=== PATIENT | female | born 1960 | race Caucasian/White ===

== ENCOUNTER 2023-11-02 10:50 | Outpatient (AMB) | payer OTHER, SELFPAY ==
--- NOTE | 2023-11-02 10:55 | A.OFFPC_ITS ---
Vital Signs 11/02/23 11:06 Height 5 ft 1.02 in Weight 242 lb 4 oz BMI 45.7 BP 146/88 H Blood Pressure Location Lt brachial Position Sitting Respiration 16 Pulse 96 Pulse Source Pulse Oximeter Temp 98.2 F Temp Source Oral Pulse Oximetry (%) 95 Oxygen Delivery Method Room Air Intake Visit Reasons: Establish Care Intake Note: New patient visit Allergies No Known Allergies Allergy (Verified 11/02/23 11:00) Medication List - Last Reconciled 11/02/23 by Bety Bettencourt PA-C albuterol sulfate 90 mcg/actuation (Ventolin HFA) 2 puffs inhalation Q4-6H PRN amlodipine 5 mg PO DAILY baclofen 10 mg PO TID bupropion HCl SR 100 mg PO QAM cyanocobalamin (vitamin B-12) 1,000 mcg PO DAILY diclofenac sodium 75 mg PO BID PRN fluoxetine mg PO fluticasone furoate-vilanterol 100-25 mcg/dose (Breo Ellipta) 1 ea inhalation DA PINKY hydrochlorothiazide 50 mg PO DAILY metformin ER 500 mg PO DAILY metoprolol succinate ER 50 mg PO DAILY omeprazole 20 mg PO DAILY oxcarbazepine mg PO simvastatin 10 mg PO BEDTIME HPI Establish Care HPI Details Pt is a 62 y/o female who presents today to establish [facility]. She has a significant past medical history of hypertension, hyperlipidemia, well- controlled type 2 diabetes with microalbuminuria, fatty liver, osteoarthritis of the bilateral knees, hips, and left shoulder, CASSIUS, fatty liver, COPD, continuous cannabis use, nicotine use, B12 and vitamin-D deficiency, anxiety, depression. No records at the time of today's visit. CV: She is seeing cardiology 01/09/24 and her echo is booked for 12/28/23. Her bp today is 146/88. She is on metoprolol 50 mg, hctz 50 mg, and amlodipine 2.5 mg. She states that over the last few weeks she has been getting a little chest pain. She states it comes and goes and seems to be triggered by anxiety. No recent stress tests in the last 10 years per pt ([facility] [place] notes requested). Currently, asymptomatic. She would not be able to walk on a treadmill given her arthritic pains. She does have baseline shortness a breath in it is unchanged but she states that she can feel herself becoming more and more deconditioned and short of breath with less. Her last labs at [facility] did show an elevated BNP of 517. Her labs also showed an elevated LDL of 167 and she was started on simvastatin. She has not yet rechecked her labs. Pulm: She is still on Breo and albuterol prn. Compliant with CPAP. She follows with Dr. Boudreaux and has annual low dose chest cts. Continues to smoke and would like to cut back but is not ready to cut back. Endo: she has diabetes/prediabetes since being on metformin. Tolerates this well. Does not check blood sugars. Psych: She is on fluoxetine, oxcarbazepine, wellbutrin. She follows with a psychiatrist. No SI/HI. Ortho: She went to ortho and states that they won't consider surgery until she quits smoking cigarettes, smoking marijuana, her copd and weight. We tried tramadol for pain but did not tolerate this. She is on diclofenac. She is tearful today because of the pain. She does use baclofen two to 3 times a day as needed but also tries not to take this regularly because it makes her feel too drowsy. [facility] Medical History (Updated 11/02/23 @ 14:16 by Bety Bettencourt PA-C) Smoker Chronic pain of both knees Dyslipidemia HTN (hypertension) Controlled type 2 diabetes mellitus Vitamin A deficiency Vitamin B12 deficiency Urge incontinence of urine Steatosis Severe obesity Prediabetes Palpitations Osteoarthritis of knee Obstructive sleep apnea syndrome Obesity Numbness Microalbuminuria Lumbar pain with radiation down both legs Internal hemorrhoids Hip pain GERD (gastroesophageal reflux disease) Depressive disorder affecting childbirth Chronic obstructive lung disease Cannabis misuse Bilateral cataracts Asthma Arthritis Allergic rhinitis Surgical History (Updated 11/02/23 @ 11:15 by Juana Navarro CMA) History of total hip replacement Questionnaire PHQ-9 Over the last 2 weeks, how often have you been bothered by any of the following problems? 1. Little interest or pleasure in doing things: several days 2. Feeling down, depressed, or hopeless: not at all 3. Trouble falling or staying asleep, or sleeping too much: not at all 4. Feeling tired or having little energy: not at all 5. Poor appetite or overeating: not at all 6. Feeling bad about yourself - or that you are a failure or have let yourself or your family down: several days 7. Trouble concentrating on things, such as reading the newspaper or watching television: not at all 8. Moving or speaking so slowly that other people could have noticed. Or the opposite - being so fidgety or restless that you have been moving around a lot more than usual: not at all [id number] - PHQ-9 Billing: Yes Source: Developed by Drs. Jesus Zurita, Aida Grossman, Carlyle Mendoza and colleagues, with an educational alban from [employer]. STEVENSON-7 AMB Questionnaire STEVENSON-7 Date STEVENSON - 7 assessed: 11/02/23 Feeling nervous, anxious, or on edge: 1 = Several days Not being able to stop or control worryin = Several days Worrying too much about different things: 1 = Several days Trouble relaxin = Several days Being so restless that it is hard to sit still: 1 = Several days Becoming easily annoyed or irritable: 0 = Not at all Feeling afraid as if something awful might happen: 0 = Not at all Total STEVENSON-7 score (0-4 normal; 5-9 mild; 10-14 moderate; 15-21 severe): 5 Source: Developed by Drs. Jesus Zurita, Aida Grossman, Carlyle Mendoza and colleagues, with an educational alban from [employer]. STEVENSON-7 Assessment Billing STEVENSON-7 Assessment Tool: STEVENSON-7 Assessment [id number] Physical exam (Primary Care) Vital Signs: Last Vital Signs Temp 98.2 F 11/02/23 11:06 Pulse 96 11/02/23 11:06 Resp 16 11/02/23 11:06 BP 146/88 H 11/02/23 11:06 Pulse Ox 95 11/02/23 11:06 Oxygen Delivery Method Room Air 11/02/23 11:06 BMI result Body Mass Index 45.7 Office Procedures EKG [id number], Complete Assessment and Plan Assessment & Plan (1) HTN (hypertension): Code(s): I10 - Essential (primary) hypertension Qualifiers: Hypertension type: primary hypertension Qualified Code(s): I10 - Essential (primary) hypertension Plan: We will increase the metoprolol today to 100 mg. Continue amlodipine 5 mg, 10 mg caused swelling, hydrochlorothiazide 50 mg. We will wait for records to make a determination about an DARNELL inhibitor. She does not know why she has not on 1 but also states she thinks she was on it in the past and then taken off. (2) Dyslipidemia: Code(s): E78.5 - Hyperlipidemia, unspecified Plan: Refilled simvastatin today. We will follow up pending test results. Lipids and LFTs ordered. (3) Chest pain: Code(s): R07.9 - Chest pain, unspecified Qualifiers: Chest pain type: unspecified Qualified Code(s): R07.9 - Chest pain, unspecified Plan: EKG today in the office is normal sinus rhythm. No prior study to compare. Again, requested records. Stress test ordered. Warning signs of chest pain that would require emergent medical treatment were discussed. (4) Chronic obstructive lung disease: Code(s): J44.9 - Chronic obstructive pulmonary disease, unspecified Qualifiers: COPD type: unspecified COPD Qualified Code(s): J44.9 - Chronic obstructive pulmonary disease, unspecified Plan: Stable. No current or recent exacerbation (5) Obstructive sleep apnea syndrome: Code(s): G47.33 - Obstructive sleep apnea (adult) (pediatric) Plan: Compliant with CPAP. (6) Severe obesity: Code(s): E66.01 - Morbid (severe) obesity due to excess calories Plan: We will try Mounjaro. Discussed risks and benefits and adverse effects of this medication including nausea, vomiting, pancreatitis, increased risk of thyroid malignancies. (7) Controlled type 2 diabetes mellitus: Code(s): E11.9 - Type 2 diabetes mellitus without complications Qualifiers: Diabetes mellitus intermediate card tender insulin use: without intermediate card tender use Diabetes mellitus complication status: with kidney complications Diabetes mellitus complication detail: with diabetic microalbuminuria Qualified Code(s): E11.29 - Type 2 diabetes mellitus with other diabetic kidney complication; R80.9 - Proteinuria, unspecified Plan: As above. Diabetic labs ordered. We will follow up pending test results. (8) Chronic pain of both knees: Code(s): M25.561 - Pain in right knee; M25.562 - Pain in left knee; G89.29 - Other chronic pain Plan: We will try gabapentin. Discussed risks and benefits and adverse effects of this medication. She will follow up in 1 month to be reassessed. Sooner if ne eded. Patient understands and agrees with this plan. Plan Patient has many social barriers. She did meet today with our nurse to help with transportation. More than 1 hour was spent today in [id number] time with this patient. Orders: Orders TSH reflex Free T4 Today E11.9 - Type 2 diabetes mellitus without complications, E66.01 - Morbid (severe) obesity due to excess calories, E78.5 - Hyperlipidemia, unspecified, F17.200 - Nicotine dependence, unspecified, uncomplicated, G47.33 - Obstructive sleep apnea (adult) (pediatric), G89.29 - Other chronic pain, I10 - Essential (primary) hypertension, J44.9 - Chronic obstructive pulmonary disease, unspecified, M25.561 - Pain in right knee, M25.562 - Pain in left knee, R80.9 - Proteinuria, unspecified Complete Blood Count Auto Diff Today E11.9 - Type 2 diabetes mellitus without complications, E66.01 - Morbid (severe) obesity due to excess calories, E78.5 - Hyperlipidemia, unspecified, F17.200 - Nicotine dependence, unspecified, uncomplicated, G47.33 - Obstructive sleep apnea (adult) (pediatric), G89.29 - Other chronic pain, I10 - Essential (primary) hypertension, J44.9 - Chronic obstructive pulmonary disease, unspecified, M25.561 - Pain in right knee, M25.562 - Pain in left knee, R80.9 - Proteinuria, unspecified Comprehensive Met. Panel Today E11.9 - Type 2 diabetes mellitus without complications, E66.01 - Morbid (severe) obesity due to excess calories, E78.5 - Hyperlipidemia, unspecified, F17.200 - Nicotine dependence, unspecified, uncomplicated, G47.33 - Obstructive sleep apnea (adult) (pediatric), G89.29 - Other chronic pain, I10 - Essential (primary) hypertension, J44.9 - Chronic obstructive pulmonary disease, unspecified, M25.561 - Pain in right knee, M25.562 - Pain in left knee, R80.9 - Proteinuria, unspecified Microalbumin, Random (w Creat) Today E11.9 - Type 2 diabetes mellitus without complications, E66.01 - Morbid (severe) obesity due to excess calories, R80.9 - Proteinuria, unspecified AMB EKG-In Office Today R07.9 - Chest pain, unspecified Hemoglobin A1c Today E11.9 - Type 2 diabetes mellitus without complications, E66.01 - Morbid (severe) obesity due to excess calories, E78.5 - Hyperlipidemia, unspecified, F17.200 - Nicotine dependence, unspecified, uncomplicated, G47.33 - Obstructive sleep apnea (adult) (pediatric), G89.29 - Other chronic pain, I10 - Essential (primary) hypertension, J44.9 - Chronic obstructive pulmonary disease, unspecified, M25.561 - Pain in right knee, M25.562 - Pain in left knee, R80.9 - Proteinuria, unspecified NM cardiolite stress test Today E11.29 - Type 2 diabetes mellitus with other diabetic kidney complication, F17.200 - Nicotine dependence, unspecified, uncomplicated, I10 - Essential (primary) hypertension, R07.9 - Chest pain, unspecified, R80.9 - Proteinuria, unspecified Medications: New baclofen 10 mg PO TID 30 days 90 tabs 6RF diclofenac sodium 75 mg PO BID 30 days PRN 60 tabs 1RF arthritis metformin ER 500 mg PO DAILY 90 tabs 3RF simvastatin 10 mg PO BEDTIME 90 tabs 3RF metoprolol succinate ER 100 mg PO DAILY 90 days 90 ea 3RF amlodipine 5 mg PO DAILY 90 tabs 3RF hydrochlorothiazide 50 mg PO DAILY 90 tabs 3RF omeprazole 20 mg PO DAILY 90 caps 3RF gabapentin 300 mg PO BID 60 caps 1RF tirzepatide (Mounjaro) 2.5 mg (0.5 mL) subcut QWEEK 4 weeks 2 mL 0RF Coding Level of Care Code Est Pt Level 5 (24132) Complex EM visit Add On G2211 Diagnoses Primary hypertension I10 Hypertension type: primary hypertension Dyslipidemia E78.5 Chest pain, unspecified type R07.9 Chest pain type: unspecified Chronic obstructive pulmonary disease, unspecified COPD type J44.9 COPD type: unspecified COPD Obstructive sleep apnea syndrome G47.33 Severe obesity E66.01 Controlled type 2 diabetes mellitus with microalbuminuria, without long-term current use of insulin E11.29; R80.9 Diabetes mellitus intermediate card tender insulin use: without intermediate card tender use Diabetes mellitus complication status: with kidney complications Diabetes mellitus complication detail: with diabetic microalbuminuria Chronic pain of both knees M25.561; M25.562; G89.29 CPT Codes EKG - CPT: [id number]-[id number], Complete ([id number]) Additional Codes STEVENSON-7 Assessment Billing - STEVENSON-7 Assessment Tool: STEVENSON-7 Assessment [id number] ([id number])
[2023-11-02 11:06] VITALS: BP 146/88; PULSE 96; RESP 16; TEMP 36.8; O2SAT 95; BMI 45.7
== END 2023-11-02 12:31 | disposition home or self-care (01) ==
PROVIDERS: PCP Physician Assistant; Visit Provider Physician Assistant
DX: J44.9 Chronic obstructive pulmonary disease, unspecified (principal); E66.01 Morbid (severe) obesity due to excess calories; E11.29 Type 2 diabetes mellitus with other diabetic kidney complication; Z68.42 Body mass index [BMI] 45.0-49.9, adult; R07.9 Chest pain, unspecified; I10 Essential (primary) hypertension; E78.5 Hyperlipidemia, unspecified; R80.9 Proteinuria, unspecified; G47.33 Obstructive sleep apnea (adult) (pediatric); M25.561 Pain in right knee; M25.562 Pain in left knee; G89.29 Other chronic pain
CPT/HCPCS: 93000; 99215; G2211

== ENCOUNTER 2023-11-29 09:21 | Outpatient (AMB) | payer OTHER, SELFPAY ==
--- NOTE | 2023-11-29 09:26 | MHC.PC.OV ---
Vital Signs 11/29/23 09:32 Height 5 ft 1.02 in Weight 253 lb 8 oz BMI 47.9 BP 132/64 Blood Pressure Location Lt brachial Position Sitting Respiration 20 Pulse 59 Pulse Source Pulse Oximeter Temp 98.2 F Temp Source Oral Pulse Oximetry (%) 92 Oxygen Delivery Method Room Air Intake Visit Reasons: follow up issue with legs swollen Intake Note: Follow up, swelling of legs. Small Products I Assembler Required: No Allergies No Known Allergies Allergy (Verified 11/29/23 09:27) Medication List - Last Reconciled 11/29/23 by Bety Bettencourt PA-C albuterol sulfate 90 mcg/actuation (Ventolin HFA) 2 puffs inhalation Q4-6H PRN amlodipine 5 mg PO DAILY baclofen 10 mg PO TID 30 days bupropion HCl SR 100 mg PO QAM commode (bedside commode) As directed cyanocobalamin (vitamin B-12) 1,000 mcg PO DAILY [diabetic shoes Use diabetic shoes daily as directed.] diclofenac sodium 75 mg PO BID PRN fluoxetine mg PO fluticasone furoate-vilanterol 100-25 mcg/dose (Breo Ellipta) 1 ea inhalation DAILY furosemide 20 mg PO DAILY gabapentin 300 mg PO BID hydrochlorothiazide 50 mg PO DAILY metformin ER 500 mg PO DAILY metoprolol succinate ER 100 mg PO DAILY 90 days omeprazole 20 mg PO DAILY oxcarbazepine mg PO simvastatin 10 mg PO BEDTIME tirzepatide (Mounjaro) 2.5 mg (0.5 mL) subcut QWEEK 4 weeks walker 1 ea as directed daily; Tobacco use date assessed: 11/29/23 Dental Screening Dental Screen Date: 11/29/23 Did you have a dental visit in the last 12 months?: No Did you have a dental problem in the last 6 months where you did not have access to dental care?: No Was dental information given to patient?: Patient has dentist HPI follow up issue with legs swollen HPI Details Pt is a 62 y/o female who presents today to follow up. -She was supposed to be seen after her labs but she says that she forgot to get this done. She called last week because her legs were swelling again by the end of the day and I started her on Lasix. She states that did help a bit but the swelling is still present. She states that her right foot is red. She states that her feet are ?bad ?and she usually refuses to have them looked at because she likes to treat them herself but her right foot is a bit uncomfortable. She does get leg pain with walking the also wonders if it is related to her knee arthritis. She states her calves do get sore with this. It gets better with rest. Her right foot has been persistently painful recently. She does not know when it started to get red but she thinks a few days ago. No fevers or chills. No trauma. No open sores but states that she knows her feet are dry and cracked. CV: She is seeing cardiology 01/09/24 and her echo is booked for 12/28/23. Her nuclear stress test is booked for 12/25. Her bp today is 132/64. She is on metoprolol 50 mg, lasix 20 mg, and amlodipine 5 mg. She does have baseline shortness a breath in it is unchanged but she states that she can feel herself becoming more and more deconditioned and short of breath with less. Her last labs at [facility] did show an elevated BNP of 517. Her labs also showed an elevated LDL of 167 and she was started on simvastatin. She has not yet rechecked her labs. She does report that Pulm: She is still on Breo and albuterol prn. Compliant with CPAP. She follows with Dr. Boudreaux and has annual low dose chest cts. Continues to smoke and would like to cut back but is not ready to cut back. Endo: she has diabetes/prediabetes since being on metformin. Tolerates this well. Does not check blood sugars. She never picked up the Mounjaro. Psych: She is on fluoxetine, oxcarbazepine, wellbutrin. She follows with a psychiatrist. No SI/HI. Ortho: She went to ortho and states that they won't consider surgery until she quits smoking cigarettes, smoking marijuana, her copd and weight. We tried tramadol for pain but did not tolerate this. She is on diclofenac. She is tearful today because of the pain. She does use baclofen two to 3 times a day as needed but also tries not to take this regularly because it makes her feel too drowsy. I started her on gabapentin at the last visit and she finds this helpful. [facility] Medical History (Updated 11/29/23 @ 13:32 by Bety Bettencourt PA-C) Increased urinary frequency Gait instability Smoker Chronic pain of both knees Dyslipidemia HTN (hypertension) Controlled type 2 diabetes mellitus Vitamin A deficiency Vitamin B12 deficiency Urge incontinence of urine Steatosis Severe obesity Prediabetes Palpitations Osteoarthritis of knee Obstructive sleep apnea syndrome Obesity Numbness Microalbuminuria Lumbar pain with radiation down both legs Internal hemorrhoids Hip pain GERD (gastroesophageal reflux disease) Depressive disorder affecting childbirth Chronic obstructive lung disease Cannabis misuse Bilateral cataracts Asthma Arthritis Allergic rhinitis Surgical History (Updated 11/02/23 @ 11:15 by Juana Navarro CMA) History of total hip replacement Social History (Updated 11/29/23 @ 09:31 by Juana Navarro CMA) Housing: Apartment Patient Tobacco Use Status: Former Tobacco user Cigarette Packs Per Day: 6 Years Smoked: 46 e-Cigarette/Vaping Use: Never Used Second Hand Smoke Exposure: No Substance Use Type: Marijuana service: No Current occupational status: disabled Cognitive needs: No Hearing needs: No Vision needs: No Questionnaire PHQ-9 Over the last 2 weeks, how often have you been bothered by any of the following problems? 1. Little interest or pleasure in doing things: several days 2. Feeling down, depressed, or hopeless: several days 3. Trouble falling or staying asleep, or sleeping too much: not at all 4. Feeling tired or having little energy: several days 5. Poor appetite or overeating: several days 6. Feeling bad about yourself - or that you are a failure or have let yourself or your family down: not at all 7. Trouble concentrating on things, such as reading the newspaper or watching television: not at all 8. Moving or speaking so slowly that other people could have noticed. Or the opposite - being so fidgety or restless that you have been moving around a lot more than usual: not at all 9. Thoughts that you would be better off or of hurting yourself in some way: not at all Total score: 4 Depression Screening Interpretation: Positive Depression Screening Done: Yes 39527 - PHQ-9 Billing: Yes Source: Developed by Drs. Jesus Zurita, Aida Grossman, Carlyle Mendoza and colleagues, with an educational alban from [employer]. Thrive Questionnaire Date Thrive assessed: 11/29/23 I am a: Patient What is your living situation today?: I have a steady place to live Within the past 12 months, did the food you bought not last and you didn't have the money to get more?: Sometimes True Within the past 12 months, did you worry whether your food would run out before you got money to buy more?: Sometimes True Do you have trouble paying for medicines?: No Do you have trouble getting transportation to medical appointments?: No Do you have trouble paying your heating and electricity bill?: No Do you have trouble taking care of your child, family member or friend?: No Do you have trouble with day-to-day activities such as bathing, preparing meals, shopping, managing finances, etc.?: Yes Are you currently unemployed and looking for a job?: No Are you interested in more education?: No Please select the resources that you would like help with: Daily support Currently or been in a relationship where the following occur: No concerns reported THRIVE Score: 2 AUDIT C Alcohol Use Questionnaire (AUDIT-C) 1. How often do you have a drink containing alcohol?: Never 3. How often do you have six or more drinks on one occasion?: Never Total Score: 0 STEVENSON-7 AMB Questionnaire STEVENSON-7 Date STEVENSON - 7 assessed: 11/02/23 Feeling nervous, anxious, or on edge: 1 = Several days Not being able to stop or control worryin = Not at all Worrying too much about different things: 1 = Several days Trouble relaxin = Not at all Being so restless that it is hard to sit still: 0 = Not at all Becoming easily annoyed or irritable: 0 = Not at all Feeling afraid as if something awful might happen: 0 = Not at all Total STEVENSON-7 score (0-4 normal; 5-9 mild; 10-14 moderate; 15-21 severe): 2 Source: Developed by Drs. Jesus Zurita, Aida Grossman, Carlyle Mendoza and colleagues, with an educational alban from [employer]. STEVENSON-7 Assessment Billing STEVENSON-7 Assessment Tool: STEVENSON-7 Assessment 34402 ACT Questionnaire In the past 4 weeks, how much of the time did your asthma keep you from getting as much done at work, school or at home?: None of the time During the past 4 weeks, how often did your asthma symptoms wake you up at night or earlier than usual in the morning?: Not at all During the past 4 weeks, how often have you had to use your rescue inhaler or nebulizer medication?: Not at all How would you rate your asthma control during the past 4 weeks?: Well controlled ACT Interpretation: Negative Score: 19 Physical exam (Primary Care) Vital Signs: Last Vital Signs Temp 98.2 F 11/29/23 09:32 Pulse 59 11/29/23 09:32 Resp 20 11/29/23 09:32 BP 132/64 11/29/23 09:32 Pulse Ox 92 11/29/23 09:32 Oxygen Delivery Method Room Air 11/29/23 09:32 BMI result Body Mass Index 47.9 Tobacco/Smoking Status: Tobacco use Status Tobacco use date assessed 11/29/23 11/29/23 09:28 Patient Tobacco Use Status Former Tobacco user 11/29/23 09:38 e-Cigarette/Vaping Use Never Used 11/29/23 09:38 PHQ-9: PHQ-9 Score PHQ-9: Total score 4 11/29/23 09:56 Depression Screening Interpretation: Positive Thrive Assessment: Date of Thrive Assessment Date Thrive assessed 11/29/23 11/29/23 09:56 Currently or been in a relationship where the following occur: No concerns reported Const Orientation/consciousness: patient oriented x3 HENMT Ears: hearing grossly normal bilaterally Neck Thyroid: Thyroid normal Lymphatic: no lymphadenopathy noted Resp Auscultation: clear to auscultation bilaterally Cardio Rate: regular rate Rhythm: regular rhythm Heart sounds: S1 normal heart sound present and S2 normal heart sound present Skin General skin exam: no rashes or lesions noted Neuro General: patient oriented x3, gait normal and no focal motor deficits Extrem Other: 2+ pitting edema noted of the bilateral lower legs. DP pulses 1+ bilaterally. The right foot is erythematous and slightly tender to palpation. It does not extend past the ankle. The skin between the toenails is cracked, white and flaky. There is flaky skin noted throughout the bottom of both feet. Thickened, yellowish toenails noted. Monofilament sensation intact. Calf nontender bilaterally. Assessment and Plan Assessment & Plan (1) Lower leg edema: Code(s): R60.0 - Localized edema Plan: I will increase the Lasix. Follow up in 1 week. (2) Chronic obstructive lung disease: Code(s): J44.9 - Chronic obstructive pulmonary disease, unspecified Qualifiers: COPD type: unspecified COPD Qualified Code(s): J44.9 - Chronic obstructive pulmonary disease, unspecified Plan: Stable. (3) Controlled type 2 diabetes mellitus: Code(s): E11.9 - Type 2 diabetes mellitus without complications Qualifiers: Diabetes mellitus skilled nursing insulin use: without intermediate card tender use Diabetes mellitus complication status: with kidney complications Diabetes mellitus complication detail: with diabetic microalbuminuria Qualified Code(s): E11.29 - Type 2 diabetes mellitus with other diabetic kidney complication; R80.9 - Proteinuria, unspecified Plan: Labs have been ordered. We will follow up pending test results. (4) HTN (hypertension): Code(s): I10 - Essential (primary) hypertension Qualifiers: Hypertension type: primary hypertension Qualified Code(s): I10 - Essential (primary) hypertension Plan: Continue current regimen. (5) Smoker: Code(s): F17.200 - Nicotine dependence, unspecified, uncomplicated Plan: Encouraged smoking cessation. (6) Claudication: Code(s): I73.9 - Peripheral vascular disease, unspecified Plan: ? Claudication. Referral to vascular (7) Cellulitis of right foot: Code(s): L03.115 - Cellulitis of right lower limb Plan: I will start her on Keflex. Advised to elevate the foot. Warning signs of an infection that would require emergent medical treatment were discussed. I discussed imaging with the patient but she refuses due to difficulty with transportation. (8) Tinea pedis of both feet: Code(s): B35.3 - Tinea pedis Plan: I offered referral to Podiatry as well for her feet and she declines. We will treat with lotrim cream. Orders: Referrals Vascular Surgery Referral E11.29 - Type 2 diabetes mellitus with other diabetic kidney complication, F17.200 - Nicotine dependence, unspecified, uncomplicated, I10 - Essential (primary) hypertension, I73.9 - Peripheral vascular disease, unspecified, J44.9 - Chronic obstructive pulmonary disease, unspecified, R60.0 - Localized edema, R80.9 - Proteinuria, unspecified Medications: New cephalexin 500 mg PO QID 40 caps 0RF clotrimazole 1% (Lotrimin AF (clotrimazole)) 1 appl topical BID 4 weeks 45 grams 3RF furosemide 20 mg PO BID 60 tabs 3RF Discontinued furosemide Discontinued Reason: Duplicate 20 mg PO DAILY 30 tabs 0RF hydrochlorothiazide Discontinued Reason: Duplicate 50 mg PO DAILY 90 tabs 3RF Coding Level of Care Code Est Pt Level 4 (48457) Complex EM visit Add On G2211 Diagnoses Lower leg edema R60.0 Chronic obstructive pulmonary disease, unspecified COPD type J44.9 COPD type: unspecified COPD Controlled type 2 diabetes mellitus with microalbuminuria, without long-term current use of insulin E11.29; R80.9 Diabetes mellitus skilled nursing insulin use: without skilled nursing use Diabetes mellitus complication status: with kidney complications Diabetes mellitus complication detail: with diabetic microalbuminuria Primary hypertension I10 Hypertension type: primary hypertension Smoker F17.200 Claudication I73.9 Cellulitis of right foot L03.115 Tinea pedis of both feet B35.3 Additional Codes STEVNESON-7 Assessment Billing - STEVENSON-7 Assessment Tool: STEVENSON-7 Assessment [id number] ([id number])
[2023-11-29 09:32] VITALS: BP 132/64; PULSE 59; RESP 20; TEMP 36.8; O2SAT 92; BMI 47.9
== END 2023-11-29 10:25 | disposition home or self-care (01) ==
PROVIDERS: PCP Physician Assistant; Visit Provider Physician Assistant
DX: J44.9 Chronic obstructive pulmonary disease, unspecified (principal); E11.29 Type 2 diabetes mellitus with other diabetic kidney complication; I73.9 Peripheral vascular disease, unspecified; R60.0 Localized edema; R80.9 Proteinuria, unspecified; I10 Essential (primary) hypertension; F17.200 Nicotine dependence, unspecified, uncomplicated; L03.115 Cellulitis of right lower limb; B35.3 Tinea pedis
CPT/HCPCS: 99214; G2211

== ENCOUNTER 2023-11-29 10:35 | Outpatient (REF) | payer OTHER, SELFPAY ==
[2023-11-29 14:13] LABS: MANUAL DIFF FLAG NO
[2023-11-29 14:17] LABS: Basophils Percent Auto 0.4 % (0-2); Eosinophils Absolute Auto 0.2 X10*3/uL (0.0-0.4); Eosinophils Percent Auto 1.6 % (0-4); Hematocrit 37.8 % (37.0-47.0); Hemoglobin 11.8 g/dl (12.0-16.0); Imm Gran Abs Auto 0.04 X10*3/uL (0.00-0.03); Imm Gran Pct Auto 0.4 % (0.0-0.4); Lymphocytes Absolute Auto 2.3 X10*3/uL (1.2-4.9); Lymphocytes Percent Auto 22.2 % (20-40); Mean Corpuscular HGB Conc 31.2 g/dl (31.0-35.0); Mean Corpuscular Hemoglobin 27.5 pg (27.0-33.0); Mean Corpuscular Volume 88.1 fL (80.0-98.0); Mean Platelet Volume 10.3 fL (9.4-12.3); Monocytes Absolute Auto 0.6 X10*3/uL (0.1-1.2); Monocytes Percent Auto 5.5 % (2-11); Neutrophils Absolute Auto 7.1 x10*3/uL (2.0-8.3); Neutrophils Percent Auto 69.9 % (45-73); Platelet Count 342 X10*3/uL (160-400); Red Blood Count 4.29 X10*6/uL (4.20-5.50); Red Cell Distribution Width 14.8 % (11.0-16.0); White Blood Count 10.1 X10*3/uL (4.8-10.8)
[2023-11-29 14:24] LABS: Estimated Average Glucose 111 mg/dL; Hemoglobin A1c % 5.5 % (<6.0)
[2023-11-29 14:35] LABS: Alanine Aminotransferase 10 U/L (0-31); Albumin Level 3.9 g/dL (3.5-5.0); Alkaline Phosphatase 116 U/L (39-117); Anion Gap 13 (12-20); Aspartate Amino Transferase 12 U/L (5-31); Bilirubin Total 0.3 mg/dL (0.0-1.0); Blood Urea Nitrogen 29 mg/dL (9-16); Calcium 9.5 mg/dL (8.4-10.2); Carbon Dioxide 27 mmol/L (22-29); Chloride 107 mmol/L (96-108); Estimated Glomerular Filt Rate 48; Glucose Random 94 mg/dL (60-115); Potassium 5.1 mmol/L (3.3-5.1); Sodium 142 mmol/L (135-145); Total Protein 7.3 g/dL (6.5-8.0)
[2023-11-29 14:51] LABS: Creatinine Urine 194.32 mg/dL
[2023-11-29 15:02] LABS: Microalbum/Creatinine Ratio Ur 345.8 ug/mg cr (<30)
== END 2023-11-29 10:36 | disposition home or self-care (01) ==
LOC: HO.WFDLDS 10:35
PROVIDERS: Visit Provider Physician Assistant
DX: E11.9 Type 2 diabetes mellitus without complications (principal); I10 Essential (primary) hypertension; E78.5 Hyperlipidemia, unspecified; M25.561 Pain in right knee; M25.562 Pain in left knee; G89.29 Other chronic pain; F17.200 Nicotine dependence, unspecified, uncomplicated; J44.9 Chronic obstructive pulmonary disease, unspecified; R80.9 Proteinuria, unspecified; G47.33 Obstructive sleep apnea (adult) (pediatric); E66.01 Morbid (severe) obesity due to excess calories
CPT/HCPCS: 36415; 80053; 82043; 82570; 83036; 84443; 85025

== ENCOUNTER 2023-12-13 11:33 | Outpatient (AMB) | payer OTHER, SELFPAY ==
--- NOTE | 2023-12-13 11:28 | MHC.PC.OV ---
Vital Signs 12/13/23 11:38 Height 5 ft 1 in Weight 252 lb 4 oz BMI 47.7 BP 132/68 Blood Pressure Location Rt brachial Position Sitting Respiration 16 Pulse 62 Pulse Source Pulse Oximeter Pulse Oximetry (%) 94 Oxygen Delivery Method Room Air Intake Visit Reasons: bp Allergies No Known Allergies Allergy (Verified 11/29/23 09:27) Medication List - Last Reconciled 12/13/23 by Bety Bettencourt PA-C albuterol sulfate 90 mcg/actuation (Ventolin HFA) 2 puffs inhalation Q4-6H PRN amlodipine 5 mg PO DAILY baclofen 10 mg PO TID 30 days bupropion HCl SR 100 mg PO QAM clotrimazole 1% (Lotrimin AF (clotrimazole)) 1 appl topical BID 4 weeks commode (bedside commode) As directed cyanocobalamin (vitamin B-12) 1,000 mcg PO DAILY [diabetic shoes Use diabetic shoes daily as directed.] fluoxetine mg PO fluticasone furoate-vilanterol 100-25 mcg/dose (Breo Ellipta) 1 ea inhalation DAILY furosemide 20 mg PO BID furosemide 20 mg PO BID gabapentin 300 mg PO BID 90 days metformin ER 500 mg PO DAILY metoprolol succinate ER 100 mg PO DAILY 90 days omeprazole 20 mg PO DAILY oxcarbazepine mg PO simvastatin 10 mg PO BEDTIME tirzepatide (Mounjaro) 2.5 mg (0.5 mL) subcut QWEEK 4 weeks walker 1 ea as directed daily; Tobacco use date assessed: 11/29/23 Dental Screening Dental Screen Date: 11/29/23 HPI bp HPI Details Pt is a 62 y/o female who presents today to follow up. -her cellulitis has resolved. She completed the antibiotics as you states her foot is no longer red, hot or painful. We did increase her dosage of the Lasix at the last visits she states that the 40 mg has been helpful. Her legs are much less swollen by the end of the day. CV: She is seeing cardiology 01/09/24 and her echo is booked for 12/28/23. Her nuclear stress test is booked for 12/25. Her bp today is 132/64. She is on metoprolol 50 mg, lasix 40 mg, and amlodipine 5 mg. She does have baseline shortness a breath in it is unchanged but she states that she can feel herself becoming more and more deconditioned and short of breath with less. Her last labs at [facility] did show an elevated BNP of 517. Her labs also showed an elevated LDL of 167 and she was started on simvastatin. She has not yet rechecked her labs. Pulm: She is still on Breo and albuterol prn. She has been using albuterol a few times a day with the increased humidity and heat recently. She is able to speak in full sentences today but the wheezing is audible from across the room. Compliant with CPAP. She follows with Dr. Boudreaux and has annual low dose chest cts. Continues to smoke and would like to cut back but is not ready to cut back. Endo: she a history of type 2 diabetes well-controlled with microalbuminuria. She is currently on metformin. Last A1c was 5.5. She has been very inactive due to her arthritis in her knees, chronic pain and COPD and has continued to gain weight. She states that she never was told that the Mounjaro was ready to be picked up. Does not check her blood sugars. Psych: She is on fluoxetine, oxcarbazepine, wellbutrin. She follows with a psychiatrist. No SI/HI. Ortho: She went to ortho and states that they won't consider surgery until she quits smoking cigarettes, smoking marijuana, her copd and weight. We tried tramadol for pain but did not tolerate this. She is on diclofenac however, recent labs showed decreased kidney function.. She is tearful today because of the pain. She does use baclofen two to 3 times a day as needed but also tries not to take this regularly because it makes her feel too drowsy. I started her on gabapentin at the last visit and she finds this helpful but only minimally. Vascular: She does have an upcoming appointment with vascular surgery regarding possible claudication. She can only walk a short distance prior to her legs being painful. She did have ultrasound to rule out DVTs. [facility] Medical History (Updated 12/13/23 @ 11:52 by Bety Bettencourt PA-C) CKD (chronic kidney disease) stage 3, GFR 30-59 ml/min Increased urinary frequency Gait instability Smoker Chronic pain of both knees Dyslipidemia HTN (hypertension) Controlled type 2 diabetes mellitus Vitamin A deficiency Vitamin B12 deficiency Urge incontinence of urine Steatosis Severe obesity Prediabetes Palpitations Osteoarthritis of knee Obstructive sleep apnea syndrome Obesity Numbness Microalbuminuria Lumbar pain with radiation down both legs Internal hemorrhoids Hip pain GERD (gastroesophageal reflux disease) Depressive disorder affecting childbirth Chronic obstructive lung disease Cannabis misuse Bilateral cataracts Asthma Arthritis Allergic rhinitis Surgical History (Updated 11/02/23 @ 11:15 by Juana Navarro CMA) History of total hip replacement Social History (Updated 11/29/23 @ 09:31 by Juana Navarro CMA) Housing: Apartment Patient Tobacco Use Status: Former Tobacco user Cigarette Packs Per Day: 6 Years Smoked: 46 e-Cigarette/Vaping Use: Never Used Second Hand Smoke Exposure: No Substance Use Type: Marijuana service: No Current occupational status: disabled Cognitive needs: No Hearing needs: No Vision needs: No Questionnaire Thrive Questionnaire Date Thrive assessed: 11/29/23 STEVENSON-7 AMB Questionnaire STEVENSON-7 Date STEVENSON - 7 assessed: 11/02/23 Source: Developed by Drs. Jesus Zurita, Aida Grossman, Carlyle Mendoza and colleagues, with an educational alban from [employer]. Physical exam (Primary Care) BMI Assessment/Plan discussion: High (Mounjaro) BMI High, discussed plan: lifestyle, weight reduction and dietary Tobacco/Smoking Status: Tobacco use Status Tobacco use date assessed 11/29/23 12/13/23 11:29 Patient Tobacco Use Status Former Tobacco user 12/13/23 11:29 e-Cigarette/Vaping Use Never Used 12/13/23 11:29 Tobacco cessation counseling provided: Yes Items discussed: Other (Offered medication but declines) Relapse Prevention: discussed the importance of a supportive environment, discussed negative mood or depression after quitting and discussed dietary, exercise and/or lifestyle changes CPT code: 82525 - 4-10 Minutes Thrive Assessment: Date of Thrive Assessment Date Thrive assessed 11/29/23 12/13/23 11:29 Const Orientation/consciousness: patient oriented x3 HENMT Ears: hearing grossly normal bilaterally Neck Thyroid: Thyroid normal Lymphatic: no lymphadenopathy noted Resp Other: Inspiratory and expiratory wheezing noted throughout. Cardio Rate: regular rate Rhythm: regular rhythm Heart sounds: S1 normal heart sound present and S2 normal heart sound present GI Inspection: Yes normal to inspection Palpation (GI): Soft to palpation and Other GI palpation findings present (nontender, no cva tenderness) Auscultation: normoactive bowel sounds Rectal Exam - Female: deferred Skin General skin exam: no rashes or lesions noted Neuro General: patient oriented x3, gait normal and no focal motor deficits Assessment and Plan Assessment & Plan (1) Chronic obstructive lung disease: Code(s): J44.9 - Chronic obstructive pulmonary disease, unspecified Qualifiers: COPD type: COPD with acute exacerbation Qualified Code(s): J44.1 - Chronic obstructive pulmonary disease with (acute) exacerbation Plan: Currently exacerbated. We will start on a prednisone taper. Has an appointment with pulmonology next week. She will follow up sooner if anything worsens or changes. Warning signs of a COPD exacerbation that would require emergent medical treatment were discussed. Strongly encouraged smoking cessation. We spent extensive time discussing the need for her to do this. (2) Chronic pain of both knees: Code(s): M25.561 - Pain in right knee; M25.562 - Pain in left knee; G89.29 - Other chronic pain Plan: Advised to discontinue the diclofenac due to the decreased kidney function. We will start her on OxyContin 10 mg b.i.d.. She has currently not a candidate for surgery. We did discuss the risks and adverse effects associated with pain medication. We discussed that this is addictive and can be sedating. Advised to avoid drinking and/or driving while taking this medication. She does not drive. She does walk with assistive devices. (3) HTN (hypertension): Code(s): I10 - Essential (primary) hypertension Qualifiers: Hypertension type: primary hypertension Qualified Code(s): I10 - Essential (primary) hypertension Plan: Continue current regimen (4) Controlled type 2 diabetes mellitus: Code(s): E11.9 - Type 2 diabetes mellitus without complications Qualifiers: Diabetes mellitus terminologist insulin use: without terminologist use Diabetes mellitus complication status: with kidney complications Diabetes mellitus complication detail: with diabetic microalbuminuria Qualified Code(s): E11.29 - Type 2 diabetes mellitus with other diabetic kidney complication; R80.9 - Proteinuria, unspecified Plan: Would like her to start a GLP 1 given the kidney function and discuss the benefits for weight loss. We discussed risks and benefits and adverse effects of this medication. She will let me know if there is any issues picking this up. (5) Dyslipidemia: Code(s): E78.5 - Hyperlipidemia, unspecified Plan: Continue simvastatin. Check lipids. (6) CKD (chronic kidney disease) stage 3, GFR 30-59 ml/min: Code(s): N18.30 - Chronic kidney disease, stage 3 unspecified Plan: We will recheck in 1 month. Avoid NSAIDs. (7) Microalbuminuria: Code(s): R80.9 - Proteinuria, unspecified Plan: Discussed starting an DARNELL inhibitor or an Arb at the next visit. Orders: Orders Basic Metabolic Panel Today N18.30 - Chronic kidney disease, stage 3 unspecified Lipid Panel Today E78.5 - Hyperlipidemia, unspecified Medications: New prednisone take 3 tab po x 3 days, take 2 tab po x 3 days, take 1 tab po x 3 days; 18 tabs 0RF oxycodone ER (OxyContin) Partial Fill upon patient request. 10 mg PO Q12H 28 days 56 tabs 0RF Refilled furosemide 20 mg PO BID 60 tabs 3RF tirzepatide (Mounjaro) 2.5 mg (0.5 mL) subcut QWEEK 4 weeks 2 mL 0RF Coding Level of Care Code Est Pt Level 4 (89081) Complex EM visit Add On G2211 Diagnoses Chronic obstructive pulmonary disease with acute exacerbation J44.1 COPD type: COPD with acute exacerbation Chronic pain of both knees M25.561; M25.562; G89.29 Primary hypertension I10 Hypertension type: primary hypertension Controlled type 2 diabetes mellitus with microalbuminuria, without long-term current use of insulin E11.29; R80.9 Diabetes mellitus fci insulin use: without terminologist use Diabetes mellitus complication status: with kidney complications Diabetes mellitus complication detail: with diabetic microalbuminuria Dyslipidemia E78.5 CKD (chronic kidney disease) stage 3, GFR 30-59 ml/min N18.30 Microalbuminuria R80.9 Additional Codes Vital Signs *Quality* - CPT code: 58400 - 4-10 Minutes ([id number])
[2023-12-13 11:38] VITALS: BP 132/68; PULSE 62; RESP 16; O2SAT 94; BMI 47.7
== END 2023-12-13 11:57 | disposition home or self-care (01) ==
PROVIDERS: PCP Physician Assistant; Visit Provider Physician Assistant
DX: J44.1 Chronic obstructive pulmonary disease with (acute) exacerbation (principal); M25.561 Pain in right knee; M25.562 Pain in left knee; G89.29 Other chronic pain; I10 Essential (primary) hypertension; E11.29 Type 2 diabetes mellitus with other diabetic kidney complication; R80.9 Proteinuria, unspecified; E78.5 Hyperlipidemia, unspecified; N18.30 Chronic kidney disease, stage 3 unspecified
CPT/HCPCS: 99214; 99406; G2211

== ENCOUNTER 2024-01-17 10:46 | Outpatient (AMB) | payer OTHER, SELFPAY ==
--- NOTE | 2024-01-17 10:48 | MHC.PC.OV ---
Vital Signs 01/17/24 10:56 Height 5 ft 1 in Weight 253 lb 8 oz BMI 47.9 BP 138/72 Blood Pressure Location Lt brachial Position Sitting Respiration 20 Pulse 59 Pulse Source Pulse Oximeter Pulse Oximetry (%) 94 Oxygen Delivery Method Room Air Intake Visit Reasons: med f/u Intake Note: Medication follow up Allergies No Known Allergies Allergy (Verified 01/17/24 10:52) Medication List - Last Reconciled 01/17/24 by Bety Bettencourt PA-C albuterol sulfate 90 mcg/actuation (Ventolin HFA) 2 puffs inhalation Q4-6H PRN amlodipine 5 mg PO DAILY baclofen 10 mg PO TID 30 days bupropion HCl SR 100 mg PO QAM clotrimazole 1% (Lotrimin AF (clotrimazole)) 1 appl topical BID 4 weeks commode (bedside commode) As directed cyanocobalamin (vitamin B-12) 1,000 mcg PO DAILY [diabetic shoes Use diabetic shoes daily as directed.] dulaglutide (Trulicity) 0.75 mg (0.5 mL) subcut QWEEK fluoxetine mg PO fluticasone furoate-vilanterol 100-25 mcg/dose (Breo Ellipta) 1 ea inhalation DAILY furosemide 20 mg PO BID gabapentin 300 mg PO BID 90 days metformin ER 500 mg PO DAILY metoprolol succinate ER 100 mg PO DAILY 90 days miscellaneous medical supply Use daily As directed (walker with wheels and seat) miscellaneous medical supply One shoe horn to use daily As directed miscellaneous medical supply as directed; 1 gripper, use daily as needed to crab picker objects morphine ER 10 mg PO Q12H 28 days omeprazole 20 mg PO DAILY oxcarbazepine mg PO prednisone take 1 tab po x 3 days (as per end of taper) simvastatin 10 mg PO BEDTIME walker 1 ea as directed daily; Tobacco use date assessed: 11/29/23 Dental Screening Dental Screen Date: 11/29/23 HPI med f/u HPI Details Pt is a 62 y/o female who presents today to follow up. CV: She saw cardiology 01/09/24 and states that no medication changes were made 8 but told that she needed to have her stress test. She had her stress test booked for 12/25 but canceled it and states that she still needs to reschedule it. She does not remember why she was unable to make that day. She did have her echo which was overall WNL and unchanged from last year. Her bp today is 138/72. She is on metoprolol 50 mg, lasix 40 mg, and amlodipine 5 mg. She does have baseline shortness a breath in it is unchanged but she states that she can feel herself becoming more and more deconditioned and short of breath with less. Pulm: She is still on Breo and albuterol prn. Compliant with CPAP. She follows with Dr. Boudreaux and has annual low dose chest cts. Continues to smoke and would like to cut back but is not ready to cut back. Endo: she a history of type 2 diabetes well-controlled with microalbuminuria. She is currently on metformin. Last A1c was 5.5. She has been very inactive due to her arthritis in her knees, chronic pain and COPD and has continued to gain weight. She states that her insurance never covered the GLP ones. Does not check her blood sugars. She does have renal complications and still continues to use NSAIDs despite our last conversation. Nephro: Has never seen a risk and insurance manager in her kidney function has decreased. She tells me that despite our last conversations about her kidney function and how she should not be using NSAIDs she would still take this because of her joint pains. Ortho: She went [facility] and states that they won't consider surgery until she quits smoking cigarettes, smoking marijuana, her copd and weight. She states that she is going to go out by [place] to see if they will do this surgery even if she is high risk. I did ask her if she understands the definition of high-risk and how this means that there is a great risk to her not making out of surgery or with some significant complications. She tells me that she is miserable with her hip and knee pain. I did order morphine at our last visit but she never picked this up. She states that they told her it needed a prior Auth but then she never checked in on it. She has intermittently been using diclofenac and knows that she should not be doing this. We tried tramadol for pain but did not tolerate this. She is on diclofenac however, recent labs showed decreased kidney function.. She is tearful today because of the pain. She does use baclofen two to 3 times a day as needed but also tries not to take this regularly because it makes her feel too drowsy. I started her on gabapentin at the last visit and she finds this helpful but only minimally. Vascular: She does have an upcoming appointment with vascular surgery 02/05 regarding possible claudication. She can only walk a short distance prior to her legs being painful. She did have ultrasound to rule out DVTs. Psych: She is on fluoxetine, oxcarbazepine, wellbutrin. She follows with a psychiatrist. No SI/HI. -she does request a referral to audiology today as she has had some decreased hearing. States that sometimes it feels muffled. COUNT INCLUDES THE [facility] Medical History (Updated 01/17/24 @ 12:17 by Bety Bettencourt PA-C) CKD (chronic kidney disease) stage 3, GFR 30-59 ml/min Increased urinary frequency Gait instability Smoker Chronic pain of both knees Dyslipidemia HTN (hypertension) Controlled type 2 diabetes mellitus Vitamin A deficiency Vitamin B12 deficiency Urge incontinence of urine Steatosis Severe obesity Prediabetes Palpitations Osteoarthritis of knee Obstructive sleep apnea syndrome Obesity Numbness Microalbuminuria Lumbar pain with radiation down both legs Internal hemorrhoids Hip pain GERD (gastroesophageal reflux disease) Depressive disorder affecting childbirth Chronic obstructive lung disease Cannabis misuse Bilateral cataracts Asthma Arthritis Allergic rhinitis Surgical History (Updated 11/02/23 @ 11:15 by Juana Navarro CMA) History of total hip replacement Social History (Updated 11/29/23 @ 09:31 by Juana Navarro CMA) Housing: Apartment Patient Tobacco Use Status: Former Tobacco user Cigarette Packs Per Day: 6 Years Smoked: 46 e-Cigarette/Vaping Use: Never Used Second Hand Smoke Exposure: No Substance Use Type: Marijuana service: No Current occupational status: disabled Cognitive needs: No Hearing needs: No Vision needs: No Questionnaire Thrive Questionnaire Date Thrive assessed: 11/29/23 STEVENSON-7 AMB Questionnaire STEVENSON-7 Date STEVENSON - 7 assessed: 11/02/23 Source: Developed by Drs. Jesus Zurita, Aida Grossman, Carlyle Mendoza and colleagues, with an educational alban from [employer]. Physical exam (Primary Care) Vital Signs: Last Vital Signs Pulse 59 01/17/24 10:56 Resp 20 01/17/24 10:56 BP 138/72 01/17/24 10:56 Pulse Ox 94 01/17/24 10:56 Oxygen Delivery Method Room Air 01/17/24 10:56 BMI result Body Mass Index 47.9 Tobacco/Smoking Status: Tobacco use Status Tobacco use date assessed 11/29/23 01/17/24 10:50 Patient Tobacco Use Status Former Tobacco user 01/17/24 10:50 e-Cigarette/Vaping Use Never Used 01/17/24 10:50 Thrive Assessment: Date of Thrive Assessment Date Thrive assessed 11/29/23 01/17/24 10:50 Const Orientation/consciousness: patient oriented x3 HENMT Ears: hearing grossly normal bilaterally and TM's normal bilaterally Neck Thyroid: Thyroid normal Lymphatic: no lymphadenopathy noted Resp Auscultation: clear to auscultation bilaterally Cardio Rate: regular rate Rhythm: regular rhythm Heart sounds: S1 normal heart sound present and S2 normal heart sound present Skin General skin exam: no rashes or lesions noted Neuro General: patient oriented x3 Assessment and Plan Assessment & Plan (1) Controlled type 2 diabetes mellitus: Code(s): E11.9 - Type 2 diabetes mellitus without complications Qualifiers: Diabetes mellitus truck terminal manager insulin use: without senior care use Diabetes mellitus complication status: with kidney complications Diabetes mellitus complication detail: with diabetic microalbuminuria Qualified Code(s): E11.29 - Type 2 diabetes mellitus with other diabetic kidney complication; R80.9 - Proteinuria, unspecified Plan: stop metformin. will start jardiance. (2) CKD (chronic kidney disease) stage 3, GFR 30-59 ml/min: Code(s): N18.30 - Chronic kidney disease, stage 3 unspecified Plan: referral to nephro, discussed need for avoidance of all NSAIDs again. She has continued to take diclofenac despite our last conversation. (3) Microalbuminuria due to type 2 diabetes mellitus: Code(s): E11.29 - Type 2 diabetes mellitus with other diabetic kidney complication; R80.9 - Proteinuria, unspecified (4) Chronic pain of both knees: Code(s): M25.561 - Pain in right knee; M25.562 - Pain in left knee; G89.29 - Other chronic pain Plan: Will start morphine. Called pharmacy to make sure no issues with the 15 mg er tab. Discussed risks, benefits and adverse effects including risk of addiction, dependence, drowsiness. (5) Decreased hearing: Code(s): H91.90 - Unspecified hearing loss, unspecified ear Qualifiers: Laterality: bilateral Qualified Code(s): H91.93 - Unspecified hearing loss, bilateral Plan: referral to audiology. Orders: Referrals Audiology Referral H91.90 - Unspecified hearing loss, unspecified ear Nephrology Referral E11.29 - Type 2 diabetes mellitus with other diabetic kidney complication, N18.30 - Chronic kidney disease, stage 3 unspecified, R80.9 - Proteinuria, unspecified Medications: New empagliflozin (Jardiance) 10 mg PO DAILY 90 tabs 1RF morphine ER Partial Fill upon patient request. 15 mg PO Q12H 28 days 56 tabs 0RF G62.9 - Polyneuropathy, unspecified, G89.29 - Other chronic pain, M25.561 - Pain in right knee, M25.562 - Pain in left knee, N18.30 - Chronic kidney disease, stage 3 unspecified Discontinued metformin ER Discontinued Reason: Doctor's Order 500 mg PO DAILY 90 tabs 3RF morphine ER Partial Fill upon patient request. Discontinued Reason: Doctor's Order 10 mg PO Q12H 28 days 56 caps 0RF dulaglutide (Trulicity) Discontinued Reason: Doctor's Order 0.75 mg (0.5 mL) subcut QWEEK 2 mL 3RF Coding Level of Care Code Est Pt Level 4 (64048) Complex EM visit Add On G2211 Diagnoses Controlled type 2 diabetes mellitus with microalbuminuria, without long-term current use of insulin E11.29; R80.9 Diabetes mellitus truck terminal manager insulin use: without truck terminal manager use Diabetes mellitus complication status: with kidney complications Diabetes mellitus complication detail: with diabetic microalbuminuria CKD (chronic kidney disease) stage 3, GFR 30-59 ml/min N18.30 Microalbuminuria due to type 2 diabetes mellitus E11.29; R80.9 Chronic pain of both knees M25.561; M25.562; G89.29 Decreased hearing of both ears H91.93 Laterality: bilateral
[2024-01-17 10:56] VITALS: BP 138/72; PULSE 59; RESP 20; O2SAT 94; BMI 47.9
== END 2024-01-17 11:37 | disposition home or self-care (01) ==
PROVIDERS: PCP Physician Assistant; Visit Provider Physician Assistant
DX: E11.29 Type 2 diabetes mellitus with other diabetic kidney complication (principal); R80.9 Proteinuria, unspecified; N18.30 Chronic kidney disease, stage 3 unspecified; M25.561 Pain in right knee; M25.562 Pain in left knee; G89.29 Other chronic pain; H91.93 Unspecified hearing loss, bilateral
CPT/HCPCS: 99214; G2211

== ENCOUNTER 2024-02-08 12:32 | Outpatient (AMB) | payer OTHER, SELFPAY ==
--- NOTE | 2024-02-08 12:20 | MHC.PC.OV ---
Intake Visit Reasons: Oxygen Discussion Intake Note: Discuss oxygen Allergies No Known Allergies Allergy (Verified 02/08/24 12:21) Tobacco use date assessed: 11/29/23 Dental Screening Dental Screen Date: 11/29/23 HPI Oxygen Discussion HPI Details Pt is a 63 y/o female who presents today for a follow up. She went to the [facility] ER by EMS on 01/28/24 and then admitted through 01/31/24. She called EMS because she was having worsening chronic sob and lower leg swelling. She was discharged on o2. Unfortunately, we have requested a notes 3 times from [facility] and still do not have the records of the hospitalization. She was dx with COPD, acute pulmonary edema, acute respiratory failure, [place], HTN and IFG. She states she is on o2. And feeling a lot better. She is seeing Dr. Boudreaux next week on 02/13. She is currently on O2. She is seeing nephrology 02/11. Her supervisory aide is Dr. Zamudio. She last saw him on 01/08. She reports having an echo and stress tests which were normal. Notes were requested from Dr. Zamudio. [facility] Medical History (Updated 02/08/24 @ 13:35 by Bety Bettencourt PA-C) CKD (chronic kidney disease) stage 3, GFR 30-59 ml/min Increased urinary frequency Gait instability Smoker Chronic pain of both knees Dyslipidemia HTN (hypertension) Controlled type 2 diabetes mellitus Vitamin A deficiency Vitamin B12 deficiency Urge incontinence of urine Steatosis Severe obesity Prediabetes Palpitations Osteoarthritis of knee Obstructive sleep apnea syndrome Obesity Numbness Microalbuminuria Lumbar pain with radiation down both legs Internal hemorrhoids Hip pain GERD (gastroesophageal reflux disease) Depressive disorder affecting childbirth Chronic obstructive lung disease Cannabis misuse Bilateral cataracts Asthma Arthritis Allergic rhinitis Surgical History (Updated 11/02/23 @ 11:15 by Juana Navarro CMA) History of total hip replacement Social History (Updated 11/29/23 @ 09:31 by Juana Navarro CMA) Housing: Apartment Patient Tobacco Use Status: Former Tobacco user Cigarette Packs Per Day: 6 Years Smoked: 46 e-Cigarette/Vaping Use: Never Used Second Hand Smoke Exposure: No Substance Use Type: Marijuana service: No Current occupational status: disabled Cognitive needs: No Hearing needs: No Vision needs: No Questionnaire Thrive Questionnaire Date Thrive assessed: 11/29/23 STEVENSON-7 AMB Questionnaire STEVENSON-7 Date STEVENSON - 7 assessed: 11/02/23 Source: Developed by Drs. Jesus Zurita, Aida Grossman, Carlyle Mendoza and colleagues, with an educational alban from [employer]. Physical exam (Primary Care) Tobacco/Smoking Status: Tobacco use Status Tobacco use date assessed 11/29/23 02/08/24 12:20 Patient Tobacco Use Status Former Tobacco user 02/08/24 12:20 e-Cigarette/Vaping Use Never Used 02/08/24 12:20 Thrive Assessment: Date of Thrive Assessment Date Thrive assessed 11/29/23 02/08/24 12:20 Telehealth Telehealth Telehealth Platform: Telephone Location of provider rendering services: practice address Location of patient: address on file Patient Identification confirmed using: Name, : Yes Telehealth method: voice only Patient verbally consented to treatment: Yes Patient verbally consented to billing insurance company: Yes Patient informed of any privacy concerns related to visit: Yes Minutes spent on Phone/Video with Pt.: 18 Assessment and Plan Assessment & Plan (1) Pulmonary edema: Code(s): J81.1 - Chronic pulmonary edema Plan: Reports improvement. We will see her in person. Requested hospitalization records. (2) O2 dependent: Code(s): Z99.81 - Dependence on supplemental oxygen Plan: Continue on O2 (3) Hospital discharge follow-up: Code(s): Z09 - Encounter for follow-up examination after completed treatment for conditions other than malignant neoplasm (4) GEORG[place] (acute kidney injury): Code(s): N17.9 - Acute kidney failure, unspecified Plan: labs ordered. has nephrology appointment Monday. Orders: Orders Comprehensive Met. Panel Today E11.29 - Type 2 diabetes mellitus with other diabetic kidney complication, J44.1 - Chronic obstructive pulmonary disease with (acute) exacerbation, J81.1 - Chronic pulmonary edema, R80.9 - Proteinuria, unspecified, Z09 - Encounter for follow-up examination after completed treatment for conditions other than malignant neoplasm, Z99.81 - Dependence on supplemental oxygen Complete Blood Count Auto Diff Today E11.29 - Type 2 diabetes mellitus with other diabetic kidney complication, J44.1 - Chronic obstructive pulmonary disease with (acute) exacerbation, J81.1 - Chronic pulmonary edema, R80.9 - Proteinuria, unspecified, Z09 - Encounter for follow-up examination after completed treatment for conditions other than malignant neoplasm, Z99.81 - Dependence on supplemental oxygen TSH reflex Free T4 Today E11.29 - Type 2 diabetes mellitus with other diabetic kidney complication, J44.1 - Chronic obstructive pulmonary disease with (acute) exacerbation, J81.1 - Chronic pulmonary edema, R80.9 - Proteinuria, unspecified, Z09 - Encounter for follow-up examination after completed treatment for conditions other than malignant neoplasm, Z99.81 - Dependence on supplemental oxygen Hemoglobin A1c Today E11.29 - Type 2 diabetes mellitus with other diabetic kidney complication, J44.1 - Chronic obstructive pulmonary disease with (acute) exacerbation, J81.1 - Chronic pulmonary edema, R80.9 - Proteinuria, unspecified, Z09 - Encounter for follow-up examination after completed treatment for conditions other than malignant neoplasm, Z99.81 - Dependence on supplemental oxygen B Type Natriuretic Peptide Today E11.29 - Type 2 diabetes mellitus with other diabetic kidney complication, J44.1 - Chronic obstructive pulmonary disease with (acute) exacerbation, J81.1 - Chronic pulmonary edema, R80.9 - Proteinuria, unspecified, Z09 - Encounter for follow-up examination after completed treatment for conditions other than malignant neoplasm, Z99.81 - Dependence on supplemental oxygen Coding Level of Care Code Tele Est Pt Level 3 (86325) Diagnoses Pulmonary edema J81.1 O2 dependent Z99.81 Hospital discharge follow-up Z09 GEORGIA (acute kidney injury) N17.9
== END 2024-02-08 14:15 | disposition home or self-care (01) ==
LOC: HO.HMGFM 12:32
PROVIDERS: PCP Physician Assistant; Visit Provider Physician Assistant
DX: J81.1 Chronic pulmonary edema (principal); Z99.81 Dependence on supplemental oxygen; Z09 Encounter for follow-up examination after completed treatment for conditions other than malignant neoplasm; N17.9 Acute kidney failure, unspecified
CPT/HCPCS: 99213

== ENCOUNTER 2024-02-15 12:23 | Outpatient (AMB) | payer OTHER, SELFPAY ==
--- NOTE | 2024-02-15 13:31 | A.OFFPC_ITS ---
Vital Signs 02/15/24 13:33 02/15/24 13:45 Height 5 ft 1 in Weight 231 lb 6 oz BMI 43.7 BP 116/64 Blood Pressure Location Lt brachial Respiration 20 Pulse 61 Pulse Source Pulse Oximeter Pulse Oximetry (%) 92 96 Oxygen Delivery Method Room Air Simple Mask Oxygen Flow Rate 2 Intake Visit Reasons: TCM Intake Note: Hosptial follow up Healthcare Economics Manager Required: No Allergies No Known Allergies Allergy (Verified 02/15/24 13:32) Tobacco use date assessed: 11/29/23 Dental Screening Dental Screen Date: 11/29/23 HPI TCM HPI Details Pt is a 63 y/o female who presents today for a follow up. She states since her hospitalization she has had to reschedule her cardiology and vascular surgeon appointments. She rescheduled to March. She went to the [facility] ER by EMS on 01/28/24 and then admitted through 01/31/24. She called EMS because she was having worsening chronic sob and lower leg swelling. She was discharged on o2. She was dx with COPD, acute pulmonary edema, acute respiratory failure, [place], HTN and IFG. -they thought she possibly had flash pul monary edema due to mixing up her antihypertensives at home. She apparently stopped her metoprolol and was on HCTZ with the Lasix and amlodipine. -while in the hospital she did have imag ing and she had an abnormal chest CT which showed a number of abnormalities including 1. emphysema changes 2. Secretions in right main bronchus and bronchial wall thickening adjusting bronchitis or aspiration 3. Patchy bilateral lower lobe opacities most likely atelectasis 4. Right upper lobe ground-glass nodule ( will need follow up chest CT in 3-6 months) -she also had a solid appearing exophyti c mass arising from the left kidney measuring 1.5 cm differential considerations are hemorrhagic cyst or renal neoplasm. Nonemergent renal mass protocol MRI with and without IV contrast is recommended PULM: She states she is on o2 and states it helps the sob. She did see Dr. Boudreaux two days ago and they are going to do repeat breathing studies. She is not sure if he was aware of the abnormal chest CT and ordered 1. Nephro: Repeated labs today. Unfortunately was unable to keep her appointment with Nephrology this week and had to reschedule it. States that it is not yet booked but she needs to call them. CV: Her maintenance fitter is Dr. Zamudio. She last saw him on 01/08. She reports having an echo and stress tests which were normal. BP today in office is 116/64. She is on metoprolol 100 mg, amlodipine 5 mg, lasix 40 mg. [facility] she states she messed up her bp meds and took hctz and stopped metoprolol. there was a question of flash pulmonary edema. in the hospital they told her to d/c the hctz and continue to hold metoprolol and start lisinopril. she did not start lisinopril.. Musculoskeletal: upset about her knees not getting replaced. She is getting injections q 4 months but she states she needs the injections q 3 months. She does have improvement with morphine. -she is frustrated with her current life style and states that she knows she needs to live the 1st floor. She states that she needs handicap housing because she can not get around. She is completely dependent on her walker. [facility] Medical History (Updated 02/15/24 @ 14:19 by Bety Bettencourt PA-C) CKD (chronic kidney disease) stage 3, GFR 30-59 ml/min Increased urinary frequency Gait instability Smoker Chronic pain of both knees Dyslipidemia HTN (hypertension) Controlled type 2 diabetes mellitus Vitamin A deficiency Vitamin B12 deficiency Urge incontinence of urine Steatosis Severe obesity Prediabetes Palpitations Osteoarthritis of knee Obstructive sleep apnea syndrome Obesity Numbness Microalbuminuria Lumbar pain with radiation down both legs Internal hemorrhoids Hip pain GERD (gastroesophageal reflux disease) Depressive disorder affecting childbirth Chronic obstructive lung disease Cannabis misuse Bilateral cataracts Asthma Arthritis Allergic rhinitis Surgical History (Updated 11/02/23 @ 11:15 by Juana Navarro CMA) History of total hip replacement Social History (Updated 11/29/23 @ 09:31 by Juana Navarro CMA) Housing: Apartment Patient Tobacco Use Status: Former Tobacco user Cigarette Packs Per Day: 6 Years Smoked: 46 e-Cigarette/Vaping Use: Never Used Second Hand Smoke Exposure: No Substance Use Type: Marijuana service: No Current occupational status: disabled Cognitive needs: No Hearing needs: No Vision needs: No Questionnaire Thrive Questionnaire Date Thrive assessed: 02/15/24 I am a: Patient What is your living situation today?: I have a steady place to live Within the past 12 months, did the food you bought not last and you didn't have the money to get more?: I choose not to answer this question THRIVE Score: 0 STEVENSON-7 AMB Questionnaire STEVENSON-7 Date STEVENSON - 7 assessed: 11/02/23 Source: Developed by Drs. Jesus Zurita, Aida Grossman, Carlyle Mendoza and colleagues, with an educational alban from [employer]. Physical exam (Primary Care) Vital Signs: Last Vital Signs Pulse 61 02/15/24 13:33 Resp 20 02/15/24 13:33 BP 116/64 02/15/24 13:33 Pulse Ox 96 02/15/24 13:45 Oxygen Delivery Method Simple Mask 02/15/24 13:45 Oxygen Flow Rate 2 02/15/24 13:45 BMI result Body Mass Index 43.7 Tobacco/Smoking Status: Tobacco use Status Tobacco use date assessed 11/29/23 02/15/24 13:38 Patient Tobacco Use Status Former Tobacco user 02/15/24 13:38 e-Cigarette/Vaping Use Never Used 02/15/24 13:38 Thrive Assessment: Date of Thrive Assessment Date Thrive assessed 02/15/24 02/15/24 13:38 Const Orientation/consciousness: patient oriented x3 HENMT Ears: hearing grossly normal bilaterally Neck Thyroid: Thyroid normal Lymphatic: no lymphadenopathy noted Resp Auscultation: clear to auscultation bilaterally Cardio Rate: regular rate Rhythm: regular rhythm Heart sounds: S1 normal heart sound present and S2 normal heart sound present GI Inspection: Yes normal to inspection Palpation (GI): Soft to palpation and Other GI palpation findings present (nontender, no cva tenderness) Auscultation: normoactive bowel sounds Rectal Exam - Female: deferred Skin General skin exam: no rashes or lesions noted Nails: not yellow or thickened Neuro General: patient oriented x3, gait normal and no focal motor deficits Extrem Other: 3+ pitting edema noted of the bilateral lower ankles and feet. Assessment and Plan Assessment & Plan (1) Chronic obstructive lung disease: Code(s): J44.9 - Chronic obstructive pulmonary disease, unspecified Qualifiers: COPD type: COPD with acute exacerbation Qualified Code(s): J44.1 - Chronic obstructive pulmonary disease with (acute) exacerbation Plan: Currently O2 dependent and stable. (2) O2 dependent: Code(s): Z99.81 - Dependence on supplemental oxygen Plan: As above. Following pulmonology (3) Abnormal chest CT: Code(s): R93.89 - Abnormal findings on diagnostic imaging of other specified body structures Plan: Repeat chest CT ordered (4) CKD (chronic kidney disease) stage 3, GFR 30-59 ml/min: Code(s): N18.30 - Chronic kidney disease, stage 3 unspecified Plan: She did labs 1 hour prior to today's appointment. We will follow up pending test results. Discussed the importance of seeing Nephrology (5) Left renal mass: Code(s): N28.89 - Other specified disorders of kidney and ureter Plan: MRI are ordered. Referral to Urology. Plan Followed with nurse navigator today. We will work on housing situation. Orders: Orders CT chest wo IV con 3 Months J44.1 - Chronic obstructive pulmonary disease with (acute) exacerbation, J81.1 - Chronic pulmonary edema, R93.89 - Abnormal findings on diagnostic imaging of other specified body structures, Z99.81 - Dependence on supplemental oxygen MR abdomen wo/w con Today N18.30 - Chronic kidney disease, stage 3 unspecified, N28.89 - Other specified disorders of kidney and ureter Referrals Urology Referral N28.89 - Other specified disorders of kidney and ureter Medications: Refilled morphine ER Partial Fill upon patient request. 15 mg PO Q12H 28 days 56 tabs 0RF G62.9 - Polyneuropathy, unspecified, G89.29 - Other chronic pain, M25.561 - Pain in right knee, M25.562 - Pain in left knee, N18.30 - Chronic kidney disease, stage 3 unspecified Patient Instructions: Currently you should be taking lasix 20 mg twice a day, metoprolol 100 mg, and amlodipine 5 mg. please confirm your meds at home. call me if you are taking the lisinopril 5 mg from hospital. mri was ordered today of abdomen for left kidney mass ct of chest was reordered for 3 months from now to make sure the lungs look the same/better. Coding Level of Care Code Est Pt Level 4 (53424) Complex EM visit Add On G2211 Diagnoses Chronic obstructive pulmonary disease with acute exacerbation J44.1 COPD type: COPD with acute exacerbation O2 dependent Z99.[address] R93.89 CKD (chronic kidney disease) stage 3, GFR 30-59 ml/min N18.30 Left renal mass N28.89
[2024-02-15 13:33] VITALS: BP 116/64; PULSE 61; RESP 20; O2SAT 92; BMI 43.7
[2024-02-15 13:45] VITALS: O2SAT 96
== END 2024-02-15 14:45 | disposition home or self-care (01) ==
PROVIDERS: PCP Physician Assistant; Visit Provider Physician Assistant
DX: J44.1 Chronic obstructive pulmonary disease with (acute) exacerbation (principal); Z99.81 Dependence on supplemental oxygen; R93.89 Abnormal findings on diagnostic imaging of other specified body structures; N18.30 Chronic kidney disease, stage 3 unspecified; N28.89 Other specified disorders of kidney and ureter

== ENCOUNTER 2024-02-15 12:23 | Outpatient (REF) | payer OTHER, SELFPAY ==
[2024-02-15 15:02] LABS: MANUAL DIFF FLAG NO
[2024-02-15 15:09] LABS: Basophils Percent Auto 0.3 % (0-2); Eosinophils Absolute Auto 0.1 X10*3/uL (0.0-0.4); Eosinophils Percent Auto 0.7 % (0-4); Hematocrit 36.7 % (37.0-47.0); Hemoglobin 11.4 g/dl (12.0-16.0); Imm Gran Abs Auto 0.04 X10*3/uL (0.00-0.03); Imm Gran Pct Auto 0.4 % (0.0-0.4); Lymphocytes Absolute Auto 1.5 X10*3/uL (1.2-4.9); Lymphocytes Percent Auto 14.7 % (20-40); Mean Corpuscular HGB Conc 31.1 g/dl (31.0-35.0); Mean Corpuscular Volume 83.6 fL (80.0-98.0); Mean Platelet Volume 10.4 fL (9.4-12.3); Monocytes Absolute Auto 0.6 X10*3/uL (0.1-1.2); Monocytes Percent Auto 5.8 % (2-11); Neutrophils Percent Auto 78.1 % (45-73); Platelet Count 372 X10*3/uL (160-400); Red Blood Count 4.39 X10*6/uL (4.20-5.50); Red Cell Distribution Width 15.1 % (11.0-16.0); White Blood Count 10.3 X10*3/uL (4.8-10.8)
[2024-02-15 15:40] LABS: B Type Natriuretic Peptide 104 pg/mL (<100)
[2024-02-15 15:56] LABS: Alanine Aminotransferase 8 U/L (0-31); Albumin Level 3.5 g/dL (3.5-5.0); Alkaline Phosphatase 87 U/L (39-117); Anion Gap 13 (12-20); Aspartate Amino Transferase 11 U/L (5-31); Bilirubin Total 0.3 mg/dL (0.0-1.0); Blood Urea Nitrogen 17 mg/dL (9-16); Calcium 9.5 mg/dL (8.4-10.2); Carbon Dioxide 32 mmol/L (22-29); Chloride 100 mmol/L (96-108); Estimated Glomerular Filt Rate > 60; Glucose Random 96 mg/dL (60-115); Potassium 4.3 mmol/L (3.3-5.1); Sodium 141 mmol/L (135-145); Total Protein 6.9 g/dL (6.5-8.0)
[2024-02-15 16:00] LABS: Estimated Average Glucose 108 mg/dL; Hemoglobin A1c % 5.4 % (<6.0)
== END 2024-02-15 12:24 | disposition home or self-care (01) ==
LOC: HO.WFDLDS 12:23
PROVIDERS: PCP Physician Assistant; Visit Provider Physician Assistant
DX: J44.1 Chronic obstructive pulmonary disease with (acute) exacerbation (principal); J81.1 Chronic pulmonary edema; Z09 Encounter for follow-up examination after completed treatment for conditions other than malignant neoplasm; E11.29 Type 2 diabetes mellitus with other diabetic kidney complication; R80.9 Proteinuria, unspecified; Z99.81 Dependence on supplemental oxygen
CPT/HCPCS: 36415; 80053; 83036; 83880; 84443; 85025; 99212

== ENCOUNTER → 2024-03-07 11:01 | Outpatient (BNVA) | payer OTHER, SELFPAY | PROVIDERS: PCP Physician Assistant ==

== ENCOUNTER 2024-04-11 10:55 | Outpatient (AMB) | payer OTHER, SELFPAY ==
--- NOTE | 2024-04-11 11:13 | A.OFFVIS_ITS ---
Intake Visit Reasons: left kidney mass Intake Note: New Patient presents for initial visit for left kidney mass Urology Medications: none Blood Thinner: none Wig Dresser Required: No Accompanied by: Self / Same As Patient Allergies No Known Allergies Allergy (Verified 04/11/24 22:55) Medication List - Last Reconciled 04/11/24 by OLI Finch albuterol sulfate 90 mcg/actuation (Ventolin HFA) 2 puffs inhalation Q4-6H PRN amlodipine 5 mg PO DAILY baclofen 10 mg PO TID 30 days bupropion HCl SR 100 mg PO QAM clotrimazole 1% (Lotrimin AF (clotrimazole)) 1 appl topical BID 4 weeks commode (bedside commode) As directed cyanocobalamin (vitamin B-12) 1,000 mcg PO DAILY [diabetic shoes Use diabetic shoes daily as directed.] empagliflozin (Jardiance) 10 mg PO DAILY fluoxetine mg PO fluticasone furoate-vilanterol 100-25 mcg/dose (Breo Ellipta) 1 ea inhalation DAILY furosemide 20 mg PO BID gabapentin 300 mg PO BID 90 days metoprolol succinate ER 100 mg PO DAILY 90 days miscellaneous medical supply Use daily As directed (walker with wheels and seat) miscellaneous medical supply One shoe horn to use daily As directed miscellaneous medical supply as directed; 1 gripper, use daily as needed to moss picker objects morphine ER 15 mg PO Q12H 28 days omeprazole 20 mg PO DAILY oxcarbazepine mg PO polyethylene glycol 3350 (Miralax) 17 grams PO DAILY PRN walker 1 ea as directed daily; HPI Comments Details: Tawny is a pleasant 63-year-old female patient of Dr. Bettencourt. She has a past medical history of chronic kidney disease stage 3, smoker, dyslipidemia, hypertension, type 2 diabetes, vitamin B12 deficiency, urge incontinence, obesity, GERD, prediabetes, obstructive sleep apnea, cannabis misuse, asthma, arthritis, and allergic rhinitis. She presents to the office today as a new patient for left renal mass. In discussion with the patient today she reports having followed up with her PCP status post hospitalization at which time urology referral was made for further assessment evaluation. She reports being hospitalized at [facility] for ongoing shortness of breath she had been experiencing at which time imaging noted solid-appearing exophytic mass arising from the left kidney measuring 1.5 cm recommendations for MRI renal mass protocol was recommended. She reports having appointment next week for MRI as PCP ordered imaging. We discussed obtaining imaging for further assessment evaluation. When asked she does report a longstanding history of stress incontinence and feels at times it worsens given her decreased in mobility. In office urinalysis results reviewed with the patient today. When asked she denies hematuria, dysuria, foul smelling urine, changes to urinary stream, flank pain, fever, and or chills. She is happy with her current voiding parameters. [facility] Medical History CKD (chronic kidney disease) stage 3, GFR 30-59 ml/min Increased urinary frequency Gait instability Smoker Chronic pain of both knees Dyslipidemia HTN (hypertension) Controlled type 2 diabetes mellitus Vitamin A deficiency Vitamin B12 deficiency Urge incontinence of urine Steatosis Severe obesity Prediabetes Palpitations Osteoarthritis of knee Obstructive sleep apnea syndrome Obesity Numbness Microalbuminuria Lumbar pain with radiation down both legs Internal hemorrhoids Hip pain GERD (gastroesophageal reflux disease) Depressive disorder affecting childbirth Chronic obstructive lung disease Cannabis misuse Bilateral cataracts Asthma Arthritis Allergic rhinitis Surgical History History of total hip replacement Social History Housing: Apartment Patient Tobacco Use Status: Former Tobacco user Cigarette Packs Per Day: 6 Years Smoked: 46 e-Cigarette/Vaping Use: Never Used Second Hand Smoke Exposure: No Substance Use Type: Marijuana service: No Current occupational status: disabled Cognitive needs: No Hearing needs: No Vision needs: No Review of Systems Const Reports as per HPI Eyes Reports no additional complaints ENT Reports as per HPI Card Reports as per HPI Resp Reports as per HPI GI Reports as per HPI Reports as per HPI Musc Reports as per HPI Neuro Reports as per HPI Psych Reports as per HPI Endo Reports as per HPI Physical Exam Const General: cooperative, comfortable, no acute distress, well developed, alert and awake Nutritional Appearance: overweight Orientation/consciousness: patient oriented x3 Limitations: ambulation with walker HEENT Head: Yes normal to inspection, Yes normocephalic and Yes atraumatic Ears: hearing grossly normal bilaterally Eyes General: appearance normal, both eyes and all related structures Neck Neck: Yes normal visual inspection and Yes trachea midline Chest Chest palpation & inspection: normal inspection of the chest Resp Effort & Inspection: normal respiratory effort and able to speak in complete sentences Cardio Rate: regular rate GI Inspection: Yes normal to inspection General: Yes no CVA tenderness Back/Spine/Pelvis Back: no CVA tenderness Skin General skin exam: no rashes or lesions noted Neuro General: patient oriented x3 Extrem General: Yes normal to inspection Psych Appearance: grossly normal and well kempt Mental Status: mental status grossly normal Speech and movement: Normal speech and movement present and Clear speech present Affect: normal affect Attitude: cooperative Thought process: Normal thought process present Thought content: Normal thought content present Insight: Fair insight present (Psych) Judgement: Fair judgement present (Psych) Results AMB Urinalysis, Automated UA Leukoctes 70 Philip/uL Last Edit by [employer] on 04/11/24 11:29 UA Nitrite Last Edit by [employer] on 04/11/24 11:29 UA Urobilinogen 0.2 mg/dL Last Edit by [employer] on 04/11/24 11:29 UA Protein 30 mg/dL Last Edit by [employer] on 04/11/24 11:29 UA pH 5.5 Last Edit by [employer] on 04/11/24 11:29 UA Blood 0 Per/uL Last Edit by [employer] on 04/11/24 11:29 UA Specific [place] 1.020 Last Edit by [employer] on 04/11/24 11:29 UA Ketone Last Edit by [employer] on 04/11/24 11:29 UA Bilirubin 1 mg/dL Last Edit by [employer] on 04/11/24 11:29 UA Glucose 1 mg/dL Last Edit by [employer] on 04/11/24 11:29 Results Reviewed Results Reviewed: Laboratory Last Values Urine pH (Auto) 5.5 04/11/24 11:27 Specific [place] (Auto) 1.020 04/11/24 11:27 Urine Protein (Auto) 30 mg/dL 04/11/24 11:27 Glucose (UA)(Auto) 1 mg/dL 04/11/24 11:27 Urine Blood (Auto) 0 Per/uL 04/11/24 11:27 Urine Bilirubin (Auto) 1 mg/dL 04/11/24 11:27 Urine Urobilinogen (Auto) 0.2 mg/dL 04/11/24 11:27 Leukocyte Esterase (Auto) 70 Philip/uL 04/11/24 11:27 Assessment & Plan Assessment & Plan (1) Left renal mass: Code(s): N28.89 - Other specified disorders of kidney and ureter Category: Medical (2) Stress incontinence: Code(s): N39.3 - Stress incontinence (female) (male) Category: Medical Plan In office urinalysis results reviewed with the patient today; as noted above. Will await results of MRI renal mass protocol for further assessment evaluation. Patient does report longstanding history of stress incontinence however does not find this bothersome. She currently denies any bothersome urinary issues or concerns. She reports be happy with current voiding parameters. Follow-up in 4-6 weeks; or sooner with any issues, concerns, and or questions. Orders: Orders AMB Urinalysis Automated Today Z13.9 - Encounter for screening, unspecified Patient Instructions: The patient had an opportunity to ask questions regarding the treatment plan. All questions were answered. Physical exam, labs, and imaging were discussed and reviewed in detail. As well as risks, benefits, and discussion of treatment choices. No major barriers to understanding were identified. The patient expressed understanding and agreement with the above treatment plan. The patient was made aware they should contact our office by phone for worsening of their current condition, the appearance of new symptoms, or with any questions or concerns. Compliance is encouraged with any medications and follow up testing that is ordered. It is a privilege to be allowed the opportunity to participate in? your urological care.? Again, if you have any questions or concerns If you have any questions or concerns please do not hesitate to contact me. The office is [phone]. This note is constructed using voice recognition software. While every effort has been made to ensure accuracy technical maintenance specialist errors may have been included. Yours sincerely, Peace [address], [employer] STITCHER-BC Coding Level of Care Code New Pt Level 3 (12722) Diagnoses Left renal mass N28.89 Stress incontinence N39.3
== END 2024-04-11 12:01 | disposition home or self-care (01) ==
PROVIDERS: PCP Physician Assistant; Visit Provider Nurse Practitioner Family
DX: N28.89 Other specified disorders of kidney and ureter (principal); N39.3 Stress incontinence (female) (male)
CPT/HCPCS: 99203

== ENCOUNTER → 2024-04-11 10:55 | Outpatient (BNVA) | payer OTHER, SELFPAY | PROVIDERS: PCP Physician Assistant; Visit Provider Nurse Practitioner Family | DX: N39.3 Stress incontinence (female) (male) (principal); N28.89 Other specified disorders of kidney and ureter; N18.30 Chronic kidney disease, stage 3 unspecified; Z79.84 Long term (current) use of oral hypoglycemic drugs | CPT/HCPCS: 81003; 99202 ==

== ENCOUNTER → 2024-04-17 10:53 | Outpatient (BNV) | payer OTHER, SELFPAY | PROVIDERS: PCP Physician Assistant; Visit Provider Radiology Diagnostic Radiology | DX: N28.89 Other specified disorders of kidney and ureter (principal) | CPT/HCPCS: 74183 ==

== ENCOUNTER 2024-04-17 11:11 | Outpatient (REF) | payer OTHER, SELFPAY ==
[2024-04-17] MEDS: gadobutroL 10 ML VIAL IVPUSH (12:11)
== END 2024-04-17 11:12 | disposition home or self-care (01) ==
LOC: HO.MRI 11:11
PROVIDERS: PCP Physician Assistant; Visit Provider Physician Assistant
DX: N28.89 Other specified disorders of kidney and ureter (principal); N18.30 Chronic kidney disease, stage 3 unspecified
CPT/HCPCS: 74183; A9585

== ENCOUNTER 2024-05-09 13:31 | Outpatient (AMB) | payer OTHER, SELFPAY ==
--- NOTE | 2024-05-09 13:37 | A.OFFPC_ITS ---
Vital Signs 05/09/24 13:41 Height 5 ft 1 in Weight 204 lb 8 oz BMI 38.6 BP 102/76 Blood Pressure Location Lt brachial Pulse 52 Pulse Source Pulse Oximeter Pulse Oximetry (%) 92 Oxygen Delivery Method Room Air Intake Visit Reasons: 3 mth f/u Intake Note: Three month follow up. Network Control Operator Required: No Allergies No Known Allergies Allergy (Verified 05/09/24 13:39) Medication List - Last Reconciled 05/09/24 by Bety Bettencourt PA-C albuterol sulfate 90 mcg/actuation (Ventolin HFA) 2 puffs inhalation Q4-6H PRN amlodipine 5 mg PO DAILY baclofen 10 mg PO Q12H bupropion HCl SR 100 mg PO QAM clotrimazole 1% (Lotrimin AF (clotrimazole)) 1 appl topical BID 4 weeks commode (bedside commode) As directed cyanocobalamin (vitamin B-12) 1,000 mcg PO DAILY [diabetic shoes Use diabetic shoes daily as directed.] empagliflozin (Jardiance) 10 mg PO DAILY fluoxetine mg PO fluticasone furoate-vilanterol 100-25 mcg/dose (Breo Ellipta) 1 ea inhalation DAILY furosemide 20 mg PO BID gabapentin 300 mg PO DAILY metoprolol succinate ER 100 mg PO DAILY 90 days miscellaneous medical supply Use daily As directed (walker with wheels and seat) miscellaneous medical supply One shoe horn to use daily As directed miscellaneous medical supply as directed; 1 gripper, use daily as needed to picker objects morphine ER 15 mg PO Q12H 28 days omeprazole 20 mg PO DAILY oxcarbazepine mg PO polyethylene glycol 3350 (Miralax) 17 grams PO DAILY PRN walker 1 ea as directed daily; Tobacco use date assessed: 11/29/23 Dental Screening Dental Screen Date: 11/29/23 HPI 3 mth f/u HPI Details Pt is a 63 y/o female who presents today for a follow up. Follows closely with a psychiatrist and is stable with her Wellbutrin 100 mg, fluoxetine 40 mg in oxcarbazepine daily. PULM: She states she is on o2 and states it helps the sob. She did see Dr. Boudreaux recently and had repeat PFTs. She is not sure what results are.. She states that he is aware of her abnormal chest CT and she has an appointment next week to get it rechecked. Nephro: Repeated labs were improved kidney function. Unfortunately was unable to keep her appointment with Nephrology this week and had to reschedule it. States that it is not yet booked but she needs to call them. States that she is too overwhelmed to do this as she has an appointment soon with vascular surgery and prefers to see them for her lower leg intermittent swelling and pain with walking. Endo: dm well controlled with jardiance 10 mg. last a1c was 5.9. Lost testing supplies. Denies any symptoms of hypoglycemia. CV: Her security door installer is Dr. Zamudio. She last saw him on 01/08. She reports having an echo and stress tests which were normal. BP today in office is 102/76. She is on metoprolol 100 mg, amlodipine 5 mg, lasix 40 mg. Musculoskeletal: upset about her knees not getting replaced. She is still smoking. She is getting injections q 4 months but she states she needs the injections q 3 months. She does have slight improvement with morphine. She is upset that she can not take NSAIDs anymore. Baclofen twice a day is helpful. She is only taking the gabapentin once a day. She has an appointment with her orthopedic surgeon on 05/20 as she also has bilateral shoulder pain, left worse than the right. States that they told her she probably needs joint replacements for this as well. -she is frustrated with her current life style and states that she knows she needs to live the 1st floor. She states that she needs handicap housing because she can not get around. She is completely dependent on her walker. [facility] Medical History CKD (chronic kidney disease) stage 3, GFR 30-59 ml/min Increased urinary frequency Gait instability Smoker Chronic pain of both knees Dyslipidemia HTN (hypertension) Controlled type 2 diabetes mellitus Vitamin A deficiency Vitamin B12 deficiency Urge incontinence of urine Steatosis Severe obesity Prediabetes Palpitations Osteoarthritis of knee Obstructive sleep apnea syndrome Obesity Numbness Microalbuminuria Lumbar pain with radiation down both legs Internal hemorrhoids Hip pain GERD (gastroesophageal reflux disease) Depressive disorder affecting childbirth Chronic obstructive lung disease Cannabis misuse Bilateral cataracts Asthma Arthritis Allergic rhinitis Surgical History History of total hip replacement Social History Housing: Apartment Patient Tobacco Use Status: Former Tobacco user Cigarette Packs Per Day: 6 Years Smoked: 46 e-Cigarette/Vaping Use: Never Used Second Hand Smoke Exposure: No Substance Use Type: Marijuana service: No Current occupational status: disabled Cognitive needs: No Hearing needs: No Vision needs: No Questionnaire Thrive Questionnaire Date Thrive assessed: 02/15/24 I am a: Patient What is your living situation today?: I have a steady place to live Within the past 12 months, did the food you bought not last and you didn't have the money to get more?: I choose not to answer this question Do you have trouble getting transportation to medical appointments?: I choose not to answer this question Do you have trouble paying your heating and electricity bill?: I choose not to answer this question Do you have trouble taking care of your child, family member or friend?: I choose not to answer this question Do you have trouble with day-to-day activities such as bathing, preparing meals, shopping, managing finances, etc.?: I choose not to answer this question Are you currently unemployed and looking for a job?: I choose not to answer this question Are you interested in more education?: No Please select the resources that you would like help with: None Currently or been in a relationship where the following occur: No concerns reported THRIVE Score: 0 AUDIT C Alcohol Use Questionnaire (AUDIT-C) 1. How often do you have a drink containing alcohol?: Never Total Score: 0 STEVENSON-7 AMB Questionnaire STEVENSON-7 Date STEVENSON - 7 assessed: 11/02/23 Source: Developed by Drs. Jesus Zurita, Aida Grossman, Carlyle Mendoza and colleagues, with an educational alban from [employer]. Physical exam (Primary Care) Vital Signs: Last Vital Signs Pulse 52 05/09/24 13:41 BP 102/76 05/09/24 13:41 Pulse Ox 92 05/09/24 13:41 Oxygen Delivery Method Room Air 05/09/24 13:41 BMI result Body Mass Index 38.6 Tobacco/Smoking Status: Tobacco use Status Tobacco use date assessed 11/29/23 05/09/24 13:40 Patient Tobacco Use Status Former Tobacco user 05/09/24 13:40 e-Cigarette/Vaping Use Never Used 05/09/24 13:40 Thrive Assessment: Date of Thrive Assessment Date Thrive assessed 02/15/24 05/09/24 13:40 Currently or been in a relationship where the following occur: No concerns reported Const Orientation/consciousness: patient oriented x3 HENMT Ears: hearing grossly normal bilaterally Neck Thyroid: Thyroid normal Lymphatic: no lymphadenopathy noted Resp Auscultation: clear to auscultation bilaterally Cardio Rate: regular rate Rhythm: regular rhythm Heart sounds: S1 normal heart sound present and S2 normal heart sound present GI Inspection: Yes normal to inspection Palpation (GI): Soft to palpation and Other GI palpation findings present (nontender, no cva tenderness) Auscultation: normoactive bowel sounds Rectal Exam - Female: deferred Skin General skin exam: no rashes or lesions noted Neuro General: patient oriented x3 Results Reviewed Results Reviewed: Laboratory Tests 11/29/23 11/29/23 02/15/24 10:37 10:45 Unknown WBC 10.1 10.3 RBC 4.29 4.39 Hgb 11.8 L 11.4 L Hct 37.8 36.7 L Plt Count 342 372 Sodium 142 141 Potassium 5.1 4.3 Chloride 107 100 Carbon Dioxide 27 32 H Anion Gap 13 13 BUN 29 H 17 H Creatinine 1.14 0.90 Estimated GFR 48 > 60 Random Glucose 94 96 Estimat Average Glucose 111 Hemoglobin A1c % 5.5 5.4 Calcium 9.5 9.5 Total Bilirubin 0.3 0.3 AST 12 11 ALT 10 8 Alkaline Phosphatase 116 87 Total Protein 7.3 6.9 Albumin 3.9 3.5 TSH 1.60 2.30 Urine Creatinine 194.32 Urine Microalbumin 672.0 Microalb/Creat Ratio 345.8 H Coding Level of Care Code Est Pt Level 4 (22065) Complex EM visit Add On G2211 Diagnoses Chronic pain of both knees M25.561; M25.562; G89.29 Primary hypertension I10 Hypertension type: primary hypertension Controlled type 2 diabetes mellitus with microalbuminuria, without long-term current use of insulin E11.29; R80.9 Diabetes mellitus usp insulin use: without usp use Diabetes mellitus complication status: with kidney complications Diabetes mellitus complication detail: with diabetic microalbuminuria Chronic obstructive pulmonary disease with acute exacerbation J44.1 COPD type: COPD with acute exacerbation Assessment & Plan Assessment & Plan (1) Chronic pain of both knees: Code(s): M25.561 - Pain in right knee; M25.562 - Pain in left knee; G89.29 - Other chronic pain Category: Medical Plan: will increase morphine. discussed risks associated with it including reduced respiratory drive. we also reviewed the risks of addiction, dependence. I did discuss the case at length with Dr. Ariza as well who states it is okay to increase the morphine. A prescription for Narcan was also provided. decrease baclofen decrease gabapentin wants to trial at home PT (2) HTN (hypertension): Code(s): I10 - Essential (primary) hypertension Category: Medical Qualifiers: Hypertension type: primary hypertension Qualified Code(s): I10 - Essential (primary) hypertension Plan: wnl continue current plan (3) Controlled type 2 diabetes mellitus: Code(s): E11.9 - Type 2 diabetes mellitus without complications Category: Medical Qualifiers: Diabetes mellitus usp insulin use: without predatory animal exterminator use Diabetes mellitus complication status: with kidney complications Diabetes mellitus complication detail: with diabetic microalbuminuria Qualified Code(s): E11.29 - Type 2 diabetes mellitus with other diabetic kidney complication; R80.9 - Proteinuria, unspecified Plan: very well controlled needs testing supplies (4) Chronic obstructive lung disease: Code(s): J44.9 - Chronic obstructive pulmonary disease, unspecified Category: Medical Qualifiers: COPD type: COPD with acute exacerbation Qualified Code(s): J44.1 - Chronic obstructive pulmonary disease with (acute) exacerbation Plan: repeat chest ct is booked this week has follow up with pulm has portable o2 and uses it continually. Orders: Orders PT Evaluation and Treatment Today G89.29 - Other chronic pain, M25.561 - Pain in right knee, M25.562 - Pain in left knee Medications: New blood sugar diagnostic (FreeStyle Lite Strips) Use daily As directed to check blood glucose 100 ea 3RF E11.9 - Type 2 diabetes mellitus without complications lancets (FreeStyle Lancets) use daily as directed to check blood glucose 100 ea 3RF naloxone 4 mg/actuation (Narcan) spray 1 dose into ONE nostril; alternate nostrils w each dose until help arrives 4 mg intranasal Q2M PRN 2 ea 1RF opioid overdose blood-glucose meter (FreeStyle Lite Meter kit) Use daily As directed to check blood sugars 1 ea 0RF E11.22 - Type 2 diabetes mellitus with diabetic chronic kidney disease, E11.9 - Type 2 diabetes mellitus without complications, Z79.4 - prison (current) use of insulin morphine ER Partial Fill upon patient request. 30 mg PO Q12H 28 days 56 tabs 0RF G89.29 - Other chronic pain, G89.4 - Chronic pain syndrome, M25.561 - Pain in right k nee, M25.562 - Pain in left knee Changed From baclofen 10 mg PO TID 30 days 90 tabs 6RF To baclofen 10 mg PO Q12H From gabapentin 300 mg PO BID 90 days 180 caps 1RF To gabapentin 300 mg PO DAILY Discontinued morphine ER Partial Fill upon patient request. Discontinued Reason: Doctor's Order 15 mg PO Q12H 28 days 56 tabs 0RF G62.9 - Polyneuropathy, unspecified, G89.29 - Other chronic pain, M25.561 - Pain in right knee, M25.562 - Pain in left knee, N18.30 - Chronic kidney disease, stage 3 unspecified
[2024-05-09 13:41] VITALS: BP 102/76; PULSE 52; O2SAT 92; BMI 38.6
== END 2024-05-09 14:19 | disposition home or self-care (01) ==
PROVIDERS: PCP Physician Assistant; Visit Provider Physician Assistant
DX: M25.561 Pain in right knee (principal); M25.562 Pain in left knee; G89.29 Other chronic pain; I10 Essential (primary) hypertension; E11.29 Type 2 diabetes mellitus with other diabetic kidney complication; R80.9 Proteinuria, unspecified; J44.1 Chronic obstructive pulmonary disease with (acute) exacerbation

== ENCOUNTER → 2024-05-09 13:31 | Outpatient (BNVA) | payer OTHER, SELFPAY | PROVIDERS: PCP Physician Assistant; Visit Provider Physician Assistant | DX: M25.561 Pain in right knee (principal); M25.562 Pain in left knee; G89.29 Other chronic pain; I10 Essential (primary) hypertension; E11.29 Type 2 diabetes mellitus with other diabetic kidney complication; R80.9 Proteinuria, unspecified; J44.1 Chronic obstructive pulmonary disease with (acute) exacerbation | CPT/HCPCS: 99212 ==

== ENCOUNTER 2024-05-28 13:55 | Outpatient (AMB) | payer OTHER, SELFPAY ==
--- NOTE | 2024-05-28 13:55 | A.OFFVIS_ITS ---
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 Required: No Accompanied by: Self / Same As Patient Allergies No Known Allergies Allergy (Verified 05/28/24 14:09) Medication List - Last Reconciled 05/28/24 by OLI Finch albuterol sulfate 90 mcg/actuation (Ventolin HFA) 2 puffs inhalation Q4-6H PRN amlodipine 5 mg PO DAILY baclofen 10 mg PO Q12H blood sugar diagnostic (FreeStyle Lite Strips) Use daily As directed to check blood glucose blood-glucose meter (FreeStyle Lite Meter kit) Use daily As directed to check blood sugars bupropion HCl SR 100 mg PO QAM clotrimazole 1% (Lotrimin AF (clotrimazole)) 1 appl topical BID 4 weeks commode (bedside commode) As directed cyanocobalamin (vitamin B-12) 1,000 mcg PO DAILY [diabetic shoes Use diabetic shoes daily as directed.] empagliflozin (Jardiance) 10 mg PO DAILY fluoxetine mg PO fluticasone furoate-vilanterol 100-25 mcg/dose (Breo Ellipta) 1 ea inhalation DAILY furosemide 20 mg PO BID lancets (FreeStyle Lancets) use daily as directed to check blood glucose metoprolol succinate ER 100 mg PO DAILY 90 days miscellaneous medical supply Use daily As directed (walker with wheels and seat) miscellaneous medical supply One shoe horn to use daily As directed miscellaneous medical supply as directed; 1 gripper, use daily as needed to slat pickler objects morphine ER 30 mg PO Q12H 28 days naloxone 4 mg/actuation (Narcan) 4 mg intranasal Q2M PRN omeprazole 20 mg PO DAILY oxcarbazepine mg PO polyethylene glycol 3350 (Miralax) 17 grams PO DAILY PRN walker 1 ea as directed daily; HPI Comments Details: Tawny is a pleasant 63-year-old female patient of Dr. Bettencourt. She has a past medical history of chronic kidney disease stage 3, smoker, dyslipidemia, hypertension, type 2 diabetes, vitamin B12 deficiency, urge incontinence, obesity, GERD, prediabetes, obstructive sleep apnea, cannabis misuse, asthma, arthritis, and allergic rhinitis. She is being followed up on today via telehealth. Of note, patient was seen approximately 6 weeks ago as a new patient for left renal mass at which time a MRI was ordered for further assessment and evaluation. These results were reviewed with the patient today. MRI 04/21 noting bilateral Bosniak 2 cysts per radiology report recommending fo llow-up. Right kidney cysts measuring 1.2 cm and left kidney with 1.4 cm cyst. When asked she does report a longstanding history of stress incontinence and feels at times it worsens given her decreased in mobility however feels she is managing this well independently. When asked she denies hematuria, dysuria, foul smelling urine, changes to urinary stream, flank pain, fever, and or chills. She is happy with her current voiding parameters. We discussed importance of surveillance monitoring of renal cysts. All questions were answered. She otherwise offers no other issues or concerns at this time. [facility] Medical History CKD (chronic kidney disease) stage 3, GFR 30-59 ml/min Increased urinary frequency Gait instability Smoker Chronic pain of both knees Dyslipidemia HTN (hypertension) Controlled type 2 diabetes mellitus Vitamin A deficiency Vitamin B12 deficiency Urge incontinence of urine Steatosis Severe obesity Prediabetes Palpitations Osteoarthritis of knee Obstructive sleep apnea syndrome Obesity Numbness Microalbuminuria Lumbar pain with radiation down both legs Internal hemorrhoids Hip pain GERD (gastroesophageal reflux disease) Depressive disorder affecting childbirth Chronic obstructive lung disease Cannabis misuse Bilateral cataracts Asthma Arthritis Allergic rhinitis Surgical History History of total hip replacement Social History Housing: Apartment Patient Tobacco Use Status: Former Tobacco user Cigarette Packs Per Day: 6 Years Smoked: 46 e-Cigarette/Vaping Use: Never Used Second Hand Smoke Exposure: No Substance Use Type: Marijuana service: No Current occupational status: disabled Cognitive needs: No Hearing needs: No Vision needs: No Review of Systems Const Reports as per [facility] Eyes Reports no additional complaints ENT Reports as per HPI Card Reports as per HPI Resp Reports as per HPI GI Reports as per HPI Reports as per HPI Musc Reports as per HPI Neuro Reports as per HPI Psych Reports as per HPI Endo Reports as per HPI Physical Exam Const General: cooperative Orientation/consciousness: patient oriented x3 Resp Effort & Inspection: able to speak in complete sentences Neuro General: patient oriented x3 Psych Affect: normal affect Attitude: cooperative Thought content: Normal thought content present Insight: Fair insight present (Psych) Judgement: Fair judgement present (Psych) Telehealth Telehealth Telehealth Platform: [employer] Software Location of provider rendering services: practice address Location of patient: address on file Patient Identification confirmed using: Name, : Yes Telehealth method: voice only Patient verbally consented to treatment: Yes Patient verbally consented to billing insurance company: Yes Patient informed of any privacy concerns related to visit: Yes Minutes spent on Phone/Video with Pt.: 15 Results Reviewed Results Reviewed: Date of Service: 04/17/24 EXAMINATION: MR ABDOMEN WITHOUT AND WITH CONTRAST FINDINGS: Submitted for interpretation on May 17, 2024. LIVER, GALLBLADDER, AND BILIARY TREE: Liver measures 19 cm. No focal mass. Portal veins and hepatic veins are patent. Intrahepatic portion of the IVC is patent. No pericholecystic fluid collection or gallbladder wall thickening. No intrahepatic or extrahepatic biliary ductal dilatation. PANCREAS: No focal mass. No peripancreatic fluid collection. No main pancreatic ductal dilatation. SPLEEN: 12 cm. No focal mass. ADRENAL GLANDS: No nodular lesions. KIDNEYS AND URETERS: Right kidney: There is a 1.2 cm exophytic hypointense T1 and hyperintense T2 with a layering likely intrinsic hyperintense T1 nonenhancing lesion in the lateral lower pole. No hydronephrosis. No enhancing renal mass. Normal enhancement throughout the parenchyma. Normal enhancement of the main renal vessels. Left kidney: There is a 1.4 cm exophytic nonenhancing fluid signal characteristic lesion with a layering hyperintense T2 signal in the posterior midportion/upper pole junction. No enhancing mass. Normal enhancement pattern throughout the parenchyma. No hydronephrosis. Normal enhancement of the main renal vessels. GASTROINTESTINAL TRACT: Abundant stool. No intestinal obstruction pattern. No ascites. ABDOMINAL WALL: Fat-containing supraumbilical hernia. LYMPH NODES: Prominent, nonspecific lymph nodes in the retroperitoneum. VASCULAR: No aneurysm or dissection, abdominal aorta. OSSEOUS STRUCTURES: Multilevel thoracolumbar spondylosis resulting in grade 1 anterolisthesis L4-5. IMPRESSION: Bosniak type II/hemorrhagic cysts, both kidneys. Recommend follow-up. Hepatosplenomegaly. A lymphoproliferative disorder cannot be excluded. Assessment & Plan Assessment & Plan (1) Renal cyst: Code(s): N28.1 - Cyst of kidney, acquired Category: Medical (2) Stress incontinence: Code(s): N39.3 - Stress incontinence (female) (male) Category: Medical (3) Left renal mass: Code(s): N28.89 - Other specified disorders of kidney and ureter Category: Medical Plan Recent MRI results reviewed with the patient today; as noted above. Patient does report longstanding history of stress incontinence however does not find this bothersome. She currently denies any bothersome urinary issues or concerns. She reports be happy with current voiding parameters. Discussed importance of surveillance monitoring. Will obtain renal ultrasound in 6 months. Follow-up in 6 months with imaging to be completed prior; or sooner with any issues, concerns, and or questions. Orders: Orders US renal BI 6 Months N28.1 - Cyst of kidney, acquired Patient Instructions: The patient had an opportunity to ask questions regarding the treatment plan. All questions were answered. Physical exam, labs, and imaging were discussed and reviewed in detail. As well as risks, benefits, and discussion of treatment choices. No major barriers to understanding were identified. The patient expressed understanding and agreement with the above treatment plan. The patient was made aware they should contact our office by phone for worsening of their current condition, the appearance of new symptoms, or with any questions or concerns. Compliance is encouraged with any medications and follow up testing that is ordered. It is a privilege to be allowed the opportunity to participate in? your urological care.? Again, if you have any questions or concerns If you have any questions or concerns please do not hesitate to contact me. The office is [phone]. This note is constructed using voice recognition software. While every effort has been made to ensure accuracy chemistry technologist errors may have been included. Yours sincerely, OLI Finch Coding Level of Care Code Tele Est Pt Level 3 (45549) Diagnoses Renal cyst N28.1 Stress incontinence N39.3 Left renal mass N28.89
== END 2024-05-28 14:47 | disposition home or self-care (01) ==
LOC: HO.HUSH 13:55
PROVIDERS: PCP Physician Assistant; Visit Provider Nurse Practitioner Family
DX: N28.1 Cyst of kidney, acquired (principal); N39.3 Stress incontinence (female) (male); N28.89 Other specified disorders of kidney and ureter
CPT/HCPCS: 99213

== ENCOUNTER 2024-06-05 12:45 | Outpatient (AMB) | payer OTHER, SELFPAY ==
--- NOTE | 2024-06-05 12:41 | MHC.PC.OV ---
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 Required: No Is last menstrual period known: No Post menopausal: No Patient : No Allergies No Known Allergies Allergy (Verified 06/05/24 12:42) Medication List - Last Reconciled 06/05/24 by Bety Bettencourt PA-C albuterol sulfate 90 mcg/actuation (Ventolin HFA) 2 puffs inhalation Q4-6H PRN amlodipine 5 mg PO DAILY baclofen 10 mg PO Q12H blood sugar diagnostic (FreeStyle Lite Strips) Use daily As directed to check blood glucose blood-glucose meter (FreeStyle Lite Meter kit) Use daily As directed to check blood sugars bupropion HCl SR 100 mg PO QAM clotrimazole 1% (Lotrimin AF (clotrimazole)) 1 appl topical BID 4 weeks commode (bedside commode) As directed cyanocobalamin (vitamin B-12) 1,000 mcg PO DAILY [diabetic shoes Use diabetic shoes daily as directed.] fluoxetine mg PO fluticasone furoate-vilanterol 100-25 mcg/dose (Breo Ellipta) 1 ea inhalation DAILY furosemide 20 mg PO BID lancets (FreeStyle Lancets) use daily as directed to check blood glucose metoprolol succinate ER 100 mg PO DAILY 90 days miscellaneous medical supply Use daily As directed (walker with wheels and seat) miscellaneous medical supply One shoe horn to use daily As directed miscellaneous medical supply as directed; 1 gripper, use daily as needed to pickle processor objects naloxone 4 mg/actuation (Narcan) 4 mg intranasal Q2M PRN omeprazole 20 mg PO DAILY oxcarbazepine mg PO polyethylene glycol 3350 (Miralax) 17 grams PO DAILY PRN walker 1 ea as directed daily; Tobacco use date assessed: 06/05/24 Dental Screening Dental Screen Date: 06/05/24 Did you have a dental visit in the last 12 months?: No Did you have a dental problem in the last 6 months where you did not have access to dental care?: No Was dental information given to patient?: No HPI issue with medication/possible almost overdose HPI Details Pt is a 63 y/o female who presents today for a follow up. Follows closely with a psychiatrist and is stable with her Wellbutrin 100 mg, fluoxetine 40 mg in oxcarbazepine daily. PULM: She states she is on o2 and states it helps the sob. She did see Dr. Boudreaux recently and had repeat PFTs. She states that he is aware of her abnormal chest CT and she has an appointment next week to get it rechecked. Nephro: Repeated labs were improved kidney function. Unfortunately was unable to keep her appointment with Nephrology. States that it is not yet booked but she needs to call them. States that she is too overwhelmed to do this as she has an appointment soon with vascular surgery and prefers to see them for her lower leg intermittent swelling and pain with walking. Endo: dm well controlled with jardiance 10 mg. She recently has lost weight with the Jardiance and the morphine she believes. She is down about 20 lb. last a1c was 5.4. Has testing supplies at home but does not check. CV: Her converting operator is Dr. Zamudio. She last saw him on 01/08. She reports having an echo and stress tests which were normal.he is on metoprolol 100 mg, amlodipine 5 mg, lasix 40 mg. Musculoskeletal: upset about her knees not getting replaced. She is still smoking. She is getting injections q 4 months but she states she needs the injections q 3 months. At our last visit we did increase the dose of the morphine but did discuss the risks associated with respiratory suppression and she tells me today that she did develop what she believes was almost an overdose. She felt very sedated with the drug. She states that she felt very tired, weak and out of it. She did not require Narcan. She states that her daughter was very worried and that she did call the police department and they were there with her. She states that they did encourage her to follow up to make sure that we were aware. She states that since she has had the cortisone injection she does not actually need the narcotic. She tells me that this was a big reality check and that she actually does not need as much pain control as she initially thought. She tells me that this pain is currently tolerable and she feels better without the medication. Baclofen twice a day is helpful. -at times since stopping the morphine completely of couple days ago she has felt a little shaky and sweaty. She is not sure if it is related to the medication. She has not checked her blood sugars either. No syncope. No chest pain or shortness on breath. -she is frustrated with her current lifestyle and states that she knows she needs to live the 1st floor. She states that she needs handicap housing because she can not get around. She is completely dependent on her walker. [facility] Medical History CKD (chronic kidney disease) stage 3, GFR 30-59 ml/min Increased urinary frequency Gait instability Smoker Chronic pain of both knees Dyslipidemia HTN (hypertension) Controlled type 2 diabetes mellitus Vitamin A deficiency Vitamin B12 deficiency Urge incontinence of urine Steatosis Severe obesity Prediabetes Palpitations Osteoarthritis of knee Obstructive sleep apnea syndrome Obesity Numbness Microalbuminuria Lumbar pain with radiation down both legs Internal hemorrhoids Hip pain GERD (gastroesophageal reflux disease) Depressive disorder affecting childbirth Chronic obstructive lung disease Cannabis misuse Bilateral cataracts Asthma Arthritis Allergic rhinitis Surgical History History of total hip replacement Social History Housing: Apartment Patient Tobacco Use Status: Former Tobacco user Cigarette Packs Per Day: 6 Years Smoked: 46 e-Cigarette/Vaping Use: Never Used Second Hand Smoke Exposure: No Substance Use Type: Marijuana service: No Current occupational status: disabled Cognitive needs: No Hearing needs: No Vision needs: No Questionnaire Thrive Questionnaire Date Thrive assessed: 02/15/24 STEVENSON-7 AMB Questionnaire STEVENSON-7 Date STEVENSON - 7 assessed: 11/02/23 Source: Developed by Drs. Jesus Zurita, Aida Grossman, Carlyle Mendoza and colleagues, with an educational alban from [employer]. Physical exam (Primary Care) Tobacco/Smoking Status: Tobacco use Status Tobacco use date assessed 06/05/24 06/05/24 12:44 Patient Tobacco Use Status Former Tobacco user 06/05/24 12:44 e-Cigarette/Vaping Use Never Used 06/05/24 12:44 Thrive Assessment: Date of Thrive Assessment Date Thrive assessed 02/15/24 06/05/24 12:44 Telehealth Telehealth Telehealth Platform: Telephone Location of provider rendering services: practice address Location of patient: address on file Patient Identification confirmed using: Name, : Yes Telehealth method: voice only Patient verbally consented to treatment: Yes Patient verbally consented to billing insurance company: Yes Patient informed of any privacy concerns related to visit: Yes Minutes spent on Phone/Video with Pt.: 21 Results Reviewed Results Reviewed: Laboratory Tests 02/15/24 Unknown Sodium 141 Potassium 4.3 Chloride 100 Carbon Dioxide 32 H Anion Gap 13 Creatinine 0.90 Estimated GFR > 60 Hemoglobin A1c % 5.4 AST 11 ALT 8 TSH 2.30 Coding Level of Care Code Tele Est Pt Level 3 (37333) Diagnoses Controlled type 2 diabetes mellitus with microalbuminuria, without long-term current use of insulin E11.29; R80.9 Diabetes mellitus complication detail: with diabetic microalbuminuria Diabetes mellitus complication status: with kidney complications Diabetes mellitus half-way insulin use: without half-way use Microalbuminuria due to type 2 diabetes mellitus E11.29; R80.9 CKD (chronic kidney disease) stage 3, GFR 30-59 ml/min N18.30 Gait instability R26.81 Chronic obstructive pulmonary disease with acute exacerbation J44.1 COPD type: COPD with acute exacerbation Weight loss R63.4 Assessment & Plan Assessment & Plan (1) Controlled type 2 diabetes mellitus: Code(s): E11.9 - Type 2 diabetes mellitus without complications Category: Medical Qualifiers: Diabetes mellitus complication detail: with diabetic microalbuminuria Diabetes mellitus complication status: with kidney complications Diabetes mellitus half-way insulin use: without local intermodal truck 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 We did discuss with the weight loss and lower A1c that it could be affecting her blood pressure along with her blood sugar and if she is at times feeling weak and shaky I do worry that this could also be related to her blood sugar. Advised that she needs to check her glucose with her glucometer. Tells me that she has this at home and we will check it. I have also encouraged her to check her blood pressure. I would like to see her in the office. We did discuss that the diaphoresis is likely related to the abrupt stopping of the morphine. (2) Microalbuminuria due to type 2 diabetes mellitus: Code(s): E11.29 - Type 2 diabetes mellitus with other diabetic kidney complication; R80.9 - Proteinuria, unspecified Category: Medical Plan: As above. (3) CKD (chronic kidney disease) stage 3, GFR 30-59 ml/min: Code(s): N18.30 - Chronic kidney disease, stage 3 unspecified Category: Medical Plan: We will monitor (4) Gait instability: Code(s): R26.81 - Unsteadiness on feet Category: Medical Plan: Lives with daughter. Uses walking devices. Currently feels safe. (5) Chronic obstructive lung disease: Code(s): J44.9 - Chronic obstructive pulmonary disease, unspecified Category: Medical Qualifiers: COPD type: COPD with acute exacerbation Qualified Code(s): J44.1 - Chronic obstructive pulmonary disease with (acute) exacerbation Plan: Stable (6) Weight loss: Code(s): R63.4 - Abnormal weight loss Category: Medical Plan: Labs ordered. Advised to return to the office for recheck. Orders: Orders Hemoglobin A1c Today E11.29 - Type 2 diabetes mellitus with other diabetic kidney complication, N18.30 - Chronic kidney disease, stage 3 unspecified, R63.4 - Abnormal weight loss, R73.01 - Impaired fasting glucose, R80.9 - Proteinuria, unspecified TSH reflex Free T4 Today E11.29 - Type 2 diabetes mellitus with other diabetic kidney complication, N18.30 - Chronic kidney disease, stage 3 unspecified, R63.4 - Abnormal weight loss, R80.9 - Proteinuria, unspecified UA CC w/rflx Micro + Cult Today E11.29 - Type 2 diabetes mellitus with other diabetic kidney complication, N18.30 - Chronic kidney disease, stage 3 unspecified, R63.4 - Abnormal weight loss, R80.9 - Proteinuria, unspecified, Z13.220 - Encounter for screening for lipoid disorders Complete Blood Count Auto Diff Today E11.29 - Type 2 diabetes mellitus with other diabetic kidney complication, N18.30 - Chronic kidney disease, stage 3 unspecified, R63.4 - Abnormal weight loss, R80.9 - Proteinuria, unspecified Comprehensive Stevenson. Panel Fast Today E11.29 - Type 2 diabetes mellitus with other diabetic kidney complication, N18.30 - Chronic kidney disease, stage 3 unspecified, R63.4 - Abnormal weight loss, R80.9 - Proteinuria, unspecified Medications: Discontinued empagliflozin (Jardiance) Discontinued Reason: Doctor's Order 10 mg PO DAILY 90 tabs 1RF morphine ER Partial Fill upon patient request. Discontinued Reason: Doctor's Order 30 mg PO Q12H 28 days 56 tabs 0RF G89.29 - Other chronic pain, G89.4 - Chronic pain syndrome, M25.561 - Pain in right knee, M25.562 - Pain in left knee
== END 2024-06-05 17:05 | disposition home or self-care (01) ==
LOC: HO.HMCFM 12:45
PROVIDERS: PCP Physician Assistant; Visit Provider Physician Assistant
DX: E11.29 Type 2 diabetes mellitus with other diabetic kidney complication (principal); N18.30 Chronic kidney disease, stage 3 unspecified; J44.1 Chronic obstructive pulmonary disease with (acute) exacerbation; R26.81 Unsteadiness on feet; R80.9 Proteinuria, unspecified; R63.4 Abnormal weight loss

== ENCOUNTER → 2024-06-05 12:45 | Outpatient (BNVA) | payer OTHER, SELFPAY | PROVIDERS: PCP Physician Assistant; Visit Provider Physician Assistant ==

== ENCOUNTER 2024-06-27 13:55 | Outpatient (AMB) | payer OTHER, SELFPAY ==
--- NOTE | 2024-06-27 14:01 | MHC.PC.OV ---
Vital Signs 06/27/24 14:07 Height 5 ft 1 in Weight 192 lb 8 oz BMI 36.4 BP 112/58 L Blood Pressure Location Lt brachial Position Sitting Pulse 64 Pulse Source Pulse Oximeter Pulse Oximetry (%) 97 Oxygen Delivery Method Room Air Intake Visit Reasons: concerns on some pain Intake Note: One month follow up. Had trouble sleeping for two weeks after stopping Morphine. Medication provider gave her Trazadone and it is helping. Found a lump on chest the size of an egg. Red spot on left lower side, requesting medication for it. Requesting shower chair to Irene. refill on furosemide. Director Client Required: No Allergies No Known Allergies Allergy (Verified 06/05/24 12:42) Medication List - Last Reconciled 06/27/24 by Bety Bettencourt PA-C albuterol sulfate 90 mcg/actuation (Ventolin HFA) 2 puffs inhalation Q4-6H PRN amlodipine 5 mg PO DAILY blood sugar diagnostic (FreeStyle Lite Strips) Use daily As directed to check blood glucose blood-glucose meter (FreeStyle Lite Meter kit) Use daily As directed to check blood sugars bupropion HCl SR 150 mg PO QAM clotrimazole 1% (Lotrimin AF (clotrimazole)) 1 appl topical BID 4 weeks commode (bedside commode) As directed cyanocobalamin (vitamin B-12) 1,000 mcg PO DAILY [diabetic shoes Use diabetic shoes daily as directed.] fluoxetine mg PO fluticasone furoate-vilanterol 100-25 mcg/dose (Breo Ellipta) 1 ea inhalation DAILY furosemide 20 mg PO BID lancets (FreeStyle Lancets) use daily as directed to check blood glucose metoprolol succinate ER 100 mg PO DAILY 90 days miscellaneous medical supply Use daily As directed (walker with wheels and seat) miscellaneous medical supply One shoe horn to use daily As directed miscellaneous medical supply as directed; 1 gripper, use daily as needed to pickling grader objects naloxone 4 mg/actuation (Narcan) 4 mg intranasal Q2M PRN omeprazole 20 mg PO DAILY oxcarbazepine mg PO polyethylene glycol 3350 (Miralax) 17 grams PO DAILY PRN trazodone 50 mg PO BEDTIME PRN walker 1 ea as directed daily; Tobacco use date assessed: 06/05/24 Dental Screening Dental Screen Date: 06/05/24 HPI concerns on some pain HPI Details Pt is a 63 y/o female who presents today for a follow up. General: Noted a chest wall lump about a week ago. This is over the sternum . She states that she was coughing a week ago and she coughed really hard and then had this small lump. It was not painful. No overlying skin changes. States that she would not of normally noticed it. -of note she has lost about 50 lb this year. Some of this is attributed to diet as she has wanted to lose weight to help with her knee pain and the different narcotics that we trialed suppressed her appetite. She does believe that she is losing weight a bit faster than expected. She states since being off of the narcotics she has much more of an appetite but does not notice increase weight in the last few weeks. No n/v/d. No blood in stool. Pysch: Follows closely with a psychiatrist at [facility] and is stable with her Wellbutrin 150 mg, fluoxetine 40 mg, oxcarbazepine and trazodone daily. The trazodone was recently and helpful. PULM: She states she is on o2 and states it helps the sob. She did see Dr. Boudreaux recently and had repeat PFTs. She states that he is aware of her abnormal chest CT and the need to have this repeated.. She she follows closely with pulmonology and states that she is due to go back for a walking test.. Nephro: Repeated labs were improved kidney function. Unfortunately was unable to keep her appointment with Nephrology. States that it is not yet booked but she needs to call them. Endo: Diabetes has recently been diet controlled, due for a1c recheck. At our last visit she was off of Jardiance. last a1c was 5.4. Has testing supplies at home but does not check. CV: Her barrel tester is Dr. Zamudio. She last saw him on 01/08. She reports having an echo and stress tests which were normal.he is on metoprolol 100 mg, amlodipine 5 mg, lasix 40 mg. Musculoskeletal: upset about her knees not getting replaced. She is still smoking. She is getting injections q 4 months but she states she needs the injections q 3 months. She is nervous about narcotics due to previous experiences. She is frustrated because she can not take NSAIDs due to her kidney function. She is not a surgical candidate for joint replacements right now. She would like a consult with pain management. GI: States that she thinks her colonoscopy was around the age of 51. She states it was normal just showed internal hemorrhoids. [facility] Medical History CKD (chronic kidney disease) stage 3, GFR 30-59 ml/min Increased urinary frequency Gait instability Smoker Chronic pain of both knees Dyslipidemia HTN (hypertension) Controlled type 2 diabetes mellitus Vitamin A deficiency Vitamin B12 deficiency Urge incontinence of urine Steatosis Severe obesity Prediabetes Palpitations Osteoarthritis of knee Obstructive sleep apnea syndrome Obesity Numbness Microalbuminuria Lumbar pain with radiation down both legs Internal hemorrhoids Hip pain GERD (gastroesophageal reflux disease) Depressive disorder affecting childbirth Chronic obstructive lung disease Cannabis misuse Bilateral cataracts Asthma Arthritis Allergic rhinitis Surgical History History of total hip replacement Social History (Updated 06/27/24 @ 14:11 by Juana Navarro CMA) Housing: Apartment Alcohol intake: former Patient Tobacco Use Status: Former Tobacco user Cigarette Packs Per Day: 6 Years Smoked: 46 e-Cigarette/Vaping Use: Never Used Second Hand Smoke Exposure: No Substance Use Type: Marijuana service: No Current occupational status: disabled Cognitive needs: No Hearing needs: No Vision needs: No Questionnaire PHQ-9 Over the last 2 weeks, how often have you been bothered by any of the following problems? 1. Little interest or pleasure in doing things: more than half the days 2. Feeling down, depressed, or hopeless: more than half the days 3. Trouble falling or staying asleep, or sleeping too much: several days 4. Feeling tired or having little energy: more than half the days 5. Poor appetite or overeating: several days 6. Feeling bad about yourself - or that you are a failure or have let yourself or your family down: several days 7. Trouble concentrating on things, such as reading the newspaper or watching television: several days 8. Moving or speaking so slowly that other people could have noticed. Or the opposite - being so fidgety or restless that you have been moving around a lot more than usual: more than half the days 9. Thoughts that you would be better off or of hurting yourself in some way: not at all Total score: 12 Depression Screening Interpretation: Positive Depression Screening Done: Yes 59589 - PHQ-9 Billing: Yes Source: Developed by Drs. Jesus Zurita, Aida Grossman, Carlyle Mendoza and colleagues, with an educational alban from [employer]. Thrive Questionnaire Date Thrive assessed: 06/20/24 I am a: Patient What is your living situation today?: I have a steady place to live Within the past 12 months, did the food you bought not last and you didn't have the money to get more?: I choose not to answer this question Within the past 12 months, did you worry whether your food would run out before you got money to buy more?: I choose not to answer this question Do you have trouble paying for medicines?: I choose not to answer this question Do you have trouble getting transportation to medical appointments?: I choose not to answer this question Do you have trouble paying your heating and electricity bill?: No Do you have trouble taking care of your child, family member or friend?: I choose not to answer this question Do you have trouble with day-to-day activities such as bathing, preparing meals, shopping, managing finances, etc.?: I choose not to answer this question Are you currently unemployed and looking for a job?: No Are you interested in more education?: No Please select the resources that you would like help with: None Currently or been in a relationship where the following occur: No concerns reported THRIVE Score: 0 AUDIT C Alcohol Use Questionnaire (AUDIT-C) 1. How often do you have a drink containing alcohol?: Never 3. How often do you have six or more drinks on one occasion?: Never Total Score: 0 STEVENSON-7 AMB Questionnaire STEVENSON-7 Date STEVENSON - 7 assessed: 06/27/24 Feeling nervous, anxious, or on edge: 2 = More than half the days Not being able to stop or control worryin = Not at all Worrying too much about different things: 1 = Several days Trouble relaxin = Several days Being so restless that it is hard to sit still: 2 = More than half the days Becoming easily annoyed or irritable: 0 = Not at all Feeling afraid as if something awful might happen: 0 = Not at all Total STEVENSON-7 score (0-4 normal; 5-9 mild; 10-14 moderate; 15-21 severe): 6 Source: Developed by Drs. Jesus Zurita, Aida Grossman, Carlyle Mendoza and colleagues, with an educational alban from [employer]. STEVENSON-7 Assessment Billing STEVENSON-7 Assessment Tool: STEVENSON-7 Assessment 73952 Physical exam (Primary Care) Vital Signs: Last Vital Signs Pulse 64 06/27/24 14:07 BP 112/58 L 06/27/24 14:07 Pulse Ox 97 06/27/24 14:07 Oxygen Delivery Method Room Air 06/27/24 14:07 BMI result Body Mass Index 36.4 Tobacco/Smoking Status: Tobacco use Status Tobacco use date assessed 06/05/24 06/27/24 14:01 Patient Tobacco Use Status Former Tobacco user 06/27/24 14:11 e-Cigarette/Vaping Use Never Used 06/27/24 14:11 PHQ-9: PHQ-9 Score PHQ-9: Total score 12 06/28/24 09:14 Depression Screening Interpretation: Positive Thrive Assessment: Date of Thrive Assessment Date Thrive assessed 06/20/24 06/27/24 14:01 Currently or been in a relationship where the following occur: No concerns reported Const Orientation/consciousness: patient oriented x3 HENMT Ears: hearing grossly normal bilaterally Neck Thyroid: Thyroid normal Lymphatic: no lymphadenopathy noted Resp Auscultation: clear to auscultation bilaterally Cardio Rate: regular rate Rhythm: regular rhythm Heart sounds: S1 normal heart sound present and S2 normal heart sound present GI Inspection: Yes normal to inspection Palpation (GI): Soft to palpation and Other GI palpation findings present (nontender, no cva tenderness) Auscultation: normoactive bowel sounds Rectal Exam - Female: deferred Skin General skin exam: no rashes or lesions noted Neuro General: patient oriented x3, gait normal and no focal motor deficits Results Reviewed Results Reviewed: FINDINGS: Submitted for interpretation on May 17, 2024. LIVER, GALLBLADDER, AND BILIARY TREE: Liver measures 19 cm. No focal mass. Portal veins and hepatic veins are patent. Intrahepatic portion of the IVC is patent. No pericholecystic fluid collection or gallbladder wall thickening. No intrahepatic or extrahepatic biliary ductal dilatation. PANCREAS: No focal mass. No peripancreatic fluid collection. No main pancreatic ductal dilatation. SPLEEN: 12 cm. No focal mass. ADRENAL GLANDS: No nodular lesions. KIDNEYS AND URETERS: Right kidney: There is a 1.2 cm exophytic hypointense T1 and hyperintense T2 with a layering likely intrinsic hyperintense T1 nonenhancing lesion in the lateral lower pole. No hydronephrosis. No enhancing renal mass. Normal enhancement throughout the parenchyma. Normal enhancement of the main renal vessels. Left kidney: There is a 1.4 cm exophytic nonenhancing fluid signal characteristic lesion with a layering hyperintense T2 signal in the posterior midportion/upper pole junction. No enhancing mass. Normal enhancement pattern throughout the parenchyma. No hydronephrosis. Normal enhancement of the main renal vessels. GASTROINTESTINAL TRACT: Abundant stool. No intestinal obstruction pattern. No ascites. ABDOMINAL WALL: Fat-containing supraumbilical hernia. LYMPH NODES: Prominent, nonspecific lymph nodes in the retroperitoneum. VASCULAR: No aneurysm or dissection, abdominal aorta. OSSEOUS STRUCTURES: Multilevel thoracolumbar spondylosis resulting in grade 1 anterolisthesis L4-5. MR/MR abdomen wo/w con IMPRESSION: Bosniak type II/hemorrhagic cysts, both kidneys. Recommend follow-up. Hepatosplenomegaly. A lymphoproliferative disorder cannot be excluded. Electronically signed by: Tashi Chambers MD 05/17/2024 10:01 AM [facility] Coding Level of Care Code Est Pt Level 4 (90584) Complex EM visit Add On G2211 Diagnoses CKD (chronic kidney disease) stage 3, GFR 30-59 ml/min N18.30 Controlled type 2 diabetes mellitus with microalbuminuria, without long-term current use of insulin E11.29; R80.9 Diabetes mellitus complication detail: with diabetic microalbuminuria Diabetes mellitus complication status: with kidney complications Diabetes mellitus intermediate card tender insulin use: without intermediate card tender use Severe obesity E66.01 Primary hypertension I10 Hypertension type: primary hypertension Dyslipidemia E78.5 Chronic pain of both knees M25.561; M25.562; G89.29 Chest wall mass R22.2 Weight loss R63.4 Additional Codes STEVENSON-7 Assessment Billing - STEVENSON-7 Assessment Tool: STEVENSON-7 Assessment [id number] ([id number]) PHQ-9 - 87533 - PHQ-9 Billing: Yes ([id number]) Assessment & Plan Assessment & Plan (1) CKD (chronic kidney disease) stage 3, GFR 30-59 ml/min: Code(s): N18.30 - Chronic kidney disease, stage 3 unspecified Category: Medical Plan: stable . Reminded her to complete labs (2) Controlled type 2 diabetes mellitus: Code(s): E11.9 - Type 2 diabetes mellitus without complications Category: Medical Qualifiers: Diabetes mellitus complication detail: with diabetic microalbuminuria Diabetes mellitus complication status: with kidney complications Diabetes mellitus intermediate card tender insulin use: without intermediate card tender use Qualified Code(s): E11.29 - Type 2 diabetes mellitus with other diabetic kidney complication; R80.9 - Proteinuria, unspecified Plan: d/c jardiance labs ordered and she says that she will do them today (3) Severe obesity: Code(s): E66.01 - Morbid (severe) obesity due to excess calories Category: Medical Plan: weight loss noted. advised to get labs. she has changed her diet (4) HTN (hypertension): Code(s): I10 - Essential (primary) hypertension Category: Medical Qualifiers: Hypertension type: primary hypertension Qualified Code(s): I10 - Essential (primary) hypertension Plan: continue current plan short term follow up advised (5) Dyslipidemia: Code(s): E78.5 - Hyperlipidemia, unspecified Category: Medical Plan: lipids ordered (6) Chronic pain of both knees: Code(s): M25.561 - Pain in right knee; M25.562 - Pain in left knee; G89.29 - Other chronic pain Category: Medical Plan: will try diclofenac gel referral to pain management (7) Chest wall mass: Code(s): R22.2 - Localized swelling, mass and lump, trunk Category: Medical Plan: cxr and u/s ordered follow up if anything worsens or changes (8) Weight loss: Code(s): R63.4 - Abnormal weight loss Category: Medical Plan: lost about 50 lbs in the last 6 months. referral to GI. Has upcoming appointment hematology. labs ordered Reports having recent chest CT with Dr. Boudreaux. Reviewed abdominal MRI. reports improvement of appetite. will monitor weight at home and short term follow up. Orders: Orders US chest 06/27/24 R22.2 - Localized swelling, mass and lump, trunk XR chest 2V 06/27/24 R22.2 - Localized swelling, mass and lump, trunk Referrals Pain Management Referral G89.29 - Other chronic pain, M25.561 - Pain in right knee, M25.562 - Pain in left knee Gastroenterology Referral R63.4 - Abnormal weight loss Medications: New baclofen 10 mg PO TID 90 tabs 0RF diclofenac sodium 1% (Voltaren Arthritis Pain) apply to single knee, ankle, foot; for foot includes sole/toes/top of foot 4 grams topical QID 100 grams 4RF Shower Chair Use daily As directed 1 ea 0RF G89.29 - Other chronic pain, M25.561 - Pain in right knee, M25.562 - Pain in left knee, R26.81 - Unsteadiness on feet nystatin 1 appl topical TID 30 grams 3RF Refilled furosemide 20 mg PO BID 60 tabs 3RF
[2024-06-27 14:07] VITALS: BP 112/58; PULSE 64; O2SAT 97; BMI 36.4
--- OUTSIDE RECORDS SUMMARY | 2024-06-27 17:50 | XMS_ITS | Clinical Summary ---
Author Organization [facility] Address [address] [place] [address] Phone Care Team Providers Care Potato Chip Fryer Name Role Phone Bety Bettencourt Primary Care Provider Allergies No known active allergies Medications Medication Sig Dispensed Refills Start Date End Date Status fluticasone furoate-vilanteroL (BREO ELLIPTA) 100-25 mcg/dose inhaler INHALE 1 PUFF BY INHALATION ROUTE EVERY DAY AT THE SAME TIME EACH DAY 01/09/2024 Active amLODIPine (NORVASC) 2.5 mg tablet Take 1 tablet (2.5 mg total) by mouth 1 (one) time each day. Active baclofen (LIORESAL) 10 mg tablet Take 1 tablet (10 mg total) by mouth. Active buPROPion SR (WELLBUTRIN SR) 100 mg 12 hr tablet Take 1 tablet (100 mg total) by mouth daily. 01/02/2019 Active cyanocobalamin (VITAMIN B-12) 1,000 mcg tablet Take 1 tablet (1,000 mcg total) by mouth 1 (one) time each day. Active FLUoxetine (PROzac) 40 mg capsule TAKE 2 CAPSULES BY MOUTH EVERY DAY FOR A TOTAL OF 80 MG DAILY Active metoprolol succinate (TOPROL-XL) 50 mg 24 hr tablet Take 1 tablet (50 mg total) by mouth. 07/11/2023 Active morphine (MS CONTIN) 15 mg 12 hr tablet TAKE 1 TABLET ORALLY EVERY 12 HOURS FOR 28 DAYS PARTIAL FILL UPON PATIENT REQUEST. Active omeprazole (PriLOSEC) [address] capsule Take 1 capsule (20 mg total) by mouth 1 (one) time each day. Active OXcarbazepine (TRILEPTAL) 150 mg tablet TAKE 2 TABLETS BY MOUTH AT BEDTIME AND ONE TABLET IN THE MORNING Active Ventolin HFA 90 mcg/actuation inhaler TAKE 2 PUFFS BY MOUTH EVERY 4 TO 6 HOURS NEEDED Active blood sugar diagnostic (FreeStyle Lite Strips) test strip USE DAILY DIRECTED TO CHECK BLOOD GLUCOSE 05/09/2024 Active cephalexin (KEFLEX) 500 mg capsule Take 1 capsule (500 mg total) by mouth. 11/29/2023 Active clotrimazole (LOTRIMIN) 1 % cream APPLY TO AFFECTED AREA TWICE A DAY FOR 2 WEEKS 05/15/2024 Active diclofenac (VOLTAREN) 75 mg EC tablet TAKE 1 TABLET BY MOUTH TWICE A DAY NEEDED FOR ARTHRITIS FOR 30 DAYS Active Jardiance 10 mg tablet Take 1 tablet (10 mg total) by mouth 1 (one) time each day. Active furosemide (LASIX) 20 mg tablet Take 1 tablet (20 mg total) by mouth 1 (one) time each day. 01/09/2024 Active gabapentin (NEURONTIN) 300 mg capsule Take 1 capsule (300 mg total) by mouth 2 (two) times a day. Active hydroCHLOROthiazide (HYDRODIURIL) 25 mg tablet Take 1 tablet (25 mg total) by mouth 1 (one) time each day. Active Active Problems Problem Noted Date Diagnosed Date Allergic rhinitis 05/20/2024 Arthritis 05/20/2024 Bilateral cataracts 05/20/2024 Cannabis misuse 05/20/2024 Hip pain 05/20/2024 Internal hemorrhoids 05/20/2024 Lumbar pain with radiation down both legs 2023 Microalbuminuria 05/20/2024 Numbness 05/20/2024 Obstructive sleep apnea syndrome 05/20/2024 Prediabetes 05/20/2024 Osteoarthritis of knees, bilateral 05/20/2024 Vitamin B12 deficiency 05/20/2024 Vitamin D deficiency 05/20/2024 Renal mass 01/30/2024 Acute kidney injury 01/29/2024 Acute pulmonary edema 01/29/2024 Acute respiratory failure with hypoxia Hyperlipidemia 01/29/2024 Impaired glucose tolerance 01/29/2024 Chronic back pain 01/29/2024 Lower extremity edema 01/29/2024 Overview (05/20/2024): LVEF 65% with no diastolic dysfunction on TTE 12/2023 Marijuana abuse 01/29/2024 Primary osteoarthritis of left knee 12/19/2022 Primary osteoarthritis of right knee 12/19/2022 Status post total replacement of right hip 12/19 Ascending aorta dilatation 12/15/2022 Asthma 12/15/2022 Chronic obstructive pulmonary disease 12/15/2022 Depression 12/15/2022 Dyslipidemia 12/15/2022 GERD with esophagitis 12/15/2022 HTN (hypertension) 12/15/2022 Impaired fasting glucose 12/15/2022 Low back pain 12/15/2022 CASSIUS on CPAP 12/15/2022 Palpitations 12/15/2022 Severe obesity 12/15/2022 Steatosis of liver 12/15/2022 Tobacco dependence 12/15/2022 Urge incontinence of urine 12/15/2022 Encounters Date Type Department Care Team Description 05/20/2024 11:30 AM EST Office Visit Orthopedic Surgery - [place] [address] [facility] [address] [place] [phone] Jaquelin Valderrama PA Arthritis of knee (Primary Dx) 04/23/2024 10:40 AM EST - 04/23/2024 11:59 PM EST Hospital Encounter [facility] Pulmonary [address] [place] [phone] Chronic obstructive pulmonary disease, unspecified (CMS/HCC); Hypoxemia Discharge Disposition: Home or Self Care from Last 3 Months Immunizations Name Administration Dates Next Due Influenza Quadravalent, leonid mbinant, 0.5ml, preservative free (Flublok) 18yo and older 03/19/2020 Influenza trivalent, with pr eservative (Fluzone; Afluria) 6mo and older 05/31/2022 Pneumococcal polysaccharide 23 valent (Pneumovax 23) 2yo and older 02/24/2010 Tdap Tetanus diptheria acell ular pertussis (Boostrix; Adacel) 7yo and older 03/25/2020 Surgical History Surgery Date Site/Laterality Comments OTHER SURGICAL HISTORY Right PROCEDURE: MS ARTHRP ACETBLR/PROX FEM PROSTC AGRFT/ALGRFT; COMMENT: x 2 Medical History Medical History Date Comments Anxiety disorder DX:Anxiety diso rder Depression DX:Depression COPD (chronic obstructive pu lmonary disease) ([facility]/HCC) DX:COPD (chronic obstructive pulmonary disease) ([facility]) High blood pressure DX:High bloo d pressure Osteoarthritis DX:Osteoarthriti s Social History Tobacco Use Types Packs/Day Years Used Date Smoking Tobacco: Every Day Smokeless Tobacco: Never Alcohol Use Standard Drinks/Week Comments Never 0 (1 standard drink = 0.6 oz pur e alcohol) Sex and Gender Information Value Date Recorded Sex Assigned at Not on file Gender Identity Not on file Sexual Orientation Not on file Job Start Date Occupation Industry Not on file Not on file Not on file Obstetrics History Last Filed Vital Signs Vital Sign Reading Time Taken Comments Blood Pressure - - Pulse - - Temperature - - Respiratory Rate - - Oxygen Saturation - - Inhaled Oxygen Concentration - - Weight 93 kg (205 lb) 05/20/2024 11:35 AM EST Height 158.8 cm (5' 2.5 ) 01/13/2023 11:16 AM ED T Body Mass Index 36.9 01/13/2023 11:16 AM EDT Plan of Treatment Upcoming Encounters Date Type Department Care Team (Late st Contact Info) Description 08/19/2024 11:30 AM EDT Office Visit Orthopedic Surgery - [place] [address] [facility] [address] [place] [address] Jaquelin Valderrama PA [address] [facility] [address] [place] [phone] Health Maintenance Due Date Last Done Comments Breast Cancer Screening 1961 Hepatitis A Vaccines (1 of 2 - Risk 2-dose series) 1980 Cervical Cancer Screening: P ap Smear 1982 Pneumococcal Vaccine: Pediatrics (0 to 5 Years) and At-Risk Patients (6 to 64 Years) (2 of 2 - PCV) 02/24/2011 02/24/2010 Zoster Vaccines (1 of 2) 11/20/2011 RSV Immunization Patients 60 + Years Old (1 - Risk 60-74 years 1-dose series) 2021 Cholesterol Screening (Lipid Panel) 05/01/2022 Colorectal Cancer Screening: Colonoscopy 05/01/2022 Depression Screening 05/01/2022 HIV Screening 05/01/2022 Hepatitis C Screening 05/01/2022 Social Influencers of Health Screening 05/01/2022 Hypertension/CHF/CAD Annual BMP Blood Test 07/12/2023 COVID-19 Vaccine (3 - 2023-2 5 season) 2024 10/22/2020, 09/30/2020 Influenza Vaccine (#1) 2024 3, 03/19/2020 DTaP,Tdap,and Td Vaccines (2 - Td or Tdap) 03/25/2030 03/25/2020 HIB Vaccines Aged Out No longer eligi ble based on patient's age to complete this topic HPV Vaccines Aged Out No longer eligi ble based on patient's age to complete this topic Hepatitis B Vaccines Aged Out No long er eligible based on patient's age to complete this topic IPV Vaccines Aged Out No longer eligi ble based on patient's age to complete this topic MMR Vaccines Aged Out No longer eligi ble based on patient's age to complete this topic Meningococcal ACWY Vaccine Aged Out N o longer eligible based on patient's age to complete this topic RSV Immunization Patients Under 20 months Aged Out No longer eligible b ased on patient's age to complete this topic Varicella Vaccines Aged Out No longer eligible based on patient's age to complete this topic Procedures Procedure Name Priority Date/Time Associated Diagnosis Comments MS ARTHROCENTESIS/ASPIRATI ON/INJECTION MAJOR JOINT/BURSA W/O U/S GUIDANCE Routine 05/20/2024 11:30 AM EST Arthritis of knee HC SPIROMETRY BRONCHODILATION RESPONSIVENESS PRE/POST BRONCHODILATOR ADMINISTRATION Routine 04/23/2024 11:38 AM EST Chronic obstructive pulmonary disease, unspecified (CMS/HCC) Hypoxemia ARTERIAL BLOOD GAS Routine 04/23/2024 10 :49 AM EST from Last 3 Months Results * MS ARTHROCENTESIS/ASPIRATION/INJECTION MAJOR JOINT/BURSA W/O U/S GUIDANCE (05/20/2024 11:30 AM EST) Narrative Jaquelin Valderrama PA - 05/20/2024 11:30 AM EST AYDEE Potter ? 05/20/2024 12:43 PM L Inj/Asp: bilateral knee Indications: pain Details: 22 G needle, medial approach Medications (Right): 3 mL lidocaine 1 %; 40 mg triamcinolone acetonide 40 mg/mL Medications (Left): 3 mL lidocaine 1 %; 40 mg triamcinolone acetonide 40 mg/mL Informed Consent: ??Risk/complications/benefits details: ??Risks of infection, thinning of the skin and temporary skin discoloration discussed. ??Discussed risks of temporary increased pain after injection and swelling and mild redness at injection site for couple days. ??Explained occasionally cortisone injection can cause facial flushing temporarily. ??Benefits pain management. ??For postop injection pain ice, Tylenol and/or NSAIDs if patient can take Jaquelin BAJWA IN CLINIC/BEDSIDE OR DERABLES * Pulmonary function testing: Carbon Monoxide Diffusing Capacity, Nitrogen Wash Out, Spirometry with Bronchodilator, ABG (04/23/2024 11:38 AM EST) Narrative Stacie Wilde MD - 04/26/2024 8:50 PM EST FEV1/FVC 65%. FEV1 1.81 at 89%. FVC 100%. No bronchodilator response. ??TLC 100%. RV 101%. DLCO 61% (adjusted 61%). Mild obstruction. ??No restriction. ??And mild decrease in diffusion. Finding consistent mild obstructive lung disease. Naveed Boudreaux MD PFT ORDERABLES * (ABNORMAL) Arterial blood gas (04/23/2024 10:49 AM EST) pH, Arterial 7.45 7.35 - 7.45 pH 04/23/2024 11:11 AM EST [facility] pCO2, Arterial 48(H) 35 - 45 mmHg 04/23/2024 11:11 AM EST [facility] pO2, Arterial 64(L) 80 - 100 mmHg 04/23/2024 11:11 AM EST [facility] HCO3, Arterial 31.1(H) 22.0 - 26.0 mmol/L 04/23/2024 11:11 AM EST [facility] O2 Sat, Arterial 94.4(L) 95.0 - 98.0 % 04/23/2024 11:11 AM [facility] Base Excess, Arterial 8.1(H) -2.0 - 2.0 mmol/L 04/23/2024 11:11 AM [facility] Tha Test Pass Pass, Unresponsi ve, Line 04/23/2024 11:11 AM [facility] FIO2 28.00 04/23/2024 11:11 AM [facility] Blood Arterial blood specimen / Unknown Arterial Puncture / Unknown 04/23/2024 10:49 AM EST 04/23/2024 11:06 AM EST Naveed Boudreaux MD LAB BLOOD ORDERABLES [facility] [address] [place] [address], from Last 3 Months Care Teams Potato Chip Fryer Relationship Specialty Start Date End Date Bety Bettencourt PA [address] [place] [address] PCP - General Physician Mexican Food Cook 04/22/24
== END 2024-06-27 14:37 | disposition home or self-care (01) ==
PROVIDERS: PCP Physician Assistant; Visit Provider Physician Assistant
DX: I12.9 Hypertensive chronic kidney disease with stage 1 through stage 4 chronic kidney disease, or unspecified chronic kidney disease (principal); N18.30 Chronic kidney disease, stage 3 unspecified; E11.29 Type 2 diabetes mellitus with other diabetic kidney complication; E66.01 Morbid (severe) obesity due to excess calories; Z68.36 Body mass index [BMI] 36.0-36.9, adult; R80.9 Proteinuria, unspecified; E78.5 Hyperlipidemia, unspecified; M25.561 Pain in right knee; M25.562 Pain in left knee; G89.29 Other chronic pain; R22.2 Localized swelling, mass and lump, trunk; R63.4 Abnormal weight loss

== ENCOUNTER → 2024-06-27 13:55 | Outpatient (BNVA) | payer OTHER, SELFPAY | PROVIDERS: PCP Physician Assistant; Visit Provider Physician Assistant | DX: I12.9 Hypertensive chronic kidney disease with stage 1 through stage 4 chronic kidney disease, or unspecified chronic kidney disease (principal); E11.22 Type 2 diabetes mellitus with diabetic chronic kidney disease; N18.30 Chronic kidney disease, stage 3 unspecified; R80.9 Proteinuria, unspecified; E66.01 Morbid (severe) obesity due to excess calories; E78.5 Hyperlipidemia, unspecified; M25.561 Pain in right knee; M25.562 Pain in left knee; G89.29 Other chronic pain; R22.2 Localized swelling, mass and lump, trunk; R63.4 Abnormal weight loss | CPT/HCPCS: 96127; 99212 ==

== ENCOUNTER 2024-06-27 14:44 | Outpatient (REF) | payer OTHER, SELFPAY ==
[2024-06-27 17:38] LABS: MANUAL DIFF FLAG NO
[2024-06-27 17:51] LABS: Appearance Urine Cloudy; Color Urine Yellow; Glucose Urine UA Negative (Negative); Leukocyte Esterase Urine Small (1+) (Negative); Nitrite Urine Negative (Negative); Specific Gravity - Urine >= 1.030 (1.005-1.025); UMIC TRIGGER UACC YES; Urine Blood Negative (Negative); Urine Ketones Negative (Negative); Urine Protein Trace mg/dL (Neg-Trace)
[2024-06-27 17:54] LABS: Basophils Absolute Auto 0.1 X10*3/uL (0.0-0.2); Basophils Percent Auto 0.6 % (0-2); Eosinophils Absolute Auto 0.5 X10*3/uL (0.0-0.4); Eosinophils Percent Auto 4.2 % (0-4); Hematocrit 37.4 % (37.0-47.0); Hemoglobin 12.5 g/dl (12.0-16.0); Imm Gran Abs Auto 0.05 X10*3/uL (0.00-0.03); Imm Gran Pct Auto 0.5 % (0.0-0.4); Lymphocytes Absolute Auto 2.3 X10*3/uL (1.2-4.9); Mean Corpuscular HGB Conc 33.4 g/dl (31.0-35.0); Mean Corpuscular Hemoglobin 27.8 pg (27.0-33.0); Mean Corpuscular Volume 83.3 fL (80.0-98.0); Mean Platelet Volume 9.7 fL (9.4-12.3); Monocytes Absolute Auto 0.6 X10*3/uL (0.1-1.2); Monocytes Percent Auto 5.1 % (2-11); Neutrophils Absolute Auto 7.3 x10*3/uL (2.0-8.3); Neutrophils Percent Auto 68.6 % (45-73); Platelet Count 321 X10*3/uL (160-400); Red Blood Count 4.49 X10*6/uL (4.20-5.50); Red Cell Distribution Width 17.1 % (11.0-16.0); White Blood Count 10.7 X10*3/uL (4.8-10.8)
[2024-06-27 18:11] LABS: Bacteria Urine 4+ (None Seen); Other Crystals Urine Present; RBC Urine 0-2 /HPF (0-2); UACC Culture Trigger YES; WBC Urine 0-5 /HPF (0-5)
--- OUTSIDE RECORDS SUMMARY | 2024-06-27 18:39 | XMS_ITS | Clinical Summary ---
Author Organization [facility] Address [address] [place] [address] Phone Care Team Providers Care Pasting Machine Offbearer Name Role Phone Bety Bettencourt Primary Care Provider [phone] Allergies No known active allergies Medications Medication [...] AM EST Office Visit Orthopedic Surgery - [place] [address] [facility] [address] [address] [place] [phone] Jaquelin Valderrama PA Arthritis of knee (Primary Dx) 04/23/2024 10:40 AM EST - 04/23/2024 11:59 PM EST Hospital Encounter [facility] Pulmonary [address] [place] [phone] Chronic obstructive pulmonary disease, unspecified (CMS/HCC); Hypoxemia [...] Site/Laterality Comments OTHER SURGICAL HISTORY Right PROCEDURE: DC ARTHRP ACETBLR/PROX FEM PROSTC AGRFT/ALGRFT; COMMENT: x 2 Medical History Medical History Date Comments Anxiety disorder DX:Anxiety diso rder Depression DX:Depression COPD (chronic obstructive pu lmonary disease) ([facility]/HCC) DX:COPD (chronic obstructive pulmonary disease) ([facility]) High blood pressure DX:High bloo d pressure [...] AM EDT Office Visit Orthopedic Surgery - [place] [address] [facility] [address] [place] [address] Jaquelin Valderrama PA [address] [facility] [address] [address] [place] [phone] Health Maintenance Due Date Last Done Comments [...] Procedure Name Priority Date/Time Associated Diagnosis Comments DC ARTHROCENTESIS/ASPIRATI ON/INJECTION MAJOR JOINT/BURSA W/O U/S GUIDANCE Routine 05/20/2024 11:30 AM EST Arthritis of knee HC SPIROMETRY BRONCHODILATION RESPONSIVENESS PRE/POST BRONCHODILATOR ADMINISTRATION Routine 04/23/2024 11:38 AM EST Chronic obstructive pulmonary disease, unspecified (CMS/HCC) Hypoxemia ARTERIAL BLOOD GAS Routine 04/23/2024 10 :49 AM EST from Last 3 Months Results * DC ARTHROCENTESIS/ASPIRATION/INJECTION MAJOR JOINT/BURSA W/O U/S GUIDANCE (05/20/2024 [...] - 7.45 pH 04/23/2024 11:11 AM EST [facility] pCO2, Arterial 48(H) 35 - 45 mmHg 04/23/2024 11:11 AM EST [facility] pO2, Arterial 64(L) 80 - 100 mmHg 04/23/2024 11:11 AM EST [facility] HCO3, Arterial 31.1(H) 22.0 - 26.0 mmol/L 04/23/2024 11:11 AM EST [facility] O2 Sat, Arterial 94.4(L) 95.0 - 98.0 % 04/23/2024 11:11 AM [facility] Base Excess, Arterial 8.1(H) -2.0 - 2.0 mmol/L 04/23/2024 11:11 AM [facility] Tha Test Pass Pass, Unresponsi ve, Line 04/23/2024 11:11 AM [facility] FIO2 28.00 04/23/2024 11:11 AM [facility] Blood Arterial blood specimen / Unknown Arterial Puncture / Unknown 04/23/2024 10:49 AM EST 04/23/2024 11:06 AM EST Naveed Boudreaux MD LAB BLOOD ORDERABLES [facility] [address] [place] [address], from Last 3 Months Care Teams Pasting Machine Offbearer Relationship Specialty Start Date End Date Bety Bettencourt PA [address] [place] [address] PCP - General Physician Coater Operator 04/22/24
[2024-06-27 18:55] LABS: Alanine Aminotransferase 8 U/L (0-31); Albumin Level 3.5 g/dL (3.5-5.0); Alkaline Phosphatase 96 U/L (39-117); Anion Gap 12 (12-20); Aspartate Amino Transferase 10 U/L (5-31); Bilirubin Total 0.2 mg/dL (0.0-1.0); Blood Urea Nitrogen 18 mg/dL (9-16); Calcium 9.1 mg/dL (8.4-10.2); Carbon Dioxide 22 mmol/L (22-29); Chloride 108 mmol/L (96-108); Cholesterol 169 mg/dL (<200); Estimated Glomerular Filt Rate > 60; Glucose Fasting 93 mg/dL (60-99); Glucose Random 93 mg/dL (60-115); HDL Cholesterol 43 mg/dL (>40); LDL Cholesterol Calculated 93 mg/dL (<100); Potassium 4.2 mmol/L (3.3-5.1); Sodium 138 mmol/L (135-145); TSH reflex Free T4 1.36 uIU/mL (0.32-4.0); Triglycerides 167 mg/dL (<150)
[2024-06-28 05:19] LABS: Estimated Average Glucose 105 mg/dL; Hemoglobin A1C 111.6724 umol/L; Hemoglobin A1c % 5.3 % (<6.0); Total Hemoglobin (HGBA1C) 3230.4027 umol/L
== END 2024-06-27 14:45 | disposition home or self-care (01) ==
LOC: HO.WFDLDS 14:44
PROVIDERS: Visit Provider Physician Assistant
DX: N18.30 Chronic kidney disease, stage 3 unspecified (principal); R63.4 Abnormal weight loss; E11.29 Type 2 diabetes mellitus with other diabetic kidney complication; R80.9 Proteinuria, unspecified; E78.5 Hyperlipidemia, unspecified
CPT/HCPCS: 36415; 80048; 80053; 80061; 81001; 83036; 84443; 85025; 87086

== ENCOUNTER 2024-07-17 16:23 | Outpatient (AMB) | payer OTHER, SELFPAY ==
--- NOTE | 2024-07-17 15:38 | MHC.OFFVIS ---
Intake Visit Reasons: feet and ankle swollen - Android - [phone] Allergies No Known Allergies Allergy (Verified 06/05/24 12:42) Medication List - Last Reconciled 07/17/24 by Bety Bettencourt PA-C albuterol sulfate 90 mcg/actuation (Ventolin HFA) 2 puffs inhalation Q4-6H PRN amlodipine 5 mg PO DAILY baclofen 10 mg PO TID blood sugar diagnostic (FreeStyle Lite Strips) Use daily As directed to check blood glucose blood-glucose meter (FreeStyle Lite Meter kit) Use daily As directed to check blood sugars bupropion HCl SR 150 mg PO QAM clotrimazole 1% (Lotrimin AF (clotrimazole)) 1 appl topical BID 4 weeks commode (bedside commode) As directed cyanocobalamin (vitamin B-12) 1,000 mcg PO DAILY [diabetic shoes Use diabetic shoes daily as directed.] diclofenac sodium 1% (Voltaren Arthritis Pain) 4 grams topical QID fluoxetine mg PO fluticasone furoate-vilanterol 100-25 mcg/dose (Breo Ellipta) 1 ea inhalation DAILY furosemide 20 mg PO BID lancets (FreeStyle Lancets) use daily as directed to check blood glucose metoprolol succinate ER 100 mg PO DAILY 90 days miscellaneous medical supply Use daily As directed (walker with wheels and seat) miscellaneous medical supply One shoe horn to use daily As directed miscellaneous medical supply as directed; 1 gripper, use daily as needed to supervisor picking crew objects naloxone 4 mg/actuation (Narcan) 4 mg intranasal Q2M PRN nystatin 1 appl topical TID omeprazole 20 mg PO DAILY oxcarbazepine mg PO polyethylene glycol 3350 (Miralax) 17 grams PO DAILY PRN Shower Chair Use daily As directed trazodone 50 mg PO BEDTIME PRN walker 1 ea as directed daily; HPI HPI feet and ankle swollen - Android - [phone]: Details: Pt is a 63 y/o female who presents today for a follow up regarding pain management. -she states her weight is stable. Pysch: Follows closely with a psychiatrist at [facility] and is stable with her Wellbutrin 150 mg, fluoxetine 40 mg, oxcarbazepine and trazodone daily. The trazodone was recently and helpful. PULM: She states she is on o2 and states it helps the sob. She did see Dr. Boudreaux recently and had repeat PFTs. She states that he is aware of her abnormal chest CT and the need to have this repeated.. She she follows closely with pulmonology and states that she is due to go back for a walking test.. Nephro: Repeated labs were improved kidney function. Unfortunately was unable to keep her appointment with Nephrology. States that it is not yet booked but she needs to call them. Endo: Diabetes has recently been diet controlled, due for a1c recheck. At our last visit she was off of Jardiance. last a1c was 5.4. Has testing supplies at home but does not check. CV: Her bench lathe operator is Dr. Zamudio. She last saw him on 01/08. She reports having an echo and stress tests which were normal.he is on metoprolol 100 mg, amlodipine 5 mg, lasix 40 mg. Musculoskeletal: She is frustrated because she can not take NSAIDs due to her kidney function. She is not a surgical candidate for joint replacements right now. She would like a consult with pain management. She went to her appointment with them but missed it and slipped on the curb and hit her head at the hospital last week. She did not lose consciousness. She states a nurse checked her out and encouraged her to go to ED but patient states she did not want to go because she did not have transportation. She states that this is better but she still just struggles with her bilateral knee pain and low back pain. She did not tolerate the morphine. Gabapentin is ineffective and causes her to feel shaky. She can not take NSAIDs. Tylenol does not do a lot to relieve her pain. [facility] Medical History (Updated 07/17/24 @ 15:46 by Bety Bettencourt PA-C) CKD (chronic kidney disease) stage 3, GFR 30-59 ml/min Increased urinary frequency Gait instability Smoker Chronic pain of both knees Dyslipidemia HTN (hypertension) Controlled type 2 diabetes mellitus Vitamin A deficiency Vitamin B12 deficiency Urge incontinence of urine Steatosis Severe obesity Prediabetes Palpitations Osteoarthritis of knee Obstructive sleep apnea syndrome Obesity Numbness Microalbuminuria Lumbar pain with radiation down both legs Internal hemorrhoids Hip pain GERD (gastroesophageal reflux disease) Depressive disorder affecting childbirth Chronic obstructive lung disease Cannabis misuse Bilateral cataracts Asthma Arthritis Allergic rhinitis Surgical History History of total hip replacement Social History (Updated 06/27/24 @ 14:11 by Juana Navarro CMA) Housing: Apartment Alcohol intake: former Patient Tobacco Use Status: Former Tobacco user Cigarette Packs Per Day: 6 Years Smoked: 46 e-Cigarette/Vaping Use: Never Used Second Hand Smoke Exposure: No Substance Use Type: Marijuana service: No Current occupational status: disabled Cognitive needs: No Hearing needs: No Vision needs: No Telehealth Telehealth Telehealth Platform: Telephone Location of provider rendering services: practice address Location of patient: address on file Patient Identification confirmed using: Name, : Yes Telehealth method: voice only Patient verbally consented to treatment: Yes Patient verbally consented to billing insurance company: Yes Patient informed of any privacy concerns related to visit: Yes Minutes spent on Phone/Video with Pt.: 14 Results Reviewed Results Reviewed: Laboratory Tests 02/15/24 06/27/24 Unknown 14:46 Sodium 141 138 Potassium 4.3 4.2 Chloride 100 108 Carbon Dioxide 32 H 22 Anion Gap 13 12 Creatinine 0.90 0.86 Estimated GFR > 60 > 60 Random Glucose 93 Estimat Average Glucose 105 Hemoglobin A1c % 5.4 5.3 Calcium 9.1 Total Bilirubin 0.2 AST 11 10 ALT 8 8 Alkaline Phosphatase 96 Total Protein 7.0 Albumin 3.5 Triglycerides 167 H Cholesterol 169 LDL Cholesterol, Calc 93 HDL Cholesterol 43 TSH 2.30 1.36 Assessment & Plan Assessment & Plan (1) Chronic pain of both knees: Code(s): M25.561 - Pain in right knee; M25.562 - Pain in left knee; G89.29 - Other chronic pain Category: Medical Plan: She has taken oxycodone in the past and states that she has tolerated this. We will trial this and discussed the addictive properties and dependence associated with it. She is aware of the risk of sedation, respiratory suppression. She has Narcan at home. (2) Weight loss: Code(s): R63.4 - Abnormal weight loss Category: Medical Plan: Reports weight as stable. Medications: New oxycodone Partial Fill upon patient request. 5 mg PO Q12H 28 days PRN 56 tabs 0RF pain Coding Level of Care Code Tele Est Pt Level 2 (12091) Diagnoses Chronic pain of both knees M25.561; M25.562; G89.29 Weight loss R63.4
--- OUTSIDE RECORDS SUMMARY | 2024-07-17 16:25 | XMS_ITS | Clinical Summary ---
Author Organization [facility] Address [address] [place] [address] Phone Care Team Providers Care Commercial Center Manager Name Role Phone Bety Bettencourt Primary Care Provider [phone] Allergies No known active allergies Medications fluticasone furoate-vilante roL (BREO ELLIPTA) 100-25 mcg/dose inhaler INHALE 1 PUFF BY INHALATION ROUTE EVERY DAY AT THE SAME TIME EACH DAY 4 Active amLODIPine (NORVASC) 2.5 mg tablet Take 1 tablet (2.5 mg total) by mouth 1 (one) time each day. Active baclofen (LIORESAL) 10 mg tablet Take 1 tablet (10 mg total) by mouth. Active buPROPion SR (WELLBUTRIN SR) 100 mg 12 hr tablet Take 1 tablet (100 mg total) by mouth daily. 9 Active cyanocobalamin (VITAMIN B-12) 1,000 mcg tablet Take 1 tablet (1,000 mcg total) by mouth 1 (one) time each day. Active FLUoxetine (PROzac) 40 mg capsule TAKE 2 CAPSULES BY MOUTH EVERY DAY FOR A TOTAL OF 80 MG DAILY Active metoprolol succinate (TOPROL-XL) 50 mg 24 hr tablet Take 1 tablet (50 mg total) by mouth. 4 Active morphine (MS CONTIN) 15 mg 12 [...] USE DAILY DIRECTED TO CHECK BLOOD GLUCOSE Active cephalexin (KEFLEX) 500 mg capsule Take 1 capsule (500 mg total) by mouth. 4 Active clotrimazole (LOTRIMIN) 1 % cream APPLY TO AFFECTED AREA TWICE A DAY FOR 2 WEEKS Active diclofenac (VOLTAREN) 75 mg EC tablet TAKE 1 TABLET BY MOUTH TWICE A DAY NEEDED FOR ARTHRITIS FOR 30 DAYS Active Jardiance 10 mg tablet Take 1 tablet (10 mg total) by mouth 1 (one) time each day. Active furosemide (LASIX) 20 mg tablet Take 1 tablet (20 mg total) by mouth 1 (one) time each day. Active gabapentin (NEURONTIN) 300 mg capsule Take 1 capsule (300 mg total) by mouth 2 (two) times a day. Active hydroCHLOROthia zide (HYDRODIURIL) 25 mg tablet Take 1 tablet [...] AM EST Office Visit Orthopedic Surgery - [place] [address] [facility] [address] [place] [phone] Jaquelin Valderrama PA Arthritis of knee (Primary Dx) 04/23/2024 10:40 AM EST - 04/23/2024 11:59 PM EST Hospital Encounter [facility] Pulmonary [address] [place] [phone] Chronic obstructive pulmonary disease, unspecified (CMS/HCC); Hypoxemia [...] Site/Laterality Comments OTHER SURGICAL HISTORY Right PROCEDURE: DE ARTHRP ACETBLR/PROX FEM PROSTC AGRFT/ALGRFT; COMMENT: x 2 Medical History Medical History Date Comments Anxiety disorder DX:Anxiety diso rder Depression DX:Depression COPD (chronic obstructive pu lmonary disease) ([facility]) DX:COPD (chronic obstructive pulmonary disease) ([facility]) High blood pressure DX:High bloo d pressure Osteoarthritis DX:Osteoarthriti s Social History Tobacco Use Types Packs/Day Years Used Date Smoking Tobacco: Every Day Smokeless Tobacco: Never Alcohol Use Standard Drinks/Week Comments Never 0 (1 standard drink = 0.6 oz pur e alcohol) Comments Unknown Sex and Gender Information Value Date Recorded Sex Assigned at Not on file Legal Sex Female 4:31 AM EST Gender Identity Not on file Sexual Orientation Not on file Obstetrics History Last Filed [...] AM EDT Office Visit Orthopedic Surgery - [place] [address] [place] [address] Jaquelin Valderrama PA [address] [place] [phone] Health Maintenance Due Date Last Done Comments Breast Cancer Screening 1961 Hepatitis A Vaccines (1 of 2 - Risk 2-dose series) 1980 Cervical Cancer Screening: P ap Smear 1982 Pneumococcal Vaccine: 50+ Years (2 of 2 - PCV) 02/24/2011 02/24/2010 Pneumococcal Vaccine: Pediatrics (0 to 5 Years) [...] patient's age to complete this topic Meningococcal B Vacine Aged Out No lo nger eligible based on patient's age to complete this topic RSV Immunization Patients Under 20 months Aged Out No longer eligible b ased on patient's age to complete this topic Varicella Vaccines Aged Out No longer eligible based on patient's age to complete this topic Procedures Procedure Name Priority Date/Time Associated Diagnosis Comments DE ARTHROCENTESIS/ASPIRATI ON/INJECTION MAJOR JOINT/BURSA W/O U/S GUIDANCE Routine 05/20/2024 11:30 AM EST Arthritis of knee HC SPIROMETRY BRONCHODILATION RESPONSIVENESS PRE/POST BRONCHODILATOR ADMINISTRATION Routine 04/23/2024 11:38 AM EST Chronic obstructive pulmonary disease, unspecified (CMS/HCC) Hypoxemia ARTERIAL BLOOD GAS Routine 04/23/2024 10 :49 AM EST from Last 3 Months Results * DE ARTHROCENTESIS/ASPIRATION/INJECTION MAJOR JOINT/BURSA W/O U/S GUIDANCE (05/20/2024 [...] Tylenol and/or NSAIDs if patient can take us Jaquelin BAJWA IN CLINIC/BEDSIDE ORDERABLES Final Result * Pulmonary function testing: Carbon Monoxide Diffusing Capacity, Nitrogen Wash Out, Spirometry with Bronchodilator, ABG (04/23/2024 11:38 AM EST) Narrative Stacie Wilde MD - 04/26/2024 8:50 PM EST FEV1/FVC 65%. FEV1 1.81 at 89%. FVC 100%. No bronchodilator response. ??TLC 100%. RV 101%. DLCO 61% (adjusted 61%). Mild obstruction. ??No restriction. ??And mild decrease in diffusion. Finding consistent mild obstructive lung disease. us Naveed Boudreaux MD PFT ORDERABLES Final Result * (ABNORMAL) Arterial blood gas (04/23/2024 10:49 AM EST) pH, Arterial 7.45 7.35 - 7.45 pH 04/23/2024 11:11 AM EST [facility] pCO2, Arterial 48(H) 35 - 45 mmHg 04/23/2024 11:11 AM EST [facility] pO2, Arterial 64(L) 80 - 100 mmHg 04/23/2024 11:11 AM [facility] HCO3, Arterial 31.1(H) 22.0 - 26.0 mmol/L 04/23/2024 11:11 AM [facility] O2 Sat, Arterial 94.4(L) 95.0 - 98.0 % 04/23/2024 11:11 AM [facility] Base Excess, Arterial 8.1(H) -2.0 - 2.0 mmol/L 04/23/2024 11:11 AM [facility] Tha Test Pass Pass, Unresponsi ve, Line 04/23/2024 11:11 AM [facility] FIO2 28.00 04/23/2024 11:11 AM [facility] Blood Arterial blood specimen / Unknown Arterial Puncture / Unknown 04/23/2024 10:49 AM EST 04/23/2024 11:06 AM EST us Naveed Boudreaux MD LAB BLOOD ORDERABLES Final R esult [facility] [address] [place] [address], [place] [phone] from Last 3 Months Insurance [employer] Care Teams Commercial Center Manager Relationship Specialty Start Date End Date Bettencourt, Bety, PA [address] [place] [address] PCP - General Physician Index Clerk 04/22/24
== END 2024-07-17 16:28 | disposition home or self-care (01) ==
LOC: HO.HMCFM 16:23
PROVIDERS: PCP Physician Assistant; Visit Provider Physician Assistant
DX: M25.561 Pain in right knee (principal); M25.562 Pain in left knee; G89.29 Other chronic pain; R63.4 Abnormal weight loss

== ENCOUNTER 2024-09-09 14:26 | Outpatient (AMB) | payer OTHER, SELFPAY ==
[2024-09-09 14:30] VITALS: BP 136/64; PULSE 63; RESP 16; O2SAT 92; BMI 37.2
--- NOTE | 2024-09-09 14:30 | A.OFFVIS_ITS ---
Vital Signs 09/09/24 14:30 Height 5 ft 1 in Weight 197 lb BMI 37.2 BP 136/64 Blood Pressure Location Lt brachial Position Sitting Respiration 16 Pulse 63 Pulse Source Pulse Oximeter Pulse Oximetry (%) 92 Oxygen Delivery Method Room Air Intake Visit Reasons: Pain in right/left knee/missed on 07/10 Field Observer Required: No Allergies No Known Allergies Allergy (Verified 09/09/24 14:31) Medication List - Last Reconciled 09/09/24 by Luci Lackey LPN albuterol sulfate 90 mcg/actuation (Ventolin HFA) 2 puffs inhalation Q4-6H PRN amlodipine 5 mg PO DAILY baclofen 10 mg PO TID blood sugar diagnostic (FreeStyle Lite Strips) Use daily As directed to check blood glucose blood-glucose meter (FreeStyle Lite Meter kit) Use daily As directed to check blood sugars bupropion HCl SR 150 mg PO QAM clotrimazole 1% (Lotrimin AF (clotrimazole)) 1 appl topical BID 4 weeks commode (bedside commode) As directed cyanocobalamin (vitamin B-12) 1,000 mcg PO DAILY [diabetic shoes Use diabetic shoes daily as directed.] diclofenac sodium 1% (Voltaren Arthritis Pain) 4 grams topical QID fluoxetine mg PO fluticasone furoate-vilanterol 100-25 mcg/dose (Breo Ellipta) 1 ea inhalation DAILY furosemide 20 mg PO BID lancets (FreeStyle Lancets) use daily as directed to check blood glucose metoprolol succinate ER 100 mg PO DAILY 90 days miscellaneous medical supply Use daily As directed (walker with wheels and seat) miscellaneous medical supply One shoe horn to use daily As directed miscellaneous medical supply as directed; 1 gripper, use daily as needed to chart picker objects naloxone 4 mg/actuation (Narcan) 4 mg intranasal Q2M PRN nystatin 1 appl topical TID omeprazole 20 mg PO DAILY oxcarbazepine mg PO Shower Chair Use daily As directed trazodone 50 mg PO BEDTIME PRN walker 1 ea as directed daily; HPI Comments Details: Tawny is very pleasant 63 years old female who presents in my office with complains on pain in bilateral knees. She reports that she is suffering from this pain for many years. She reports that she was scheduled in the past for orthopedic consult, he was offered total knee replacement however lately she was found to have a cyst in her kidney and some liver abnormalities and her surgery on the knees got postpone. She is looking for some palliative pain management of the pain in the knees. She can not do activities of daily living she is able to take care of herself but she is not able to function normally. She is on permanent disability. Weather changes in movements aggravate her pain. In terms of tissue damage he reports her pain as aching. She had multiple images of her knee in [place] [facility]. She never had physical therapy related to her knees. She had injections into bilateral knees with steroids initially those injections were helping her however lately they became ineffective. Her past medical history significant for hypertension, obstructive sleep apnea, diabetes, asthma shortness of breath. Her past surgical history significant for total hip replacement. Social history she is disabled individual she admits smoking cigarettes about 4 cigarettes a month she is trying to quit she denies drinking alcohol she drinks 1 cup of coffee a day and she admits cannabis. [facility] Medical History (Updated 09/09/24 @ 14:54 by Angel Mesa MD) CKD (chronic kidney disease) stage 3, GFR 30-59 ml/min Increased urinary frequency Gait instability Smoker Chronic pain of both knees Dyslipidemia HTN (hypertension) Controlled type 2 diabetes mellitus Vitamin A deficiency Vitamin B12 deficiency Urge incontinence of urine Steatosis Severe obesity Prediabetes Palpitations Osteoarthritis of knee Obstructive sleep apnea syndrome Obesity Numbness Microalbuminuria Lumbar pain with radiation down both legs Internal hemorrhoids Hip pain GERD (gastroesophageal reflux disease) Depressive disorder affecting childbirth Chronic obstructive lung disease Cannabis misuse Bilateral cataracts Asthma Arthritis Allergic rhinitis Surgical History History of total hip replacement Social History (Updated 06/27/24 @ 14:11 by Juana Navarro CMA) Housing: Apartment Alcohol intake: former Patient Tobacco Use Status: Former Tobacco user Cigarette Packs Per Day: 6 Years Smoked: 46 e-Cigarette/Vaping Use: Never Used Second Hand Smoke Exposure: No Substance Use Type: Marijuana service: No Current occupational status: disabled Cognitive needs: No Hearing needs: No Vision needs: No Review of Systems Const All systems reviewed & are unremarkable except as noted in HPI and below ENT Reports Normal hearing present Neuro Reports Normal hearing present, Denies Abnormal speech present, Denies confusion and Denies Sensory deficit (Neuro) Psych Denies confusion Physical Exam Vital Signs: Last Vital Signs Pulse 63 09/09/24 14:30 Resp 16 09/09/24 14:30 BP 136/64 09/09/24 14:30 Pulse Ox 92 09/09/24 14:30 Oxygen Delivery Method Room Air 09/09/24 14:30 BMI result Body Mass Index 37.2 Const General: no acute distress; No confusion Nutritional Appearance: obese morbidly obese Orientation/consciousness: patient oriented x3 and No confusion Eyes General: appearance normal, both eyes and all related structures Pupils: Equal, round and reactive pupils present EOM: EOMs intact bilaterally Neck Neck: Yes full ROM Chest Chest palpation & inspection: normal inspection of the chest Resp Effort & Inspection: normal respiratory effort, able to speak in complete sentences, normal respiratory pattern, no audible wheezes and no cough Cardio Jugular venous distension: no JVD GI Inspection: Yes normal to inspection Neuro General: patient oriented x3, gait normal and No confusion Cranial nerves: Yes CN's II-XII intact bilaterally, Yes Equal, round and reactive pupils present, Yes Normal hearing present and Yes Ability to bilaterally elevate shoulders present Speech: No Abnormal speech present Gait exam (Neuro): Normal gait present Motor exam (neuro): 5/5 motor strength present throughout Sensory Exam: No Sensory deficit (Neuro) Extrem Other: Limited range of motion on bilateral knees, the deformity of bilateral knees, the crepitus on palpation with motion of bilateral knees. Those evident of the severe osteoarthritis. General: No pedal edema Psych Speech and movement: Normal speech and movement present Affect: normal affect Attitude: cooperative Thought process: Normal thought process present Thought content: Normal thought content present Insight: Good insight present (Psych) Judgement: Good judgement present (Psych) Assessment & Plan Assessment & Plan (1) Bilateral knee pain: Code(s): M25.561 - Pain in right knee; M25.562 - Pain in left knee Category: Medical (2) Osteoarthritis of knees, bilateral: Code(s): M17.0 - Bilateral primary osteoarthritis of knee Category: Medical (3) Morbid obesity: Code(s): E66.01 - Morbid (severe) obesity due to excess calories Category: Medical (4) Chronic pain syndrome: Code(s): G89.4 - Chronic pain syndrome Category: Medical Plan It is very unfortunate but this patient never had physical therapy for the treatment of her knees. I would need to send her for physical therapy to treat her knee pain. I will schedule it in the [facility] physical therapy. I recommended the patient when she will complete 6 sessions of physical therapy and home exercise program to give me a call and schedule an appointment. We will consider diagnostic injections with possibility of treatment of her knee pain with peripheral nerve stimulation versus radiofrequency ablation. Patient expressed understanding she will not be scheduled a new appointment. Orders: Orders PT Evaluation and Treatment Today G89.4 - Chronic pain syndrome, M17.0 - Bilateral primary osteoarthritis of knee, M25.561 - Pain in right knee, M25.562 - Pain in left knee Coding Level of Care Code New Pt Level 3 (83643) Diagnoses Bilateral knee pain M25.561; M25.562 Osteoarthritis of knees, bilateral M17.0 Morbid obesity E66.01 Chronic pain syndrome G89.4
--- OUTSIDE RECORDS SUMMARY | 2024-09-09 16:49 | XMS_ITS | Clinical Summary ---
Author Organization [facility] Address [address] [place] [address] Phone Care Team Providers Care Phone Specialist Name Role Phone Bety Bettencourt Primary Care Provider [phone] Allergies No known active allergies Medications [...] USE DAILY DIRECTED TO CHECK BLOOD GLUCOSE 4 Active cephalexin (KEFLEX) 500 mg capsule Take 1 capsule (500 mg total) by mouth. 4 Active clotrimazole (LOTRIMIN) 1 % cream APPLY TO AFFECTED AREA TWICE A DAY FOR 2 WEEKS 4 Active diclofenac (VOLTAREN) 75 mg EC tablet TAKE 1 TABLET BY MOUTH TWICE A DAY NEEDED FOR ARTHRITIS FOR 30 DAYS Active Jardiance 10 mg tablet Take 1 tablet (10 mg total) by mouth 1 (one) time each day. Active furosemide (LASIX) 20 mg tablet Take 1 tablet (20 mg total) by mouth 1 (one) time each day. 4 Active gabapentin (NEURONTIN) 300 mg capsule Take 1 capsule (300 mg total) by mouth 2 (two) times a day. Active hydroCHLOROthia zide (HYDRODIURIL) 25 mg tablet Take 1 tablet (25 mg total) by mouth 1 (one) time each day. Active Hospital, Clinic, or Other Facility Administered Medication Ordered Dose Route Frequency Start Date End Date Status lidocaine (XYLOCAINE) 1 % injection 3 mLIndications:Arthri tis of knee 3 mL inj Once PRN Procedure 08/19/2024 08/19/2024 Ended lidocaine (XYLOCAINE) 1 % injection 3 mLIndications:Arthri tis of knee 3 mL inj Once PRN Procedure 08/19/2024 08/19/2024 Ended triamcinolone acetonide (KENALOG-40) 40 mg/mL injection 40 mgIndications:Arthri tis of knee 40 mg IAtc Once PRN Procedure 08/19/2024 08/19/2024 Ended triamcinolone acetonide (KENALOG-40) 40 mg/mL injection 40 mgIndications:Arthri tis of knee 40 mg IAtc Once PRN Procedure 08/19/2024 08/19/2024 Ended Active Problems Problem Noted Date Diagnosed Date Allergic rhinitis 05/20/2024 Arthritis 05/20/2024 Bilateral cataracts 05/20/2024 Cannabis misuse 05/20/2024 Hip pain 05/20/2024 Internal hemorrhoids 05/20/2024 Lumbar pain with radiation down both legs 2023 Microalbuminuria 05/20/2024 Numbness 05/20/2024 Obstructive sleep apnea syndrome 05/20/2024 Prediabetes 05/20/2024 Osteoarthritis of knees, bilateral 05/20/2024 Vitamin B12 deficiency 05/20/2024 Vitamin D deficiency 05/20/2024 Renal mass 01/30/2024 Acute kidney injury ([facility]) 01/29/2024 Acute pulmonary edema ([facility] V24, [facility] V28) 01/29/2024 Acute respiratory failure wi th hypoxia ([facility] V24, [facility] V28) 01/29/2024 Hyperlipidemia 01/29/2024 Impaired glucose tolerance 01/29/2024 Chronic back pain 01/29/2024 Lower extremity edema 01/29/2024 Overview (05/20/2024): LVEF 65% with no diastolic dysfunction on TTE 12/2023 Marijuana abuse 01/29/2024 Primary osteoarthritis of left knee 12/19/2022 Primary osteoarthritis of right knee 12/19/2022 Status post total replacement of right hip 12/19 Ascending aorta dilatation ([facility] V24) 023 Asthma 12/15/2022 Chronic obstructive pulmonar y disease ([facility] V24, [facility] V28) 12/15/2022 Depression 12/15/2022 Dyslipidemia 12/15/2022 GERD with esophagitis 12/15/2022 HTN (hypertension) 12/15/2022 Impaired fasting glucose 12/15/2022 Low back pain 12/15/2022 CASSIUS on CPAP 12/15/2022 Palpitations 12/15/2022 Severe obesity ([facility] V24, [facility] V28) 2022 Steatosis of liver 12/15/2022 Tobacco dependence 12/15/2022 Urge incontinence of urine 12/15/2022 Encounters Date Type Department Care Team Description 08/19/2024 11:30 AM EDT Office Visit Orthopedic Surgery - [address] [place] [address] Jaquelin Valderrama PA Arthritis of knee (Primary Dx) from Last 3 Months Immunizations Name Administration [...] Site/Laterality Comments OTHER SURGICAL HISTORY Right PROCEDURE: [place] ARTHRP ACETBLR/PROX FEM PROSTC AGRFT/ALGRFT; COMMENT: x 2 Medical History Medical History Date Comments Anxiety disorder DX:Anxiety diso rder Depression DX:Depression COPD (chronic obstructive pu lmonary disease) ([facility] V24, [facility] V28) DX:COPD (chronic o bstructive pulmonary disease) ([facility]) High blood pressure DX:High bloo d pressure [...] - - Weight 93 kg (205 lb) 08/19/2024 11:27 AM EDT Height 158.8 cm (5' 2.52 ) 08/19/2024 11:27 AM E DT Body Mass Index 36.87 08/19/2024 11:27 AM EDT Plan of Treatment Upcoming Encounters Date Type Department Care Team (Late st Contact Info) Description 12/19/2024 11:30 AM EDT Office Visit Orthopedic Surgery [facility] [address] [facility] [address] [place] [address] Jaquelin Valderrama PA [address] [facility] [address] [place] [address] Health Maintenance Due Date Last Done Comments [...] Vaccines (1 of 2) 11/20/2011 RSV Immunization Adult Patients (1 - Risk 60-74 years 1-dose series) 2021 Cholesterol Screening (Lipid Panel) 05/01/2022 Colorectal Cancer Screening: Colonoscopy 05/01/2022 Depression Screening 05/01/2022 HIV Screening 05/01/2022 Hepatitis C Screening 05/01/2022 Social Influencers of Health Screening 05/01/2022 Hypertension/CHF/CAD Annual BMP Blood Test 07/12/2023 COVID-19 Vaccine (3 - 2023-2 5 season) 2024 10/22/2020, 09/30/2020 Influenza Vaccine (Season Ended) 2025 05/31/2022, 03/19/2020 DTaP,Tdap,and Td Vaccines (2 - Td [...] age to complete this topic Meningococcal B Vaccine Aged Out No l onger eligible based on patient's age to complete this topic RSV Immunization Patients Under 20 months Aged Out No longer eligible b ased on patient's age to complete this topic Varicella Vaccines Aged Out No longer eligible based on patient's age to complete this topic Procedures Procedure Name Priority Date/Time Associated Diagnosis Comments [place] ARTHROCENTESIS/ASPI RATION/INJECTION MAJOR JOINT/BURSA W/O U/S GUIDANCE Routine 08/19/2024 11:30 AM EDT Arthritis of knee from Last 3 Months Results * KS ARTHROCENTESIS/ASPIRATION/INJECTION MAJOR JOINT/BURSA W/O U/S GUIDANCE (08/19/2024 11:30 AM EDT) Narrative Jaquelin Valderrama PA - 08/19/2024 11:30 AM EDT AYDEE Potter ? 08/19/2024 11:55 AM L Inj/Asp: bilateral knee Indications: pain Details: 22 G needle, medial approach Medications (Right): 3 mL lidocaine 1 %; 40 mg triamcinolone acetonide 40 mg/mL Medications (Left): 3 mL lidocaine 1 %; 40 mg triamcinolone acetonide 40 mg/mL Informed Consent: ??Laterality: ??Bilateral ??Relevant images/test results available and reviewed: yes ?Health status cleared: ??Yes ??Procedure/treatment, purpose, treatment alternatives, risks/potential complications and benefits explained: yes ?Risk/complications/benefits details: ??Risks of infection, thinning of the skin and temporary skin discoloration discussed. ??Discussed risks of temporary increased pain after injection and swelling and mild redness at injection site for couple days. ??Explained occasionally cortisone injection can cause facial flushing temporarily. ??Benefits pain management. ??For postop injection pain ice, Tylenol and/or NSAIDs if patient can take ??Patient questions answered: yes ?Patient agrees, verbalizes understanding, and wants to proceed: yes ?Consent given by: ??Patient ??Informed consent discussion completed by Physician/JAMES with patient: ?? Verbal ??Pre-procedure timeout performed: yes ?? us Jaquelin BAJWA IN CLINIC/BEDSIDE ORDERABLES Final Result from Last 3 Months Insurance [facility] [place] [address] Care Teams Phone Specialist Relationship Specialty Start Date End Date Bety Bettencourt PA [address] [place] [address] PCP - General Physician Robotic Weld Technician 04/22/24
== END 2024-09-09 14:47 | disposition home or self-care (01) ==
LOC: HO.PMC 14:26
PROVIDERS: PCP Physician Assistant; Referring Provider Physician Assistant; Visit Provider Anesthesiology
DX: M25.561 Pain in right knee (principal); M25.562 Pain in left knee; M17.0 Bilateral primary osteoarthritis of knee; E66.01 Morbid (severe) obesity due to excess calories
CPT/HCPCS: 99203

== ENCOUNTER → 2024-09-09 14:26 | Outpatient (BNVA) | payer OTHER, SELFPAY | PROVIDERS: PCP Physician Assistant; Referring Provider Physician Assistant; Visit Provider Anesthesiology | DX: M17.0 Bilateral primary osteoarthritis of knee (principal); G89.4 Chronic pain syndrome; E66.01 Morbid (severe) obesity due to excess calories; Z68.37 Body mass index [BMI] 37.0-37.9, adult | CPT/HCPCS: 99202 ==

== ENCOUNTER 2024-09-25 15:30 | Outpatient (AMB) | payer OTHER, SELFPAY ==
--- NOTE | 2024-09-25 15:26 | MHC.PC.OV ---
Intake Visit Reasons: Dm, BP Intake Note: Follow up. 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: No Allergies No Known Allergies Allergy (Verified 09/25/24 15:27) Medication List - Last Reconciled 09/25/24 by Bety Bettencourt PA-C albuterol sulfate 90 mcg/actuation (Ventolin HFA) 2 puffs inhalation Q4-6H PRN amlodipine 5 mg PO DAILY baclofen 10 mg PO TID blood sugar diagnostic (FreeStyle Lite Strips) Use daily As directed to check blood glucose blood-glucose meter (FreeStyle Lite Meter kit) Use daily As directed to check blood sugars bupropion HCl SR 150 mg PO QAM clotrimazole 1% (Lotrimin AF (clotrimazole)) 1 appl topical BID 4 weeks commode (bedside commode) As directed cyanocobalamin (vitamin B-12) 1,000 mcg PO DAILY [diabetic shoes Use diabetic shoes daily as directed.] diclofenac sodium 1% (Voltaren Arthritis Pain) 4 grams topical QID fluoxetine mg PO fluticasone furoate-vilanterol 100-25 mcg/dose (Breo Ellipta) 1 ea inhalation DAILY furosemide 20 mg PO BID lancets (FreeStyle Lancets) use daily as directed to check blood glucose metoprolol succinate ER 100 mg PO DAILY 90 days miscellaneous medical supply Use daily As directed (walker with wheels and seat) miscellaneous medical supply One shoe horn to use daily As directed miscellaneous medical supply as directed; 1 gripper, use daily as needed to picker and packer objects naloxone 4 mg/actuation (Narcan) 4 mg intranasal Q2M PRN nystatin 1 appl topical TID omeprazole 20 mg PO DAILY oxcarbazepine mg PO Shower Chair Use daily As directed trazodone 50 mg PO BEDTIME PRN walker 1 ea as directed daily; Tobacco use date assessed: 09/25/24 Dental Screening Dental Screen Date: 06/05/24 HPI Dm, BP HPI Details Pt is a 63 y/o female who presents today for a follow up regarding pain management. -she states her weight is stable. She is still down about 25 lb. Pysch: Follows closely with a psychiatrist at [facility] and is stable with her Wellbutrin 150 mg, fluoxetine 40 mg, oxcarbazepine and trazodone daily. The trazodone was recently and helpful. PULM: She states she is on o2 and states it helps the sob. She did see Dr. Boudreaux recently and had repeat PFTs. She states that he is aware of her abnormal chest CT and the need to have this repeated.. She she follows closely with pulmonology and states that she is due to go back for a walking test.. She is down to about 4 cigarettes every day or other day. Nephro: Repeated labs were improved kidney function. Unfortunately was unable to keep her appointment with Nephrology. States that it is not yet booked but she needs to call them. Endo: Diabetes has recently been diet controlled, due for a1c recheck. At our last visit she was off of Jardiance. last a1c was 5.4. Has testing supplies at home but does not check. 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 She last saw him this past summer. She reports having an echo and stress tests which were normal.he is on metoprolol 100 mg, amlodipine 5 mg, lasix 40 mg. Musculoskeletal: She is frustrated because she can not take NSAIDs due to her kidney function. She is not a surgical candidate for joint replacements right now. She says that she consulted pain management and they recommended that she trial physical therapy but she does not know how helpful that will be for her knees. She is very frustrated with her pain. She states that they will not do replacements until she stops smoking cigarettes and marijuana but she has a hard time cutting back on the marijuana. The cigarettes she has cut back but has not fully stopped. She did not tolerate the morphine. oxycodone was ineffective Gabapentin is ineffective and causes her to feel shaky. She can not take NSAIDs. Tylenol does not do a lot to relieve her pain. Heme/onc: She never saw hematology. She states that she rescheduled this and then cancelled and never rebooked. She was supposed to see them for the enlarged spleen, abnormal cbc, weight loss. Uro: She complicated renal cyst- imaging booked and follows with urology. [facility] Medical History (Updated 09/09/24 @ 14:54 by Angel Mesa MD) CKD (chronic kidney disease) stage 3, GFR 30-59 ml/min Increased urinary frequency Gait instability Smoker Chronic pain of both knees Dyslipidemia HTN (hypertension) Controlled type 2 diabetes mellitus Vitamin A deficiency Vitamin B12 deficiency Urge incontinence of urine Steatosis Severe obesity Prediabetes Palpitations Osteoarthritis of knee Obstructive sleep apnea syndrome Obesity Numbness Microalbuminuria Lumbar pain with radiation down both legs Internal hemorrhoids Hip pain GERD (gastroesophageal reflux disease) Depressive disorder affecting childbirth Chronic obstructive lung disease Cannabis misuse Bilateral cataracts Asthma Arthritis Allergic rhinitis Surgical History History of total hip replacement Social History (Updated 09/25/24 @ 15:29 by Juana Navarro CMA) Housing: Apartment Alcohol intake: former Patient Tobacco Use Status: Former Tobacco user (Has a cigarette periodly) Cigarette Packs Per Day: 6 Years Smoked: 46 Packs Per Year: 276 e-Cigarette/Vaping Use: Never Used Second Hand Smoke Exposure: No Use of substances other than those prescribed or required for medical reasons: Yes Substance Use Type: Marijuana service: No Current occupational status: disabled Cognitive needs: No Hearing needs: No Vision needs: No Questionnaire Thrive Questionnaire Date Thrive assessed: 06/20/24 AUDIT C Alcohol Use Questionnaire (AUDIT-C) 1. How often do you have a drink containing alcohol?: Never 3. How often do you have six or more drinks on one occasion?: Never Total Score: 0 STEVENSON-7 AMB Questionnaire STEVENSON-7 Date STEVENSON - 7 assessed: 06/27/24 Source: Developed by Drs. Jesus Zurita, Aida Grossman, Carlyle Mendoza and colleagues, with an educational alban from [employer]. Physical exam (Primary Care) Tobacco/Smoking Status: Tobacco use Status Tobacco use date assessed 09/25/24 09/25/24 15:29 Patient Tobacco Use Status Former Tobacco user (Has a 09/25/24 15:29 cigarette periodly) e-Cigarette/Vaping Use Never Used 09/25/24 15:29 Thrive Assessment: Date of Thrive Assessment Date Thrive assessed 06/20/24 09/25/24 15:29 Telehealth Telehealth Telehealth Platform: Telephone Location of provider rendering services: practice address Location of patient: address on file Patient Identification confirmed using: Name, : Yes Telehealth method: voice only Patient verbally consented to treatment: Yes Patient verbally consented to billing insurance company: Yes Patient informed of any privacy concerns related to visit: Yes Minutes spent on Phone/Video with Pt.: 17 Coding Level of Care Code Tele Est Pt Level 3 (64231) Complex EM visit Add On G2211 Diagnoses Osteoarthritis of knees, bilateral M17.0 Chronic pain syndrome G89.4 Smoker F17.200 Anemia D64.9 Hepatosplenomegaly R16.2 Assessment & Plan Assessment & Plan (1) Osteoarthritis of knees, bilateral: Code(s): M17.0 - Bilateral primary osteoarthritis of knee Category: Medical Plan: We will trial Tylenol with codeine. Discussed risks and benefits and adverse effects of this medication. (2) Chronic pain syndrome: Code(s): G89.4 - Chronic pain syndrome Category: Medical Plan: As above. (3) Smoker: Code(s): F17.200 - Nicotine dependence, unspecified, uncomplicated Category: Social Hx Plan: Nicoderm patches ordered (4) Anemia: Code(s): D64.9 - Anemia, unspecified Category: Medical Plan: We will recheck labs. Discussed the importance of follow up. (5) Hepatosplenomegaly: Code(s): R16.2 - Hepatomegaly with splenomegaly, not elsewhere classified Category: Medical Plan: As above Orders: Orders Comprehensive Met. Panel Today E11.29 - Type 2 diabetes mellitus with other diabetic kidney complication, F17.200 - Nicotine dependence, unspecified, uncomplicated, G89.4 - Chronic pain syndrome, M17.0 - Bilateral primary osteoarthritis of knee, R80.9 - Proteinuria, unspecified Complete Blood Count Auto Diff Today E11.29 - Type 2 diabetes mellitus with other diabetic kidney complication, F17.200 - Nicotine dependence, unspecified, uncomplicated, G89.4 - Chronic pain syndrome, M17.0 - Bilateral primary osteoarthritis of knee, R80.9 - Proteinuria, unspecified Ferritin Today E11.29 - Type 2 diabetes mellitus with other diabetic kidney complication, F17.200 - Nicotine dependence, unspecified, uncomplicated, G89.4 - Chronic pain syndrome, M17.0 - Bilateral primary osteoarthritis of knee, R80.9 - Proteinuria, unspecified TSH reflex Free T4 Today E11.29 - Type 2 diabetes mellitus with other diabetic kidney complication, F17.200 - Nicotine dependence, unspecified, uncomplicated, G89.4 - Chronic pain syndrome, M17.0 - Bilateral primary osteoarthritis of knee, R80.9 - Proteinuria, unspecified Microalbumin, Random (w Creat) Today E11.29 - Type 2 diabetes mellitus with other diabetic kidney complication, F17.200 - Nicotine dependence, unspecified, uncomplicated, G89.4 - Chronic pain syndrome, M17.0 - Bilateral primary osteoarthritis of knee, R80.9 - Proteinuria, unspecified Hemoglobin A1c Today E11.29 - Type 2 diabetes mellitus with other diabetic kidney complication, F17.200 - Nicotine dependence, unspecified, uncomplicated, G89.4 - Chronic pain syndrome, M17.0 - Bilateral primary osteoarthritis of knee, R73.01 - Impaired fasting glucose, R80.9 - Proteinuria, unspecified IRON PROFILE Today E11.29 - Type 2 diabetes mellitus with other diabetic kidney complication, F17.200 - Nicotine dependence, unspecified, uncomplicated, G89.4 - Chronic pain syndrome, M17.0 - Bilateral primary osteoarthritis of knee, R80.9 - Proteinuria, unspecified Vitamin B12 and Folate Today E11.29 - Type 2 diabetes mellitus with other diabetic kidney complication, F17.200 - Nicotine dependence, unspecified, uncomplicated, G89.4 - Chronic pain syndrome, M17.0 - Bilateral primary osteoarthritis of knee, R80.9 - Proteinuria, unspecified Medications: New acetaminophen-codeine 300-30 mg 2 tabs PO Q12H 28 days PRN 112 tabs 0RF pain G89.4 - Chronic pain syndrome, M17.0 - Bilateral primary osteoarthritis of knee nicotine (Nicoderm CQ) 1 patch transdermal Q24H 28 ea 2RF
--- OUTSIDE RECORDS SUMMARY | 2024-09-25 16:25 | XMS_ITS | Clinical Summary ---
Author Organization [facility] Address [address] [place] [address] Phone Care Team Providers Care Pre K Lead Teacher Name Role Phone Bety Bettencourt Primary Care Provider [phone] Allergies No known active allergies Medications [...] 05/20/2024 Renal mass 01/30/2024 Acute kidney injury ([facility] V24) 01/29/2024 Acute pulmonary edema ([facility] V24, [facility] V28) 01/29/2024 Acute respiratory failure wi th hypoxia ([facility] V24, [facility] V28) 01/29/2024 Hyperlipidemia 01/29/2024 Impaired glucose tolerance 01/29/2024 Chronic back pain 01/29/2024 Lower extremity edema 01/29/2024 Overview (05/20/2024): LVEF 65% with no diastolic dysfunction on TTE 12/2023 Marijuana abuse 01/29/2024 Primary osteoarthritis of left knee 12/19/2022 Primary osteoarthritis of right knee 12/19/2022 Status post total replacement of right hip 12/19 Ascending aorta dilatation ([facility] V24) 023 Asthma 12/15/2022 Chronic obstructive pulmonar y disease ([facility] V24, [facility] V28) 12/15/2022 Depression 12/15/2022 Dyslipidemia 12/15/2022 GERD with esophagitis 12/15/2022 HTN (hypertension) 12/15/2022 Impaired fasting glucose 12/15/2022 Low back pain 12/15/2022 CASSIUS on CPAP 12/15/2022 Palpitations 12/15/2022 Severe obesity ([facility] V24, [facility] V28) 2022 Steatosis of liver 12/15/2022 Tobacco dependence 12/15/2022 Urge incontinence of urine 12/15/2022 Encounters Date Type Department Care Team Description 08/19/2024 11:30 AM EDT Office Visit Orthopedic Surgery - [address] [place] [address] Jaquelin Valderrama, PA Arthritis of knee (Primary Dx) from [...] Site/Laterality Comments OTHER SURGICAL HISTORY Right PROCEDURE: PA ARTHRP ACETBLR/PROX FEM PROSTC AGRFT/ALGRFT; COMMENT: x 2 Medical History Medical History Date Comments Anxiety disorder DX:Anxiety diso rder Depression DX:Depression COPD (chronic obstructive pu lmonary disease) ([facility] V24, [facility] V28) DX:COPD (chronic o bstructive pulmonary disease) ([facility]) High blood pressure DX:High bloo d pressure [...] AM EDT Office Visit Orthopedic Surgery - [place] [address] [facility] [address] [place] [address] Jaquelin Valderrama PA [address] [facility] [address] [place] [phone] Health Maintenance Due Date Last Done Comments [...] Procedure Name Priority Date/Time Associated Diagnosis Comments PA ARTHROCENTESIS/ASPI RATION/INJECTION MAJOR JOINT/BURSA W/O U/S GUIDANCE Routine 08/19/2024 11:30 AM EDT Arthritis of knee from Last 3 Months Results * PA ARTHROCENTESIS/ASPIRATION/INJECTION MAJOR JOINT/BURSA W/O U/S GUIDANCE (08/19/2024 [...] Final Result from Last 3 Months Insurance [facility] Care Teams Pre K Lead Teacher Relationship Specialty Start Date End Date Bety Bettencourt PA [address] [place] [phone] PCP - General Physician Consulting Intern 04/22/24
== END 2024-09-25 17:05 | disposition home or self-care (01) ==
LOC: HO.HMCFM 15:30
PROVIDERS: PCP Physician Assistant; Visit Provider Physician Assistant
DX: M17.0 Bilateral primary osteoarthritis of knee (principal); G89.4 Chronic pain syndrome; F17.200 Nicotine dependence, unspecified, uncomplicated; D64.9 Anemia, unspecified; R16.2 Hepatomegaly with splenomegaly, not elsewhere classified

== ENCOUNTER → 2024-09-25 15:30 | Outpatient (BNVA) | payer OTHER, SELFPAY | PROVIDERS: PCP Physician Assistant; Visit Provider Physician Assistant | DX: Z13.89 Encounter for screening for other disorder (principal) ==

== ENCOUNTER 2024-10-03 12:35 | Outpatient (REF) | payer OTHER, SELFPAY | END 2024-10-03 12:36 | disposition home or self-care (01) | LOC: HO.SH 12:35 | PROVIDERS: PCP Internal Medicine; Visit Provider Physician Assistant | DX: Z01.118 Encounter for examination of ears and hearing with other abnormal findings (principal); H90.3 Sensorineural hearing loss, bilateral | CPT/HCPCS: 92557; 92567 ==

== ENCOUNTER 2024-10-24 10:51 | Outpatient (AMB) | payer OTHER, SELFPAY ==
--- NOTE | 2024-10-24 11:02 | MHC.PC.OV ---
Vital Signs 10/24/24 11:05 BP 132/60 Blood Pressure Location Lt brachial Position Sitting Respiration 16 Pulse 64 Pulse Source Pulse Oximeter Pulse Oximetry (%) 96 Oxygen Delivery Method Room Air Intake Visit Reasons: labs and meds Intake Note: Follow up Internet Marketing Strategist Required: No Allergies No Known Allergies Allergy (Verified 10/24/24 11:02) Medication List - Last Reconciled 10/24/24 by Bety Bettencourt PA-C acetaminophen-codeine 300-30 mg 2 tabs PO Q12H PRN 28 days albuterol sulfate 90 mcg/actuation (Ventolin HFA) 2 puffs inhalation Q4-6H PRN amlodipine 5 mg PO DAILY baclofen 10 mg PO TID blood sugar diagnostic (FreeStyle Lite Strips) Use daily As directed to check blood glucose blood-glucose meter (FreeStyle Lite Meter kit) Use daily As directed to check blood sugars bupropion HCl SR 150 mg PO QAM clotrimazole 1% (Lotrimin AF (clotrimazole)) 1 appl topical BID 4 weeks commode (bedside commode) As directed cyanocobalamin (vitamin B-12) 1,000 mcg PO DAILY [diabetic shoes Use diabetic shoes daily as directed.] fluoxetine mg PO fluticasone furoate-vilanterol 100-25 mcg/dose (Breo Ellipta) 1 ea inhalation DAILY furosemide 20 mg PO BID lancets (FreeStyle Lancets) use daily as directed to check blood glucose metoprolol succinate ER 100 mg PO DAILY 90 days miscellaneous medical supply Use daily As directed (walker with wheels and seat) miscellaneous medical supply One shoe horn to use daily As directed miscellaneous medical supply as directed; 1 gripper, use daily as needed to excelsior picker objects naloxone 4 mg/actuation (Narcan) 4 mg intranasal Q2M PRN nicotine (Nicoderm CQ) 1 patch transdermal Q24H nystatin 1 appl topical TID omeprazole 20 mg PO DAILY oxcarbazepine mg PO Shower Chair Use daily As directed trazodone 50 mg PO BEDTIME PRN walker 1 ea as directed daily; Tobacco use date assessed: 09/25/24 Dental Screening Dental Screen Date: 06/05/24 HPI labs and meds HPI Details Pt is a 63 y/o female who presents today for a follow up. General: She is still down about 30 lb. She states that it has been like this and she is pretty stable with her weight loss. Pysch: Follows closely with a psychiatrist at [facility] and is stable with her Wellbutrin 150 mg, fluoxetine 40 mg, oxcarbazepine and trazodone daily. PULM: She states she is on o2 and states it helps the sob. She did see Dr. Boudreaux recently and had repeat PFTs. She states that he is aware of her abnormal chest CT and the need to have this repeated. She is down to about 4 cigarettes every day or other day. Nephro: Repeated labs were improved kidney function. Unfortunately was unable to keep her appointment with Nephrology. Endo: Diabetes has a resolved with her weight loss. last a1c was 5.4. Has testing supplies at home but does not check. CV: Her site project manager is Dr. Zamudio. She last saw him this past summer. She reports having an echo and stress tests which were normal. She is on metoprolol 100 mg, amlodipine 5 mg, lasix 40 mg. Musculoskeletal: She is frustrated because she can not take NSAIDs due to her kidney function. She is not a surgical candidate for joint replacements right now. She says that she consulted pain management and they recommended that she trial physical therapy but she does not know how helpful that will be for her knees. She is very frustrated with her pain. She states that they will not do replacements until she stops smoking cigarettes and marijuana but she has a hard time cutting back on the marijuana. The cigarettes she has cut back but has not fully stopped. She did not tolerate the morphine 30 mg - caused her to feel too tired. She did better with the 15 mg but still had some pain but, pain was tolerable. oxycodone was ineffective Gabapentin is ineffective and causes her to feel shaky. She can not take NSAIDs. Tylenol does not do a lot to relieve her pain. tylenol with codeine is causing nausea and lightheaded Heme/onc: She never saw hematology. She states that she rescheduled this and then cancelled and never rebooked. She was supposed to see them for the enlarged spleen, abnormal cbc, weight loss. Uro: She complicated renal cyst- imaging booked and follows with urology. Neuro: Does complain today of some memory changes. She states that she has always had some degree of having a hard time remembering what she walked into room for but recently has noticed that she has a hard time word finding and we will often forget partway through a sentence what she was talking about. Her children have noticed this as well. This has been going on for the last few months. She denies getting lost but does not drive herself. She relies on transportation. She denies leaving the stove on or forgetting to take her medications but states that she has a pillbox and does not live alone. She is worried about dementia. She states that she has a family history of this. Her stress and anxiety currently feels stable. Mammo: due bone density: due lung ca screeen: following with pulm for this Colonoscopy: due- would do cologuard [facility] Medical History (Updated 10/24/24 @ 11:28 by Bety Bettencourt PA-C) CKD (chronic kidney disease) stage 3, GFR 30-59 ml/min Increased urinary frequency Gait instability Smoker Chronic pain of both knees Dyslipidemia HTN (hypertension) Controlled type 2 diabetes mellitus Vitamin A deficiency Vitamin B12 deficiency Urge incontinence of urine Steatosis Severe obesity Prediabetes Palpitations Osteoarthritis of knee Obstructive sleep apnea syndrome Obesity Numbness Microalbuminuria Lumbar pain with radiation down both legs Internal hemorrhoids Hip pain GERD (gastroesophageal reflux disease) Depressive disorder affecting childbirth Chronic obstructive lung disease Cannabis misuse Bilateral cataracts Asthma Arthritis Allergic rhinitis Surgical History History of total hip replacement Social History (Updated 10/24/24 @ 11:29 by Juana Navarro CMA) Housing: Apartment Alcohol intake: former Patient Tobacco Use Status: Former Tobacco user (Has a cigarette periodly) Cigarette Packs Per Day: 6 Years Smoked: 46 e-Cigarette/Vaping Use: Never Used Second Hand Smoke Exposure: No Substance Use Type: Marijuana service: No Current occupational status: disabled Cognitive needs: No Hearing needs: No Vision needs: No Questionnaire Thrive Questionnaire Date Thrive assessed: 06/20/24 I am a: Patient What is your living situation today?: I have a steady place to live Within the past 12 months, did the food you bought not last and you didn't have the money to get more?: I choose not to answer this question Within the past 12 months, did you worry whether your food would run out before you got money to buy more?: I choose not to answer this question Do you have trouble paying for medicines?: I choose not to answer this question Do you have trouble getting transportation to medical appointments?: I choose not to answer this question Do you have trouble paying your heating and electricity bill?: No Do you have trouble taking care of your child, family member or friend?: I choose not to answer this question Do you have trouble with day-to-day activities such as bathing, preparing meals, shopping, managing finances, etc.?: I choose not to answer this question Are you currently unemployed and looking for a job?: No Are you interested in more education?: No Please select the resources that you would like help with: None Currently or been in a relationship where the following occur: No concerns reported THRIVE Score: 0 STEVENSON-7 AMB Questionnaire STEVENSON-7 Date STEVENSON - 7 assessed: 06/27/24 Source: Developed by Drs. Jesus Zurita, Aida Grossman, Carlyle Mendoza and colleagues, with an educational alban from [employer]. Physical exam (Primary Care) Vital Signs: Last Vital Signs Pulse 64 10/24/24 11:05 Resp 16 10/24/24 11:05 BP 132/60 10/24/24 11:05 Pulse Ox 96 10/24/24 11:05 Oxygen Delivery Method Room Air 10/24/24 11:05 Tobacco/Smoking Status: Tobacco use Status Tobacco use date assessed 09/25/24 10/24/24 11:09 Patient Tobacco Use Status Former Tobacco user (Has a 10/24/24 11:29 cigarette periodly) e-Cigarette/Vaping Use Never Used 10/24/24 11:29 Thrive Assessment: Date of Thrive Assessment Date Thrive assessed 06/20/24 10/24/24 11:09 Currently or been in a relationship where the following occur: No concerns reported Const Orientation/consciousness: patient oriented x3 HENMT Ears: hearing grossly normal bilaterally Neck Thyroid: Thyroid normal Lymphatic: no lymphadenopathy noted Resp Auscultation: clear to auscultation bilaterally Cardio Rate: regular rate Rhythm: regular rhythm Heart sounds: S1 normal heart sound present and S2 normal heart sound present GI Inspection: Yes normal to inspection Palpation (GI): Soft to palpation and Other GI palpation findings present (nontender, no cva tenderness) Auscultation: normoactive bowel sounds Rectal Exam - Female: deferred Skin General skin exam: no rashes or lesions noted Neuro General: patient oriented x3, gait normal and no focal motor deficits Results Reviewed Results Reviewed: Ordering Physician: Bety Bettencourt Date of Service: 04/17/24 Procedure(s): MR abdomen wo/w con Accession Number(s): [id number] cc: Bety Bettencourt~ EXAMINATION: MR ABDOMEN WITHOUT AND WITH CONTRAST CLINICAL INFORMATION: Other specified disorders of the kidney and ureter. COMPARISON: None available. TECHNIQUE: MR abdomen was performed without and with use of 10 mL intravenous Gadavist gadolinium contrast. Postcontrast images are performed in multiphase dynamic sequences. Imaging was performed in 3 planes. No reported immediate complications FINDINGS: Submitted for interpretation on May 17, 2024. LIVER, GALLBLADDER, AND BILIARY TREE: Liver measures 19 cm. No focal mass. Portal veins and hepatic veins are patent. Intrahepatic portion of the IVC is patent. No pericholecystic fluid collection or gallbladder wall thickening. No intrahepatic or extrahepatic biliary ductal dilatation. PANCREAS: No focal mass. No peripancreatic fluid collection. No main pancreatic ductal dilatation. SPLEEN: 12 cm. No focal mass. ADRENAL GLANDS: No nodular lesions. KIDNEYS AND URETERS: Right kidney: There is a 1.2 cm exophytic hypointense T1 and hyperintense T2 with a layering likely intrinsic hyperintense T1 nonenhancing lesion in the lateral lower pole. No hydronephrosis. No enhancing renal mass. Normal enhancement throughout the parenchyma. Normal enhancement of the main renal vessels. Left kidney: There is a 1.4 cm exophytic nonenhancing fluid signal characteristic lesion with a layering hyperintense T2 signal in the posterior midportion/upper pole junction. No enhancing mass. Normal enhancement pattern throughout the parenchyma. No hydronephrosis. Normal enhancement of the main renal vessels. GASTROINTESTINAL TRACT: Abundant stool. No intestinal obstruction pattern. No ascites. ABDOMINAL WALL: Fat-containing supraumbilical hernia. LYMPH NODES: Prominent, nonspecific lymph nodes in the retroperitoneum. VASCULAR: No aneurysm or dissection, abdominal aorta. OSSEOUS STRUCTURES: Multilevel thoracolumbar spondylosis resulting in grade 1 anterolisthesis L4-5. MR/MR abdomen wo/w con IMPRESSION: Bosniak type II/hemorrhagic cysts, both kidneys. Recommend follow-up. Hepatosplenomegaly. A lymphoproliferative disorder cannot be excluded. Electronically signed by: Tashi Chambers MD 05/17/2024 10:01 AM EST RP Coding Level of Care Code Est Pt Level 5 (78095) Complex EM visit Add On G2211 Diagnoses Bilateral knee pain M25.561; M25.562 Chronic pain syndrome G89.4 CKD (chronic kidney disease) stage 3, GFR 30-59 ml/min N18.30 Primary hypertension I10 Hypertension type: primary hypertension Dyslipidemia E78.5 Smoker F17.200 O2 dependent Z99.81 Left renal mass N28.89 Hepatosplenomegaly R16.2 Memory changes R41.3 Assessment & Plan Assessment & Plan (1) Bilateral knee pain: Code(s): M25.561 - Pain in right knee; M25.562 - Pain in left knee Category: Medical Plan: following with ortho (2) Chronic pain syndrome: Code(s): G89.4 - Chronic pain syndrome Category: Medical Plan: will switch back to morphine 15 mg bid has narcan at home (3) CKD (chronic kidney disease) stage 3, GFR 30-59 ml/min: Code(s): N18.30 - Chronic kidney disease, stage 3 unspecified Category: Medical Plan: stable will check today (4) HTN (hypertension): Code(s): I10 - Essential (primary) hypertension Category: Medical Qualifiers: Hypertension type: primary hypertension Qualified Code(s): I10 - Essential (primary) hypertension Plan: wnl continue current plan (5) Dyslipidemia: Code(s): E78.5 - Hyperlipidemia, unspecified Category: Medical Plan: has been diet controlled (6) Smoker: Code(s): F17.200 - Nicotine dependence, unspecified, uncomplicated Category: Social Hx Plan: still smoking a couple cigarettes on nicotine patches and this has been effective overall (7) O2 dependent: Code(s): Z99.81 - Dependence on supplemental oxygen Category: Medical Plan: did not bring it with her today but has been using it overall (8) Left renal mass: Code(s): N28.89 - Other specified disorders of kidney and ureter Category: Medical Plan: has u/s booked in october booked with urology in November (9) Hepatosplenomegaly: Code(s): R16.2 - Hepatomegaly with splenomegaly, not elsewhere classified Category: Medical Plan: understands that she needs to follow with heme/onc (10) Memory changes: Code(s): R41.3 - Other amnesia Category: Medical Plan: She does appear grossly neurologically intact. Brain MRI and referral to Neurology Advised to complete labs Plan Bone density, mammogram and Cologuard ordered. 56 minutes spent today in [id number] time discussing her chronic ongoing medical problems, exacerbations of her problems, acute problems and her routine health maintenance. Orders: Orders MR head/brain wo con Today R41.3 - Other amnesia MM screening mammo BI Today Z12.31 - Encounter for screening mammogram for malignant neoplasm of breast XR DEXA axial skeleton Today N95.1 - Menopausal and female climacteric states Referrals Cologuard Test Z12.11 - Encounter for screening for malignant neoplasm of colon Neurology Referral R41.3 - Other amnesia Medications: New cyanocobalamin (vitamin B-12) 1,000 mcg PO DAILY 90 tabs 3RF morphine ER Partial Fill upon patient request. 15 mg PO Q12H 28 days 56 tabs 0RF G89.29 - Other chronic pain, G89.4 - Chronic pain syndrome, M25.561 - Pain in right knee, M25.562 - Pain in left knee Discontinued acetaminophen-codeine 300-30 mg Discontinued Reason: Doctor's Order 2 tabs PO Q12H 28 days PRN 112 tabs 0RF pain G89.4 - Chronic pain syndrome, M17.0 - Bilateral primary osteoarthritis of knee
[2024-10-24 11:05] VITALS: BP 132/60; PULSE 64; RESP 16; O2SAT 96
--- OUTSIDE RECORDS SUMMARY | 2024-10-24 11:20 | XMS_ITS | Clinical Summary ---
Author Organization [facility] Address [address] [place] [address] Phone Care Team Providers Care Poacher Wringer Operator Name Role Phone Bety Bettencourt Primary Care Provider [phone] Allergies No known active allergies Medications [...] 05/20/2024 Renal mass 01/30/2024 Acute kidney injury ([facility] V24) 01/29/2024 Acute pulmonary edema ([facility] V24, [facility] V28) 01/29/2024 Acute respiratory failure wi th hypoxia ([facility] V24, [facility] V28) 01/29/2024 Hyperlipidemia 01/29/2024 Impaired glucose tolerance 01/29/2024 Chronic back pain 01/29/2024 Lower extremity edema 01/29/2024 Overview (05/20/2024): LVEF 65% with no diastolic dysfunction on TTE 12/2023 Marijuana abuse 01/29/2024 Primary osteoarthritis of left knee 12/19/2022 Primary osteoarthritis of right knee 12/19/2022 Status post total replacement of right hip 12/19 Ascending aorta dilatation ([facility] V24) 023 Asthma 12/15/2022 Chronic obstructive pulmonar y disease (CMS/HCC V24, CMS/[facility] V28) 12/15/2022 Depression 12/15/2022 Dyslipidemia 12/15/2022 GERD with esophagitis 12/15/2022 HTN (hypertension) 12/15/2022 Impaired fasting glucose 12/15/2022 Low back pain 12/15/2022 CASSIUS on CPAP 12/15/2022 Palpitations 12/15/2022 Severe obesity (CMS/[facility] V24, [facility] V28) 2022 Steatosis of liver 12/15/2022 Tobacco dependence 12/15/2022 Urge incontinence of urine 12/15/2022 Encounters Date Type Department Care Team Description 08/19/2024 11:30 AM EDT Office Visit Orthopedic Surgery - [address] [place] [address] Jaquelin Valderrama, PA Arthritis of [...] Site/Laterality Comments OTHER SURGICAL HISTORY Right PROCEDURE: IN ARTHRP ACETBLR/PROX FEM PROSTC AGRFT/ALGRFT; COMMENT: x 2 Medical History Medical History Date Comments Anxiety disorder DX:Anxiety diso rder Depression DX:Depression COPD (chronic obstructive pu lmonary disease) ([facility] V24, [facility] V28) DX:COPD (chronic o bstructive pulmonary disease) ([facility]) High blood pressure DX:High bloo [...] Care Team (Late st Contact Info) Description 11/05/2024 10:15 AM EDT Office Visit Pulmonolgy - [place] [address] [facility] [address] [place] [phone] Naveed Boudreaux MD [address] [place] [address] 12/19/2024 11:30 AM EDT Office Visit Orthopedic Surgery - [place] [address] [facility] [address] [place] [phone] Jaquelin Valderrama PA [address] [facility] [address] [place] [phone] Health Maintenance Due Date Last Done Comments [...] Annual BMP Blood Test 07/12/2023 COVID-19 Vaccine ( - 2023-2 5 season) 2024 10/22/2020, 09/30/2020 [...] Procedure Name Priority Date/Time Associated Diagnosis Comments IN ARTHROCENTESIS/ASPI RATION/INJECTION MAJOR JOINT/BURSA W/O U/S GUIDANCE Routine 08/19/2024 11:30 AM EDT Arthritis of knee from Last 3 Months Results * IN ARTHROCENTESIS/ASPIRATION/INJECTION MAJOR JOINT/BURSA W/O U/S GUIDANCE (08/19/2024 [...] ?? Verbal ??Pre-procedure timeout performed: yes ?? Jaquelin BAJWA IN CLINIC/BEDSIDE ORDERABLES Final Result from Last 3 Months Insurance [facility] Care Teams Poacher Wringer Operator Relationship Specialty Start Date End Date Bety Bettencourt PA [address] [place] [address] PCP - General Physician Neonatal Nurse 04/22/24
== END 2024-10-24 11:33 | disposition home or self-care (01) ==
LOC: HO.HMCFM 10:52
PROVIDERS: PCP Internal Medicine; Visit Provider Physician Assistant
DX: I12.9 Hypertensive chronic kidney disease with stage 1 through stage 4 chronic kidney disease, or unspecified chronic kidney disease (principal); N18.30 Chronic kidney disease, stage 3 unspecified; M25.561 Pain in right knee; M25.562 Pain in left knee; G89.4 Chronic pain syndrome; E78.5 Hyperlipidemia, unspecified; F17.200 Nicotine dependence, unspecified, uncomplicated; Z99.81 Dependence on supplemental oxygen; N28.89 Other specified disorders of kidney and ureter; R16.2 Hepatomegaly with splenomegaly, not elsewhere classified; R41.3 Other amnesia

== ENCOUNTER → 2024-10-24 10:51 | Outpatient (BNVA) | payer OTHER, SELFPAY | PROVIDERS: PCP Internal Medicine; Visit Provider Physician Assistant | DX: Z13.89 Encounter for screening for other disorder (principal) | CPT/HCPCS: 99212 ==

== ENCOUNTER 2024-10-24 11:42 | Outpatient (REF) | payer OTHER, SELFPAY ==
[2024-10-24 14:21] LABS: Appearance Urine Clear; Color Urine Yellow; Glucose Urine UA Negative (Negative); Leukocyte Esterase Urine Negative (Negative); Nitrite Urine Negative (Negative); PH 5.5 (5.0-9.0); Urine Blood Negative (Negative); Urine Ketones Negative (Negative); Urine Protein Negative (Neg-Trace)
[2024-10-24 14:21] LABS: MANUAL DIFF FLAG NO
[2024-10-24 14:26] LABS: Basophils Percent Auto 0.4 % (0-2); Eosinophils Absolute Auto 0.5 X10*3/uL (0.0-0.4); Eosinophils Percent Auto 6.3 % (0-4); Hematocrit 38.6 % (37.0-47.0); Hemoglobin 12.6 g/dl (12.0-16.0); Imm Gran Abs Auto 0.02 X10*3/uL (0.00-0.03); Imm Gran Pct Auto 0.3 % (0.0-0.4); Lymphocytes Absolute Auto 1.7 X10*3/uL (1.2-4.9); Lymphocytes Percent Auto 22.1 % (20-40); Mean Corpuscular HGB Conc 32.6 g/dl (31.0-35.0); Mean Corpuscular Volume 88.9 fL (80.0-98.0); Mean Platelet Volume 10.1 fL (9.4-12.3); Monocytes Absolute Auto 0.4 X10*3/uL (0.1-1.2); Monocytes Percent Auto 5.5 % (2-11); Neutrophils Absolute Auto 5.1 x10*3/uL (2.0-8.3); Neutrophils Percent Auto 65.4 % (45-73); Platelet Count 346 X10*3/uL (160-400); Red Blood Count 4.34 X10*6/uL (4.20-5.50); Red Cell Distribution Width 12.6 % (11.0-16.0); White Blood Count 7.8 X10*3/uL (4.8-10.8)
[2024-10-24 14:36] LABS: Estimated Average Glucose 103 mg/dL; Hemoglobin A1c % 5.2 % (<6.0)
[2024-10-24 14:55] LABS: Creatinine Urine 47.33 mg/dL; Microalbum/Creatinine Ratio Ur 44.3 ug/mg cr (<30)
[2024-10-24 14:56] LABS: Alanine Aminotransferase < 6 U/L (0-31); Alkaline Phosphatase 93 U/L (39-117); Anion Gap 14 (12-20); Aspartate Amino Transferase 14 U/L (5-31); Bilirubin Total 0.3 mg/dL (0.0-1.0); Blood Urea Nitrogen 33 mg/dL (9-16); Calcium 9.7 mg/dL (8.4-10.2); Carbon Dioxide 31 mmol/L (22-29); Chloride 100 mmol/L (96-108); Estimated Glomerular Filt Rate 42; Glucose Random 102 mg/dL (60-115); Iron 38 mcg/dL (30-160); Percent Iron Saturation 13 % (15-50); Potassium 4.3 mmol/L (3.3-5.1); Sodium 141 mmol/L (135-145); Total Iron Binding Capacity 290 mcg/dL (228-428); Total Protein 7.5 g/dL (6.5-8.0); Unsaturated Iron Binding 252 ug/dL
[2024-10-24 15:01] LABS: Ferritin 97 ng/mL (10-250); TSH reflex Free T4 1.26 uIU/mL (0.32-4.0)
[2024-10-24 15:12] LABS: Folate 4.5 ng/mL (> or = 4.0); Vitamin B12 1068 pg/mL (200-900)
== END 2024-10-24 11:43 | disposition home or self-care (01) ==
LOC: HO.WFDLDS 11:42
PROVIDERS: Visit Provider Physician Assistant
DX: Z13.220 Encounter for screening for lipoid disorders (principal); R63.4 Abnormal weight loss; E11.29 Type 2 diabetes mellitus with other diabetic kidney complication; R80.9 Proteinuria, unspecified; N18.30 Chronic kidney disease, stage 3 unspecified; G89.4 Chronic pain syndrome; M17.0 Bilateral primary osteoarthritis of knee; F17.200 Nicotine dependence, unspecified, uncomplicated
CPT/HCPCS: 36415; 80053; 81003; 82043; 82570; 82607; 82728; 82746; 83036; 83540; 84443; 85025; 99212

== ENCOUNTER → 2024-11-11 09:46 | Outpatient (BNV) | payer OTHER, SELFPAY | PROVIDERS: PCP Internal Medicine; Visit Provider Radiology Diagnostic Radiology | DX: R90.82 White matter disease, unspecified (principal) | CPT/HCPCS: 70551 ==

== ENCOUNTER 2024-11-11 09:49 | Outpatient (REF) | payer OTHER, SELFPAY ==
--- NOTE | ~2024-11-11 | MR_ITS ---
EXAMINATION: MR BRAIN WITHOUT CONTRAST CLINICAL INFORMATION: 63-year-old female. Other amnesia. Leg weakness, patient fell and hit head, memory issues. COMPARISON: None available. TECHNIQUE: MRI of the brain was obtained using routine sequences without contrast. Examination performed on a 1.5 Kaia Siemens high-field unit. FINDINGS: There is no diffusion restriction. There is no intracranial hemorrhage, acute infarction, mass effect, or edema. Ventricles, sulci, and cisterns are normal in size and configuration for patient age. No abnormal patterns of atrophy. No shift of midline. No abnormal hemosiderin deposition is identified. There are a few scattered punctate and minimally confluent foci of white matter T2 hyperintensity in the periventricular, subcortical, hemispheric deep white matter and central celia. These foci are nonspecific but statistically most likely reflects small vessel ischemic changes. There is an old lacunar type infarct in the left frontal white matter. Midline structures appear normally formed. The pituitary gland appears normal. Posterior fossa structures appear normal. Cerebellar tonsils are appropriately located. Major flow voids are preserved within the skull base. The globes and orbital contents demonstrate no abnormalities. Paranasal sinuses are clear bilaterally. Nasal septum is midline without spur. The mastoids and tympanic cavities are normally aerated. Extracranial soft tissues demonstrate no abnormalities. No suspicious bone marrow changes are evident. There are mild to moderate degenerative changes in both TM joints. Atlantoaxial joint is normal. MR/MR head/brain wo con IMPRESSION: 1. No evidence of intracranial hemorrhage, acute infarction, mass effect, or edema. 2. Mild changes of small vessel ischemia. 3. Punctate old lacunar type infarct left frontal white matter. Electronically signed by: Stewart Rai MD 11/11/2024 11:00 AM EDT
--- OUTSIDE RECORDS SUMMARY | 2024-11-11 10:50 | XMS_ITS | Clinical Summary ---
Author Organization [facility] Address [address] [place] [address] Phone Care Team Providers Care Patient Monitor Name Role Phone Bety Bettencourt Primary Care Provider [phone] Allergies No known active allergies Medications [...] 05/20/2024 Renal mass 01/30/2024 Acute kidney injury ([facility] V24) 01/29/2024 Acute pulmonary edema ([facility] V24, [facility] V28) 01/29/2024 Acute respiratory failure wi th hypoxia ([facility] V24, [facility] V28) 01/29/2024 Hyperlipidemia 01/29/2024 Impaired glucose tolerance 01/29/2024 Chronic back pain 01/29/2024 Lower extremity edema 01/29/2024 Overview (05/20/2024): LVEF 65% with no diastolic dysfunction on TTE 12/2023 Marijuana abuse 01/29/2024 Primary osteoarthritis of left knee 12/19/2022 Primary osteoarthritis of right knee 12/19/2022 Status post total replacement of right hip 12/19 Ascending aorta dilatation ([facility] V24) 023 Asthma 12/15/2022 Chronic obstructive pulmonar y disease (CMS/HCC V24, CMS/[facility] V28) 12/15/2022 Depression 12/15/2022 Dyslipidemia 12/15/2022 GERD with esophagitis 12/15/2022 HTN (hypertension) 12/15/2022 Impaired fasting glucose 12/15/2022 Low back pain 12/15/2022 CASSIUS on CPAP 12/15/2022 Palpitations 12/15/2022 Severe obesity (CMS/[facility] V24, [facility] V28) 2022 Steatosis of liver 12/15/2022 Tobacco dependence 12/15/2022 Urge incontinence of urine 12/15/2022 Encounters Date Type Department Care Team Description 08/19/2024 11:30 AM EDT Office Visit Orthopedic Surgery - [address] [place] [address] Jaquelin Valderrama, PA Arthritis of [...] Site/Laterality Comments OTHER SURGICAL HISTORY Right PROCEDURE: [place] ARTHRP ACETBLR/PROX FEM PROSTC AGRFT/ALGRFT; COMMENT: x 2 Medical History Medical History Date Comments Anxiety disorder DX:Anxiety diso rder Depression DX:Depression COPD (chronic obstructive pu lmonary disease) ([facility] V24, [facility] V28) DX:COPD (chronic o bstructive pulmonary disease) ([facility]) High blood pressure DX:High bloo [...] Care Team (Late st Contact Info) Description 12/23/2024 11:15 AM EDT Office Visit Orthopedic Surgery - [place] [address] [facility] [address] [place] [address] Jaquelin Valderrama PA [address] [facility] [address] [place] [phone] Health Maintenance Due Date Last Done Comments [...] Procedure Name Priority Date/Time Associated Diagnosis Comments [place] ARTHROCENTESIS/ASPI RATION/INJECTION MAJOR JOINT/BURSA W/O U/S GUIDANCE Routine 08/19/2024 11:30 AM EDT Arthritis of knee from Last 3 Months Results * [place] ARTHROCENTESIS/ASPIRATION/INJECTION MAJOR JOINT/BURSA W/O U/S GUIDANCE (08/19/2024 [...] Final Result from Last 3 Months Insurance [facility] [employer] Care Teams Patient Monitor Relationship Specialty Start Date End Date Bety Bettencourt PA [address] [place] [address] PCP - General Physician Shipping Support Clerk 04/22/24
== END 2024-11-11 09:50 | disposition home or self-care (01) ==
LOC: HO.MRI 09:49
PROVIDERS: PCP Internal Medicine; Visit Provider Physician Assistant
DX: R41.3 Other amnesia (principal)
CPT/HCPCS: 70551

== ENCOUNTER 2024-11-14 10:57 | Outpatient (AMB) | payer OTHER, SELFPAY ==
--- NOTE | 2024-11-14 11:00 | A.OFFVIS_ITS ---
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 In both legs and feet. States she was referred in November of 2023 but the swelling went away so she cancelled. Came in today to discuss foot tightness. No pain , swelling or cramping. 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 Complaints include discomfort and slight swelling of lower extremities, cramping, fatigue, and heaviness of the lower extremities. It has been affecting their daily activities including standing, walking, and physical activity. It is noted in both legs. She states that last summer she had significant bilateral lower leg swelling but that has mostly gone away but she started with bilateral foot and calf tightness/discomfort. She is a current smoker, she states she is quitting and is down to 1cig/week. She is not a diabetic. She has upcoming appts with Cardiology due to increased BNP levels. Patient denies any previous venous surgery or injections. Patient denies any history of DVT/ PE. Patient denies any history of phlebitis. Trial of compression includes - elevation with little relief They now present for vascular evaluation regarding their varicose veins. FOR[facility]LY [facility], [facility] Medical History CKD (chronic kidney disease) stage 3, GFR 30-59 ml/min Increased urinary frequency Gait instability Smoker Chronic pain of both knees Dyslipidemia HTN (hypertension) Controlled type 2 diabetes mellitus Vitamin A deficiency Vitamin B12 deficiency Urge incontinence of urine Steatosis Severe obesity Prediabetes Palpitations Osteoarthritis of knee Obstructive sleep apnea syndrome Obesity Numbness Microalbuminuria Lumbar pain with radiation down both legs Internal hemorrhoids Hip pain GERD (gastroesophageal reflux disease) Depressive disorder affecting childbirth Chronic obstructive lung disease Cannabis misuse Bilateral cataracts Asthma Arthritis Allergic rhinitis Surgical History History of total hip replacement Social History Housing: Apartment Alcohol intake: former Patient Tobacco Use Status: Former Tobacco user (Has a cigarette periodly) Cigarette Packs Per Day: 6 Years Smoked: 46 e-Cigarette/Vaping Use: Never Used Second Hand Smoke Exposure: No Substance Use Type: Marijuana service: No Current occupational status: disabled Cognitive needs: No Hearing needs: No Vision needs: No Review of Systems Const Reports as per HPI and Denies weakness ENT Reports Normal hearing present and Denies dizziness Card Reports as per HPI, Denies chest pain, Denies chest pain at rest, Denies chest pain with activity, Denies dyspnea and Denies dyspnea on exertion Resp Reports as per HPI, Denies cough, Denies dyspnea and Denies dyspnea on exertion GI Reports as per HPI, Denies abdominal pain, Denies nausea and Denies vomiting Musc Denies numbness Skin/Breast Reports as per HPI, Denies erythema and Denies wounds Neuro Reports Normal hearing present, Denies dizziness, Denies numbness, Denies Sensory deficit (Neuro) and Denies weakness Psych Reports no additional complaints Endo Reports no additional complaints Physical Exam Const General: healthy appearing and no acute distress Orientation/consciousness: patient oriented x3 HEENT Head: Yes normal to inspection Ears: hearing grossly normal bilaterally Mouth: Normal oral and palatal mucosa present Resp Effort & Inspection: normal respiratory effort and able to speak in complete sentences Auscultation: clear to auscultation bilaterally Cardio Jugular venous distension: no JVD Rate: regular rate Rhythm: regular rhythm Heart sounds: S1 normal heart sound present and S2 normal heart sound present Bruits: no abdominal aortic bruits, no carotid bruits, no femoral bruits and no renal bruits Peripheral pulses: Peripheral pulses 2+ throughout GI Inspection: Yes normal to inspection Palpation (GI): No Abdominal aortic bruit present Skin General skin exam: no rashes or lesions noted Wounds: no wounds Hair: normal Neuro General: patient oriented x3 Cranial nerves: Yes Normal hearing present Cognition (Neuro): normal cognition Gait exam (Neuro): Normal gait present Motor exam (neuro): 5/5 motor strength present throughout Sensory Exam: No Sensory deficit (Neuro) Extrem Other: Bilateral lower extremities: trace peripheral edema noted. Palpable DP pulses. Feet warm to the touch. No discoloration noted. No varicosities or tortuosities noted. CEAP: C - 3 E - primary A - superficial P - reflux General: Yes normal to inspection, Yes full ROM, Yes capillary refill normal and Yes normal gait Assessment & Plan Assessment & Plan (1) Varicose veins of both lower extremities with inflammation: Code(s): I83.11 - Varicose veins of right lower extremity with inflammation; I83.12 - Varicose veins of left lower extremity with inflammation Category: Medical Plan: Tawny is presenting today on a referral from her PCP for concerns of bilateral lower extremity swelling and discomfort. In short, the patient has evidence of venous insufficiency. I have discussed the pathophysiology with the patient. In addition I have provided informational material regarding venous disease to the patient. We have discussed conservative measures including compression, elevation, and exercise. I have taken the liberty of ordering venous insufficiency testing with the patient. They will follow up with me after testing. The patient had an opportunity to ask questions regarding the treatment plan. All questions were answered. Imaging studies, laboratory studies and physical exam results were discussed and reviewed in detail. No major barriers to understanding were identified. The patient expressed understanding and agreement with the above treatment plan. The patient is aware they should contact our office by phone for worsening of the current condition or the appearance of new symptoms. Thank you for allowing me to participate in the vascular care of this patient. If you have any questions or concerns regarding the treatment for the above condition please do not hesitate to contact me. The office telephone contact is [phone]. This note is constructed using voice recognition software. While every effort has been made to ensure accuracy, real time analyst errors may have been included. Thank you for allowing me to participate in the care of your patient. Yours sincerely, AYDEE Curtis Orders: Orders US venous duplex LE BI 1 Week I83.11 - Varicose veins of right lower extremity with inflammation, I83.12 - Varicose veins of left lower extremity with inflammation Coding Level of Care Code New Pt Level 4 (73708) Diagnoses Varicose veins of both lower extremities with inflammation I83.11; I83.12
--- OUTSIDE RECORDS SUMMARY | 2024-11-14 12:33 | XMS_ITS | Clinical Summary ---
Author Organization [facility] Address [address] [place] [address] Phone Care Team Providers Care Front End Ui Developer Name Role Phone Bety Bettencourt Primary Care Provider [phone] Allergies No known active allergies Medications amLODIPine (NORVASC) 2.5 mg tablet Take 1 [...] mouth 2 (two) times a day. Active hydroCHLOROthi azide (HYDRODIURIL) 25 mg tablet Take 1 tablet (25 mg total) by mouth 1 (one) time each day. Active fluticasone furoate-vilant Bryce (BREO ELLIPTA) 100-25 mcg/dose inhaler Inhale 1 puff by mouth 1 (one) time each day. 1 each 2 5 02/11/20 25 Active fluticasone furoate-vilant Bryce (BREO ELLIPTA) 100-25 mcg/dose inhaler INHALE 1 PUFF BY INHALATION ROUTE EVERY DAY AT THE SAME TIME EACH DAY 4 11/12/19 25 Discontinu ed(Reorder ) Active Problems Problem Noted Date Diagnosed Date Allergic rhinitis 05/20/2024 Arthritis 05/20/2024 Bilateral cataracts 05/20/2024 Cannabis misuse 05/20/2024 Hip pain 05/20/2024 Internal hemorrhoids 05/20/2024 Lumbar pain with radiation down both legs 2023 Microalbuminuria 05/20/2024 Numbness 05/20/2024 Obstructive sleep apnea syndrome 05/20/2024 Prediabetes 05/20/2024 Osteoarthritis of knees, bilateral 05/20/2024 Vitamin B12 deficiency 05/20/2024 Vitamin D deficiency 05/20/2024 Renal mass 01/30/2024 Acute kidney injury (CMS/HCC V24) 01/29/2024 Acute pulmonary edema ([facility] V24, [facility] V28) 01/29/2024 Acute respiratory failure wi th hypoxia ([facility] [facility] V24, [facility] V28) 01/29/2024 Hyperlipidemia 01/29/2024 Impaired glucose tolerance 01/29/2024 Chronic back pain 01/29/2024 Lower extremity edema 01/29/2024 Overview (05/20/2024): LVEF 65% with no diastolic dysfunction on TTE 12/2023 Marijuana abuse 01/29/2024 Primary osteoarthritis of left knee 12/19/2022 Primary osteoarthritis of right knee 12/19/2022 Status post total replacement of right hip 12/19 Ascending aorta dilatation ([facility] [place] V24) 023 Asthma 12/15/2022 Chronic obstructive pulmonar y disease ([facility] [place] [facility] V24, [facility] V28) 12/15/2022 Depression 12/15/2022 Dyslipidemia 12/15/2022 GERD with esophagitis 12/15/2022 HTN (hypertension) 12/15/2022 Impaired fasting glucose 12/15/2022 Low back pain 12/15/2022 CASSIUS on CPAP 12/15/2022 Palpitations 12/15/2022 Severe obesity ([facility] V24, [facility] V28) 2022 Steatosis of liver 12/15/2022 Tobacco dependence 12/15/2022 Urge incontinence of urine 12/15/2022 Encounters Date Type Department Care Team Description 08/19/2024 11:30 AM EDT Office Visit Orthopedic Surgery - [address] [place] [address] Jaquelin Valderrama, PA Arthritis of [...] Site/Laterality Comments OTHER SURGICAL HISTORY Right PROCEDURE: HI ARTHRP ACETBLR/PROX FEM PROSTC AGRFT/ALGRFT; COMMENT: x 2 Medical History Medical History Date Comments Anxiety disorder DX:Anxiety diso rder Depression DX:Depression COPD (chronic obstructive pu lmonary disease) ([facility] V24, [facility] V28) DX:COPD (chronic o bstructive pulmonary disease) ([facility]) High blood pressure DX:High bloo [...] AM EDT Office Visit Orthopedic Surgery - [place] [address] [facility] [address] [place] [address] Jaquelin Valderrama PA [address] [facility] [address] [place] [address] 12/24/2024 10:30 AM EDT Office Visit Pulmonolgy - [place] [address] [facility] [address] [place] [id number] Naveed Boudreaux MD 175 [facility] [address] [place] [address] Health Maintenance Due Date Last Done Comments [...] Procedure Name Priority Date/Time Associated Diagnosis Comments HI ARTHROCENTESIS/ASPI RATION/INJECTION MAJOR JOINT/BURSA W/O U/S GUIDANCE Routine 08/19/2024 11:30 AM EDT Arthritis of knee from Last 3 Months Results * HI ARTHROCENTESIS/ASPIRATION/INJECTION MAJOR JOINT/BURSA W/O U/S GUIDANCE (08/19/2024 11:30 AM EDT) Narrative Jaquelin Valderrama PA - 08/19/2024 11:30 AM EDT AYDEE Potter 08/19/2024 11:55 AM L Inj/Asp: bilateral knee Indications: pain Details: 22 G needle, medial approach Medications (Right): 3 mL lidocaine 1 %; 40 mg triamcinolone acetonide 40 mg/mL Medications (Left): 3 mL lidocaine 1 %; 40 mg triamcinolone acetonide 40 mg/mL Informed Consent: Laterality: Bilateral Relevant images/test results available and reviewed: yes Health status cleared: Yes Procedure/treatment, purpose, treatment alternatives, risks/potential complications and benefits explained: yes Risk/complications/benefits details: Risks of infection, thinning of the skin and temporary skin discoloration discussed. Discussed risks of temporary increased pain after injection and swelling and mild redness at injection site for couple days. Explained occasionally cortisone injection can cause facial flushing temporarily. Benefits pain management. For postop injection pain ice, Tylenol and/or NSAIDs if patient can take Patient questions answered: yes Patient agrees, verbalizes understanding, and wants to proceed: yes Consent given by: Patient Informed consent discussion completed by Physician/JAMES with patient: Verbal Pre-procedure timeout performed: yes us Jaquelin BAJWA IN CLINIC/BEDSIDE ORDERABLES Final Result from Last 3 Months Insurance [employer] Care Teams Front End Ui Developer Relationship Specialty Start Date End Date Bety Bettencourt PA [address] [place] [phone] PCP - General Physician Gypsum Calciner 04/22/24
== END 2024-11-14 11:11 | disposition home or self-care (01) ==
LOC: HO.HVS 10:58
PROVIDERS: PCP Physician Assistant; Visit Provider Physician Assistant Surgical
DX: I83.11 Varicose veins of right lower extremity with inflammation (principal); I83.12 Varicose veins of left lower extremity with inflammation
CPT/HCPCS: 99204

== ENCOUNTER → 2024-11-14 10:57 | Outpatient (BNVA) | payer OTHER, SELFPAY | PROVIDERS: PCP Physician Assistant; Visit Provider Physician Assistant Surgical | DX: I83.11 Varicose veins of right lower extremity with inflammation (principal); I83.12 Varicose veins of left lower extremity with inflammation | CPT/HCPCS: 99202 ==

== ENCOUNTER 2024-11-27 10:36 | Outpatient (AMB) | payer OTHER, SELFPAY ==
--- NOTE | 2024-11-27 10:48 | A.OFFPC_ITS ---
Vital Signs 11/27/24 10:54 11/27/24 11:05 Height 5 ft 1 in Weight 187 lb BMI 35.3 BP 154/71 H 150/69 H Blood Pressure Location Lt brachial Lt brachial Position Sitting Sitting Respiration 16 Pulse 75 Pulse Source Pulse Oximeter Temp 97.5 F Temp Source Temporal Artery Scan Pulse Oximetry (%) 96 Oxygen Delivery Method Room Air Intake Visit Reasons: tremors, memory Intake Note: Follow up. Need refill on Atorvastatin 10 mg, has been out for a couple weeks. Boom Crane Operator Required: No Allergies No Known Allergies Allergy (Verified 11/27/24 10:50) Tobacco use date assessed: 11/27/24 Dental Screening Dental Screen Date: 06/05/24 HPI tremors, memory HPI Details Pt is a 64 y/o female who presents today for a follow up. General: She is down about 35 lb. She states that it has been like this and she is pretty stable with her weight loss. Pysch: Follows closely with a psychiatrist at [facility] and is stable with her Wellbutrin 150 mg, fluoxetine 40 mg, oxcarbazepine and trazodone daily. PULM: She states she is on o2 and states it helps the sob. She did see Dr. Boudreaux recently and had repeat PFTs. She states that she did repeat the chest CT she thinks about 6 months ago. She is down to about 4 cigarettes every day or other day. Nephro: Unfortunately was unable to keep her appointment with Nephrology. Endo: Diabetes has a resolved with her weight loss. last a1c was 5.2. Has testing supplies at home but does not check. CV: Her svp of digital is Dr. Zamudio. She reports having an echo and stress tests which were normal. She is on metoprolol 100 mg, amlodipine 5 mg, lasix 40 mg. Musculoskeletal: She is frustrated because she can not take NSAIDs due to her kidney function. She is not a surgical candidate for joint replacements right now. She says that she consulted pain management and they recommended that she trial physical therapy but she does not know how helpful that will be for her knees. She is very frustrated with her pain. She states that they will not do replacements until she stops smoking cigarettes and marijuana but she has a hard time cutting back on the marijuana. The cigarettes she has cut back but has not fully stopped. She did not tolerate the morphine 30 mg - caused her to feel too tired. She did better with the 15 mg but still had some pain but, pain was tolerable. oxycodone was ineffective Gabapentin is ineffective and causes her to feel shaky. She can not take NSAIDs. Tylenol does not do a lot to relieve her pain. tylenol with codeine is causing nausea and lightheaded Heme/onc: She never saw hematology. She states that she rescheduled this and then cancelled and never rebooked. She was supposed to see them for the enlarged spleen, abnormal cbc, weight loss. She does continue to lose weight. She did have an abdominal MRI which did recommend possible consult to Hematology/Oncology. She is aware of this and tells me that she will call them again today. We have talked about this numerous times and I have given her the phone number. She tells me she will call today and let me know if she does not get appointment. She does think that the weight losses secondary to the morphine. Uro: She complicated renal cyst- imaging booked and follows with urology. Neuro: She states she is still having a hard time with memory. Worse on days she takes morphine. We did do an MRI which should chronic changes and old lacu ernesto infarct. She is booked with neurology, Dr. Dick, in January. She states that she has always had some degree of having a hard time remembering what she walked into room for but recently has noticed that she has a hard time word finding and we will often forget partway through a sentence what she was talking about. Her children have noticed this as well. This has been going on for the last 6 months. She denies getting lost but does not drive herself. She relies on transportation. She denies leaving the stove on or forgetting to take her medications but states that she has a pillbox and does not live alone. Her stress and anxiety currently feels stable. Mammo: Scheduled 12/25 bone density: Scheduled 12/25 lung ca screeen: following with pulm for this Colonoscopy: due- would do cologuard but has not completed yet despite having it at home. [facility] Medical History CKD (chronic kidney disease) stage 3, GFR 30-59 ml/min Increased urinary frequency Gait instability Smoker Chronic pain of both knees Dyslipidemia HTN (hypertension) Controlled type 2 diabetes mellitus Vitamin A deficiency Vitamin B12 deficiency Urge incontinence of urine Steatosis Severe obesity Prediabetes Palpitations Osteoarthritis of knee Obstructive sleep apnea syndrome Obesity Numbness Microalbuminuria Lumbar pain with radiation down both legs Internal hemorrhoids Hip pain GERD (gastroesophageal reflux disease) Depressive disorder affecting childbirth Chronic obstructive lung disease Cannabis misuse Bilateral cataracts Asthma Arthritis Allergic rhinitis Surgical History History of total hip replacement Social History (Updated 11/27/24 @ 10:59 by Juana Navarro CMA) Housing: Apartment Alcohol intake: former Patient Tobacco Use Status: Former Tobacco user Cigarette Packs Per Day: 6 Years Smoked: 46 e-Cigarette/Vaping Use: Never Used Second Hand Smoke Exposure: No Substance Use Type: Marijuana service: No Current occupational status: disabled Cognitive needs: No Hearing needs: No Vision needs: No Questionnaire Thrive Questionnaire Date Thrive assessed: 06/20/24 I am a: Patient What is your living situation today?: I have a steady place to live Within the past 12 months, did the food you bought not last and you didn't have the money to get more?: I choose not to answer this question Within the past 12 months, did you worry whether your food would run out before you got money to buy more?: I choose not to answer this question Do you have trouble paying for medicines?: I choose not to answer this question Do you have trouble getting transportation to medical appointments?: I choose not to answer this question Do you have trouble paying your heating and electricity bill?: No Do you have trouble taking care of your child, family member or friend?: I choose not to answer this question Do you have trouble with day-to-day activities such as bathing, preparing meals, shopping, managing finances, etc.?: I choose not to answer this question Are you currently unemployed and looking for a job?: No Are you interested in more education?: No Please select the resources that you would like help with: None Currently or been in a relationship where the following occur: No concerns reported THRIVE Score: 0 STEVENSON-7 AMB Questionnaire STEVENSON-7 Date STEVENSON - 7 assessed: 06/27/24 Source: Developed by Drs. Jesus Zurita, Aida Grossman, Carlyle Mendoza and colleagues, with an educational alban from [employer]. Physical exam (Primary Care) Vital Signs: Last Vital Signs Temp 97.5 F 11/27/24 10:54 Pulse 75 11/27/24 10:54 Resp 16 11/27/24 10:54 BP 150/69 H 11/27/24 11:05 Pulse Ox 96 11/27/24 10:54 Oxygen Delivery Method Room Air 11/27/24 10:54 BMI result Body Mass Index 35.3 Tobacco/Smoking Status: Tobacco use Status Tobacco use date assessed 11/27/24 11/27/24 11:00 Patient Tobacco Use Status Former Tobacco user 11/27/24 10:59 e-Cigarette/Vaping Use Never Used 11/27/24 10:59 Thrive Assessment: Date of Thrive Assessment Date Thrive assessed 06/20/24 11/27/24 10:49 Currently or been in a relationship where the following occur: No concerns reported Const Orientation/consciousness: patient oriented x3 HENMT Ears: hearing grossly normal bilaterally Neck Thyroid: Thyroid normal Lymphatic: no lymphadenopathy noted Resp Auscultation: clear to auscultation bilaterally Cardio Rate: regular rate Rhythm: regular rhythm Heart sounds: S1 normal heart sound present and S2 normal heart sound present GI Inspection: Yes normal to inspection Palpation (GI): Soft to palpation and Other GI palpation findings present (nontender, no cva tenderness) Auscultation: normoactive bowel sounds Rectal Exam - Female: deferred Skin General skin exam: no rashes or lesions noted Neuro General: patient oriented x3, gait normal and no focal motor deficits Results Reviewed Results Reviewed: Laboratory Tests 11/29/23 06/27/24 10/24/24 10:45 14:46 11:40 WBC RBC Hgb Hct Plt Count Sodium 138 Potassium 4.2 Chloride 108 Carbon Dioxide 22 Anion Gap 12 BUN 18 H Creatinine 0.86 Estimated GFR > 60 Hemoglobin A1c % 5.3 Calcium 9.1 Iron Unsat Iron Binding Total Bilirubin 0.2 Ferritin AST 10 ALT 8 Alkaline Phosphatase Total Protein 7.0 Albumin 3.5 Triglycerides 167 H Cholesterol 169 LDL Cholesterol, Calc 93 HDL Cholesterol 43 Vitamin B12 Folate TSH 1.36 Urine Color Yellow Urine Appearance Clear Urine pH 5.5 Ur Specific [place] 1.010 Urine Protein Negative Urine Glucose (UA) Negative Urine Ketones Negative Urine Blood Negative Urine Nitrite Negative Ur Leukocyte Esterase Negative Urine Creatinine 194.32 47.33 Urine Microalbumin 672.0 21.0 Microalb/Creat Ratio 345.8 H 44.3 H 10/24/24 11:45 WBC 7.8 RBC 4.34 Hgb 12.6 Hct 38.6 Plt Count 346 Sodium Potassium Chloride Carbon Dioxide Anion Gap BUN Creatinine Estimated GFR 42 Hemoglobin A1c % 5.2 Calcium Iron 38 Unsat Iron Binding 252 Total Bilirubin 0.3 Ferritin 97 AST 14 ALT < 6 Alkaline Phosphatase 93 Total Protein 7.5 Albumin 4.0 Triglycerides Cholesterol LDL Cholesterol, Calc HDL Cholesterol Vitamin B12 1068 H Folate 4.5 TSH 1.26 Urine Color Urine Appearance Urine pH Ur Specific [place] Urine Protein Urine Glucose (UA) Urine Ketones Urine Blood Urine Nitrite Ur Leukocyte Esterase Urine Creatinine Urine Microalbumin Microalb/Creat Ratio CLINICAL INFORMATION: 63-year-old female. Other amnesia. Leg weakness, patient fell and hit head, memory issues. COMPARISON: None available. TECHNIQUE: MRI of the brain was obtained using routine sequences without contrast. Examination performed on a 1.5 Kaia Siemens high-field unit. FINDINGS: There is no diffusion restriction. There is no intracranial hemorrhage, acute infarction, mass effect, or edema. Ventricles, sulci, and cisterns are normal in size and configuration for patient age. No abnormal patterns of atrophy. No shift of midline. No abnormal hemosiderin deposition is identified. There are a few scattered punctate and minimally confluent foci of white matter T2 hyperintensity in the periventricular, subcortical, hemispheric deep white matter and central celia. These foci are nonspecific but statistically most likely reflects small vessel ischemic changes. There is an old lacunar type infarct in the left frontal white matter. Midline structures appear normally formed. The pituitary gland appears normal. Posterior fossa structures appear normal. Cerebellar tonsils are appropriately located. Major flow voids are preserved within the skull base. The globes and orbital contents demonstrate no abnormalities. Paranasal sinuses are clear bilaterally. Nasal septum is midline without spur. The mastoids and tympanic cavities are normally aerated. Extracranial soft tissues demonstrate no abnormalities. No suspicious bone marrow changes are evident. There are mild to moderate degenerative changes in both TM joints. Atlantoaxial joint is normal. MR/MR head/brain wo con IMPRESSION: 1. No evidence of intracranial hemorrhage, acute infarction, mass effect, or edema. 2. Mild changes of small vessel ischemia. 3. Punctate old lacunar type infarct left frontal white matter. Electronically signed by: Stewart Rai MD 11/11/2024 11:00 AM EDT RP Coding Level of Care Code Est Pt Level 4 (81288) Complex EM visit Add On G2211 Diagnoses Primary hypertension I10 Hypertension type: primary hypertension CKD (chronic kidney disease) stage 3, GFR 30-59 ml/min N18.30 Hepatosplenomegaly R16.2 Weight loss R63.4 Memory changes R41.3 Dyslipidemia E78.5 Assessment & Plan Assessment & Plan (1) HTN (hypertension): Code(s): I10 - Essential (primary) hypertension Category: Medical Qualifiers: Hypertension type: primary hypertension Qualified Code(s): I10 - Essential (primary) hypertension Plan: Continue current regimen (2) CKD (chronic kidney disease) stage 3, GFR 30-59 ml/min: Code(s): N18.30 - Chronic kidney disease, stage 3 unspecified Category: Medical Plan: We will rechecked today (3) Hepatosplenomegaly: Code(s): R16.2 - Hepatomegaly with splenomegaly, not elsewhere classified Category: Medical Plan: Phone number provided to Heme-Onc again. (4) Weight loss: Code(s): R63.4 - Abnormal weight loss Category: Medical Plan: As above. Labs ordered. (5) Memory changes: Code(s): R41.3 - Other amnesia Category: Medical Plan: Has an appointment scheduled with Neurology. Reviewed the MRI. Discussed the importance of blood pressure and cholesterol management. (6) Dyslipidemia: Code(s): E78.5 - Hyperlipidemia, unspecified Category: Medical Plan: She has been off of the simvastatin for a few months and wants to know what her cholesterol is before restarting this. States that she accidentally took herself off of this. Lipids ordered today. Orders: Orders Complete Blood Count Auto Diff Today I10 - Essential (primary) hypertension, N18.30 - Chronic kidney disease, stage 3 unspecified, R16.2 - Hepatomegaly with splenomegaly, not elsewhere classified, R41.3 - Other amnesia, R63.4 - Abnormal weight loss Comprehensive Met. Panel Today I10 - Essential (primary) hypertension, N18.30 - Chronic kidney disease, stage 3 unspecified, R16.2 - Hepatomegaly with splenomegaly, not elsewhere classified, R41.3 - Other amnesia, R63.4 - Abnormal weight loss UA CC w/rflx Micro + Cult Today I10 - Essential (primary) hypertension, N18.30 - Chronic kidney disease, stage 3 unspecified, R16.2 - Hepatomegaly with sp lenomegaly, not elsewhere classified, R41.3 - Other amnesia, R63.4 - Abnormal weight loss, Z13.220 - Encounter for screening for lipoid disorders TSH reflex Free T4 Today I10 - Essential (primary) hypertension, N18.30 - Chronic kidney disease, stage 3 unspecified, R16.2 - Hepatomegaly with splenomegaly, not elsewhere classified, R41.3 - Other amnesia, R63.4 - Abnormal weight loss US carotid duplex BI Today I67.2 - Cerebral atherosclerosis, Z86.73 - Personal history of transient ischemic attack (TIA), and cerebral infarction without residual deficits Lipid Panel Today E78.5 - Hyperlipidemia, unspecified
[2024-11-27 10:54] VITALS: BP 154/71; PULSE 75; RESP 16; TEMP 36.4; O2SAT 96; BMI 35.3
[2024-11-27 11:05] VITALS: BP 150/69
--- OUTSIDE RECORDS SUMMARY | 2024-11-27 11:18 | XMS_ITS | Clinical Summary ---
Author Organization [facility] Address [address] [place] [address] Phone Care Team Providers Care Wig Sales Consultant Name Role Phone Bety Bettencourt Primary Care Provider [phone] Allergies No known active allergies Medications [...] injury (CMS/HCC V24) 01/29/2024 Acute pulmonary edema ([facility] [place] [facility] [place]28) 01/29/2024 Acute respiratory failure wi th hypoxia ([facility] [place], [facility] [place]28) 01/29/2024 Hyperlipidemia 01/29/2024 Impaired glucose tolerance 01/29/2024 Chronic back pain 01/29/2024 Lower extremity edema 01/29/2024 Overview (05/20/2024): LVEF 65% with no diastolic dysfunction on TTE 12/2023 Marijuana abuse 01/29/2024 Primary osteoarthritis of left knee 12/19/2022 Primary osteoarthritis of right knee 12/19/2022 Status post total replacement of right hip 12/19 Ascending aorta dilatation ([facility] [place]24) 023 Asthma 12/15/2022 Chronic obstructive pulmonar y disease ([facility] [place]24, [facility] V28) 12/15/2022 Depression 12/15/2022 Dyslipidemia 12/15/2022 GERD with esophagitis 12/15/2022 HTN (hypertension) 12/15/2022 Impaired fasting glucose 12/15/2022 Low back pain 12/15/2022 CASSIUS on CPAP 12/15/2022 Palpitations 12/15/2022 Severe obesity ([facility] [place]24, [facility] V28) 2022 Steatosis of liver 12/15/2022 Tobacco dependence 12/15/2022 Urge incontinence of urine 12/15/2022 Immunizations Name Administration Dates Next Due Influenza [...] DX:Depression COPD (chronic obstructive pu lmonary disease) ([facility] V24, [facility] V28) DX:COPD (chronic o bstructive pulmonary disease) ([facility]) High blood pressure DX:High bloo d pressure [...] AM EDT Office Visit Orthopedic Surgery - [place] 175 [facility] [address] [place] [phone] Jaquelin Valderrama PA 174 [facility] [address] [place] [phone] 12/24/2024 10:30 AM EDT Office Visit Pulmonolgy - [place] 175 [facility] [address] [place] [phone] Naveed Boudreaux MD 175 [facility] [address] [place] [address] Health Maintenance Due Date Last Done Comments [...] on patient's age to complete this topic Insurance [facility] Care Teams Wig Sales Consultant Relationship Specialty Start Date End Date Bety Bettencourt PA [address] [place] [address] PCP - General Physician Clinical Services Manager 04/22/24
== END 2024-11-27 11:31 | disposition home or self-care (01) ==
LOC: HO.HMCFM 10:37
PROVIDERS: PCP Internal Medicine; Visit Provider Physician Assistant
DX: I10 Essential (primary) hypertension (principal); N18.30 Chronic kidney disease, stage 3 unspecified; R16.2 Hepatomegaly with splenomegaly, not elsewhere classified; R63.4 Abnormal weight loss; R41.3 Other amnesia; E78.5 Hyperlipidemia, unspecified

== ENCOUNTER → 2024-11-27 10:36 | Outpatient (BNVA) | payer OTHER, SELFPAY | PROVIDERS: PCP Internal Medicine; Visit Provider Physician Assistant | DX: E11.22 Type 2 diabetes mellitus with diabetic chronic kidney disease (principal); I12.9 Hypertensive chronic kidney disease with stage 1 through stage 4 chronic kidney disease, or unspecified chronic kidney disease; N18.30 Chronic kidney disease, stage 3 unspecified; R16.2 Hepatomegaly with splenomegaly, not elsewhere classified; R63.4 Abnormal weight loss; R41.3 Other amnesia; E78.5 Hyperlipidemia, unspecified | CPT/HCPCS: 99212 ==

== ENCOUNTER 2024-12-06 10:20 | Outpatient (REF) | payer OTHER, SELFPAY ==
--- NOTE | ~2024-12-06 | US_ITS ---
EXAMINATION: US LOWER EXTREMITY VENOUS (REFLUX EXAM), BILATERAL CLINICAL INFORMATION: Varices. COMPARISON: None. TECHNIQUE: Color flow triplex imaging and compression Doppler was performed to evaluate both the deep and the superficial systems bilaterally. To evaluate the superficial system, the examination was performed in the upright position. Color-flow Doppler ultrasound and compression ultrasound were utilized. In addition, maneuvers were utilized to demonstrate reflux. FINDINGS: 1. DEEP VENOUS ULTRASOUND OF THE RIGHT LOWER EXTREMITY: Common Femoral Vein: Compressible, normal respiratory variation and augmented flow. Femoral Vein: Compressible, normal color flow and augmentation. Popliteal Vein: Compressible, normal augmentation. Deep Reflux: There is no evidence of reflux in the deep system in either the common femoral vein, superficial femoral or the popliteal vein. There is no evidence of a Landeros's cyst. 2. SUPERFICIAL ULTRASOUND WITH DOPPLER OF RIGHT LOWER EXTREMITY: GREAT SAPHENOUS VEIN: Saphenofemoral Junction: 0.7 cm; Reflux: 0 ms Proximal Thigh: 0.6 cm; Reflux: 0 ms Mid Thigh: 0.5 cm; Reflux: 0 ms Distal Thigh: 0.5 cm; Reflux: 0 ms At Knee: 0.3 cm; Reflux: 0 ms Proximal Calf: 0.3 cm; Reflux: 0 ms Mid Calf: 0.3 cm; Reflux: 0 ms Distal Calf: 0.4 cm; Reflux: 0 ms DUPLICATED MEDIAL GREAT SAPHENOUS VEIN: Diameter: None imaged Reflux: NA DUPLICATED LATERAL GREAT SAPHENOUS VEIN: Diameter: None imaged Reflux: NA SMALL SAPHENOUS VEIN: Saphenopopliteal Junction: 0.4 cm; Reflux: 0 ms Proximal: 0.3 cm; Reflux: 0 ms Distal: 0.2 cm; Reflux: 0 ms VEIN OF GIACOMINI: Size: NA Reflux: NA PERFORATORS: Location: Distal thigh to the mid calf. Size: 0.2-0.4 cm. Reflux: NA VARICOSITIES: Location: Small saphenous vein at the proximal calf and proximal thigh. Proximal thigh, at the knee and distal calf. Size: 0.3-0.4 cm. Reflux: NA 3. DEEP VENOUS ULTRASOUND OF THE LEFT LOWER EXTREMITY: Common Femoral Vein: Compressible, normal respiratory variation and augmented flow. Femoral Vein: Compressible, normal color flow and augmentation. Popliteal Vein: Compressible, normal augmentation. Deep Reflux: There is no evidence of reflux in the deep system in either the common femoral vein, superficial femoral or the popliteal vein. There is no evidence of a Landeros's cyst. 4. SUPERFICIAL ULTRASOUND WITH DOPPLER OF LEFT LOWER EXTREMITY: GREAT SAPHENOUS VEIN: Saphenofemoral Junction: 0.8 cm; Reflux: 0 ms Proximal Thigh: 0.6 cm; Reflux: 0 ms Mid Thigh: 0.6 cm; Reflux: 0 ms Distal Thigh: 0.4 cm; Reflux: 0 ms At Knee: 0.5 cm; Reflux: 0 ms Proximal Calf: 0.4 cm; Reflux: 0 ms Mid Calf: 0.4 cm; Reflux: 0 ms Distal Calf: 0.4 cm; Reflux: 0 ms DUPLICATED MEDIAL GREAT SAPHENOUS VEIN: Diameter: None imaged Reflux: NA DUPLICATED LATERAL GREAT SAPHENOUS VEIN: Diameter: 0.3 cm. Reflux: NA SMALL SAPHENOUS VEIN: Saphenopopliteal Junction: 0.5 cm; Reflux: 0 ms Proximal: 0.3 cm; Reflux: 0 ms Distal: 0.3 cm; Reflux: 0 ms VEIN OF GIACOMINI: Size: 0.2 cm. Reflux: NA PERFORATORS: Location: The distal thigh. Mid to distal calf. Size: 0.2-0.3 cm. Reflux: NA VARICOSITIES: Location: Saphenous vein junction. Distal thigh to proximal calf. Size: 0.4-0.5 cm. Reflux: NA US/US venous insuf bilat IMPRESSION: Right: No venous insufficiency. Perforators and varices without reflux. Left: No venous insufficiency. Perforators and varices without reflux. Electronically signed by: Tashi Chambers MD 12/06/2024 12:06 PM EDT
--- OUTSIDE RECORDS SUMMARY | 2024-12-06 10:50 | XMS_ITS | Encounter Summary ---
Author Organization [facility] Address [address] [place] [address] Care Team Providers Care Polisher Eyeglass Frames Name Role Phone Bety Bettencourt Primary Care Provider [phone] Encounter Details Date Type Department Care Team ([facility] st Contact Info) Description 12/02/2024 Telephone Pulmonolgy - [place] [address] [phone] Naveed Boudreaux MD 175 [facility] [address] [place] [address] Social History Tobacco Use Types Packs/Day Years Used Date Smoking Tobacco: Every Day Smokeless Tobacco: Never Alcohol Use Standard Drinks/Week Comments Never 0 (1 standard drink = 0.6 oz pur e alcohol) Comments Unknown Sex and Gender Information Value Date Recorded Sex Assigned at Not on file Legal Sex Female 4:31 AM EST Gender Identity Not on file Sexual Orientation Not on file documented as of this encounter Progress Notes * Gris Guzman MA - 12/02/2024 3:32 PM EDT ERROL Blount was 09/03/24 at your old office. Note says that patient will be evaluated for POC , but patient is calling... to request information on her POC. She still as not received since she last seen provider in September 2024. Also patient will like to know if provider can prescribed her a new cpap jerome as her mask is leaking Please advise on this matter * Matthew Gonzalez - 12/02/2024 9:49 AM EDT Patient called to request information on her POC. She still as not received since she last seen provider in September 2024. Also patient will like to know if provider can prescribed her a new cpap jerome as her mask is leaking. Please advice. documented in this encounter Plan of Treatment Upcoming Encounters Date Type Department Care Team (Late st Contact Info) Description 12/23/2024 11:15 AM EDT Office Visit Orthopedic Surgery - [place] 175 [facility] [address] [place] [phone] Jaquelin Valderrama PA 174 [facility] [address] [place] [phone] 12/24/2024 10:30 AM EDT Office Visit Pulmonolgy - [place] 175 [facility] [address] [place] [phone] Naveed Boudreaux MD 175 [facility] [address] [place] [address] documented as of this encounter Visit Diagnoses Not on filedocumented in this encounter Care Teams Polisher Eyeglass Frames Relationship Specialty Start Date End Date Bety Bettencourt PA [address] [place] [phone] PCP - General Physician Suspect Artist 04/22/24 documented as of this encounter
== END 2024-12-06 10:21 | disposition home or self-care (01) ==
LOC: HO.US 10:20
PROVIDERS: PCP Physician Assistant; Visit Provider Physician Assistant Surgical
DX: I83.11 Varicose veins of right lower extremity with inflammation (principal); I83.12 Varicose veins of left lower extremity with inflammation
CPT/HCPCS: 93970

== ENCOUNTER → 2024-12-06 10:23 | Outpatient (BNV) | payer OTHER, SELFPAY | PROVIDERS: PCP Physician Assistant; Visit Provider Radiology Diagnostic Radiology | DX: I83.11 Varicose veins of right lower extremity with inflammation (principal); I83.12 Varicose veins of left lower extremity with inflammation | CPT/HCPCS: 93970 ==

== ENCOUNTER 2024-12-20 12:34 | Outpatient (REF) | payer OTHER, SELFPAY ==
--- NOTE | ~2024-12-20 | US_ITS ---
EXAMINATION: US KIDNEY BILATERAL HISTORY: N28.1 - Cyst of kidney, acquired TECHNIQUE: Real-time grayscale ultrasound imaging of the kidneys was performed and images were reviewed. COMPARISON: Correlation is made with an MRI of the abdomen dated 04/17/2024. FINDINGS: Right kidney: The right kidney measures 10.7 x 4.3 x 4.3 cm. Renal parenchymal echotexture and thickness are normal. There is a 1.1 x 1.1 x 1.0 cm simple cyst at the lower pole. There is no hydronephrosis or renal calculi. Left Kidney: The left kidney measures 10.2 x 4.5 x 4.5 cm. Renal parenchymal echotexture and thickness are normal. There is a 1.7 x 1.5 x 1.5 cm simple cyst at the upper pole. There is no hydronephrosis or renal calculi. US/US renal BI IMPRESSION: Bilateral renal cysts as described. Electronically signed by: Jesus Cotto MD 12/20/2024 01:09 PM EDT
--- OUTSIDE RECORDS SUMMARY | 2024-12-20 12:36 | XMS_ITS | Encounter Summary ---
Author Organization [facility] Address [address] [place] [address] Care Team Providers Care General Clerk Name Role Phone Bety Bettencourt Primary Care Provider [phone] Encounter Details Date Type Department Care Team ([facility] st Contact Info) Description 12/02/2024 Telephone Pulmonolgy - [place] [address] [phone] Naveed Boudreaux MD 175 [facility] 200 [place] [address] Social History Tobacco Use Types Packs/Day Years [...] AM EDT Office Visit Orthopedic Surgery - [place] [address] [facility] [address] [place] [address] Jaquelin Valderrama PA [address] [facility] [address] [place] [phone] documented as of this encounter Visit Diagnoses Not on filedocumented in this encounter Care Teams General Clerk Relationship Specialty Start Date End Date Bety Bettencourt PA [address] [place] [phone] PCP - General Physician Dispensary Attendant 04/22/24 documented as of this encounter
--- OUTSIDE RECORDS SUMMARY | 2024-12-20 12:36 | XMS_ITS | Clinical Summary ---
Author Organization [facility] Address [address] [facility] [address] [place] [address] Care Team Providers Care Factory Supervisor Name Role Phone Trixie Alcala MD Primary Care Provider [phone] Social History Tobacco Use Types Packs/Day Years Used Date Smoking Tobacco: Never Assessed Comments Unknown Sex and Gender Information Value Date Recorded Sex Assigned at Not on file Legal Sex Female 5:35 AM EST Gender Identity Female 01/09/2024 11:00 AM EDT Sexual Orientation Unknown 01/09/2024 11 :00 AM EDT Last Filed Vital Signs Vital Sign Reading Time Taken Comments Blood Pressure - - Pulse - - Temperature - - Respiratory Rate - - Oxygen Saturation - - Inhaled Oxygen Concentration - - Weight 115.7 kg (255 lb) 10/18/2016 1:00 PM EDT Height 157.5 cm (5' 2 ) 12/11/2018 10:15 AM EDT Body Mass Index 46.64 10/18/2016 1:00 PM EDT Plan of Treatment Health Maintenance Due Date Last Done Comments CT Colonography 1961 Colonoscopy 1961 Colorectal Cancer Screening 1961 FIT-DNA 1961 FIT 1961 FOBT 1961 Sigmoidoscopy 1961 MMR Vaccines (1 of 1 - Standard series) 1962 Pap Smear 1982 Cervical Cancer Screening 11/20/1991 HPV/Cotest 11/20/1991 Mammogram 2001 Pneumococcal Vaccine: 50+ Years (2 of 2 - PCV) 11/20/2011 02/24/2010 Zoster Vaccines (1 of 2) 11/20/2011 COVID-19 Vaccine (3 - 2023-2 5 season) 2024 10/22/2020, 09/30/2020 Depression Screening 05/29/2024 Influenza Vaccine (#1) 2025 3, 03/19/2020 DTaP/Tdap/Td Vaccines (2 - T d or Tdap) 03/25/2030 03/25/2020 HIB Vaccines Aged Out No longer eligi ble based on patient's age to complete this topic HPV Vaccines Aged Out No longer eligi ble based on patient's age to complete this topic Hepatitis A Vaccines Aged Out No long er eligible [...] patient's age to complete this topic Meningococcal Vaccine Aged Out No akin damir eligible based on patient's age to complete this topic Rotavirus Vaccines Aged Out No longer eligible based on patient's age to complete this topic Insurance [facility] Care Teams Factory Supervisor Relationship Specialty Start Date End Date Trixie Alcala MD [address] [place] [address] PCP - General 07/02/21
--- OUTSIDE RECORDS SUMMARY | 2024-12-20 12:36 | XMS_ITS | Encounter Summary ---
Author Organization [facility] Address [address] [facility] [address] [place] [address] Phone Care Team Providers Care Appliance Worker Name Role Phone Bety Bettencourt Primary Care Provider [phone] Bety Bettencourt Primary Care Provider [phone] Kiara Vicente MD Primary Care Provider [phone] Encounter Details Date Type Department Care Team (Late st Contact Info) Description 01/30/2024 Procedure Pass [facility], Ct Scan - [facility] [address] [place] [address] Social History Tobacco Use Types Packs/Day Years Used Date Smoking Tobacco: Every Day Cigarettes Smokeless Tobacco: Never Education Answer Date Recorded Are you interested in more education? Not on chilango e 01/28/2024 Are you concerned about learning? Not on file 01/28/2024 No 01/28/2024 No 01/28/2024 Food Answer Date Recorded Within the past 6 months we worried whether our food would run out before we got money to buy more. Never True 01/29/2024 Within the past 6 months the food we bought just didn't last and we didn't have enough money to get more. Never True Residential Stability Answer Date Recor ded What is your housing situation today? I have mame sing 01/29/2024 How many times have you move d in the past 12 months? Zero (I did not move) 01/29/2024 Paying for Meds Answer Date Recorded Do you have trouble paying for medicines? No 01/29/2024 Paying Utility Bills Answer Date Record ed Do you have trouble paying your heating or elect ricity bill? No 01/29/2024 Transportation Answer Date Recorded Has the lack of transportati on kept you from medical appointments or from getting medications? No 01/29/2024 Digital Access Answer Date Recorded No 01/29/2024 Yes 01/29/2024 Do you have reliable internet access at home? Ye s 01/29/2024 Do you have a device (e.g., phone, tablet, computer) with a working camera? Yes 01/29/2024 Intimate Partner Violence Answer Date R ecorded Are you denied basic needs s uch as food, clothing, or medical care? No 01/29/2024 In the past 12 months have y ou been in a relationship with a person who hurts, threatens, or tries to control you? No 01/29/2024 Are you denied basic needs s uch as food, clothing, or medical care? No 01/29/2024 In the past 12 months have y ou been in a relationship with a person who hurts, threatens, or tries to control you? No 01/29/2024 Comments Unknown Sex and Gender Information Value Date Recorded Sex Assigned at Female 01/28/2024 10:37 PM EDT Legal Sex Female 10:06 PM EDT Gender Identity Female 01/28/2024 10:37 PM EDT Sexual Orientation Straight 01/28/2024 10 :37 PM EDT documented as of this encounter Plan of Treatment Not on file documented as of this encounter Visit Diagnoses Not on filedocumented in this encounter Care Teams Appliance Worker Relationship Specialty Start Date End Date Bety Bettencourt PA [address] [address] PCP - General Physician Fishing Guide 01/30/24 01/30/24 Bety Bettencourt PA [address] [address] PCP - General Physician Fishing Guide 01/31/24 01/31/24 Kiara Vicente MD [address] [place] [address] PCP - General 05/29/24 Bety Bettencourt PA [address] [place] [address] Primary Care Physician 01/31/24 documented as of this encounter Additional Source Comments The information contained in this document represents components of the legal health record. It is not the complete legal health record.[facility]
== END 2024-12-20 12:35 | disposition home or self-care (01) ==
LOC: HO.US 12:34
PROVIDERS: PCP Physician Assistant; Visit Provider Nurse Practitioner Family
DX: N28.1 Cyst of kidney, acquired (principal)
CPT/HCPCS: 76775

== ENCOUNTER → 2024-12-20 12:35 | Outpatient (BNV) | payer OTHER, SELFPAY | PROVIDERS: PCP Physician Assistant; Visit Provider Radiology Diagnostic Radiology | DX: N28.1 Cyst of kidney, acquired (principal) | CPT/HCPCS: 76775 ==

== ENCOUNTER 2024-12-25 12:21 | Outpatient (REF) | payer OTHER, SELFPAY ==
--- NOTE | ~2024-12-25 | MM_ITS ---
EXAMINATION: DXA BONE DENSITY AXIAL HISTORY: N95.1 - Menopausal and female climacteric states TECHNIQUE: [employer] Dual energy absorptiometry (DEXA) of the lumbar spine, total left hip, and femoral neck was performed. COMPARISON: There are no prior studies for comparison. FINDINGS: The bone mineral density of the lumbar spine is 1.107 g/cm2, corresponding to a T-score of -0.6, and a Z-score of 0.2. This is indicative of normal bone mineral density. The bone mineral density of the left total hip is 0.792 g/cm2, corresponding to a T-score of -1.7, and a Z-score of -1.1. This is indicative of osteopenia. The bone mineral density of the left femoral neck is 0.887 g/cm2, corresponding to a T-score of -1.1, and a Z-score of -0.1. This is indicative of osteopenia. FRACTURE RISK: The FRAX index suggests a risk of major osteoporotic fracture of 7.3%, and of hip fracture 0.8%. MM/XR DEXA axial skeleton IMPRESSION: Based on bone mineral density, and according to World Health Organization (WHO) criteria, the diagnosis is consistent with osteopenia. Statistically, 68% of repeat scans fall within 1 SD (+/- 0.010 g/cm2 for AP spine L1-L4) and 1 SD (+/- 0.012 g/cm2 for femur total) FRAX is a trademark of the [employer], a World Health Organization (WHO) Collaborating Center. Electronically signed by: Jesus Cotto MD 12/25/2024 01:17 PM EDT
--- OUTSIDE RECORDS SUMMARY | 2024-12-25 13:02 | XMS_ITS | Encounter Summary ---
Author Organization [facility] Address [address] [place] [address] Care Team Providers Care Knitting Machine Fixer Name Role Phone Bety Bettencourt Primary Care Provider [phone] Encounter Details Date Type Department Care Team ([facility] st Contact Info) Description 12/02/2024 Telephone Pulmonolgy - [place] [address] [phone] Naveed Boudreaux MD 175 [facility] 200 [place] [address] Social History Tobacco Use Types Packs/Day Years [...] Care Team (Late st Contact Info) Description 03/25/2025 11:45 AM EDT Office Visit Orthopedic Surgery - [place] [address] [facility] [address] [place] [address] Jaquelin Valderrama PA [address] [facility] [address] [place] [phone] documented as of this encounter Visit Diagnoses Not on filedocumented in this encounter Care Teams Knitting Machine Fixer Relationship Specialty Start Date End Date Bety Bettencourt PA [address] [place] [phone] PCP - General Physician Rn Gynecology 04/22/24 documented as of this encounter
--- OUTSIDE RECORDS SUMMARY | 2024-12-25 13:02 | XMS_ITS | Encounter Summary ---
Author Organization [facility] Address [address] [place] [address] Phone Care Team Providers Care Airframe And Power Plant Mechanic Name Role Phone Bety Bettencourt Primary Care Provider [phone] Bety Bettencourt Primary Care Provider [phone] Kiara Vicente MD Primary Care Provider [phone] Encounter Details Date Type Department Care Team (Late st Contact Info) Description 01/30/2024 Procedure Pass [facility], Ct Scan - [facility] [address] [place] [address] Social History Tobacco Use Types Packs/Day Years [...] on filedocumented in this encounter Care Teams Airframe And Power Plant Mechanic Relationship Specialty Start Date End Date Bety Bettencourt PA [address] [address] PCP - General Physician Bead Forming Machine Set Up Operator 01/30/24 01/30/24 Bety Bettencourt PA [address] [address] PCP - General Physician Bead Forming Machine Set Up Operator 01/31/24 01/31/24 Kiara Vicente MD [address] [place] [address] PCP - General 05/29/24 Bety Bettencourt PA [address] [place] [address] Primary Care Physician 01/31/24 documented as of this encounter Additional Source Comments The information contained in this document represents components of the legal health record. It is not the complete legal health record.[facility]
== END 2024-12-25 12:22 | disposition home or self-care (01) ==
LOC: HO.MAMMO 12:21
PROVIDERS: PCP Physician Assistant; Visit Provider Physician Assistant
DX: Z12.31 Encounter for screening mammogram for malignant neoplasm of breast (principal); Z13.820 Encounter for screening for osteoporosis; Z78.0 Asymptomatic menopausal state
CPT/HCPCS: 77063; 77067; 77080

== ENCOUNTER → 2024-12-25 13:00 | Outpatient (BNV) | payer OTHER, SELFPAY | PROVIDERS: PCP Physician Assistant; Visit Provider Radiology Diagnostic Radiology | DX: E28.39 Other primary ovarian failure (principal) | CPT/HCPCS: 77080 ==

== ENCOUNTER 2025-01-30 11:26 | Outpatient (AMB) | payer OTHER, SELFPAY ==
--- NOTE | 2025-01-30 11:26 | A.OFFPC_ITS ---
Vital Signs 01/30/25 11:33 Height 5 ft 1 in Weight 189 lb 4 oz BMI 35.8 BP 130/66 Blood Pressure Location Lt brachial Position Sitting Respiration 16 Pulse 68 Pulse Source Pulse Oximeter Temp 98.3 F Temp Source Oral Pulse Oximetry (%) 98 Oxygen Delivery Method Nasal Cannula Oxygen Flow Rate 2 Intake Visit Reasons: hdcfu/heart failure/heart attack Intake Note: Hospital follow up System Planning Engineer Required: No Allergies No Known Allergies Allergy (Verified 01/30/25 11:32) Medication List - Last Reconciled 01/31/25 by Bety Bettencourt PA-C albuterol sulfate 90 mcg/actuation (Ventolin HFA) 2 puffs inhalation Q4-6H PRN baclofen 10 mg PO TID blood sugar diagnostic (FreeStyle Lite Strips) Use daily As directed to check blood glucose blood-glucose meter (FreeStyle Lite Meter kit) Use daily As directed to check blood sugars bupropion HCl SR 150 mg PO QAM cholecalciferol (vitamin D3) 25 mcg PO DAILY clotrimazole 1% (Lotrimin AF (clotrimazole)) 1 appl topical BID 4 weeks commode (bedside commode) As directed cyanocobalamin (vitamin B-12) 1,000 mcg PO DAILY [diabetic shoes Use diabetic shoes daily as directed.] fluoxetine mg PO fluticasone furoate-vilanterol 100-25 mcg/dose (Breo Ellipta) 1 ea inhalation DAILY furosemide 20 mg PO BID lancets (FreeStyle Lancets) use daily as directed to check blood glucose lidocaine 5% 1 patch topical DAILY miscellaneous medical supply Use daily As directed (walker with wheels and seat) miscellaneous medical supply One shoe horn to use daily As directed miscellaneous medical supply as directed; 1 gripper, use daily as needed to pick remover objects naloxone 4 mg/actuation (Narcan) 4 mg intranasal Q2M PRN nicotine (Nicoderm CQ) 1 patch transdermal Q24H nystatin 1 appl topical TID omeprazole 20 mg PO DAILY oxcarbazepine mg PO Shower Chair Use daily As directed trazodone 50 mg PO BEDTIME PRN walker 1 ea as directed daily; Tobacco use date assessed: 01/30/25 Dental Screening Dental Screen Date: 06/05/24 HPI hdcfu/heart failure/heart attack HPI Details Pt is a 64 y/o female who presents today for a follow up/hospital follow up She presented to [facility] ER with complaints of chest pain and shortness a breath on 12/28. She was noted to have a STEMI and then was subsequently transferred to [facility]. She underwent a diagnostic catheterization on 12/[address] Rick and was able to have a successful PCI to the mid LAD. On 12/29 she had an echo which showed left ventricle moderately dilated. The left ventricular wall thickness is moderately increased. The LV systolic function is moderately reduced. The left ventricular ejection fraction is 34%. The mid to apical anterior septal, inferior septal donovan are akinetic. The apical inferior wall is akinetic. The apex is akinetic. There is no evidence of left ventricular thrombus. There is no Doppler evidence of increased filling pressures. The left atrium is mildly to moderately dilated. The aortic valve is trileaflet. The aortic valve appears to be moderately calcified. The aortic valve leaflet opening is mildly decreased. There is mild aortic stenosis. There is no aortic regurgitation. The mitral valve is annular calcification. There is mild apical tethering of both leaflets in the mitral valve. There is mild mitral regurgitation. The right ventricle is normal in size and function. The pulmonary artery systolic pressure estimation is 40-45 mmHg. The inferior vena cava is mildly dilated with poor inspiratory collapse consistent with elevated right atrial pressures. When compared to study of 12/28/2023 the left ventricle function appears worse. There is also new wall motion abnormality since previous study. She was just charge and told to continue aspirin daily, continue atorvastatin 80 mg daily at bedtime, continue ticagrelor 90 mg b.i.d., continue carvedilol 6.25 mg b.i.d., advised to start Entresto 24/26 mg b.i.d. they also discussed possibly starting spironolactone and dapagliflozin outpatient if EF does not recover -there was some confusion regarding Entr esto and losartan. She states that she did successfully discontinued the amlodipine and the metoprolol. She has still been taking losartan and has not yet started the Entresto. She was successful in stopping the simvastatin and switching to atorvastatin. No adverse effects. She was advised to start cardiac rehab-has not started yet due to not yet seeing her business banking relationship manager Advised to stop smoking-still smoking 1-2 cigarettes a day Advised to follow up with Dr. Zamudio within 2 weeks but tells me today that she is not scheduled until the middle of February Pysch: Follows closely with a psychiatrist at [facility] and is stable with her Wellbutrin 150 mg, fluoxetine 40 mg, oxcarbazepine and trazodone daily. PULM: She states she is on o2 and states it helps the sob. She did see Dr. Boudreaux recently and had repeat PFTs. She states that she did repeat the chest CT she thinks about 6 months ago. She is down to a very intermittent cigarette since she was recently hospitalized. She is scheduled to see pulmonology here as she has a hard time getting to her clinical studies specialist's office Nephro: Unfortunately was unable to keep her appointment with Nephrology. Endo: Diabetes has a resolved with her weight loss. last a1c was 5.2. Has testing supplies at home but does not check. CV: Her business banking relationship manager is Dr. Zamudio. Recent [place] last month She reports having an echo and stress tests which were normal. She is on metoprolol 100 mg, amlodipine 5 mg, lasix 40 mg. Musculoskeletal: She is frustrated because she can not take NSAIDs due to her kidney function. She is not a surgical candidate for joint replacements right now. She says that she consulted pain management and they recommended that she trial physical therapy but she does not know how helpful that will be for her knees. She is very frustrated with her pain. She states that they will not do replacements until she stops smoking cigarettes and marijuana but she has a hard time cutting back on the marijuana. The cigarettes she has cut back but has not fully stopped. She did not tolerate the morphine 30 mg - caused her to feel too tired. She did better with the 15 mg but still had some pain but, pain was tolerable. She tells me today that she does not like taking any of the morphine anyways as it makes her feel too tired and groggy. oxycodone was minimally effective Gabapentin is ineffective and causes her to feel shaky. She can not take NSAIDs. Tylenol does not do a lot to relieve her pain. tylenol with codeine is causing nausea and lightheaded Heme/onc: She never saw hematology. She states that she rescheduled this and th en cancelled and never rebooked. She was supposed to see them for the enlarged spleen, abnormal cbc, weight loss. She does continue to lose weight. She did have an abdominal MRI which did recommend possible consult to Hematology/Oncology. She is aware of this and tells me that she will call them again today. We have talked about this numerous times and I have given her the phone number. She tells me she will call today and let me know if she does not get appointment. She does think that the weight losses secondary to the morphine. Uro: She complicated renal cyst- imaging booked and follows with urology. Neuro: Following with Dr. Dick. States needs to have a repeat MRI. She states she is still having a hard time with memory. We did do an MRI which should chronic changes and old lacunar infarct. She relies on transportation. She denies leaving the stove on or forgetting to take her medications but states that she has a pillbox and does not live alone. Her stress and anxiety currently feels stable. lung ca screeen: following with pulm for this Colonoscopy: due- would do cologuard but has not completed yet despite having it at home. [facility] Medical History CKD (chronic kidney disease) stage 3, GFR 30-59 ml/min Increased urinary frequency Gait instability Smoker Chronic pain of both knees Dyslipidemia HTN (hypertension) Controlled type 2 diabetes mellitus Vitamin A deficiency Vitamin B12 deficiency Urge incontinence of urine Steatosis Severe obesity Prediabetes Palpitations Osteoarthritis of knee Obstructive sleep apnea syndrome Obesity Numbness Microalbuminuria Lumbar pain with radiation down both legs Internal hemorrhoids Hip pain GERD (gastroesophageal reflux disease) Depressive disorder affecting childbirth Chronic obstructive lung disease Cannabis misuse Bilateral cataracts Asthma Arthritis Allergic rhinitis Surgical History History of total hip replacement Social History (Updated 11/27/24 @ 10:59 by Juana Navarro CMA) Housing: Apartment Alcohol intake: former Patient Tobacco Use Status: Former Tobacco user Cigarette Packs Per Day: 6 Years Smoked: 46 e-Cigarette/Vaping Use: Never Used Second Hand Smoke Exposure: No Substance Use Type: Marijuana service: No Current occupational status: disabled Cognitive needs: No Hearing needs: No Vision needs: No Questionnaire Thrive Questionnaire Date Thrive assessed: 06/20/24 I am a: Patient What is your living situation today?: I have a steady place to live Within the past 12 months, did the food you bought not last and you didn't have the money to get more?: I choose not to answer this question Within the past 12 months, did you worry whether your food would run out before you got money to buy more?: I choose not to answer this question Do you have trouble paying for medicines?: I choose not to answer this question Do you have trouble getting transportation to medical appointments?: I choose not to answer this question Do you have trouble paying your heating and electricity bill?: No Do you have trouble taking care of your child, family member or friend?: I choose not to answer this question Do you have trouble with day-to-day activities such as bathing, preparing meals, shopping, managing finances, etc.?: I choose not to answer this question Are you currently unemployed and looking for a job?: No Are you interested in more education?: No Please select the resources that you would like help with: None Currently or been in a relationship where the following occur: No concerns reported THRIVE Score: 0 STEVENSON-7 AMB Questionnaire STEVENSON-7 Date STEVENSON - 7 assessed: 06/27/24 Source: Developed by Drs. Jesus Zurita, Aida Grossman, Carlyle Mendoza and colleagues, with an educational alban from [employer]. Physical exam (Primary Care) Vital Signs: Last Vital Signs Temp 98.3 F 01/30/25 11:33 Pulse 68 01/30/25 11:33 Resp 16 01/30/25 11:33 BP 130/66 01/30/25 11:33 Pulse Ox 98 01/30/25 11:33 Oxygen Delivery Method Nasal Cannula 01/30/25 11:33 Oxygen Flow Rate 2 01/30/25 11:33 BMI result Body Mass Index 35.8 Tobacco/Smoking Status: Tobacco use Status Tobacco use date assessed 01/30/25 01/30/25 11:36 Patient Tobacco Use Status Former Tobacco user 01/30/25 11:29 e-Cigarette/Vaping Use Never Used 01/30/25 11:29 Thrive Assessment: Date of Thrive Assessment Date Thrive assessed 06/20/24 01/30/25 11:29 Currently or been in a relationship where the following occur: No concerns reported Const Orientation/consciousness: patient oriented x3 HENMT Ears: hearing grossly normal bilaterally Neck Thyroid: Thyroid normal Lymphatic: no lymphadenopathy noted Resp Auscultation: clear to auscultation bilaterally Cardio Rate: regular rate Rhythm: regular rhythm Heart sounds: S1 normal heart sound present and S2 normal heart sound present GI Inspection: Yes normal to inspection Palpation (GI): Soft to palpation and Other GI palpation findings present (nontender, no cva tenderness) Auscultation: normoactive bowel sounds Rectal Exam - Female: deferred Skin General skin exam: no rashes or lesions noted Neuro General: patient oriented x3, gait normal and no focal motor deficits Coding Level of Care Code Est Pt Level 5 (60180) Complex EM visit Add On G2211 Diagnoses Pulmonary edema J81.1 Chronic obstructive pulmonary disease with acute exacerbation J44.1 COPD type: COPD with acute exacerbation Primary hypertension I10 Hypertension type: primary hypertension CAD S/P percutaneous coronary angioplasty I25.10; Z98.61 Osteoarthritis of knees, bilateral M17.0 Assessment & Plan Assessment & Plan (1) Pulmonary edema: Code(s): J81.1 - Chronic pulmonary edema Category: Medical Plan: We will rechecked chest x-ray as it was a little exacerbated in the hospital. Breathing is stable and she states that she is use a breathing treatments 1 time a day which is not abnormal for her. (2) Chronic obstructive lung disease: Code(s): J44.9 - Chronic obstructive pulmonary disease, unspecified Category: Medical Qualifiers: COPD type: COPD with acute exacerbation Qualified Code(s): J44.1 - Chronic obstructive pulmonary disease with (acute) exacerbation Plan: As listed above. Has not noticed any wheezing but does have somewhat of a cough but thinks it has been the baseline for the last month or so since the hospitalization (3) HTN (hypertension): Code(s): I10 - Essential (primary) hypertension Category: Medical Qualifiers: Hypertension type: primary hypertension Qualified Code(s): I10 - Essential (primary) hypertension Plan: Spent extensive time reviewing her medication list and she will stopped the losartan and start Entresto. This was sent in for her today. Blood work ordered (4) CAD S/P percutaneous coronary angioplasty: Code(s): I25.10 - Atherosclerotic heart disease of [place] coronary artery without angina pectoris; Z98.61 - Coronary angioplasty status Category: Medical Plan: Message sent to nursing to call Dr. Zamudio's office to see if we can bump up her appointment. Reviewed medications and discussed the importance of compliance. Since hospitalization chest pain has resolved. Shortness on breath with exertion remains baseline Labs ordered today. 60 minutes was spent today in hcbk-[id number]-rzow time reviewing her medications, hospitalization, updating her chart, and documentation. (5) Osteoarthritis of knees, bilateral: Code(s): M17.0 - Bilateral primary osteoarthritis of knee Category: Medical Plan: The plan will be to discontinue morphine and to use oxycodone only as needed. Orders: Orders TSH reflex Free T4 Today I10 - Essential (primary) hypertension, I25.10 - Atherosclerotic heart disease of [place] coronary artery without angina pectoris, J44.1 - Chronic obstructive pulmonary disease with (acute) exacerbation, J81.1 - Chronic pulmonary edema, R79.89 - Other specified abnormal findings of blood chemistry, Z98.61 - Coronary angioplasty status UA CC w/rflx Micro + Cult Today I10 - Essential (primary) hypertension, I25.10 - Atherosclerotic heart disease of [place] coronary artery without angina pectoris, J44.1 - Chronic obstructive pulmonary disease with (acute) exacerbation, J81.1 - Chronic pulmonary edema, R30.0 - Dysuria, R79.89 - Other specified abnormal findings of blood chemistry, Z98.61 - Coronary angioplasty status XR chest 2V Today J81.1 - Chronic pulmonary edema Basic Metabolic Panel Today I10 - Essential (primary) hypertension, I25.10 - Atherosclerotic heart disease of [place] coronary artery without angina pectoris, J44.1 - Chronic obstructive pulmonary disease with (acute) exacerbation, J81.1 - Chronic pulmonary edema, R79.89 - Other specified abnormal findings of blood chemistry, Z98.61 - Coronary angioplasty status Complete Blood Count Auto Diff Today I10 - Essential (primary) hypertension, I25.10 - Atherosclerotic heart disease of [place] coronary artery without angina pectoris, J44.1 - Chronic obstructive pulmonary disease with (acute) exacerbation, J81.1 - Chronic pulmonary edema, R79.89 - Other specified abnormal findings of blood chemistry, Z98.61 - Coronary angioplasty status Liver Panel Today I10 - Essential (primary) hypertension, I25.10 - Atherosclerotic heart disease of [place] coronary artery without angina pectoris, J44.1 - Chronic obstructive pulmonary disease with (acute) exacerbation, J81.1 - Chronic pulmonary edema, R79.89 - Other specified abnormal findings of blood chemistry, Z98.61 - Coronary angioplasty status Hemoglobin A1c Today R73.01 - Impaired fasting glucose Medications: New carvedilol must administer with a meal/food 6.25 mg PO BID 180 tabs 0RF aspirin 81 mg PO DAILY 90 tabs 0RF sacubitril-valsartan 24-26 mg (Entresto) 1 tab PO BID 180 tabs 0RF atorvastatin (Lipitor) 80 mg PO QPM 90 tabs 0RF ticagrelor 90 mg PO Q12H 180 tabs 0RF oxycodone Partial Fill upon patient request. 5 mg PO Q6H PRN 112 tabs 0RF pain 28 days
[2025-01-30 11:33] VITALS: BP 130/66; PULSE 68; RESP 16; TEMP 36.8; O2SAT 98; BMI 35.8
--- OUTSIDE RECORDS SUMMARY | 2025-01-30 13:11 | XMS_ITS | Encounter Summary ---
Author Organization [facility] Address [address] [place] [address] [place] [phone] Phone Care Team Providers Care Engine Designer Name Role Phone Bety Bettencourt Primary Care Provider [phone]- [phone] Bety Bettencourt Primary Care Provider [phone]- [phone] Bety Bettencourt Primary Care Provider [phone]- [phone] Kiara Vicente MD Primary Care Provider Bety Bettencourt Primary Care Provider [phone]- [phone] Encounter Details Date Type Department Care Team (Late st Contact Info) Description 01/29/2024 Procedure Pass [facility], Ct Scan - [address] [address] Social History Tobacco Use Types Packs/Day Years [...] enough money to get more. Never True 09/02/202 4 Residential Stability Answer Date Recor ded What is your housing situation today? I have mame jfefers 01/29/2024 How many times have you move [...] as of this encounter Plan of Treatment Upcoming Encounters Date Type Department Care Team (Late st Contact Info) Description 01/31/2025 8:15 AM EDT Home Care Visit [facility] [address] [place], [place] [phone] Unscheduled, [facility] Clinical [address] [address] 02/04/2025 2:30 AM EDT Home Care Visit [facility] [address] [place] [address] Vandana Dick RN [address] [place] [phone] [email or web address] 02/11/2025 2:30 AM EDT Home Care Visit [facility] [address] [place] [phone] Vandana Dick RN [address] [place] [phone] [email or web address] 02/18/2025 2:30 AM EDT Home Care Visit [facility] [address] [place] [phone] Vandana Dick RN [address] [place] [phone] [email or web address] 02/25/2025 1:00 AM EDT Home Care Visit [facility] [address] [place] [address] Vandana Dick RN [address] [place] [phone] [email or web address] 03/04/2025 1:30 AM EDT Appointment [facility] [address] [place] [address] Vandana Dick RN [address] [place] [phone] [email or web address] documented as of this encounter Visit Diagnoses Not on filedocumented in this encounter Additional Health Concerns Infection Onset Date Last Indicated Resolved Time CoV-Risk Comment:Per note documentation 01/28/2024 01/28/2024 12:48 PM EDT documented as of this encounter Care Teams Engine Designer Relationship Specialty Start Date End Date Bety Bettencourt PA PCP - General Physician Foreclosure Clerk 01/28/24 01/29/24 Bety Bettencourt PA PCP - General Physician Foreclosure Clerk 01/30/24 01/30/24 Bety Bettencourt PA PCP - General Physician Foreclosure Clerk 01/31/24 01/31/24 Kiara Vicente MD PCP - General 05/29/24 12/27/24 Bety Bettencourt PA [address] [place] [address] PCP - General Physician Foreclosure Clerk 12/28/24 Bety Bettencourt PA [address] [place], [place] [phone] Primary Care Physician 01/31/24 documented as of this encounter Additional Source Comments The information contained in this document represents components of the legal health record. It is not the complete legal health record.[facility]
--- OUTSIDE RECORDS SUMMARY | 2025-01-30 13:11 | XMS_ITS | Clinical Summary ---
Author Organization [facility] Address [address] [place] [phone] Phone Care Team Providers Care Group Therapy Counselor Name Role Phone Bety Bettencourt Primary Care Provider [phone] Allergies No known active allergies Medications VITAMIN B-12 1000 MCG tablet Take 1,000 mcg by mouth daily. 4 Active BREO ELLIPTA 100-25 mcg/dose inhaler Inhale 1 puff into the lungs daily. 4 Active FLUoxetine (PROZAC) 40 MG capsule Take 80 mg by mouth daily. 4 Active buPROPion (WELLBUTRIN SR) 100 MG SR 12 hr tablet Take 150 mg by mouth daily. 4 Active baclofen (LIORESAL) 10 MG tablet Take 10 mg by mouth 3 (three) times a day. 4 Active VENTOLIN HFA 90 mcg/actuation inhaler Inhale 2 puffs into the lungs every 4 (four) hours as needed for wheezing or shortness of breath/dyspnea. 4 Active furosemide (LASIX) 40 MG tablet [The details of the medication are not available because there are pending changes by a home health clinician.] 30 tablet 4 Active Additional Information Patient not taking.Reason: Other (), Informant: Self, Reported on 01/14/2025 aspirin 81 mg chewable tablet Take 81 mg by mouth daily. Active atorvastatin (LIPITOR) 80 MG tablet Take 80 mg by mouth daily. Active carvedilol (COREG) 6.25 MG tablet Take 6.25 mg by mouth 2 (two) times a day with meals. Active sacubitriL-castillo sartan (ENTRESTO) 24-26 mg per tablet Take 1 tablet by mouth 2 (two) times a day. Active ticagrelor (BRILINTA) 90 mg Tab Take 90 mg by mouth 2 (two) times a day. Active nicotine (NICODERM CQ) 7 mg/[address] 1 patch onto the skin daily. Active omeprazole (PRILOSEC) 20 MG capsule Take 20 mg by mouth daily. Active traZODone (DESYREL) 50 MG tablet Take 50 mg by mouth nightly at bedtime. take 1 -2 tabs nightly 5 Active OXcarbazepine (TRILEPTAL) 300 MG IMMEDIATE release tablet Take 300 mg by mouth nightly at bedtime. Active OXcarbazepine (TRILEPTAL) 150 MG IMMEDIATE release tablet Take 1-2 tablets (150-300 mg total) by mouth daily. 150mg in the morning and 300mg at night 5 Active OXYGEN-AIR DELIVERY SYSTEMS MISC 2 L/min by Nasal route continuous. 5 Active cholecalcifero l (VITAMIN D3) 2,000 unit tablet Take 1,000 Units by mouth daily. 5 Active furosemide (LASIX) 20 MG tablet Take 20 mg by mouth 2 (two) times a day. 5 Active JARDIANCE 10 mg tablet Take 10 mg by mouth daily. 4 01/04/20 25 Discontin ued(No longer taking) gabapentin (NEURONTIN) 300 MG capsule Take 300 mg by mouth 2 (two) times a day. 4 01/04/20 25 Discontin ued(No longer taking) metoprolol succinate (TOPROL-XL) 100 MG 24 hr tablet Take 100 mg by mouth daily. 01/04/20 25 Discontin ued(No longer taking) simvastatin (ZOCOR) 10 MG tablet Take 10 mg by mouth nightly at bedtime. 01/04/20 25 Discontin ued(No longer taking) OXcarbazepine (TRILEPTAL) 150 MG tablet Take 150-300 mg by mouth 2 (two) times a day. 150mg in the morning and 300mg at night 4 01/15/20 25 Discontin ued(Expir ed) amLODIPine (NORVASC) 5 MG tablet Take 5 mg by mouth daily. 4 01/06/20 25 Discontin ued(Stop Taking at Discharge ) morphine (MS CONTIN) 15 MG ER tablet Take 15 mg by mouth 2 (two) times a day. 4 01/22/20 25 Discontin ued(No longer taking) gabapentin (NEURONTIN) 300 MG capsule Take 1 capsule (300 mg total) by mouth nightly at bedtime. 30 capsule 4 01/04/20 25 Discontin ued(No longer taking) Active Problems Problem Noted Date Diagnosed Date Shortness of breath 01/03/2025 Assessment & Plan (01/04/2025 2:12 PM EDT): Due to pulm edema/chf Assessment & Plan (01/03/2025 10:20 AM EDT): Likely from ADHF Acute decompensated heart failure 01/03/2025 Assessment & Plan (01/04/2025 2:12 PM EDT): EF 35-40% on last echo Brisk response to IV lasix noted Trops trending down due to known DC last week Continue IV Lasix for another 24 hours, hopefully can transition to p.o. tomorrow Trend daily weights, strict I/O Monitor renal function and electrolytes Continue heart failure medications: Entresto, carvedilol Smoking cessation counseling Cards recommended repeating Echo Consider outpatient heart failure program enrollment Assessment & Plan (01/03/2025 10:20 AM EDT): Admit to medicine for management of CHF exacerbation Continue IV Lasix and monitor response Trend daily weights, strict I/O Monitor renal function and electrolytes Continue heart failure medications: Entresto, carvedilol Smoking cessation counseling Consider cardiology follow-up and potential for heart failure program enrollment History of ST elevation myocardial infarction (S JIMMIE) 01/03/2025 Assessment & Plan (01/04/2025 2:12 PM EDT): STEMI last week, was transferred to [facility] for PCI/stent Cont Brinlinta Assessment & Plan (01/03/2025 10:20 AM EDT): STEMI last week, was transferred to [facility] for PCI. Renal mass 01/30/2024 Assessment & Plan (01/30/2024 10:20 AM EDT): CT chest showing incidental finding of left kidney mass Solid-appearing exophytic mass arising from the left kidney measuring 1.5 cm differential considerations are proteinaceous/hemorrhagic cyst or renal neoplasm. Nonemergent renal mass protocol MRI or CT without and with IV contrast is recommended -- Will obtain CT with and without IV contrast. Likely will need referral to urology Lower extremity edema 01/29/2024 Overview (01/29/2024): LVEF 65% with no diastolic dysfunction on TTE 12/2023 Hyperlipidemia 01/29/2024 Assessment & Plan (01/04/2025 2:12 PM EDT): Continue atorvastatin Assessment & Plan (01/03/2025 10:20 AM EDT): Continue atorvastatin HTN (hypertension) 01/29/2024 Assessment & Plan (01/30/2024 11:12 AM EDT): She is unclear about some of her medications. Was apparently taken off metoprolol recently but taking both HCTZ and Lasix at home. --She was calling her PCP office this morning to clarify -- Holding metoprolol for now. Would avoid increasing amlodipine because of lower extremity edema -- Add lisinopril 5 mg daily Depression 01/29/2024 Chronic obstructive pulmonary disease 01/29/2024 Assessment & Plan (01/04/2025 2:12 PM EDT): Not in exacerbation Cont Advair subbed for Breo Assessment & Plan (01/03/2025 10:20 AM EDT): Not in exacerbation Duonebs schedule Assessment & Plan (01/30/2024 10:18 AM EDT): Mild cough and wheezing at the time of admission --Continue scheduled DuoNebs and steroids, as above --Will need counseling as well on tobacco cessation Tobacco dependence 01/29/2024 Marijuana abuse 01/29/2024 CASSIUS on CPAP 01/29/2024 Acute respiratory failure with hypoxia Assessment & Plan (01/30/2024 10:15 AM EDT): Found to be hypoxic incidentally in the emergency department, pulmonary edema and possible COPD exacerbation were suspected. Despite several doses of Lasix, her oxygen requirement has persisted CT chest shows a number of abnormalities including 1) emphysematous changes 2) secretions in the right main bronchus and bronchial wall thickening adjusting bronchitis or aspiration 3) patchy bilateral lower lobe opacities, most likely atelectasis 4) right upper lobe groundglass nodule (will need f/u chest CT in 3- 6 months) -- Will start antibiotics with ceftriaxone/azithromycin --Check strep pneumo and Legionella antibody --Continue scheduled nebs and steroids (transition from IV Solu-Medrol to prednisone) -- P.o. Lasix, obtain recent echo report from [facility] -- [employer] eval -- Consult to pulmonary (she is followed by Dr. Boudreaux in [place]) -- May need home O2 eval before discharge Acute pulmonary edema 01/29/2024 Assessment & Plan (01/31/2024 11:35 AM EDT): She has a history of lower extremity edema and was referred to [facility] cardiology. She had an echocardiogram in December and was seen by cardiology subsequent to that. Apparently echo at that time was normal. Concern raised in the ED for possible flash pulmonary edema from hypertension. She was recently taken off of metoprolol and placed on HCTZ Leg swelling improved with diuresis. BP now stable. -- Continue p.o. Lasix, low-salt diet Addendum: [facility] records obtained. She had an echo on 12/28/2023 that showed EF 60 to 65%, no wall motion abnormality, trace mitral regurgitation, normal RV size and function Chronic back pain 01/29/2024 Impaired glucose tolerance 01/29/2024 Assessment & Plan (01/29/2024 3:44 AM EDT): Will give as needed lispro Acute kidney injury 01/29/2024 Assessment & Plan (01/30/2024 10:15 AM EDT): Presented with [place], creatinine was 1.5 and has improved down to 0.9 with diuresis, suggest congestive nephropathy -- Will continue to monitor Resolved Problems Problem Noted Date Diagnosed Date Resolved Date Hypoxia 01/30/2024 01/30/2024 Encounters Date Type Department Care Team Description 01/29/2025 Episode Documentation Update [facility] [address] [place] [phone] Lilia Morgan 01/24/2025 Episode Documentation Update [facility] [address] [place] [phone] Fara Tate 01/24/2025 Home Care Visit [facility] [address] [place] [phone] Trixie López CASE COMMUNICATION 01/23/2025 12:00 PM EDT Home Care Visit [facility] [address] [place] [phone] Vandana Dick, AMAYA SN HOME VISIT 01/21/2025 2:00 PM EDT Home Care Visit [facility] [address] [place] [phone] Vandana Dick, AMAYA SN HOME VISIT 01/20/2025 Transcribe Orders Virtual Department [address] [place] [phone] Conrado Dick MD Brain tumor (Primary Dx) 01/17/2025 10:00 AM EDT Home Care Visit [facility] [address] [place] [phone] Danielle Noyola LPN LPN HOME VISIT 01/14/2025 10:00 AM EDT [facility] [address] [place] [phone] Kristyn Kunz, RN SN HOME VISIT 01/08/2025 9:00 AM EDT [facility] [address] [place] [phone] Kristyn Kunz, RN SN OASIS START OF CARE (SOC) 01/08/2025 Plan of Care Documentation [facility] [address] [place] [phone] 01/07/2025 [facility] [address] [place] [phone] Bhumika Esposito RN CASE COMMUNICATION 01/05/2025 Orders Only [facility] and [address] [phone] Homehealth, Mark Ugarte MD 01/04/2025 Procedure Pass [facility] [address] [place] [phone] 01/03/2025 5:30 AM EDT Ancillary Procedure [facility] - [address] [address] Daysi Diaz MD 01/03/2025 5:16 AM EDT - 01/05/2025 4:10 PM EDT Hospital Encounter [facility] [address] [place] [phone] Daysi Diaz MD Brewer, Allison V, MD Arepally, Sandeep, MD Russo, Margaret A, MD Altman, Evan K, DO, MPH Discharge Disposition: Home-Health Care Svc 12/28/2024 1:14 AM EDT - 12/28/2024 2:46 AM EDT Emergency [facility] [address] [place] [phone] Matias Ortiz MD Discharge Disposition: Short Term Hospital from Last 3 Months Social History Tobacco Use Types Packs/Day Years Used Date Smoking Tobacco: Former Cigarettes Q uit: 12/28/2024 Smokeless Tobacco: Never Tobacco Cessation:Counseling Given: Not Answered Alcohol Use Standard Drinks/Week Comments Not Currently 0 (1 standard drink = 0.6 oz pur e alcohol) Home Health Assessment: Transportation Answer Date Recorded Lack of Transportation (Medical) No 01/08/2025 Lack of Transportation (Non-Medical) No 01/08/2025 Patient Unable or Declines to Respond No 01/08/2025 Education Answer Date Recorded Are you interested in more education? Not on chilango e 01/28/2024 Are you concerned about learning? Not on file 01/28/2024 No 01/28/2024 No 01/28/2024 Food Answer Date Recorded Within the past 6 months we worried whether our food would run out before we got money to buy more. Never True 01/03/2025 Within the past 6 months the food we bought just didn't last and we didn't have enough money to get more. Never True Residential Stability Answer Date Recor ded What is your housing situation today? I have mame sing 01/03/2025 How many times have you move d in the past 12 months? Zero (I did not move) 01/03/2025 Paying for Meds Answer Date Recorded Do you have trouble paying for medicines? No 01/03/2025 Paying Utility Bills Answer Date Record ed Do you have trouble paying your heating or elect ricity bill? No 01/03/2025 Transportation Answer Date Recorded Has the lack of transportati on kept you from medical appointments or from getting medications? Yes 01/03/2025 Digital Access Answer Date Recorded No 01/03/2025 Yes 01/03/2025 Do you have reliable internet access at home? Ye s 01/03/2025 Do you have a device (e.g., phone, tablet, computer) with a working camera? Yes 01/03/2025 Intimate Partner Violence Answer Date R ecorded Are you denied basic needs s uch as food, clothing, or medical care? No 01/03/2025 In the past 12 months have y ou been in a relationship with a person who hurts, threatens, or tries to control you? No 01/03/2025 Are you denied basic needs s uch as food, clothing, or medical care? No 01/03/2025 In the past 12 months have y ou been in a relationship with a person who hurts, threatens, or tries to control you? No 01/03/2025 Comments No Sex and Gender Information Value Date Recorded Sex Assigned at Female 01/28/2024 10:37 PM EDT Legal Sex Female 10:06 PM EDT Gender Identity Female 01/28/2024 10:37 PM EDT Sexual Orientation Straight 01/28/2024 10 :37 PM EDT Last Filed Vital Signs Vital Sign Reading Time Taken Comments Blood Pressure 138/78 01/23/2025 12:01 PM EDT Pulse 64 01/23/2025 12:01 PM EDT Temperature 36.1 C (97 F) 01/23/2025 12:01 PM EDT Respiratory Rate 18 01/23/2025 12:01 PM EDT Oxygen Saturation 95% 01/23/2025 12:01 PM EDT Inhaled Oxygen Concentration - - Weight 82.1 kg (181 lb) 01/23/2025 12:01 PM EDT Height 157.5 cm (5' 2 ) 01/03/2025 9:22 PM EDT Body Mass Index 33.11 01/03/2025 9:22 PM EDT Plan of Treatment Upcoming Encounters Date Type Department Care Team (Late st Contact Info) Description 01/31/2025 8:15 AM EDT Home [facility] Visit [facility] [address] [place] [phone] Unscheduled, [facility] [address] [place] [phone] 02/04/2025 2:30 AM EDT Home [facility] Visit [facility] [address] [place], [place] [phone] Vandana Dick RN [address] [place] [phone] 02/11/2025 2:30 AM EDT Home Care Visit [facility] [address] [place] [phone] Vandana Dick RN [address] [place] [address] 02/18/2025 2:30 AM EDT Home Care Visit [facility] [address] [place] [phone] Vandana Dick RN [address] [place] [address] [email or web address] 02/25/2025 1:00 AM EDT Home Care Visit [facility] [address] [place] [phone] Vandana Dick RN [address] [place] [address] [email or web address] 03/04/2025 1:30 AM EDT Appointment [facility] [address] [place] [address] Vandana Dick RN [address] [place] [address] Health Maintenance Due Date Last Done Comments Adult Td,Tdap Booster 1961 LIPID PANEL 1961 DEPRESSION SCREENING 1973 SMOKING Hx and SMOKELESS TOBACCO SCREENING 1974 HEPATITIS C SCREENING 11/20/1979 HIV ONE-TIME SCREENING (18-6 5 YEARS) 11/20/1979 PNEUMOCOCCAL VACCINES (50+ years) (1 of 2 - PCV) 1980 PAP SMEAR 1982 MAMMOGRAM 2001 COLOGUARD 2006 COLONOSCOPY 2006 COLORECTAL CANCER SCREENING 2006 FIT TEST 2006 FOBT 2006 SIGMOIDOSCOPY 2006 VIRTUAL COLONOSCOPY 2006 ZOSTER VACCINES (1 of 2) 11/20/2011 RSV VACCINE (1 - Risk 60-74 years 1-dose series) 2021 INFLUENZA VACCINE (#1) 2024 COVID-19 VACCINE ( - 2023-2 5 season) 2025 BLOOD PRESSURE 07/26/2025 01/23/2025 SCREENING FOR DIABETES 01/06/2028 , 01/29/2024 HEPATITIS A VACCINES Aged Out No long er eligible based on patient's age to complete this topic HIB VACCINES Aged Out No longer eligi ble based on patient's age to complete this topic MENINGOCOCCAL VACCINES (ACWY) Aged Out No longer eligible based on patient's age to complete this topic MENINGOCOCCAL VACCINES (B) Aged Out N o longer eligible based on patient's age to complete this topic Medical Devices Not on file Procedures Procedure Name Priority Date/Time Associated Diagnosis Comments BASIC METABOLIC PANEL Routine 01/05/2025 6:20 AM EDT TTE COMPREHENSIVE Routine 01/04/2025 11: 39 AM EDT Acute systolic heart failure TROPONIN STAT 01/03/2025 7:26 AM EDT XR CHEST PORTABLE Routine 01/03/2025 6:1 0 AM EDT NT-PROBNP STAT 01/03/2025 6:04 AM EDT TROPONIN STAT 01/03/2025 6:04 AM EDT MAGNESIUM STAT 01/03/2025 6:04 AM EDT BASIC METABOLIC PANEL STAT 01/03/2025 6:04 AM EDT CBC AND DIFFERENTIAL STAT 01/03/2025 6:04 AM EDT US BEDSIDE Routine 01/03/2025 5:26 AM EDT ECG 12-LEAD STAT 01/03/2025 5:21 AM EDT XR CHEST 1 VIEW Routine 12/28/2024 2:29 AM EDT ECG 12-LEAD STAT 12/28/2024 2:02 AM EDT NT-PROBNP STAT 12/28/2024 2:00 AM EDT TROPONIN STAT 12/28/2024 2:00 AM EDT MAGNESIUM STAT 12/28/2024 2:00 AM EDT LFTS (HEPATIC PANEL) STAT 12/28/2024 2:00 AM EDT BASIC METABOLIC PANEL STAT 12/28/2024 2:00 AM EDT CBC AND DIFFERENTIAL STAT 12/28/2024 2:00 AM EDT ECG 12-LEAD STAT 12/28/2024 1:22 AM EDT from Last 3 Months Results * (ABNORMAL) Basic metabolic panel (01/05/2025 6:20 AM EDT) Only the most recent of3 resultswithin the time period is included. SODIUM 141 133 - 146 mmol/L [facility] CHLORIDE 99 96 - 108 mmol/L [facility] POTASSIUM 3.8 3.3 - 5.1 mmol/L [facility] CO2 27 21 - 35 mmol/L [facility] BUN 25(H) 6 - 19 mg/dL [facility] CREATININE 1.10 0.5 - 1.5 mg/dL [facility] GLUCOSE 123(H) 70 - 99 mg/dL [facility] CALCIUM 8.6 8.4 - 10.3 mg/dL [facility] EGFR 56(L) >59 mL/min/1.7 3m2 [facility] Comment:Estimated glomerular filtration rate calculated using the CKD-EPI refit equation. ANION GAP 19 10 - 20 mmol/L [facility] Blood 01/05/2025 6:20 AM EDT 01/05/2025 6:43 AM EDT us Preethi Casanova MD LAB BLOOD ORDERABLES Final R esult [address] [address] * TTE COMPREHENSIVE (01/04/2025 11:39 AM EDT) Body Surface Area 1.83 m2 Height 158 cm Weight 82 kg Systolic BP 130 mmHg Diastolic BP 74 mmHg Left Atrium Dimension Anterior-Posterior 39 15 - 40 mm Aortic Valve Mean Gradient 3 mmHg Aortic Valve Mean Gradient 3 mmHg Aortic Valve Time Velocity Integral 240.0 mm Aortic Valve Peak Velocity 1.2 m/s Aortic Valve Peak Velocity 1.2 m/s Aortic Valve Peak Gradient 6 mmHg Aortic Sinus Diameter 33 <40 mm Inferior Vena Cava Diameter 13 <21 mm Interventricular Septum Thickness 11 6 - 11 mm Left Ventricle Internal Diameter End Diastole 45 37 - 52 mm Left Ventricle Internal Diameter End Systole 37 <35 mm Left Ventricular Outflow Tract Diameter 18.0 mm LVOT VTI REST 167.0 mm Left Ventricular Outflow Tract Velocity 0.9 m/s Left Ventricular Outflow Tract Gradient at Rest 3 mmHg Left Ventricular Posterior Wall Thickness 11 6 - 11 mm Left Ventricle Ea Lateral Wave Speed 5.6 cm/s Left Ventricle Ea Septal Wave Speed 5.3 cm/s Ejection Fraction 30 50 - 75 Percent Left Ventricle A Wave Speed 68.6 cm/s Left Ventricle E Wave Speed 38.1 cm/s Pulmonary Valve Peak Velocity 1.0 m/s Pulmonary Valve Peak Gradient 4 mmHg Raw LV EF% 32 % MV E/E' Tissue Velocity Lateral 6.80 Relative Wall Thickness 0.49 0.22 - 0.42 Left Ventricle indexed to BSA 95.6 g/m2 MV E/A ratio 0.6 MV E/e' septal 7.19 Left Ventricle E/e' Average 7.0 Aortic Valve Prosthetic Peak Gradient 6 mmHg Aortic Valve Sinus Index by BSA 18 mm/m2 Aorta Sinus Index by Height 2.09 cm/m Aorta Sinus CSA index by Height 5.41 cm2/m Pulmonic Valve Prosthetic Peak Gradient 4 mmHg Aortic Sinus Index 18 mm Aortic Valve Sinus Index 1 18 19 - 27 mm Echo E/Ea 7.19 Mitral Valve Deceleration Time 198 ms Anatomical Region Laterality Modality Heart Ultrasound Narrative 01/05/2025 9:48 AM EDT Images from the original result were not included. -Rhythm is sinus - LV is normal in size with severely reduced LV systolic function EF is estimated at 25 to 30% - There are regional wall motion abnormalities present especially at the anterior wall, apex, mid to apical septum - Trace mitral valve regurgitation - Aortic valve not well-visualized due to poor acoustic windows - No pericardial effusion apparent - IVC is normal Left Ventricle The left ventricle is normal in size. There is mild concentric hypertrophy. There is reduced left ventricular systolic function. The LV ejection fraction is 30% (calculated via the single dimension method). There are regional wall motion abnormalities. There is abnormal diastolic function. The E wave velocity is 38.1 cm/s. The A wave velocity is 68.6 cm/s. The E/A ratio is 0.6. The E/e' septal ratio is 7.19. The E/e' lateral ratio is 6.80. The average E/e' ratio is 7.0. The MV deceleration time is 198 ms. Right Ventricle The RV is suboptimally visualized. Left Atrium The left atrium is normal in size. There are normal flow patterns in the pulmonary vein. Right Atrium The right atrium is suboptimally visualized. The IVC is normal in size with normal inspiratory collapse. Mitral Valve There is no mitral stenosis. There is trace mitral regurgitation. Tricuspid Valve RV systolic pressure could not be estimated due to insufficient TR Doppler envelope. Aortic Valve The aortic valve is suboptimally visualized. Pulmonic Valve The pulmonic valve is suboptimally visualized. General Findings The image quality was fair (3). Technique(s) used in the evaluation: Color flow Doppler and Spectral Doppler. Comparison Findings Compared to prior TTE on 12/28/2024, No significant changes present compared to echo from [facility] on December 28, 2024 IAS/IVS The interatrial septum appears normal. us Preethi Casanova MD CV ECHO ORDERABLES Final Res ult * (ABNORMAL) Troponin (01/03/2025 7:26 AM EDT) Only the most recent of3 resultswithin the time period is included. Troponin-T, HS Gen5 1,730(H) 0 - 9 ng/L [facility] Blood 01/03/2025 7:26 AM EDT 01/03/2025 7:38 AM EDT us Daysi Diaz MD LAB BLOOD ORDERABLES Final R esult [address] [address] * XR Chest Portable (01/03/2025 6:10 AM EDT) Anatomical Region Laterality Modality Chest Computed Radiogr aphy 01/03/2025 6:35 AM EDT Impressions 01/03/2025 6:36 AM EDT Moderate pulmonary edema. Narrative 01/03/2025 6:36 AM EDT XR CHEST PORTABLE Referring clinician's provided indication for this examination in [facility]: Dyspnea (Shortness of Breath) COMPARISON: XR CHEST 1 VIEW FINDINGS: Devices/Tubes/Lines: None. Lungs: No focal consolidation. Moderate pulmonary edema. Pleura: No pleural effusion or pneumothorax. Heart/Mediastinum: Normal heart and mediastinum. Bones/Soft Tissues: No significant abnormality. Old right rib fractures. Procedure Note Claudia Ortiz MBBS - 01/03/2025 XR CHEST PORTABLE Referring clinician's provided indication for this examination in [facility]:Dyspnea (Shortness of Breath) COMPARISON: XR CHEST 1 VIEW FINDINGS: Devices/Tubes/Lines: None. Lungs: No focal consolidation. Moderate pulmonary edema. Pleura: No pleural effusion or pneumothorax. Heart/Mediastinum: Normal heart and mediastinum. Bones/Soft Tissues: No significant abnormality. Old right rib fractures. IMPRESSION: Moderate pulmonary edema. Daysi Diaz MD IMG XR CHEST Final Result * (ABNORMAL) CBC and differential (01/03/2025 6:04 AM EDT) Only the most recent of2 resultswithin the time period is included. WBC 9.63 4.00 - 11.00 K/uL [facility] RBC 3.59(L) 4.00 - 5.20 M/uL [facility] HGB 10.3(L) 12.0 - 16.0 g/dL [facility] HCT 32.4(L) 36.0 - 46.0 % [facility] PLT 310 150 - 450 K/uL [facility] MCV 90.3 80.0 - 100.0 fL [facility] MCH 28.7 27.0 - 31.0 pg [facility] MCHC 31.8(L) 32.0 - 36.0 g/dL [facility] RDW 14.4 11.5 - 14.5 % [facility] MPV 9.9 8.4 - 12.0 fL [facility] NRBC 0.00 0.00 /100 WBCs [facility] ABSOLUTE NRBC 0.00 0.00 K/uL [facility] DIFF METHOD Auto [facility] NEUTS 71.9 48.0 - 76.0 % [facility] LYMPHS 17.9(L) 18.0 - 41.0 % [facility] MONOS 7.3 4.0 - 11.0 % [facility] EOS 2.3 0.0 - 5.0 % [facility] BASOS 0.1 0.0 - 1.5 % [facility] Granulocytes, immature (%) 0.5 0.0 - 0.9 % [facility] ABSOLUTE NEUTS 6.93 1.92 - 7.60 K/uL [facility] ABSOLUTE LYMPHS 1.72 0.72 - 4.10 K/uL [facility] ABSOLUTE MONOS 0.70 0.16 - 1.10 K/uL [facility] ABSOLUTE EOS 0.22 0.00 - 0.50 K/uL [facility] ABSOLUTE BASOS 0.01 0.00 - 0.15 K/uL [facility] Granulocytes, immature 0.05 0.00 - 0.09 K/uL [facility] Blood 01/03/2025 6:04 AM EDT 01/03/2025 6:15 AM EDT us Daysi Diaz MD LAB BLOOD ORDERABLES Final R esult [facility] [address] [place] [phone] * (ABNORMAL) NT-proBNP (01/03/2025 6:04 AM EDT) Only the most recent of2 resultswithin the time period is included. NT-PROBNP 11,402(H) 0 - 125 pg/mL [facility] Blood 01/03/2025 6:04 AM EDT 01/03/2025 6:15 AM EDT us Daysi Diaz MD LAB BLOOD ORDERABLES Final R esult Performing Organization Address City/[facility]/ZIP Co de Phone Number [address] [address] * Magnesium (01/03/2025 6:04 AM EDT) Only the most recent of2 resultswithin the time period is included. MAGNESIUM 1.6 1.6 - 2.6 mg/dL [facility] Blood 01/03/2025 6:04 AM EDT 01/03/2025 6:15 AM EDT us Daysi Diaz MD LAB BLOOD ORDERABLES Final R esult Performing Organization Address City/[facility]/ZIP Co de Phone Number [address] [address] * US BEDSIDE (01/03/2025 5:26 AM EDT) Anatomical Region Laterality Modality Ultrasound Narrative 01/03/2025 5:26 AM EDT Daysi Diaz MD 01/03/2025 5:56 AM Bedside Ultrasound Date/Time: 01/03/2025 5:26 AM Performed by: Daysi Diaz MD Authorized by: Daysi Diaz MD Exam Type: Cardiac Transthoracic Echocardiogram and Thoracic Cardiac Transthoracic Echocardiogram Exam Findings & Impression: Indications: patient with shortness of breath Views: parasternal long and parasternal short Pericardial Effusion: the pericardial space was visualized and was negative for a pericardial effusion LV Function: the heart was visualized with depressed LV function RV Size: the heart was visualized with a normal R ventricle size Overall Impression: positive Thoracic Exam Findings & Impression: Indications: patient with shortness of breath Right Lung B-Lines: the R chest was visualized and multiple B lines were seen Left Lung B-Lines: the L chest was visualized and multiple B lines were seen Overall Impression: positive Images: Images Saved: Yes Accession Number: [id number] Daysi Diaz MD IMG POINT OF CARE EXAMS Ana Paula l Result * ECG 12-LEAD (01/03/2025 5:21 AM EDT) Only the most recent of3 resultswithin the time period is included. Ventricular Rate EKG/MIN 76 BPM [facility] Atrial Rate 76 BPM [facility] NE Interval 186 ms [facility] QRS Duration 102 ms [facility] QT Interval 402 ms [facility] QTC Interval 452 ms [facility] P [place] 45 degrees [facility] R Wave [place] 52 degrees [facility] T Wave [place] 35 degrees [facility] 01/03/2025 5:21 AM EDT 01/04/2025 4:24 PM EDT Narrative [facility] - 01/04/2025 4:24 PM EDT Normal sinus rhythm Nonspecific ST abnormality Abnormal ECG When compared with ECG of 28-Dec-2024 02:02, Sinus rhythm has replaced Wide QRS rhythm Confirmed by Donta BROWN ([id number]) on 01/04/2025 4:24:34 PM Daysi Diaz MD ECG ORDERABLES Final Result [facility] * XR CHEST 1 VIEW (12/28/2024 2:29 AM EDT) Anatomical Region Laterality Modality Chest Computed Radiogr aphy 12/28/2024 4:44 AM EDT Impressions 12/28/2024 4:46 AM EDT Mild pulmonary edema. Narrative 12/28/2024 4:46 AM EDT XR CHEST 1 VIEW Referring clinician's provided indication for this examination in Epic: Pain; chest pain COMPARISON: CT CHEST WITHOUT CONTRAST FINDINGS: Devices/Tubes/Lines: None. Lungs: Pulmonary vascular congestion with mild interstitial prominence. Pleura: No pleural effusion or pneumothorax. Heart/Mediastinum: Normal heart size. Atherosclerotic aortic knob. Bones/Soft Tissues: No acute osseous abnormality. Procedure Note Stef Weldon DO - 12/28/2024 XR CHEST 1 VIEW Referring clinician's provided indication for this examination in Epic:Pain; chest pain COMPARISON: CT CHEST WITHOUT CONTRAST FINDINGS: Devices/Tubes/Lines: None. Lungs: Pulmonary vascular congestion with mild interstitial prominence. Pleura: No pleural effusion or pneumothorax. Heart/Mediastinum: Normal heart size. Atherosclerotic aortic knob. Bones/Soft Tissues: No acute osseous abnormality. IMPRESSION: Mild pulmonary edema. us Matias Ortiz MD IMG XR CHEST Final Res ult * (ABNORMAL) LFTs (hepatic panel) (12/28/2024 2:00 AM EDT) ALKALINE PHOSPHATASE 107 39 - 117 U/L [facility] TOTAL BILIRUBIN <0.2 0.0 - 1.2 mg/dL [facility] DIRECT BILIRUBIN <0.1 0.0 - 0.2 mg/dL [facility] Bilirubin (Indirect) NOT CALCULATED 0 - 1.5 mg/dL [facility] AST 10 0 - 37 U/L [facility] ALT 8 0 - 40 U/L [facility] TOTAL PROTEIN 6.8 6.5 - 8.0 g/dL [facility] ALBUMIN 3.7(L) 3.9 - 4.8 g/dL [facility] GLOBULIN 3.1 1 - 4.8 g/dL [facility] A/G Ratio 1.19 1.00 - 4.80 RATIO [facility] Blood 12/28/2024 2:00 AM EDT 12/28/2024 2:11 AM EDT Matias Ortiz MD LAB BLOOD ORDERABLES Ana Paula martinez Result [facility] [address] [place] [address] from Last 3 Months Insurance [facility] Advance Directives For more information, please contact: [phone] (9AM - 5PM Juanita/[facility], Monday-Monday) Documents on File Type Date Recorded Patient Turbo Operator Expl shannon Healthcare Proxy 02/01/2024 3:15 PM * Full Code (Latest Code Status on File) Date Activated Date Inactivated Comments 01/03/2025 10:18 AM Question Answer Comments Code Status Confirmed With: Patient * Full Code Date Activated Date Inactivated Comments 01/29/2024 3:47 AM 01/03/2025 10:18 AM Question Answer Comments Code Status Confirmed With: Patient Healthcare Agents on File Name Relationship Healthcare Agent Relationship Communication Tanya Skinner .Primary Health Care Agent (Proxy form on file) Prabha Ling Daughter Alternate Health care Agent (Proxy form on file) Care Teams Group Therapy Counselor Relationship Specialty Start Date End Date Bety Bettencourt PA [address] [place] [address] PCP - General Physician Dish Person 12/28/24 Bety Bettencourt PA [address] [place], [place] [phone] Primary Care Physician 01/31/24 Additional Source Comments The information contained in this document represents components of the legal health record. It is not the complete legal health record.[facility]
--- OUTSIDE RECORDS SUMMARY | 2025-01-30 13:11 | XMS_ITS | Encounter Summary ---
Author Organization [facility] Address [address] [facility] [address] [place] [address] Phone Care Team Providers Care Government Affairs Fellow Name Role Phone Bety Bettencourt Primary Care Provider [phone] Encounter Details Date Type Department Care Team (Late st Contact Info) Description 01/04/2025 Procedure Pass [facility] [address] [place] [address] Social History Tobacco Use Types Packs/Day Years Used Date Smoking Tobacco: Former Cigarettes Q uit: 12/28/2024 Smokeless Tobacco: Never Alcohol Use Standard Drinks/Week Comments Not Currently [...] your housing situation today? I have mame jeffers 01/03/2025 How many times have you move [...] [facility] [address] [place], [place] [phone] Unscheduled, [facility] [address] [place] [address] 02/04/2025 2:30 AM EDT Home Care Visit [facility] [address] [place], [place] [phone] Vandana Dick RN [address] [place] [address] [email or web address] 02/11/2025 2:30 AM EDT Home Care Visit [facility] [address] [place] [phone] Vandana Dick RN [address] [place] [address] [email or web address] 02/18/2025 2:30 AM EDT Home Care Visit [facility] [address] [place] [phone] Vandana Dick RN [address] [place] [phone] [email or web address] 02/25/2025 1:00 AM EDT Home Care Visit [facility] [address] [place] [phone] Vandana Dick RN [address] [place] [address] [email or web address] 03/04/2025 1:30 AM EDT Appointment [facility] [address] [place] [phone] Vandana Dick RN [address] [place] [address] [email or web address] documented as of this encounter Visit Diagnoses Not on filedocumented in this encounter Care Teams Government Affairs Fellow Relationship Specialty Start Date End Date Bety Bettencourt PA [address] [place] [address] [phone] PCP - General Physician Senior Nurse Manager 12/28/24 Bety Bettencourt PA [address] [place] [phone] Primary Care Physician 01/31/24 documented as of this encounter Additional Source Comments The information contained in this document represents components of the legal health record. It is not the complete legal health record.[facility]
--- OUTSIDE RECORDS SUMMARY | 2025-01-30 13:11 | XMS_ITS | Clinical Summary ---
Author Organization [facility] Address [address] [place] [address] Phone Care Team Providers Care Compliance Clerk Name Role Phone Bety Bettencourt Primary Care Provider [phone] Allergies No known active allergies Medications amLODIPine [...] AND ONE TABLET IN THE MORNING Active blood sugar diagnostic (FreeStyle Lite Strips) [...] mouth 1 (one) time each day. Active Ventolin HFA 90 mcg/actuation inhaler Inhale 2 puffs by mouth every 6 (six) hours if needed for wheezing. 36 g 3 5 Active fluticasone furoate-vilante roL (BREO ELLIPTA) 100-25 mcg/dose inhaler Inhale 1 puff by mouth 1 (one) time each day. 1 each 11 5 03/12/20 25 Active Active Problems Problem Noted Date Diagnosed [...] Renal mass 01/30/2024 Acute kidney injury ([facility] V24) 01/29/2024 Acute pulmonary edema ([facility] V24, [facility] V28) 01/29/2024 Acute respiratory failure wi th hypoxia ([facility] V24, [facility] V28) 01/29/2024 Hyperlipidemia 01/29/2024 Impaired glucose tolerance 01/29/2024 Chronic back pain 01/29/2024 Lower extremity edema 01/29/2024 Overview (05/20/2024): LVEF 65% with no diastolic dysfunction on TTE 12/2023 Marijuana abuse 01/29/2024 Primary osteoarthritis of left knee 12/19/2022 Primary osteoarthritis of right knee 12/19/2022 Status post total replacement of right hip 12/19 Ascending aorta dilatation ([facility] V24) 023 Asthma 12/15/2022 Chronic obstructive pulmonar y disease ([facility] V24, [facility] V28) 12/15/2022 Depression 12/15/2022 Dyslipidemia 12/15/2022 GERD with esophagitis 12/15/2022 HTN (hypertension) 12/15/2022 Impaired fasting glucose 12/15/2022 Low back pain 12/15/2022 CASSIUS on CPAP 12/15/2022 Palpitations 12/15/2022 Severe obesity ([facility] V24, [facility] V28) 2022 Steatosis of liver 12/15/2022 Tobacco dependence 12/15/2022 Urge incontinence of urine 12/15/2022 Encounters Date Type Department Care Team Description 12/23/2024 11:15 AM EDT Office Visit Orthopedic Surgery - [place] [address] [facility] [address] [place] [address] Jaquelin Valderrama PA Arthritis of knee (Primary Dx) [facility] [address] [place] [address] Naveed Boudreaux MD 12/02[facility] [address] [place] [address] Naveed Boudreaux MD from Last 3 Months Immunizations Name Administration [...] Site/Laterality Comments OTHER SURGICAL HISTORY Right PROCEDURE: [place] ARTHRP ACETBLR/PROX FEM PROSTC AGRFT/ALGRFT; COMMENT: x 2 Medical History Medical History Date Comments Anxiety disorder DX:Anxiety diso rder Depression DX:Depression COPD (chronic obstructive pu lmonary disease) ([facility] V24, [facility] V28) DX:COPD (chronic o bstructive pulmonary disease) ([facility]) High blood pressure DX:High bloo d [...] - Inhaled Oxygen Concentration - - Weight 84.8 kg (187 lb) 12/23/2024 11:08 AM EDT Height 158.8 cm (5' 2.5 ) 12/23/2024 11:08 AM ED T Body Mass Index 33.66 12/23/2024 11:08 AM EDT Plan of Treatment Upcoming Encounters Date Type Department Care Team (Late st Contact Info) Description 03/25/2025 11:45 AM EDT Office Visit Orthopedic Surgery - [place] [address] [facility] [facility] [address] [place] [address] Jaquelin Valderrama PA [address] [facility] [address] [place] [address] Health Maintenance Due Date Last [...] Panel) 05/01/2022 Colorectal Cancer Screening: Colonoscopy 05/01/2022 HIV Screening 05/01/2022 Hepatitis C Screening 05/01/2022 Social Influencers of Health Screening 05/01/2022 Hypertension/CHF/CAD Annual BMP Blood Test 07/12/2023 Depression Screening 05/29/2024 COVID-19 Vaccine (3 - 2024-2 6 season) 2025 10/22/2020, 09/30/2020 Influenza Vaccine (#1) 2025 3, 03/19/2020 DTaP,Tdap,and Td Vaccines (2 - [...] Procedure Name Priority Date/Time Associated Diagnosis Comments [place] ARTHROCENTESIS/ASPI RATION/INJECTION MAJOR JOINT/BURSA W/O U/S GUIDANCE Routine 12/23/2024 11:15 AM EDT Arthritis of knee from Last 3 Months Results * [place] ARTHROCENTESIS/ASPIRATION/INJECTION MAJOR JOINT/BURSA W/O U/S GUIDANCE (12/23/2024 11:15 AM EDT) Jaquelin Newsome PA - 12/23/2024 11:15 AM EDT AYDEE Potter 12/23/2024 11:52 AM L Inj/Asp: bilateral knee Indications: pain [...] Final Result from Last 3 Months Insurance [facility] Care Teams Compliance Clerk Relationship Specialty Start Date End Date Bety Bettencourt PA [address] [place] [address] PCP - General Physician Focused Factory Manager 04/22/24
--- OUTSIDE RECORDS SUMMARY | 2025-01-30 13:11 | XMS_ITS | Encounter Summary ---
Author Organization [facility] Address [address] [facility] [address] [place] [address] Phone Care Team Providers Care Home Extension Agent Name Role Phone Bety Bettencourt Primary Care Provider [phone] Encounter Details Date Type Department Care Team (Late st Contact Info) Description 01/29/2025 Episode Documentatio n Update [facility] [address] [place], [place] [phone] Lilia [email or web address] Social History Tobacco Use Types Packs/Day Years [...] 01/31/2025 8:15 AM EDT Home Care Visit [facility] [address] [place] [phone] Unscheduled, [facility] [address] [place] [address] 02/04/2025 2:30 AM EDT Home Care [facility] [address] [place] [phone] Vandana Dick, AMAYA [address] [place] [address] [email or web address] 02/11/2025 2:30 AM EDT Home Care Visit [facility] [address] [place] [phone] Vandana Dick, AMAYA [address] [place] [address] [email or web address] 02/18/2025 2:30 AM EDT Home Care Visit [facility] [address] [place] [phone] Vandana Dick RN [address] [place] [address] [email or web address] 02/25/2025 1:00 AM EDT Home Care Visit [facility] [address] [place] [phone] Vandana Dick, AMAYA [address] [place] [address] [email or web address] 03/04/2025 1:30 AM EDT Appointment [facility] [address] [place] [phone] Vandana Dick, AMAYA [address] [place] [phone] [email or web address] documented as of this encounter Visit Diagnoses Not on filedocumented in this encounter Care Teams Home Extension Agent Relationship Specialty Start Date End Date Bety Bettencourt PA [address] [place] [phone] PCP - General Physician Subsurface Augmentee Operator 12/28/24 Bety Bettencourt PA [address] [place] [address] Primary Care Physician 01/31/24 documented as of this encounter Additional Source Comments The information contained in this document represents components of the legal health record. It is not the complete legal health record.[facility]
--- OUTSIDE RECORDS SUMMARY | 2025-01-30 13:11 | XMS_ITS | Clinical Summary ---
Author Organization [facility] Address [address] [facility] [address] [place] [address] Care Team Providers Care Laborer Golf Course Name Role Phone Trixie Alcala MD Primary Care Provider [phone] Social History Tobacco Use Types Packs/Day Years [...] 1961 FIT-DNA 1961 FIT 1961 FOBT 1961 Lipid Panel 1961 Sigmoidoscopy 1961 MMR Vaccines (1 of 1 - Standard series) 1962 Pap Smear 1982 Cervical Cancer Screening 11/20/1991 HPV/Cotest 11/20/1991 Mammogram 2001 Pneumococcal Vaccine: 50+ Years (2 of 2 - PCV) 11/20/2011 02/24/2010 Zoster Vaccines (1 of 2) 11/20/2011 Depression Screening 05/29/2024 COVID-19 Vaccine (3 - 2024-2 6 season) 2025 10/22/2020, 09/30/2020 Influenza Vaccine (#1) 2025 3, 03/19/2020 DTaP/Tdap/Td Vaccines (2 - T d or Tdap) 03/25/2030 03/25/2020 Pneumococcal Vaccine: Pediatrics (0 to 5 Years) and At-Risk Patients (6 to 49 Years) Discontinued 02/24/2010 Diabetes Screening Discontinued 01/29/2024 HIB Vaccines Aged Out No longer eligi [...] patient's age to complete this topic Insurance [facility] [place] [id number] Care Teams Laborer Golf Course Relationship Specialty Start Date End Date Trixie Alcala MD [address] [place] [address] PCP - General 07/02/21
--- OUTSIDE RECORDS SUMMARY | 2025-01-30 13:11 | XMS_ITS | Encounter Summary ---
Author Organization [facility] Address [address] [facility] [address] [place] [address] Phone Care Team Providers Care Linotype Machinist Name Role Phone Bety Bettencourt Primary Care Provider [phone] Bety Bettencourt Primary Care Provider [phone] Kiara Vicente MD Primary Care Provider Bety Bettencourt Primary Care Provider [phone] Encounter Details Date Type Department Care Team (Late st Contact Info) Description 01/30/2024 Procedure Pass [facility], Ct Scan - [address] [address] Social History Tobacco Use Types Packs/Day Years [...] Visit [facility] [address] [place], [place] [phone] Unscheduled, [facility] [address] [address] 02/04/2025 2:30 AM EDT Home Care Visit [facility] [address] [place], [place] [phone] Vandana Dick RN [address] [place] [address] 02/11/2025 2:30 AM EDT Home Care Visit [facility] [address] [place] [phone] Vandana Dick RN [address] [place] [address] 02/18/2025 2:30 AM EDT Home Care Visit [facility] [address] [place] [phone] Vandana Dick RN [address] [place] [address] 02/25/2025 1:00 AM EDT Home Care Visit [facility] [address] [place] [address] Vandana Dick RN [address] [place] [address] 03/04/2025 1:30 AM EDT Appointment [facility] [address] [place] [phone] Vandana Dick RN [address] [place] [phone] documented as of this encounter Visit Diagnoses Not on filedocumented in this encounter Care Teams Linotype Machinist Relationship Specialty Start Date End Date Bety Bettencourt PA PCP - General Physician Well Testing Operator 01/30/24 01/30/24 Bety Bettencourt PA PCP - General Physician Well Testing Operator 01/31/24 01/31/24 Kiara Vicente MD PCP - General 05/29/24 12/27/24 Bety Bettencourt PA [address] [place] [address] PCP - General Physician Well Testing Operator 12/28/24 Bety Bettencourt PA [address] [place] [address] Primary Care Physician 01/31/24 documented as of this encounter Additional Source Comments The information contained in this document represents components of the legal health record. It is not the complete legal health record.[facility]
--- OUTSIDE RECORDS SUMMARY | 2025-01-30 13:11 | XMS_ITS | Encounter Summary ---
Author Organization [facility] Address [address] [place] [address] [place] [phone] Phone Care Team Providers Care Customer Orders Clerk Name Role Phone Bety Bettencourt Primary Care Provider [phone]- [phone] Reason for Referral * MRI/CAT Scan - New Request Specialty Diagnoses / Procedures Referred By Gatito siddiqi Referred To Contact Radiology Diagnoses Brain tumor Procedures MRI Brain Conrado Dick MD [address] [place] [address], [address] [place] [phone] Phone: tel: fax: mailto:[email or web address] Referral ID Status Reason Start Date Expiration Date V isits Requested Visits Authorized [id number] New Request 01/20/2025 1 1 Encounter Details Date Type Department Care Team (Latest Contact Info) Description 01/20/2025 Transcribe Orders Virtual Department [address] [place], [place] [phone] Conrado Dick MD [address] [place] [address], [address] [place] [address] [phone] [email or web address] Brain tumor (Primary Dx) Social History Tobacco Use Types Packs/Day Years [...] Care Visit [facility] [address] [place] [phone] Unscheduled, [facility] [address] [place] [address] 02/04/2025 2:30 AM EDT Home Care Visit [facility] [address] [place] [phone] Vandana Dick RN [address] [place] [phone] [email or web address] 02/11/2025 2:30 AM EDT Home Care Visit [facility] [address] [place] [phone] Vandana Dick RN [address] [place] [phone] [email or web address] 02/18/2025 2:30 AM EDT Home Care Visit [facility] [address] [place] [phone] Vandana Dick RN [address] [place] [phone] [email or web address] 02/25/2025 1:00 AM EDT Home Care Visit [facility] [address] [place] [phone] Vandana Dick RN [address] [place] [address] [email or web address] 03/04/2025 1:30 AM EDT Appointment [facility] [address] [place] [phone] Vandana Dick RN [address] [place] [address] [email or web address] Scheduled Orders Name Type Priority Associated Diagnoses Orde r Schedule MRI Brain Imaging Routine Brain tumor Expected: 01/20/2025, Expires: 01/20/2026 documented as of this encounter Visit Diagnoses Diagnosis Brain tumor- Primary Neoplasm of unspecified nature of brain documented in this encounter Care Teams Customer Orders Clerk Relationship Specialty Start Date End Date Bety Bettencourt PA [address] [place] [address] [phone] PCP - General Physician Cardiology Nurse 12/28/24 Bety Bettencourt PA [address] [place], [place] [phone] Primary Care Physician 01/31/24 documented as of this encounter Additional Source Comments The information contained in this document represents components of the legal health record. It is not the complete legal health record.[facility]
== END 2025-01-30 12:06 | disposition home or self-care (01) ==
LOC: HO.HMCFM 11:27
PROVIDERS: PCP Physician Assistant; Visit Provider Physician Assistant
DX: J81.1 Chronic pulmonary edema (principal); J44.1 Chronic obstructive pulmonary disease with (acute) exacerbation; I10 Essential (primary) hypertension; I25.10 Atherosclerotic heart disease of native coronary artery without angina pectoris; Z98.61 Coronary angioplasty status; M17.0 Bilateral primary osteoarthritis of knee

== ENCOUNTER → 2025-01-30 11:26 | Outpatient (BNVA) | payer OTHER, SELFPAY | PROVIDERS: PCP Physician Assistant; Visit Provider Physician Assistant | DX: J81.1 Chronic pulmonary edema (principal); J44.1 Chronic obstructive pulmonary disease with (acute) exacerbation; I10 Essential (primary) hypertension; I25.10 Atherosclerotic heart disease of native coronary artery without angina pectoris; Z98.61 Coronary angioplasty status; Z79.899 Other long term (current) drug therapy | CPT/HCPCS: 99212 ==

== ENCOUNTER 2025-02-04 10:13 | Outpatient (AMB) | payer OTHER, SELFPAY ==
--- NOTE | 2025-02-04 10:18 | MHC.OFFVIS ---
Intake Visit Reasons: follow up s/p US 12/06/24 Intake Note: Patient prsents for follow up US performed on 12/06/24. Patient states she had a heart attack on December 28, 2024, four days later she went back to the hospital for heart failure. Patient uses a walker for ambulation. Accompanied by: Self / Same As Patient Allergies No Known Allergies Allergy (Verified 02/04/25 10:21) HPI HPI follow up s/p US 12/06/24: Details: Very pleasant 64-year-old female presents for follow-up regarding venous insufficiency. She is O2 dependent has a prior history of RI and Congestive heart failure and was most recently hospitalized for this. She does follow Dr. Zamudio at [facility] regarding this. She presents to us for follow-up regarding swollen lower extremities. She reports no significant improvement with compression. She now is for follow-up with noninvasive testing. [facility] Medical History CKD (chronic kidney disease) stage 3, GFR 30-59 ml/min Increased urinary frequency Gait instability Smoker Chronic pain of both knees Dyslipidemia HTN (hypertension) Controlled type 2 diabetes mellitus Vitamin A deficiency Vitamin B12 deficiency Urge incontinence of urine Steatosis Severe obesity Prediabetes Palpitations Osteoarthritis of knee Obstructive sleep apnea syndrome Obesity Numbness Microalbuminuria Lumbar pain with radiation down both legs Internal hemorrhoids Hip pain GERD (gastroesophageal reflux disease) Depressive disorder affecting childbirth Chronic obstructive lung disease Cannabis misuse Bilateral cataracts Asthma Arthritis Allergic rhinitis Surgical History History of total hip replacement Social History Housing: Apartment Alcohol intake: former Patient Tobacco Use Status: Former Tobacco user Cigarette Packs Per Day: 6 Years Smoked: 46 e-Cigarette/Vaping Use: Never Used Second Hand Smoke Exposure: No Substance Use Type: Marijuana service: No Current occupational status: disabled Cognitive needs: No Hearing needs: No Vision needs: No Review of Systems Const All systems reviewed & are unremarkable except as noted in HPI and below Reports no additional complaints ENT Reports Normal hearing present Card Denies chest pain, Denies chest pain at rest, Denies chest pain with activity and Denies pedal edema Resp Denies cough GI Denies abdominal pain Musc Denies abnormal gait, Denies muscle cramps and Denies radiating pain into limb Skin/Breast Denies skin ulcer and Denies wounds Neuro Reports Normal hearing present and Denies abnormal gait Psych Reports no additional complaints Physical Exam Const General: cooperative, healthy appearing and comfortable Orientation/consciousness: oriented to person, oriented to place and oriented to time HEENT Head: Yes normal to inspection Neck Neck: Yes normal visual inspection Carotids: no bruits Chest Chest palpation & inspection: normal inspection of the chest Resp Effort & Inspection: normal respiratory effort and able to speak in complete sentences Auscultation: clear to auscultation bilaterally, no crackles, no rales, no rhonchi and no wheezes Cardio Rate: regular rate Rhythm: regular rhythm Heart sounds: S1 normal heart sound present and S2 normal heart sound present Bruits: no carotid bruits Peripheral pulses: Peripheral pulses 2+ throughout GI Inspection: Yes normal to inspection Skin Wounds: no wounds Hair: normal Neuro General: oriented to person, oriented to place and oriented to time Cranial nerves: Yes CN's II-XII intact bilaterally and Yes Normal hearing present Cognition (Neuro): normal cognition Motor exam (neuro): 5/5 motor strength present throughout Extrem Other: venous exam: +2 edema General: No clubbing, No cyanosis and Yes edema Psych Appearance: grossly normal Mental Status: mental status grossly normal Speech and movement: Normal speech and movement present Results Reviewed Results Reviewed: Brief summary of venous insufficiency testing is as follows: right great saphenous vein: negative right small saphenous vein: negative right accessory vein: none present left great saphenous vein: negative left small saphenous vein: negative left accessory vein: none present Please note there is no evidence of any venous aneurysms or significant tortuosity Assessment & Plan Assessment & Plan (1) Varicose veins of both lower extremities with inflammation: Code(s): I83.11 - Varicose veins of right lower extremity with inflammation; I83.12 - Varicose veins of left lower extremity with inflammation Category: Medical Plan: In short patient is negative for any significant venous insufficiency. At the current time would only recommend conservative measures including compression, elevation and exercise. Would recommend continued follow-up with Cardiology as I do believe Congestive heart failure may have a significant component of this. Once again no vascular intervention required. She will follow up with us on an as-needed basis. Thank you for allowing us to assist in her care. Coding Level of Care Code Est Pt Level 4 (84591) Diagnoses Varicose veins of both lower extremities with inflammation I83.11; I83.12
--- OUTSIDE RECORDS SUMMARY | 2025-02-04 11:56 | XMS_ITS | Encounter Summary ---
Author Organization [facility] Address [address] [place] [address] Phone Care Team Providers Care Salt Maker Name Role Phone Bety Bettencourt Primary Care Provider [phone]- [phone] Bety Bettencourt Primary Care Provider [phone]- [phone] Kiara Vicente MD Primary Care Provider Bety Bettencourt Primary Care Provider [phone]- [phone] Encounter Details Date Type Department Care Team (Late st Contact Info) Description 01/30/2024 Procedure Pass [facility], Ct Scan - [address] [address] Social History Tobacco Use Types Packs/Day Years [...] housing situation today? I have mame jeffers 01/29/2024 How many times have you move [...] Care Team (Late st Contact Info) Description 02/11/2025 2:30 AM EDT Home [facility] Visit [facility] [address] [place] [phone] Vandana Dick RN [address] [place] [address] 02/18/2025 2:30 AM EDT Home Care Visit [facility] [address] [place], [place] [phone] Vandana Dick RN [address] [place] [address] 02/25/2025 1:00 AM EDT Home Care Visit [facility] [address] [place], [place] [phone] Vandana Dick, AMAYA [address] [place] [address] 03/04/2025 1:30 AM EDT Appointment [facility] [address] [place], [place] [phone] Vandana Dick RN [address] [place] [address] documented as of this encounter Visit Diagnoses Not on filedocumented in this encounter Care Teams Salt Maker Relationship Specialty Start Date End Date Bety Bettencourt PA PCP - General Physician Pile Driver Operator Helper 01/30/24 01/30/24 Bety Bettencourt PA PCP - General Physician Pile Driver Operator Helper 01/31/24 01/31/24 Kiara Vicente MD PCP - General 05/29/24 12/27/24 Bety Bettencourt PA [address] [place] [address] PCP - General Physician Pile Driver Operator Helper 12/28/24 Bety Bettencourt PA [address] [place], [place] [phone] Primary Care Physician 01/31/24 documented as of this encounter Additional Source Comments The information contained in this document represents components of the legal health record. It is not the complete legal health record.[facility]
--- OUTSIDE RECORDS SUMMARY | 2025-02-04 11:56 | XMS_ITS | Encounter Summary ---
Author Organization [facility] Address [address] [place] [address] [place] [phone] Phone Care Team Providers Care Garden Labourer Name Role Phone Bety Bettencourt Primary Care Provider [phone]- [phone] Reason for Referral * MRI/CAT Scan - New Request Specialty Diagnoses / Procedures Referred By Gatito siddiqi Referred To Contact Radiology Diagnoses Brain tumor Procedures MRI Brain Conrado Dick MD [address] [place] [address], [address] [place] [address] Phone: tel: fax: mailto:[email or web address] Referral ID Status Reason Start Date Expiration Date V isits Requested Visits Authorized [id number] New Request 01/20/2025 1 1 Encounter Details Date Type Department Care Team (Latest Contact Info) Description 01/20/2025 Transcribe Orders Virtual Department [address] [place], [place] [phone] Conrado Dick MD [address] [place] [address], [address] [place] [address] [phone] [email or web address] Brain tumor (Primary Dx) Social History Tobacco [...] Care Visit [facility] [address] [place] [phone] Vandana Dick RN [address] [place] [address] 02/18/2025 2:30 AM EDT Home Care Visit [facility] [address] [place] [phone] Vandana Dick RN [address] [place] [address] 02/25/2025 1:00 AM EDT Home Care Visit [facility] [address] [place] [phone] Vandana Dick RN [address] [place] [address] 03/04/2025 1:30 AM EDT Appointment [facility] [address] [place] [phone] Vandana Dick RN [address] [place] [phone] Scheduled Orders Name Type Priority Associated Diagnoses Orde r Schedule MRI Brain Imaging Routine Brain tumor Expected: 01/20/2025, Expires: 01/20/2026 documented as of this encounter Visit Diagnoses Diagnosis Brain tumor- Primary Neoplasm of unspecified nature of brain documented in this encounter Care Teams Garden Labourer Relationship Specialty Start Date End Date Bety Bettencourt PA [address] [place], [place] [phone] PCP - General Physician Beverage Distiller 12/28/24 Bety Bettencourt PA [address] [place], [place] [phone] Primary Care Physician 01/31/24 documented as of this encounter Additional Source Comments The information contained in this document represents components of the legal health record. It is not the complete legal health record.[facility]
--- OUTSIDE RECORDS SUMMARY | 2025-02-04 11:56 | XMS_ITS | Clinical Summary ---
Author Organization [facility] Address [address] [facility] [address] [place] [address] Care Team Providers Care Sewage Screen Operator Name Role Phone Trixie Alcala MD Primary Care Provider [phone] Social History Tobacco Use Types Packs/Day Years [...] patient's age to complete this topic Insurance [facility] [place] [address] Care Teams Sewage Screen Operator Relationship Specialty Start Date End Date Trixie Alcala MD [address] [place] [address] PCP - General 07/02/21
--- OUTSIDE RECORDS SUMMARY | 2025-02-04 11:56 | XMS_ITS | Clinical Summary ---
Author Organization [facility] Address [address] [place] [address] Phone Care Team Providers Care Assistant Pastry Chef Name Role Phone Bety Bettencourt Primary Care Provider +1- [phone] Allergies No known active allergies Medications VITAMIN [...] 2 (two) times a day. 5 Active OXcarbazepine (TRILEPTAL) 150 MG tablet Take 150-300 mg by mouth 2 (two) times a day. 150mg in the morning and 300mg at night 4 01/15/20 25 Discontin ued(Expir ed) morphine (MS CONTIN) 15 MG ER tablet Take 15 mg by mouth 2 (two) times a day. 4 01/22/20 25 Discontin ued(No longer taking) Active Problems [...] noted Trops trending down due to known NV last week Continue IV Lasix for another [...] EDT): STEMI last week, was transferred to [facility] for PCI/stent Cont Brinlinta Assessment & Plan (01/03/2025 10:20 AM EDT): STEMI last week, was transferred to [facility] for PCI. Renal mass 01/30/2024 Assessment [...] P.o. Lasix, obtain recent echo report from [facility] -- CLAIMS ANALYST eval -- Consult to pulmonary (she is followed by Dr. Boudreaux in [place]) -- May need home O2 eval before discharge Acute pulmonary edema 01/29/2024 Assessment & Plan (01/31/2024 11:35 AM EDT): She has a history of lower extremity edema and was referred to [facility] cardiology. She had an echocardiogram in December and was seen by cardiology subsequent to that. Apparently echo at that time was normal. Concern raised in the ED for possible flash pulmonary edema from hypertension. She was recently taken off of metoprolol and placed on HCTZ Leg swelling improved with diuresis. BP now stable. -- Continue p.o. Lasix, low-salt diet Addendum: [facility] records obtained. She had an echo [...] Care Team Description 01/29/2025 Episode Documentation Update [facility] [address] [place] [address] Lilia Morgan 01/24/2025 Episode Documentation Update [facility] [address] [place] [address] Fara Tate 01/24/2025 Home Care Visit [facility] [address] [place] [address] Trixie López CASE COMMUNICATION 01/23/2025 12:00 PM EDT Home Care Visit [facility] [address] [place] [address] Vandana Dick, AMAYA SN HOME VISIT 01/21/2025 2:00 PM EDT Home Care Visit [facility] [address] [place] [address] Vandana Dick, AMAYA SN HOME VISIT 01/20/2025 Transcribe Orders Virtual [address] [phone] Conrado Dick MD Brain tumor (Primary Dx) 01/17/2025 10:00 AM EDT Home Care Visit [facility] [address] [place] [address] Danielle Noyola LPN BOTTLE LINE WORKER HOME VISIT 01/14/2025 10:00 AM EDT Home Care Visit [facility] [address] [place] [address] Kristyn Kunz RN SN HOME VISIT 01/08/2025 9:00 AM EDT Home Care Visit [facility] [address] [place] [address] Kristyn Kunz, AMAYA SN OASIS START OF CARE (SOC) 01/08/2025 Plan of Care Documentation [facility] [address] [place] [address] 01/07/2025 Home Care Visit [facility] [address] [place] [address] Bhumika Esposito RN CASE COMMUNICATION 01/05/2025 Orders Only [facility] [address] [place] [address] Homehealth, Mark Ugarte MD 01/04/2025 Procedure Pass [facility] [address] [place] [address] 01/03/2025 5:30 AM EDT Ancillary Procedure [facility], Ultrasound - [facility] [address] [place] [address] Daysi Diaz MD 01/03/2025 5:16 AM EDT - 01/05/2025 4:10 PM EDT Hospital Encounter [facility] [address] [place] [address] Daysi Diaz MD Brewer, MD Amalia Bueno Sandeep, MD Russo, Margaret A, MD Altman, Nathaniel Livingston, , MPH Discharge Disposition: Home-Health Care Svc 12/28/2024 1:14 AM EDT - 12/28/2024 2:46 AM EDT Emergency [facility] [address] [place] [address] Matias Ortiz MD Discharge Disposition: Short Term [...] 02/11/2025 2:30 AM EDT Home [facility] Visit [facility] [address] [place] [phone] Vandana Dick RN [address] [place] [phone] [email or web address] 02/18/2025 2:30 AM EDT Home Care [facility] [address] [place] [phone] Vandana Dick RN [address] [place] [address] [email or web address] 02/25/2025 1:00 AM EDT Home Care Visit [facility] [address] [place] [phone] Vandana Dick RN [address] [place] [phone] [email or web address] 03/04/2025 1:30 AM EDT Appointment [facility] [address] [place] [phone] Vandana Dick RN [address] [place] [phone] Health Maintenance Due Date Last Done Comments [...] 2021 INFLUENZA VACCINE (#1) 2024 COVID-19 VACCINE (1 - 2023-2 5 season) 2025 BLOOD PRESSURE [...] included. SODIUM 141 133 - 146 mmol/L [facility] CHLORIDE 99 96 - 108 mmol/L [facility] POTASSIUM 3.8 3.3 - 5.1 mmol/L [facility] CO2 27 21 - 35 mmol/L [facility] BUN 25(H) 6 - 19 mg/dL [facility] CREATININE 1.10 0.5 - 1.5 mg/dL [facility] GLUCOSE 123(H) 70 - 99 mg/dL [facility] CALCIUM 8.6 8.4 - 10.3 mg/dL [facility] EGFR 56(L) >59 mL/min/1.7 3m2 [facility] Comment:Estimated glomerular filtration rate calculated using the CKD-EPI refit equation. ANION GAP 19 10 - 20 mmol/L [facility] Blood 01/05/2025 6:20 AM EDT 01/05/2025 6:43 AM EDT us Preethi Casanova MD LAB BLOOD ORDERABLES Final R esult [facility] [address] [place] [address] * TTE COMPREHENSIVE (01/04/2025 11:39 AM EDT) [...] significant changes present compared to echo from [facility] on December 28, 2024 IAS/IVS The interatrial septum appears normal. us Preethi Casanova MD CV ECHO ORDERABLES Final Res ult * (ABNORMAL) Troponin (01/03/2025 7:26 AM EDT) Only the most recent of3 resultswithin the time period is included. Troponin-T, HS Gen5 1,730(H) 0 - 9 ng/L [facility] Blood 01/03/2025 7:26 AM EDT 01/03/2025 7:38 AM EDT us Daysi Diaz MD LAB BLOOD ORDERABLES Final R esult [address] [address] * XR Chest Portable (01/03/2025 6:10 AM EDT) Anatomical Region Laterality Modality Chest Computed Radiogr aphy 01/03/2025 6:35 AM EDT Impressions 01/03/2025 6:36 AM EDT Moderate pulmonary edema. Narrative 01/03/2025 6:36 AM EDT XR CHEST PORTABLE Referring clinician's provided indication for this examination in [facility]: Dyspnea (Shortness of Breath) COMPARISON: XR CHEST 1 VIEW FINDINGS: Devices/Tubes/Lines: None. Lungs: No focal consolidation. Moderate pulmonary edema. Pleura: No pleural effusion or pneumothorax. Heart/Mediastinum: Normal heart and mediastinum. Bones/Soft Tissues: No significant abnormality. Old right rib fractures. Procedure Note Claudia Ortiz MBBS - 01/03/2025 XR CHEST PORTABLE Referring clinician's provided indication for this examination in [facility]:Dyspnea (Shortness of Breath) COMPARISON: XR CHEST 1 VIEW FINDINGS: Devices/Tubes/Lines: None. Lungs: No focal consolidation. Moderate pulmonary edema. Pleura: No pleural effusion or pneumothorax. Heart/Mediastinum: Normal heart and mediastinum. Bones/Soft Tissues: No significant abnormality. Old right rib fractures. IMPRESSION: Moderate pulmonary edema. us Daysi Diaz MD IMG XR CHEST Final Result * (ABNORMAL) CBC and differential (01/03/2025 6:04 AM EDT) Only the most recent of2 resultswithin the time period is included. WBC 9.63 4.00 - 11.00 K/uL [facility] RBC 3.59(L) 4.00 - 5.20 M/uL [facility] HGB 10.3(L) 12.0 - 16.0 g/dL [facility] HCT 32.4(L) 36.0 - 46.0 % [facility] PLT 310 150 - 450 K/uL [facility] MCV 90.3 80.0 - 100.0 fL [facility] MCH 28.7 27.0 - 31.0 pg [facility] MCHC 31.8(L) 32.0 - 36.0 g/dL [facility] RDW 14.4 11.5 - 14.5 % [facility] MPV 9.9 8.4 - 12.0 fL [facility] NRBC 0.00 0.00 /100 WBCs [facility] ABSOLUTE NRBC 0.00 0.00 K/uL [facility] DIFF METHOD Auto [facility] NEUTS 71.9 48.0 - 76.0 % [facility] LYMPHS 17.9(L) 18.0 - 41.0 % [facility] MONOS 7.3 4.0 - 11.0 % [facility] EOS 2.3 0.0 - 5.0 % [facility] BASOS 0.1 0.0 - 1.5 % [facility] Granulocytes, immature (%) 0.5 0.0 - 0.9 % [facility] ABSOLUTE NEUTS 6.93 1.92 - 7.60 K/uL [facility] ABSOLUTE LYMPHS 1.72 0.72 - 4.10 K/uL [facility] ABSOLUTE MONOS 0.70 0.16 - 1.10 K/uL [facility] ABSOLUTE EOS 0.22 0.00 - 0.50 K/uL [facility] ABSOLUTE BASOS 0.01 0.00 - 0.15 K/uL [facility] Granulocytes, immature 0.05 0.00 - 0.09 K/uL [facility] Blood 01/03/2025 6:04 AM EDT 01/03/2025 6:15 AM EDT Daysi Diaz MD LAB BLOOD ORDERABLES Final R esult [address] [address] * (ABNORMAL) NT-proBNP (01/03/2025 6:04 AM EDT) Only the most recent of2 resultswithin the time period is included. NT-PROBNP 11,402(H) 0 - 125 pg/mL [facility] Blood 01/03/2025 6:04 AM EDT 01/03/2025 6:15 AM EDT Daysi Diaz MD LAB BLOOD ORDERABLES Final R esult Performing Organization Address [facility] Co de Phone Number [address] [address] * Magnesium (01/03/2025 6:04 AM EDT) Only the most recent of2 resultswithin the time period is included. MAGNESIUM 1.6 1.6 - 2.6 mg/dL [facility] Blood 01/03/2025 6:04 AM EDT 01/03/2025 6:15 AM EDT Daysi Diaz MD LAB BLOOD ORDERABLES Final R esult Performing Organization Address City/[facility] Co de Phone Number [address] [address] * US BEDSIDE (01/03/2025 5:26 AM EDT) [...] positive Images: Images Saved: Yes Accession Number: [id number] Daysi Diaz MD IMG POINT OF CARE EXAMS Ana Paula l Result * ECG 12-LEAD (01/03/2025 5:21 AM EDT) Only the most recent of3 resultswithin the time period is included. Ventricular Rate EKG/MIN 76 BPM [facility] Atrial Rate 76 BPM [facility] MN Interval 186 ms [facility] QRS Duration 102 ms [facility] QT Interval 402 ms [facility] QTC Interval 452 ms [facility] P [place] 45 degrees [facility] R Wave [place] 52 degrees [facility] T Wave [place] 35 degrees [facility] 01/03/2025 5:21 AM EDT [...] clinician's provided indication for this examination in [facility]: Pain; chest pain COMPARISON: CT CHEST WITHOUT CONTRAST FINDINGS: Devices/Tubes/Lines: None. Lungs: Pulmonary vascular congestion with mild interstitial prominence. Pleura: No pleural effusion or pneumothorax. Heart/Mediastinum: Normal heart size. Atherosclerotic aortic knob. Bones/Soft Tissues: No acute osseous abnormality. Procedure Note Stef Weldon, DO - 12/28/2024 XR CHEST 1 VIEW Referring clinician's provided indication for this examination in [facility]:Pain; chest pain COMPARISON: CT CHEST WITHOUT CONTRAST FINDINGS: Devices/Tubes/Lines: None. Lungs: Pulmonary vascular congestion with mild interstitial prominence. Pleura: No pleural effusion or pneumothorax. Heart/Mediastinum: Normal heart size. Atherosclerotic aortic knob. Bones/Soft Tissues: No acute osseous abnormality. IMPRESSION: Mild pulmonary edema. Matias Ortiz MD IMG XR CHEST Final Res ult * (ABNORMAL) LFTs (hepatic panel) (12/28/2024 2:00 AM EDT) ALKALINE PHOSPHATASE 107 39 - 117 U/L [facility] TOTAL BILIRUBIN <0.2 0.0 - 1.2 mg/dL [facility] DIRECT BILIRUBIN <0.1 0.0 - 0.2 mg/dL [facility] Bilirubin (Indirect) NOT CALCULATED 0 - 1.5 mg/dL [facility] AST 10 0 - 37 U/L [facility] ALT 8 0 - 40 U/L [facility] TOTAL PROTEIN 6.8 6.5 - 8.0 g/dL [facility] ALBUMIN 3.7(L) 3.9 - 4.8 g/dL [facility] GLOBULIN 3.1 1 - 4.8 g/dL [facility] A/G Ratio 1.19 1.00 - 4.80 RATIO [facility] Blood 12/28/2024 2:00 AM EDT 12/28/2024 2:11 AM EDT us Matias Ortiz MD LAB BLOOD ORDERABLES Ana Paula l Result [facility] [address] [place], [place] [phone] from Last [address] [id number] [facility] ACO [facility] ACO Advance Directives For more information, please contact: [phone] (9AM - 5PM [place], Monday-Monday) Documents on File Type Date Recorded Patient Speech Therapy Assistant Expl anation Healthcare Proxy 02/01/2024 3:15 PM * Full [...] Agent (Proxy form on file) Care Teams Assistant Pastry Chef Relationship Specialty Start Date End Date Bety Bettencourt PA [address] [place] [address] PCP - General Physician Vp Cardiovascular 12/28/24 Bety Bettencourt PA [address] [place], [place] [phone] Primary Care Physician 01/31/24 Additional Source Comments The information contained in this document represents components of the legal health record. It is not the complete legal health record.[facility]
--- OUTSIDE RECORDS SUMMARY | 2025-02-04 11:56 | XMS_ITS | Encounter Summary ---
Author Organization [facility] Address [address] [place] [address] Phone Care Team Providers Care Senior Software Engineering Manager Name Role Phone Bety Bettencourt Primary Care Provider +1- [phone] Encounter Details Date Type Department Care Team (Late st Contact Info) Description 01/04/2025 Procedure Pass [facility] [address] [place] [address] Social History Tobacco Use Types Packs/Day Years [...] Visit [facility] [address] [place], [place] [phone] Vandana Dick RN [address] [place] [address] 02/18/2025 2:30 AM EDT Home Care Visit [facility] [address] [place] [phone] Vandana Dick RN [address] [place] [address] [email or web address] 02/25/2025 1:00 AM EDT Home Care Visit [facility] [address] [place], [place] [phone] Vandana Dick RN [address] [place] [address] 03/04/2025 1:30 AM EDT Appointment [facility] [address] [place], [place] [phone] Vandana Dick RN [address] [place] [address] documented as of this encounter Visit Diagnoses Not on filedocumented in this encounter Care Teams Senior Software Engineering Manager Relationship Specialty Start Date End Date Bety Bettencourt PA [address] [place] [address] PCP - General Physician Poolroom/Poolhall Manager 12/28/24 Bety Bettencourt PA [address] [place], [place] [phone] Primary Care Physician 01/31/24 documented as of this encounter Additional Source Comments The information contained in this document represents components of the legal health record. It is not the complete legal health record.[facility]
== END 2025-02-04 10:43 | disposition home or self-care (01) ==
LOC: HO.HVS 10:14
PROVIDERS: PCP Physician Assistant; Visit Provider Surgery Vascular Surgery
DX: I83.11 Varicose veins of right lower extremity with inflammation (principal); I83.12 Varicose veins of left lower extremity with inflammation
CPT/HCPCS: 99214

== ENCOUNTER → 2025-02-04 10:13 | Outpatient (BNVA) | payer OTHER, SELFPAY | PROVIDERS: PCP Physician Assistant; Visit Provider Surgery Vascular Surgery | DX: I83.11 Varicose veins of right lower extremity with inflammation (principal); I83.12 Varicose veins of left lower extremity with inflammation; I50.9 Heart failure, unspecified; Z87.891 Personal history of nicotine dependence | CPT/HCPCS: 99212 ==

== ENCOUNTER 2025-02-05 13:55 | Outpatient (REF) | payer OTHER, SELFPAY ==
--- OUTSIDE RECORDS SUMMARY | 2025-02-04 13:30 | XMS_ITS | Encounter Summary ---
Author Organization [facility] Address [address] [place] [address] Phone Care Team Providers Care Hospital Chief Executive Officer Name Role Phone Bety Bettencourt Primary Care Provider +1- [phone] Reason for Visit * Auth/Cert (Routine) Specialty Diagnoses / Procedures Referred By Gatito t Referred To Contact Referral ID Status Reason Start Date Expiration Date Visits Re quested Visits Authorized [id number] 1 1 Encounter Details Date Type Department Care Team (Late st Contact Info) Description 02/04/2025 1:30 PM EDT Home Care Visit [facility] [address] [place] [phone] Julissa Holder RN [address] [place] [address] [email or web address] SN HOME VISIT Social History Tobacco Use Types Packs/Day Years [...] PM EDT documented as of this encounter Last Filed Vital Signs Vital Sign Reading Time Taken Comments Blood Pressure 160/74 02/04/2025 1:19 PM EDT Pulse 60 02/04/2025 1:19 PM EDT Temperature 36.3 C (97.4 F) 02/04/2025 1:19 PM EDT Respiratory Rate 18 02/04/2025 1:19 PM EDT Oxygen Saturation 98% 02/04/2025 1:19 PM EDT Inhaled Oxygen Concentration - - Weight - - Height - - Body Mass Index - - documented in this encounter Plan of Treatment Upcoming Encounters Date Type Department Care Team (Late st Contact Info) Description 02/11/2025 2:30 AM EDT Home [facility] Visit [facility] [address] [place] [phone] Vandana Dick RN [address] [place] [phone] 02/18/2025 2:30 AM EDT Home Care Visit [facility] [address] [place] [phone] Vandana Dick RN [address] [place] [address] 02/25/2025 1:00 AM EDT Home Care Visit [facility] [address] [place] [phone] Vandana Dick RN [address] [place] [address] 03/04/2025 1:30 AM EDT Appointment [facility] [address] [place] [phone] Vandana Dick RN [address] [place] [phone] documented as of this encounter Visit Diagnoses Not on filedocumented in this encounter Home Health Visit - Care Plan Visit Details Visit Type -SN HOME VISIT Discipline -Penitentiary Problems Problem Description Start Date Status Goals Interve ntions HH - Medication Management Disciplines: All Active Home Health Disciplines 01/08/2025 Active 1 goal linked to scheduled/document ed intervention 2 goal interventions scheduled/document ed in this visit HH - Focus of Care and Teaching Disciplines: All Active Home Health Disciplines w/RD 01/08/2025 Active 1 goal linked to scheduled/document ed intervention 1 goal intervention scheduled/document ed in this visit HH - Emergency Planning - Knowledge of Disciplines: All Active Home Health Disciplines 01/08/2025 Active 1 goal linked to scheduled/document ed intervention 2 goal interventions scheduled/document ed in this visit HH - Standard of Care Disciplines: All Active Home Health Disciplines 01/08/2025 Active 1 goal linked to scheduled/document ed intervention 2 goal interventions scheduled/document ed in this visit HH - Wound Disciplines: All Active Home Health Disciplines 01/08/2025 Active 1 goal linked to scheduled/document ed intervention 1 goal intervention scheduled/document ed in this visit Goals Goal Associated Problem Outcome Goal Met? Visit Notes HH - Safe medication management, avoid unnecessary harm related to medication errors and/or interactions HH - Medication Management No HH - Communication and collaboration to achieve patient goals HH - Focus of Care and Teaching No HH - Knowledge of options for managing care in the event of an emergency related situation. HH - Emergency Planning - Knowledge of No HH - Achieve care management for a safe to home/community discharge from homecare HH - Standard of Care No HH - Demonstrate/verbalize wound care management, wound/lesion will be free from complications HH - Wound No Interventions Intervention Associated Problem/Goal Status Variance Visit Notes HH - I/E medication management: administration, purpose, dosages, preparation, setup, scheduling, side effects, food/drug interactions, and potential complications as indicated Description: Update patient's copy of medication list as needed. Problem: - Medication Management Goal:HH - Safe medication management, avoid unnecessary harm related to medication errors and/or interactions Completed - Complete medication review every visit and medication reconciliation as indicated. Pharmacy information: Description: medication reconcilliation completed Problem:HH - Medication Management Goal: - Safe medication management, avoid unnecessary harm related to medication errors and/or interactions Completed HH - Focus of care, teaching completed and plan for next visit Problem:HH - Focus of Care and Teaching Goal:HH - Communication and collaboration to achieve patient goals Completed Primary Clinical Focus this Visit & Instruction Provided: VSS. Wheezing in all lung monet. SPO2 98% on 2l. Educated patient on coughing and deep breathing to clear lungs. Pt denies dizziness, CP, SOB. Educated patient on the importance of daily weights at the same time daily with the same amount of clothing on and reporting weight gain of 2-3 lbs in a day or 5 in a week to MD. Pt understands she should do this but frequently forgets. Reviewed and reconciled medications without issue. Pt saw vascular surgeon today and per patient MD told her she doesn't need to come back . Appetite is fair. PO fluid intake is fair. Pt denies GI/ issues. Instruction Provided to: patient Response to Instruction/Teachin g: good teach back received Plan for Next Visit Specific Focus & Education Needed: CP,resp A/E New Orders: NA Updated Discharge Plan:NA - I/E management of care in an urgent or emergency (ER) situation: When to call your Home Care Team/911, ER plans, supplies, evacuation, when to contact local ER officials and how to stay informed Problem: - Emergency Planning - Knowledge of Goal:HH - Knowledge of options for managing care in the event of an emergency related situation. Completed - Emergency planning assessment: the emergency plan, supplies needed, emergency contact numbers and an evacuation plan were reviewed Description: Patient and Caregiver is/are knowledgeable of emergency plans. Problem: - Emergency Planning - Knowledge of Goal:HH - Knowledge of options for managing care in the event of an emergency related situation. Completed - Assess vital signs, pulse oximetry, pain, and as indicated, orthostatic vital signs Description: use agency-specific parameters Problem: - Standard of Care Goal: - Achieve care management for a safe to home/community discharge from homecare Completed HH - Assess skin integrity Problem: - Standard of Care Goal:HH - Achieve care management for a safe to home/community discharge from homecare Completed HH - Assess wounds/lesions/ramirez Description: LOCATION: skin tear to left upper chest. cover with bandaid and monitor for s/s of infection and report to Pcp Problem: - Wound Goal:HH - Demonstrate/verbalize wound care management, wound/lesion will be free from complications Completed documented in this encounter Care Teams Hospital Chief Executive Officer Relationship Specialty Start Date End Date Bety Bettencourt PA [address] [place] [address] PCP - General Physician Inspector Wire Rope 12/28/24 Bety Bettencourt PA [address] [place] [address] Primary Care Physician 01/31/24 documented as of this encounter Additional Source Comments The information contained in this document represents components of the legal health record. It is not the complete legal health record.[facility]
--- NOTE | ~2025-02-05 | US_ITS ---
EXAMINATION: BILATERAL CAROTID ULTRASOUND WITH DOPPLER HISTORY: I67.2 - Cerebral atherosclerosis COMPARISON: There are no prior studies available for comparison. TECHNIQUE: Real time and Color and Spectral doppler ultrasonography of the carotid and vertebral arteries was performed in multiple planes. FINDINGS: There is a moderate amount of plaque in the proximal right internal carotid artery and a small amount of plaque on the left. VERTEBRAL FLOW DIRECTION: Antegrade bilaterally. PEAK SYSTOLIC VELOCITIES (in cm/sec): RIGHT: CCA: Prox: 73 Dist: 67 ICA: Prox: 184 Mid: 230 Dist: 123 ICA/CCA Ratio: 3.15 ECA: 189 Peak ICA end diastolic velocity (EDV): 59 LEFT: CCA: Prox: 61 Dist: 58 ICA: Prox: 421 Mid: 243 Dist: 147 ICA/CCA Ratio: 6.90 ECA: 98 Peak ICA end diastolic velocity (EDV): 106 US/US carotid duplex BI IMPRESSION: Findings consistent with 50-79% stenosis of the bilateral internal carotid arteries. Electronically signed by: Jesus Cotto MD 02/05/2025 03:38 PM EDT
--- OUTSIDE RECORDS SUMMARY | 2025-02-05 17:02 | XMS_ITS | Encounter Summary ---
Author Organization [facility] Address [address] [place] [address] Phone Care Team Providers Care Tool Grinding Machine Operator Name Role Phone Bety Bettencourt Primary Care Provider +1- [phone] Encounter Details Date Type Department Care Team (Late st Contact Info) Description 01/04/2025 Procedure Pass [facility] [address] [place] [address] Social History Tobacco Use Types Packs/Day Years [...] Visit [facility] [address] [place], [place] [phone] Vandana Dick RN [address] [place] [address] 02/18/2025 2:30 AM EDT Home Care Visit [facility] [address] [place] [phone] Vandana Dick RN [address] [place] [address] [email or web address] 02/25/2025 1:00 AM EDT Home Care Visit [facility] [address] [place], [place] [phone] Vandana Dick RN [address] [place] [address] 03/04/2025 1:30 AM EDT Appointment [facility] [address] [place], [place] [phone] Vandana Dikc RN [address] [place] [address] documented as of this encounter Visit Diagnoses Not on filedocumented in this encounter Care Teams Tool Grinding Machine Operator Relationship Specialty Start Date End Date Bety Bettencourt PA [address] [place] [address] PCP - General Physician Senior Program Planner 12/28/24 Bety Bettencourt PA [address] [place], [place] [phone] Primary Care Physician 01/31/24 documented as of this encounter Additional Source Comments The information contained in this document represents components of the legal health record. It is not the complete legal health record.[facility]
--- OUTSIDE RECORDS SUMMARY | 2025-02-05 17:02 | XMS_ITS | Clinical Summary ---
Author Organization [facility] Address [address] [facility] [address] [place] [address] Care Team Providers Care Front Line Supervisor Name Role Phone Trixie Alcala MD Primary Care Provider [phone] Social History Tobacco Use Types Packs/Day Years [...] patient's age to complete this topic Insurance [facility] [place] [id number] Care Teams Front Line Supervisor Relationship Specialty Start Date End Date Trixie Alcala MD [address] [place] [address] PCP - General 07/02/21
--- OUTSIDE RECORDS SUMMARY | 2025-02-05 17:02 | XMS_ITS | Clinical Summary ---
Author Organization [facility] Address [address] [place] [address] Phone Care Team Providers Care Injection Machine Operator Name Role Phone Bety Bettencourt Primary Care Provider [phone] Allergies No known active allergies Medications VITAMIN [...] noted Trops trending down due to known IN last week Continue IV Lasix for another [...] EDT): STEMI last week, was transferred to [facility] for PCI/stent Cont Brinlinta Assessment & Plan (01/03/2025 10:20 AM EDT): STEMI last week, was transferred to [facility] for PCI. Renal mass 01/30/2024 Assessment [...] P.o. Lasix, obtain recent echo report from [facility] -- MIXING AND MOLDING MACHINE OPERATOR eval -- Consult to pulmonary (she is followed by Dr. Boudreaux in [place]) -- May need home O2 eval before discharge Acute pulmonary edema 01/29/2024 Assessment & Plan (01/31/2024 11:35 AM EDT): She has a history of lower extremity edema and was referred to [facility] cardiology. She had an echocardiogram in December and was seen by cardiology subsequent to that. Apparently echo at that time was normal. Concern raised in the ED for possible flash pulmonary edema from hypertension. She was recently taken off of metoprolol and placed on HCTZ Leg swelling improved with diuresis. BP now stable. -- Continue p.o. Lasix, low-salt diet Addendum: [facility] records obtained. She had an echo [...] Encounters Date Type Department Care Team Description 02/04/2025 1:30 PM EDT Home [facility] Visit [facility] [address] [place] [phone] Julissa Holder RN SN HOME VISIT 01/29/2025 Episode Documentation Update [facility] [address] [place] [phone] Lilia Morgan 01/24/2025 Episode Documentation Update [facility] [address] [place] [phone] Fara Tate 01/24/2025 Home Care Visit [facility] [address] [place] [address] Trixie López CASE COMMUNICATION 01/23/2025 12:00 PM EDT Home Care Visit [facility] [address] [place] [address] Vandana Dick, AMAYA SN HOME VISIT 01/21/2025 2:00 PM EDT Home Care Visit [facility] [address] [place] [phone] aVndana Dick, AMAYA SN HOME VISIT 01/20/2025 Transcribe Orders Virtual Department [address] [place] [address] Conrado Dick MD Brain tumor (Primary Dx) 01/17/2025 10:00 AM EDT Home Care Visit [facility] [address] [place] [address] Danielle Noyola LPN BAND SAW OPERATOR HOME VISIT 01/14/2025 10:00 AM EDT Home Care Visit [facility] [address] [place] [address] Kristyn Kunz, RN SN HOME VISIT 01/08/2025 9:00 AM EDT Home Care Visit [facility] [address] [place] [address] Kristyn Kunz, RN SN [facility] START OF CARE (SOC) 01/08/2025 Plan of Care Documentation [facility] [address] [place] [address] 01/07/2025 Home Care Visit [facility] [address] [place] [address] Bhumika Esposito RN CASE COMMUNICATION 01/05/2025 Orders Only [facility] [address] [place], [place] [phone] Homehealth, Mark ProviderMD 01/04/2025 Procedure Pass [facility] [address] [place] [address] 01/03/2025 5:30 AM EDT Ancillary Procedure [facility], Ultrasound - [facility] [address] [place] [address] Daysi Diaz MD 01/03/2025 5:16 AM EDT - 01/05/2025 4:10 PM EDT Hospital Encounter [facility] [address] [place] [address] Daysi Diaz MD Brewer, Allison V, MD Arepally, Sandeep, MD Russo, Margaret A, MD Altman, Evan K, DO, MPH Discharge Disposition: Home-Health Care Svc 12/28/2024 1:14 AM EDT - 12/28/2024 2:46 AM EDT Emergency [facility] [address] [place] [address] Matias Ortiz MD Discharge Disposition: Short Term [...] Care Visit [facility] [address] [place] [phone] Vandana Dick RN [address] [place] [address] 02/18/2025 2:30 AM EDT Home Care Visit [facility] [address] [place] [address] Vandana Dick RN [address] [place] [address] 02/25/2025 1:00 AM EDT Home Care Visit [facility] [address] [place] [phone] Vandana Dick RN [address] [place] [address] 03/04/2025 1:30 AM EDT Appointment [facility] [address] [place] [phone] Vandana Dick RN [address] [place] [address] Health Maintenance Due Date Last Done Comments [...] - 2023-2 5 season) 2025 BLOOD PRESSURE 08/04/2025 02/04/2025 SCREENING FOR DIABETES 01/06/2028 , 01/29/2024 HEPATITIS [...] included. SODIUM 141 133 - 146 mmol/L [facility] CHLORIDE 99 96 - 108 mmol/L [facility] POTASSIUM 3.8 3.3 - 5.1 mmol/L [facility] CO2 27 21 - 35 mmol/L [facility] BUN 25(H) 6 - 19 mg/dL [facility] CREATININE 1.10 0.5 - 1.5 mg/dL [facility] GLUCOSE 123(H) 70 - 99 mg/dL [facility] CALCIUM 8.6 8.4 - 10.3 mg/dL [facility] EGFR 56(L) >59 mL/min/1.7 3m2 [facility] Comment:Estimated glomerular filtration rate calculated using the CKD-EPI refit equation. ANION GAP 19 10 - 20 mmol/L [facility] Blood 01/05/2025 6:20 AM EDT 01/05/2025 6:43 AM EDT us Preethi Casanova MD LAB BLOOD ORDERABLES Final R esult [facility] [address] [place] [address] * TTE COMPREHENSIVE (01/04/2025 11:39 AM EDT) [...] significant changes present compared to echo from [facility] on December 28, 2024 IAS/IVS The interatrial septum appears normal. us Preethi Casaonva MD CV ECHO ORDERABLES Final Res ult * (ABNORMAL) Troponin (01/03/2025 7:26 AM EDT) Only the most recent of3 resultswithin the time period is included. Troponin-T, HS Gen5 1,730(H) 0 - 9 ng/L [facility] Blood 01/03/2025 7:26 AM EDT 01/03/2025 7:38 AM EDT us Daysi Diaz MD LAB BLOOD ORDERABLES Final R esult [address] [id number] * XR Chest Portable (01/03/2025 6:10 AM EDT) Anatomical Region Laterality Modality Chest Computed Radiogr aphy 01/03/2025 6:35 AM EDT Impressions 01/03/2025 6:36 AM EDT Moderate pulmonary edema. Narrative 01/03/2025 6:36 AM EDT XR CHEST PORTABLE Referring clinician's provided indication for this examination in [facility]: Dyspnea (Shortness of Breath) COMPARISON: XR CHEST 1 VIEW FINDINGS: Devices/Tubes/Lines: None. Lungs: No focal consolidation. Moderate pulmonary edema. Pleura: No pleural effusion or pneumothorax. Heart/Mediastinum: Normal heart and mediastinum. Bones/Soft Tissues: No significant abnormality. Old right rib fractures. Procedure Note Claudia Ortiz MBBS - 01/03/2025 XR CHEST PORTABLE Referring clinician's provided indication for this examination in [facility]:Dyspnea (Shortness of Breath) COMPARISON: XR CHEST [...] included. WBC 9.63 4.00 - 11.00 K/uL [facility] RBC 3.59(L) 4.00 - 5.20 M/uL [facility] HGB 10.3(L) 12.0 - 16.0 g/dL [facility] HCT 32.4(L) 36.0 - 46.0 % [facility] PLT 310 150 - 450 K/uL [facility] MCV 90.3 80.0 - 100.0 fL [facility] MCH 28.7 27.0 - 31.0 pg [facility] MCHC 31.8(L) 32.0 - 36.0 g/dL [facility] RDW 14.4 11.5 - 14.5 % [facility] MPV 9.9 8.4 - 12.0 fL [facility] NRBC 0.00 0.00 /100 WBCs [facility] ABSOLUTE NRBC 0.00 0.00 K/uL [facility] DIFF METHOD Auto [facility] NEUTS 71.9 48.0 - 76.0 % [facility] LYMPHS 17.9(L) 18.0 - 41.0 % [facility] MONOS 7.3 4.0 - 11.0 % [facility] EOS 2.3 0.0 - 5.0 % [facility] BASOS 0.1 0.0 - 1.5 % [facility] Granulocytes, immature (%) 0.5 0.0 - 0.9 % [facility] ABSOLUTE NEUTS 6.93 1.92 - 7.60 K/uL [facility] ABSOLUTE LYMPHS 1.72 0.72 - 4.10 K/uL [facility] ABSOLUTE MONOS 0.70 0.16 - 1.10 K/uL [facility] ABSOLUTE EOS 0.22 0.00 - 0.50 K/uL [facility] ABSOLUTE BASOS 0.01 0.00 - 0.15 K/uL [facility] Granulocytes, immature 0.05 0.00 - 0.09 K/uL [facility] Blood 01/03/2025 6:04 AM EDT 01/03/2025 6:15 AM EDT Daysi Diaz MD LAB BLOOD ORDERABLES Final R esult Performing Organization Address [facility] Co de Phone Number [address] [address] * (ABNORMAL) NT-proBNP (01/03/2025 6:04 AM EDT) Only the most recent of2 resultswithin the time period is included. NT-PROBNP 11,402(H) 0 - 125 pg/mL [facility] Blood 01/03/2025 6:04 AM EDT 01/03/2025 6:15 AM EDT Daysi Diaz MD LAB BLOOD ORDERABLES Final R [facility] Performing Organization Address [facility] Co de Phone Number [address] [address] * Magnesium (01/03/2025 6:04 AM EDT) Only the most recent of2 resultswithin the time period is included. MAGNESIUM 1.6 1.6 - 2.6 mg/dL [facility] Blood 01/03/2025 6:04 AM EDT 01/03/2025 6:15 AM EDT Daysi Diaz MD LAB BLOOD ORDERABLES Final R esult Performing Organization Address City/[facility] Co de Phone Number [address] [address] * US BEDSIDE (01/03/2025 5:26 AM EDT) [...] positive Images: Images Saved: Yes Accession Number: [id number] Daysi Diaz MD IMG POINT OF CARE EXAMS Ana Paula l Result * ECG 12-LEAD (01/03/2025 5:21 AM EDT) Only the most recent of3 resultswithin the time period is included. Ventricular Rate EKG/MIN 76 BPM [facility] Atrial Rate 76 BPM [facility] VA Interval 186 ms [facility] QRS Duration 102 ms [facility] QT Interval 402 ms [facility] QTC Interval 452 ms [facility] P [place] 45 degrees [facility] R Wave [place] 52 degrees [facility] T Wave [place] 35 degrees [facility] 01/03/2025 5:21 AM EDT 01/04/2025 4:24 PM EDT Narrative [facility] - 01/04/2025 4:24 PM EDT Normal sinus rhythm Nonspecific ST abnormality Abnormal ECG When compared with ECG of 28-Dec-2024 02:02, Sinus rhythm has replaced Wide QRS rhythm Confirmed by Donta BROWN ([id number]) on 01/04/2025 4:24:34 PM us Daysi Diaz MD ECG ORDERABLES Final Result [...] ALKALINE PHOSPHATASE 107 39 - 117 U/L [facility] TOTAL BILIRUBIN <0.2 0.0 - 1.2 mg/dL [facility] DIRECT BILIRUBIN <0.1 0.0 - 0.2 mg/dL [facility] Bilirubin (Indirect) NOT CALCULATED 0 - 1.5 mg/dL [facility] AST 10 0 - 37 U/L [facility] ALT 8 0 - 40 U/L [facility] TOTAL PROTEIN 6.8 6.5 - 8.0 g/dL [facility] ALBUMIN 3.7(L) 3.9 - 4.8 g/dL [facility] GLOBULIN 3.1 1 - 4.8 g/dL [facility] A/G Ratio 1.19 1.00 - 4.80 RATIO [facility] Blood 12/28/2024 2:00 AM EDT 12/28/2024 2:11 AM EDT us Matias Ortiz MD LAB BLOOD ORDERABLES Ana Paula martinez Result [facility] [address] [place] [address] from Last [address] [address] [facility] [place] [address] [address] ACO [facility] A[facility] Advance Directives For more information, please contact: [phone] (9AM - 5PM [facility], Monday-Monday) Documents on File Type Date Recorded Patient Lan Specialist Expl anation Healthcare Proxy 02/01/2024 3:15 PM [...] Agent (Proxy form on file) Care Teams Injection Machine Operator Relationship Specialty Start Date End Date Bety Bettencourt PA [address] [place], [place] [phone] PCP - General Physician Connection Worker 12/28/24 Bety Bettencourt PA [address] [place], [place] [phone] Primary Care Physician 01/31/24 Additional Source Comments The information contained in this document represents components of the legal health record. It is not the complete legal health record.[facility]
--- OUTSIDE RECORDS SUMMARY | 2025-02-05 17:02 | XMS_ITS | Encounter Summary ---
Author Organization [facility] Address [address] [place] [address] [place] [phone] Phone Care Team Providers Care Welt Stitcher Name Role Phone Bety Bettencourt Primary Care Provider +1- [phone] Bety Bettencourt Primary Care Provider +[phone]- [phone] Bety Bettencourt Primary Care Provider [phone] Kiara Vicente MD Primary Care Provider Bety Bettencourt Primary Care Provider +1- [phone] Encounter Details Date Type Department Care Team (Late st Contact Info) Description 01/29/2024 Procedure Pass [facility], Ct Scan - [address] [address] Social History Tobacco Use Types Packs/Day Years [...] Visit [facility] [address] [place], [place] [phone] Vandana Dick RN [address] [place], [place] [phone] 02/18/2025 2:30 AM EDT Home Care Visit [facility] [address] [place] [phone] Vandana Dick, AMAYA [address] [place] [address] 02/25/2025 1:00 AM EDT Home Care Visit [facility] [address] [place], [place] [phone] Vandana Dick RN [address] [place] [address] 03/04/2025 1:30 AM EDT Appointment [facility] [address] [place], [place] [phone] Vandana Dick RN [address] [place] [phone] documented as of this encounter Visit Diagnoses Not on filedocumented in this encounter Additional Health Concerns Infection Onset Date Last Indicated Resolved Time CoV-Risk Comment:Per note documentation 01/28/2024 01/28/2024 12:48 PM EDT documented as of this encounter Care Teams Welt Stitcher Relationship Specialty Start Date End Date Bety Bettencourt PA [address] [place] [address] PCP - General Physician Wine Master 01/28/24 01/29/24 Bety Bettencourt PA [address] [place] [address] PCP - General Physician Wine Master 01/30/24 01/30/24 Bety Bettencourt PA [address] [place] [address] PCP - General Physician Wine Master 01/31/24 01/31/24 Kiara Vicente MD [address] [place] [address] PCP - General 05/29/24 12/27/24 Bety Bettencourt PA [address] [place], [place] [phone] PCP - General Physician Wine Master 12/28/24 Bety Bettencourt PA [address] [place], [place] [phone] Primary Care Physician 01/31/24 documented as of this encounter Additional Source Comments The information contained in this document represents components of the legal health record. It is not the complete legal health record.[facility]
--- OUTSIDE RECORDS SUMMARY | 2025-02-05 17:02 | XMS_ITS | Encounter Summary ---
Author Organization [facility] Address [address] [place] [address] [place] [phone] Phone Care Team Providers Care Accountant Systems Name Role Phone Bety Bettencourt Primary Care Provider [phone] Reason for Referral * MRI/CAT Scan - New Request Specialty Diagnoses / Procedures Referred By Gatito siddiqi Referred To Contact Radiology Diagnoses Brain tumor Procedures MRI Brain Conrado Dick MD [address] [place] [address], [address] [place] [address] Phone: tel: fax: [email or web address] Referral ID Status Reason Start Date Expiration Date V isits Requested Visits Authorized [id number] New Request 01/20/2025 1 1 Encounter Details Date Type Department Care Team (Latest Contact Info) Description 01/20/2025 Transcribe Orders Virtual Department [address] [place], [place] [phone] Conrado Dick MD [address] [place] [address], [address] [place] [place] [phone] [email or web address] Brain tumor (Primary Dx) Social History [...] 2:30 AM EDT Home [facility] Visit [facility] [address] [place] [phone] Vandana Dick RN [address] [place] [address] 02/18/2025 2:30 AM EDT Home Care Visit [facility] [address] [place] [phone] Vandana Dick RN [address] [place] [address] 02/25/2025 1:00 AM EDT Home Care Visit [facility] [address] [place] [phone] Vandana Dick RN [address] [place] [address] 03/04/2025 1:30 AM EDT Appointment [facility] [address] [place] [phone] Vandana Dick RN [address] [place] [address] Scheduled Orders Name Type Priority Associated Diagnoses Orde r Schedule MRI Brain Imaging Routine Brain tumor Expected: 01/20/2025, Expires: 01/20/2026 documented as of this encounter Visit Diagnoses Diagnosis Brain tumor- Primary Neoplasm of unspecified nature of brain documented in this encounter Care Teams Accountant Systems Relationship Specialty Start Date End Date Bety Bettencourt PA [address] [place], [place] [phone] PCP - General Physician Human Resource Intern 12/28/24 Bety Bettencourt PA [address] [place], [place] [phone] Primary Care Physician 01/31/24 documented as of this encounter Additional Source Comments The information contained in this document represents components of the legal health record. It is not the complete legal health record.[facility]
--- OUTSIDE RECORDS SUMMARY | 2025-02-05 17:02 | XMS_ITS | Clinical Summary ---
Author Organization [facility] Address [address] [place] [address] Phone Care Team Providers Care Box Truck Owner Operator Name Role Phone Bety Bettencourt Primary Care Provider [phone] Allergies No known active allergies Medications [...] 05/20/2024 Renal mass 01/30/2024 Acute kidney injury ([facility] V24) 01/29/2024 Acute pulmonary edema ([facility] V24, [facility] V28) 01/29/2024 Acute respiratory failure wi th hypoxia ([facility] V24, [facility] V28) 01/29/2024 Hyperlipidemia 01/29/2024 Impaired glucose tolerance 01/29/2024 Chronic back pain 01/29/2024 Lower extremity edema 01/29/2024 Overview (05/20/2024): LVEF 65% with no diastolic dysfunction on TTE 12/2023 Marijuana abuse 01/29/2024 Primary osteoarthritis of left knee 12/19/2022 Primary osteoarthritis of right knee 12/19/2022 Status post total replacement of right hip 12/19 Ascending aorta dilatation ([facility] V24) 023 Asthma 12/15/2022 Chronic obstructive pulmonar y disease ([facility] V24, [facility] V28) 12/15/2022 Depression 12/15/2022 Dyslipidemia 12/15/2022 GERD with esophagitis 12/15/2022 HTN (hypertension) 12/15/2022 Impaired fasting glucose 12/15/2022 Low back pain 12/15/2022 CASSIUS on CPAP 12/15/2022 Palpitations 12/15/2022 Severe obesity ([facility] V24, [facility] V28) 2022 Steatosis of liver 12/15/2022 Tobacco dependence 12/15/2022 Urge incontinence of urine 12/15/2022 Encounters Date Type Department Care Team Description 12/23/2024 11:15 AM EDT Office Visit Orthopedic Surgery - [place] [address] [facility] [address] [place] [address] Jaquelin Valderrama PA Arthritis of knee (Primary Dx) [facility] [address] [place] [address] Naveed Boudreaux MD 12/02[facility] [address] [facility] [address] [place] [address] Naveed Boudreaux MD from Last [...] Site/Laterality Comments OTHER SURGICAL HISTORY Right PROCEDURE: [place] ARTHRP ACETBLR/PROX FEM PROSTC AGRFT/ALGRFT; COMMENT: x 2 Medical History Medical History Date Comments Anxiety disorder DX:Anxiety diso rder Depression DX:Depression COPD (chronic obstructive pu lmonary disease) ([facility] V24, [facility] V28) DX:COPD (chronic o bstructive pulmonary disease) ([facility]) High blood pressure DX:High bloo d pressure [...] AM EDT Office Visit Orthopedic Surgery - [place] [address] [facility] [address] [place] [address] Jaquelin Valderrama PA [address] [facility] [address] [place] [address] Health Maintenance Due Date Last [...] Procedure Name Priority Date/Time Associated Diagnosis Comments [place] ARTHROCENTESIS/ASPI RATION/INJECTION MAJOR JOINT/BURSA W/O U/S GUIDANCE Routine 12/23/2024 11:15 AM EDT Arthritis of knee from Last 3 Months Results * [place] ARTHROCENTESIS/ASPIRATION/INJECTION MAJOR JOINT/BURSA W/O U/S GUIDANCE (12/23/2024 [...] Final Result from Last 3 Months Insurance [facility] Care Teams Box Truck Owner Operator Relationship Specialty Start Date End Date Bety Bettencourt PA [address] [place] [phone] PCP - General Physician Marketing Operations Consultant 04/22/24
--- OUTSIDE RECORDS SUMMARY | 2025-02-05 17:02 | XMS_ITS | Encounter Summary ---
Author Organization [facility] Address [address] [place] [address] Phone Care Team Providers Care Facility Security Officer Name Role Phone Bety Bettencourt Primary Care Provider +1- [phone] Bety Bettencourt Primary Care Provider +1- [phone] Kiara Vicente MD Primary Care Provider Bety Bettencourt Primary Care Provider +1- [phone] Encounter Details Date Type Department Care Team (Late st Contact Info) Description 01/30/2024 Procedure Pass [facility], Ct Scan - [address] [address] Social History Tobacco Use Types Packs/Day Years [...] Visit [facility] [address] [place] [address] Vandana Dick RN [address] [place] [address] 02/18/2025 2:30 AM EDT Home Care Visit [facility] [address] [place], [place] [phone] Vandana Dick RN [address] [place] [address] 02/25/2025 1:00 AM EDT Home Care Visit [facility] [address] [place], [place] [phone] Vandana Dick, AMAYA [address] [place] [address] 03/04/2025 1:30 AM EDT Appointment [facility] [address] [place], [place] [phone] Vandana Dick RN [address] [place] [address] documented as of this encounter Visit Diagnoses Not on filedocumented in this encounter Care Teams Facility Security Officer Relationship Specialty Start Date End Date Bety Bettencourt PA [address] [place] [address] PCP - General Physician Rail Setter 01/30/24 01/30/24 Bety Bettencourt PA [address] [place] [address] PCP - General Physician Rail Setter 01/31/24 01/31/24 Kiara Vicente MD [address] [place] [address] PCP - General 05/29/24 12/27/24 Bety Bettencourt PA [address] [place] [address] PCP - General Physician Rail Setter 12/28/24 Bety Bettencourt PA [address] [place] [address] Primary Care Physician 01/31/24 documented as of this encounter Additional Source Comments The information contained in this document represents components of the legal health record. It is not the complete legal health record.[facility]
== END 2025-02-05 13:56 | disposition home or self-care (01) ==
LOC: HO.US 13:55
PROVIDERS: PCP Physician Assistant; Visit Provider Physician Assistant
DX: I67.2 Cerebral atherosclerosis (principal); Z86.73 Personal history of transient ischemic attack (TIA), and cerebral infarction without residual deficits
CPT/HCPCS: 93880

== ENCOUNTER → 2025-02-05 13:58 | Outpatient (BNV) | payer OTHER, SELFPAY | PROVIDERS: PCP Physician Assistant; Visit Provider Radiology Diagnostic Radiology | DX: I67.2 Cerebral atherosclerosis (principal) | CPT/HCPCS: 93880 ==

== ENCOUNTER 2025-02-11 11:49 | Outpatient (AMB) | payer OTHER, SELFPAY ==
--- OUTSIDE RECORDS SUMMARY | 2025-02-11 11:30 | XMS_ITS | Encounter Summary ---
Author Organization [facility] Address [address] [place] [address] Phone Care Team Providers Care Nursery School Teacher Name Role Phone Bety Bettencourt Primary Care Provider +1- [phone] Reason for Visit * Auth/Cert (Routine) Specialty Diagnoses / Procedures Referred By Gatito t Referred To Contact Referral ID Status Reason Start Date Expiration Date Visits Re quested Visits Authorized [id number] 1 1 Encounter Details Date Type Department Care Team (Late st Contact Info) Description 02/11/2025 11:30 AM EDT Home Care Visit [facility] [address] [place] [address] Vandana Dick RN [address] [place] [address] [email or web address] SN HOME VISIT Social [...] Care Team (Late st Contact Info) Description 01/20/2025 Procedure Pass [address] [address] 02/18/2025 2:30 AM EDT [facility] [address] [place] [phone] Vandana Dick RN [address] [place] [address] 02/25/2025 1:00 AM EDT [facility] [address] [place] [phone] Vandana Dick RN [address] [place] [address] 03/04/2025 1:30 AM EDT [facility]ment [facility] [address] [place] [address] Vandana Dick RN [address] [place] [address] 03/07/2025 2:05 PM EDT Appointment [address] [address] Conrado Dick MD [address] [place] [address], [address] [place] [address] documented as of this encounter Visit Diagnoses Not on filedocumented in this encounter Home Health Visit - Care Plan Visit Details Visit Type -SN HOME VISIT Discipline -Half-Way Problems Problem Description Start Date Status Goals [...] harm related to medication errors and/or interactions - Medication Management No HH - Communication and collaboration to achieve patient goals - Focus of Care and Teaching No HH - Knowledge of options for managing care in the event of an emergency related situation. HH - Emergency Planning - Knowledge of No HH - Achieve care management for a safe to home/community discharge from homecare HH - Standard of Care No HH - Demonstrate/verbalize wound care management, wound/lesion will be free from complications - Wound No Interventions Intervention Associated Problem/Goal Status Variance Visit Notes HH - I/E medication management: administration, purpose, dosages, preparation, setup, scheduling, side effects, food/drug interactions, and potential complications as indicated Description: Update patient's copy of medication list as needed. Problem: - Medication Management Goal:HH - Safe medication management, avoid unnecessary harm related to medication errors and/or interactions Scheduled - Complete medication review every visit and medication reconciliation as indicated. Pharmacy information: Description: medication reconcilliation completed Problem: - Medication Management Goal: - Safe medication management, avoid unnecessary harm related to medication errors and/or interactions Scheduled - Focus of care, teaching completed and plan for next visit Problem: - Focus of Care and Teaching Goal: - Communication and collaboration to achieve patient goals Scheduled - I/E management of care in an urgent or emergency (ER) situation: When to call your Home Care Team/911, ER plans, supplies, evacuation, when to contact local ER officials and how to stay informed Problem: - Emergency Planning - Knowledge of Goal:HH - Knowledge of options for managing care in the event of an emergency related situation. Scheduled - Emergency planning assessment: the emergency plan, supplies needed, emergency contact numbers and an evacuation plan were reviewed Description: Patient and Caregiver is/are knowledgeable of emergency plans. Problem:HH - Emergency Planning - Knowledge of Goal:HH - Knowledge of options for managing care in the event of an emergency related situation. Scheduled HH - Assess vital signs, pulse oximetry, pain, and as indicated, orthostatic vital signs Description: use agency-specific parameters Problem:HH - Standard of Care Goal:HH - Achieve care management for a safe to home/community discharge from homecare Scheduled HH - Assess skin integrity Problem:HH - Standard of Care Goal:HH - Achieve care management for a safe to home/community discharge from homecare Scheduled HH - Assess wounds/lesions/ramirez Description: LOCATION: skin tear to left upper chest. cover with bandaid and monitor for s/s of infection and report to Pcp Problem:HH - Wound Goal:HH - Demonstrate/verbalize wound care management, wound/lesion will be free from complications Scheduled documented in this encounter Care Teams Nursery School Teacher Relationship Specialty Start Date End Date Bety Bettencourt PA [address] [place] [address] PCP - General Physician Copy Chief 12/28/24 Bety Bettencourt PA [address] [place], [place] [phone] Primary Care Physician 01/31/24 documented as of this encounter Additional Source Comments The information contained in this document represents components of the legal health record. It is not the complete legal health record.[facility]
--- NOTE | 2025-02-11 11:53 | MHC.OFFVIS ---
Intake Visit Reasons: FOLLOW UP US Intake Note: Patient is present for US F/U Urology Medication:VITAMIN B12 Antibiotic Allergy:NONE Blood Thinner:ASPIRIN Director Motion Picture Required: No Allergies No Known Allergies Allergy (Verified 02/11/25 11:54) HPI Comments Details: Tawny is a pleasant 63-year-old female patient of Dr. Bettencourt. She has a past medical history of chronic kidney disease stage 3, smoker, dyslipidemia, hypertension, type 2 diabetes, vitamin B12 deficiency, urge incontinence, obesity, GERD, prediabetes, obstructive sleep apnea, cannabis misuse, asthma O2 dependent, arthritis, and allergic rhinitis. She presents to the office today for follow-up of her renal cysts. In discussion with the patient today she reports since her last office visit here she has had multiple issues with heart failure, a heart attack, and ongoing pain management issues. She denies having had any bothersome urinary or urological issues. Recent renal imaging results reviewed with the patient today. 12/20 bilateral kidneys are normal in parenchymal echotexture and thickness. No hydronephrosis noted bilaterally. Bilateral renal cysts. Right 1.1 cm simple cyst at the lower pole. Left 1.5 cm cyst at the upper pole. Previous workup has also included a MRI renal mass protocol 04/21 noting bilateral Bosniak 2 cysts per radiology report recommending follow-up. Right kidney cysts measuring 1.2 cm and left kidney with 1.4 cm cyst. When asked she does report a longstanding history of stress incontinence and feels at times it worsens given her decreased in mobility however feels she is managing this well independently. When asked she denies hematuria, dysuria, foul smelling urine, changes to urinary stream, flank pain, fever, and or chills. She is happy with her current voiding parameters. We discussed importance of surveillance monitoring of renal cysts. All questions were answered. Reviewed with the patient today. She otherwise offers no other issues or concerns at this time. [facility] Medical History CKD (chronic kidney disease) stage 3, GFR 30-59 ml/min Increased urinary frequency Gait instability Smoker Chronic pain of both knees Dyslipidemia HTN (hypertension) Controlled type 2 diabetes mellitus Vitamin A deficiency Vitamin B12 deficiency Urge incontinence of urine Steatosis Severe obesity Prediabetes Palpitations Osteoarthritis of knee Obstructive sleep apnea syndrome Obesity Numbness Microalbuminuria Lumbar pain with radiation down both legs Internal hemorrhoids Hip pain GERD (gastroesophageal reflux disease) Depressive disorder affecting childbirth Chronic obstructive lung disease Cannabis misuse Bilateral cataracts Asthma Arthritis Allergic rhinitis Surgical History History of total hip replacement Social History Housing: Apartment Alcohol intake: former Patient Tobacco Use Status: Former Tobacco user Cigarette Packs Per Day: 6 Years Smoked: 46 e-Cigarette/Vaping Use: Never Used Second Hand Smoke Exposure: No Substance Use Type: Marijuana service: No Current occupational status: disabled Cognitive needs: No Hearing needs: No Vision needs: No Review of Systems Const Reports as per HPI Eyes Reports no additional complaints ENT Reports as per HPI Card Reports as per HPI Resp Reports as per HPI GI Reports as per HPI Reports as per HPI Musc Reports as per HPI Neuro Reports as per HPI Psych Reports as per HPI Endo Reports as per HPI Physical Exam Const General: cooperative, comfortable, no acute distress, well developed, alert and awake Nutritional Appearance: overweight Orientation/consciousness: patient oriented x3 Limitations: ambulation with walker HEENT Head: Yes normal to inspection, Yes normocephalic and Yes atraumatic Ears: hearing grossly normal bilaterally Eyes General: appearance normal, both eyes and all related structures Neck Neck: Yes normal visual inspection and Yes trachea midline Chest Chest palpation & inspection: normal inspection of the chest Resp Effort & Inspection: normal respiratory effort and able to speak in complete sentences Cardio Rate: regular rate GI Inspection: Yes normal to inspection General: Yes no CVA tenderness Back/Spine/Pelvis Back: no CVA tenderness Skin General skin exam: no rashes or lesions noted Neuro General: patient oriented x3 Extrem General: Yes normal to inspection Psych Appearance: grossly normal and well kempt Mental Status: mental status grossly normal Speech and movement: Normal speech and movement present and Clear speech present Affect: normal affect Attitude: cooperative Thought process: Normal thought process present Thought content: Normal thought content present Insight: Fair insight present (Psych) Judgement: Fair judgement present (Psych) Results AMB Urinalysis, Automated UA Leukoctes 0 Philip/uL Last Edit by SHERRIE Roger on 02/11/25 12:04 UA Nitrite Negative Last Edit by SHERRIE Roger on 02/11/25 12:04 UA Urobilinogen 0.2 mg/dL Last Edit by SHERRIE Roger on 02/11/25 12:04 UA Protein 0 mg/dL Last Edit by [facility] on 02/11/25 12:04 UA pH 6.0 Last Edit by Debbie Orta [facility] on 02/11/25 12:04 UA Blood 0 Per/uL Last Edit by Debbie Orta [facility] on 02/11/25 12:04 UA Specific [place] 1.015 Last Edit by Debbie Orta [facility] on 02/11/25 12:04 UA Ketone Negative Last Edit by Debbie Orta [facility] on 02/11/25 12:04 UA Bilirubin 0 mg/dL Last Edit by Debbie Orta [facility] on 02/11/25 12:04 UA Glucose 0 mg/dL Last Edit by Debbie Orta [facility] on 02/11/25 12:04 Results Reviewed Results Reviewed: Laboratory Last Values Urine pH (Auto) 6.0 02/11/25 12:04 Specific [place] (Auto) 1.015 02/11/25 12:04 Urine Protein (Auto) 0 mg/dL 02/11/25 12:04 Glucose (UA)(Auto) 0 mg/dL 02/11/25 12:04 Urine Ketones (Auto) Negative 02/11/25 12:04 Urine Blood (Auto) 0 Per/uL 02/11/25 12:04 Urine Nitrite (Auto) Negative 02/11/25 12:04 Urine Bilirubin (Auto) 0 mg/dL 02/11/25 12:04 Urine Urobilinogen (Auto) 0.2 mg/dL 02/11/25 12:04 Leukocyte Esterase (Auto) 0 Philip/uL 02/11/25 12:04 Date of Service: 12/20/24 Procedure(s): US renal BI FINDINGS: Right kidney: The right kidney measures 10.7 x 4.3 x 4.3 cm. Renal parenchymal echotexture and thickness are normal. There is a 1.1 x 1.1 x 1.0 cm simple cyst at the lower pole. There is no hydronephrosis or renal calculi. Left Kidney: The left kidney measures 10.2 x 4.5 x 4.5 cm. Renal parenchymal echotexture and thickness are normal. There is a 1.7 x 1.5 x 1.5 cm simple cyst at the upper pole. There is no hydronephrosis or renal calculi. IMPRESSION: Bilateral renal cysts as described. Assessment & Plan Assessment & Plan (1) Renal cyst: Code(s): N28.1 - Cyst of kidney, acquired Category: Medical (2) Stress incontinence: Code(s): N39.3 - Stress incontinence (female) (male) Category: Medical (3) Left renal mass: Code(s): N28.89 - Other specified disorders of kidney and ureter Category: Medical Plan In office urinalysis results reviewed with the patient today; as noted above. Recent renal imaging results reviewed with the patient today; as noted above. Patient does report longstanding history of stress incontinence however does not find this bothersome. She currently denies any bothersome urinary issues or concerns. She reports be happy with current voiding parameters. Discussed importance of surveillance monitoring. Will obtain renal ultrasound in 6 months. Follow-up in 6 months with imaging to be completed prior; or sooner with any issues, concerns, and or questions. Orders: Orders AMB Urinalysis Automated Today Z13.9 - Encounter for screening, unspecified US renal BI 1 Year N28.1 - Cyst of kidney, acquired, N28.89 - Other specified disorders of kidney and ureter Patient Instructions: The patient had an opportunity to ask questions regarding the treatment plan. All questions were answered. Physical exam, labs, and imaging were discussed and reviewed in detail. As well as risks, benefits, and discussion of treatment choices. No major barriers to understanding were identified. The patient expressed understanding and agreement with the above treatment plan. The patient was made aware they should contact our office by phone for worsening of their current condition, the appearance of new symptoms, or with any questions or concerns. Compliance is encouraged with any medications and follow up testing that is ordered. It is a privilege to be allowed the opportunity to participate in? your urological care.? Again, if you have any questions or concerns If you have any questions or concerns please do not hesitate to contact me. The office is [phone]. This note is constructed using voice recognition software. While every effort has been made to ensure accuracy grease cup filler errors may have been included. Yours sincerely, Peace [address], [employer] Coding Level of Care Code Est Pt Level 3 (23204) Complex EM visit Add On G2211 Diagnoses Renal cyst N28.1 Stress incontinence N39.3 Left renal mass N28.89
--- OUTSIDE RECORDS SUMMARY | 2025-02-11 16:04 | XMS_ITS | Encounter Summary ---
Author Organization [facility] Address [address] [place] [address] Phone Care Team Providers Care Powder Compounder Name Role Phone Bety Bettencourt Primary Care Provider +1- [phone] Bety Bettencourt Primary Care Provider +1- [phone] Kiara Vicente MD Primary Care Provider Bety Bettencourt Primary Care Provider +1- [phone] Encounter Details Date Type Department Care Team (Late st Contact Info) Description 01/30/2024 Procedure Pass [facility], Ct Scan - [address] [address] Social History Tobacco Use Types Packs/Day Years [...] st Contact Info) Description 01/20/2025 Procedure Pass [facility], [facility] [address] [place] [address] 02/18/2025 2:30 AM EDT Home Care Visit [facility] [address] [place] [phone] Vandana Dick RN [facility] [place] [address] 02/25/2025 1:00 AM EDT [facility] [address] [place] [phone] Vandana Dick RN [address] [place] [address] 03/04/2025 1:30 AM EDT [facility]ment [facility] [address] [place] [address] Vandana Dick RN [address] [place] [address] 03/07/2025 2:05 PM EDT Appointment [facility], [address] [address] Conrado Dick MD [address] [place] [address], [address] [place] [address] documented as of this encounter Visit Diagnoses Not on filedocumented in this encounter Care Teams Powder Compounder Relationship Specialty Start Date End Date Bety Bettencourt PA [address] [place] [address] PCP - General Physician Head Of Science 01/30/24 01/30/24 Bety Bettencourt PA [address] [place] [address] PCP - General Physician Head Of Science 01/31/24 01/31/24 Kiara Vicente MD [address] [place] [address] PCP - General 05/29/24 12/27/24 Bety Bettencourt PA [address] [place] [address] PCP - General Physician Head Of Science 12/28/24 Bety Bettencourt PA [address] [place] [address] Primary Care Physician 01/31/24 documented as of this encounter Additional Source Comments The information contained in this document represents components of the legal health record. It is not the complete legal health record.[facility]
--- OUTSIDE RECORDS SUMMARY | 2025-02-11 16:05 | XMS_ITS | Clinical Summary ---
Author Organization [facility] Address [address] [place] [address] Phone Care Team Providers Care Photoengraving Finisher Name Role Phone Bety Bettencourt Primary Care Provider +1- [phone] Allergies No known active allergies Medications VITAMIN [...] noted Trops trending down due to known UT last week Continue IV Lasix for another [...] EDT): STEMI last week, was transferred to [facility] for PCI/stent Cont Brinlinta Assessment & Plan (01/03/2025 10:20 AM EDT): STEMI last week, was transferred to [facility] for PCI. Renal mass 01/30/2024 Assessment [...] P.o. Lasix, obtain recent echo report from [facility] -- REPOSSESSOR eval -- Consult to pulmonary (she is followed by Dr. Boudreaux in [place]) -- May need home O2 eval before discharge Acute pulmonary edema 01/29/2024 Assessment & Plan (01/31/2024 11:35 AM EDT): She has a history of lower extremity edema and was referred to [facility] cardiology. She had an echocardiogram in December and was seen by cardiology subsequent to that. Apparently echo at that time was normal. Concern raised in the ED for possible flash pulmonary edema from hypertension. She was recently taken off of metoprolol and placed on HCTZ Leg swelling improved with diuresis. BP now stable. -- Continue p.o. Lasix, low-salt diet Addendum: [facility] records obtained. She had an echo [...] Encounters Date Type Department Care Team Description 02/11/2025 11:30 AM EDT [facility] Visit [facility] [address] [place] [phone] Vandana Dick RN SN HOME VISIT 02/04/2025 1:30 PM EDT [facility] [address] [place] [phone] Julissa Holder RN SN HOME VISIT 01/29/2025 Episode Documentation Update [facility] [address] [place] [phone] Lilia Morgan 01/24/2025 Episode Documentation Update [facility] [address] [place] [address] Fara Tate 01/24/2025 Home Care Visit [facility] [address] [place] [address] Trixie López CASE COMMUNICATION 01/23/2025 12:00 PM EDT [facility] Visit [facility] [address] [place] [address] Vandana Dick RN SN HOME VISIT 01/21/2025 2:00 PM EDT [facility] Visit [facility] [address] [place] [address] Vandana Dick, AMAYA SN HOME VISIT 01/20/2025 Transcribe Orders Virtual Department [address] [place] [address] Conrado Dick MD Brain tumor (Primary Dx) 01/17/2025 10:00 AM EDT [facility] Visit [facility] [address] [place] [address] Danielle Noyola LPN LPN HOME VISIT 01/14/2025 10:00 AM EDT Home [facility] Visit [facility] [address] [place] [address] Kristyn Kunz, RN SN HOME VISIT 01/08/2025 9:00 AM EDT [facility] Visit [facility] [address] [place] [address] Kristyn Kunz, RN SN OASIS START OF CARE (SOC) 01/08/2025 Plan of Care Documentation [facility] [address] [place] [phone] 01/07/2025 Home Care Visit [facility] [address] [place] [phone] Bhumika Esposito RN CASE COMMUNICATION 01/05/2025 [facility] [address] [place] [phone] Homehealth, Interface ProviderMD 01/04/2025 Procedure Pass [facility] [address] [place] [address] 01/03/2025 5:30 AM EDT Ancillary Procedure [facility], Ultrasound - [address] [address] Daysi Diaz MD 01/03/2025 5:16 AM EDT - 01/05/2025 4:10 PM EDT Hospital Encounter [facility] [address] [place] [address] Daysi Diaz MD Brewer, Allison V, MD Arepally, Sandeep, MD Russo, Margaret A, MD Altman, Evan K, DO, MPH Discharge Disposition: [place]-Health [place] [facility] 12/28/2024 1:14 AM EDT - 12/28/2024 2:46 AM EDT Emergency [facility] Emergency [address] [place] [address] Matias Ortiz MD Discharge Disposition: Short Term [...] st Contact Info) Description 01/20/2025 Procedure Pass [address] [address] 02/18/2025 2:30 AM EDT [facility] [address] [place] [phone] Vandana Dick RN [address] [place] [address] [email or web address] 02/25/2025 1:00 AM EDT [facility] [address] [place] [phone] Vandana Dick RN [address] [place] [address] [email or web address] 03/04/2025 1:30 AM EDT [facility]ment [facility] [address] [place] [phone] Vandana Dick RN [address] [place] [phone] [email or web address] 03/07/2025 2:05 PM EDT Appointment [address] [address] Conrado Dick MD [address] [place] [address], [address] [place] [address] [email or web address] Maintenance Due Date Last Done Comments [...] included. SODIUM 141 133 - 146 mmol/L [facility] CHLORIDE 99 96 - 108 mmol/L [facility] POTASSIUM 3.8 3.3 - 5.1 mmol/L [facility] CO2 27 21 - 35 mmol/L [facility] BUN 25(H) 6 - 19 mg/dL [facility] CREATININE 1.10 0.5 - 1.5 mg/dL [facility] GLUCOSE 123(H) 70 - 99 mg/dL [facility] CALCIUM 8.6 8.4 - 10.3 mg/dL [facility] EGFR 56(L) >59 mL/min/1.7 3m2 [facility] Comment:Estimated glomerular filtration rate calculated using the CKD-EPI refit equation. ANION GAP 19 10 - 20 mmol/L [facility] Blood 01/05/2025 6:20 AM EDT 01/05/2025 6:43 AM EDT us rPeethi Casanova MD LAB BLOOD ORDERABLES Final R esult [facility] [address] [place] [address] * TTE COMPREHENSIVE (01/04/2025 11:39 AM EDT) [...] significant changes present compared to echo from [facility] on December 28, 2024 IAS/IVS The interatrial septum appears normal. us Preethi Casanova MD CV ECHO ORDERABLES Final Res ult * (ABNORMAL) Troponin (01/03/2025 7:26 AM EDT) Only the most recent of3 resultswithin the time period is included. Troponin-T, HS Gen5 1,730(H) 0 - 9 ng/L [facility] Blood 01/03/2025 7:26 AM EDT 01/03/2025 7:38 AM EDT us Daysi Diaz MD LAB BLOOD ORDERABLES Final R esult [address] [address] * XR Chest Portable (01/03/2025 6:10 AM EDT) Anatomical Region Laterality Modality Chest Computed Radiogr aphy 01/03/2025 6:35 AM EDT Impressions 01/03/2025 6:36 AM EDT Moderate pulmonary edema. Narrative 01/03/2025 6:36 AM EDT XR CHEST PORTABLE Referring clinician's provided indication for this examination in Epic: Dyspnea (Shortness of Breath) COMPARISON: XR CHEST 1 VIEW FINDINGS: Devices/Tubes/Lines: None. Lungs: No focal consolidation. Moderate pulmonary edema. Pleura: No pleural effusion or pneumothorax. Heart/Mediastinum: Normal heart and mediastinum. Bones/Soft Tissues: No significant abnormality. Old right rib fractures. Procedure Note Claudia Ortiz MBBS - 01/03/2025 XR CHEST PORTABLE Referring clinician's provided indication for this examination in [facility]:Dyspnea (Shortness of Breath) COMPARISON: XR CHEST 1 VIEW FINDINGS: Devices/Tubes/Lines: None. Lungs: No focal consolidation. Moderate pulmonary edema. Pleura: No pleural effusion or pneumothorax. Heart/Mediastinum: Normal heart and mediastinum. Bones/Soft Tissues: No significant abnormality. Old right rib fractures. IMPRESSION: Moderate pulmonary edema. us Daysi Diaz MD IM XR CHEST Final Result * (ABNORMAL) CBC and differential (01/03/2025 6:04 AM EDT) Only the most recent of2 resultswithin the time period is included. WBC 9.63 4.00 - 11.00 K/uL [facility] RBC 3.59(L) 4.00 - 5.20 M/uL [facility] HGB 10.3(L) 12.0 - 16.0 g/dL [facility] HCT 32.4(L) 36.0 - 46.0 % [facility] PLT 310 150 - 450 K/uL [facility] MCV 90.3 80.0 - 100.0 fL [facility] MCH 28.7 27.0 - 31.0 pg [facility] MCHC 31.8(L) 32.0 - 36.0 g/dL [facility] RDW 14.4 11.5 - 14.5 % [facility] MPV 9.9 8.4 - 12.0 fL [facility] NRBC 0.00 0.00 /100 WBCs [facility] ABSOLUTE NRBC 0.00 0.00 K/uL [facility] DIFF METHOD Auto [facility] NEUTS 71.9 48.0 - 76.0 % [facility] LYMPHS 17.9(L) 18.0 - 41.0 % [facility] MONOS 7.3 4.0 - 11.0 % [facility] EOS 2.3 0.0 - 5.0 % [facility] BASOS 0.1 0.0 - 1.5 % [facility] Granulocytes, immature (%) 0.5 0.0 - 0.9 % [facility] ABSOLUTE NEUTS 6.93 1.92 - 7.60 K/uL [facility] ABSOLUTE LYMPHS 1.72 0.72 - 4.10 K/uL [facility] ABSOLUTE MONOS 0.70 0.16 - 1.10 K/uL [facility] ABSOLUTE EOS 0.22 0.00 - 0.50 K/uL [facility] ABSOLUTE BASOS 0.01 0.00 - 0.15 K/uL [facility] Granulocytes, immature 0.05 0.00 - 0.09 K/uL [facility] Blood 01/03/2025 6:04 AM EDT 01/03/2025 6:15 AM EDT us Daysi Diaz MD LAB BLOOD ORDERABLES Final R esult Performing Organization Address City/[facility]/ZIP Co de Phone Number [address] [address] * (ABNORMAL) NT-proBNP (01/03/2025 6:04 AM EDT) Only the most recent of2 resultswithin the time period is included. NT-PROBNP 11,402(H) 0 - 125 pg/mL [facility] Blood 01/03/2025 6:04 AM EDT 01/03/2025 6:15 AM EDT Daysi Diaz MD LAB BLOOD ORDERABLES Final R esult [address] [address] * Magnesium (01/03/2025 6:04 AM EDT) Only the most recent of2 resultswithin the time period is included. MAGNESIUM 1.6 1.6 - 2.6 mg/dL [facility] Blood 01/03/2025 6:04 AM EDT 01/03/2025 6:15 AM EDT Daysi Diaz MD LAB BLOOD ORDERABLES Final R esult [address] [address] * US BEDSIDE (01/03/2025 5:26 AM EDT) [...] positive Images: Images Saved: Yes Accession Number: [id number] Daysi Diaz MD IMG POINT OF CARE EXAMS Ana Paula l Result * ECG 12-LEAD (01/03/2025 5:21 AM EDT) Only the most recent of3 resultswithin the time period is included. [facility] Ventricular Rate EKG/MIN 76 BPM [facility] Atrial Rate 76 BPM [facility] PA Interval 186 ms [facility] QRS Duration 102 ms [facility] QT Interval 402 ms [facility] QTC Interval 452 ms [facility] P [place] 45 degrees [facility] R Wave [place] 52 degrees [facility] T Wave [place] 35 degrees [facility] 01/03/2025 5:21 AM EDT [...] ALKALINE PHOSPHATASE 107 39 - 117 U/L [facility] TOTAL BILIRUBIN <0.2 0.0 - 1.2 mg/dL [facility] DIRECT BILIRUBIN <0.1 0.0 - 0.2 mg/dL [facility] Bilirubin (Indirect) NOT CALCULATED 0 - 1.5 mg/dL [facility] AST 10 0 - 37 U/L [facility] ALT 8 0 - 40 U/L [facility] TOTAL PROTEIN 6.8 6.5 - 8.0 g/dL [facility] ALBUMIN 3.7(L) 3.9 - 4.8 g/dL [facility] GLOBULIN 3.1 1 - 4.8 g/dL [facility] A/G Ratio 1.19 1.00 - 4.80 RATIO [facility] Blood 12/28/2024 2:00 AM EDT 12/28/2024 2:11 AM EDT us Matias Ortiz MD LAB BLOOD ORDERABLES Ana Paula martinez Result Performing Organization Address City/State/[facility] Co de Phone Number [facility] [address] [place] [address] from Last [address] [id number] [facility] Advance Directives For more information, please contact: [phone] (9AM - 5PM [facility], Monday-Monday) Documents on File Type Date Recorded Patient Cathode Maker Expl anation Healthcare Proxy 02/01/2024 3:15 PM [...] Name Relationship Healthcare Agent Relationship Communication Tanya Ling Daughter .Primary Health Care Agent (Proxy form on file) Prabha Ling Daughter Alternate Health care Agent (Proxy form on file) Care Teams Photoengraving Finisher Relationship Specialty Start Date End Date Bety Bettencourt PA [address] [place], [place] [phone] PCP - General Physician Licensed Vocational Nurse 12/28/24 Bety Bettencourt PA [address] [place], [place] [phone] Primary Care Physician 01/31/24 Additional Source Comments The information contained in this document represents components of the legal health record. It is not the complete legal health record.[facility]
--- OUTSIDE RECORDS SUMMARY | 2025-02-11 16:05 | XMS_ITS | Encounter Summary ---
Author Organization [facility] Address [address] [place] [address] [place] [address] Phone Care Team Providers Care Bearing Maker Name Role Phone Bety Bettencourt Primary Care Provider +1- [phone] Bety Bettencourt Primary Care Provider +1- [phone] Bety Bettencourt Primary Care Provider +1- [phone] Kiara Vicente MD Primary Care Provider Bety Bettencourt Primary Care Provider +1- [phone] Encounter Details Date Type Department Care Team (Late st Contact Info) Description 01/29/2024 Procedure Pass [facility], Ct Scan - [address] [address] Social History Tobacco Use Types Packs/Day Years [...] st Contact Info) Description 01/20/2025 Procedure Pass [facility], [facility] [address] [place] [address] 02/18/2025 2:30 AM EDT Home Care Visit [facility] [address] [place] [address] Vandana Dick, RN [address] [place] [address] 02/25/2025 1:00 AM EDT [facility] [address] [place] [phone] Vandana Dick RN [address] [place] [address] 03/04/2025 1:30 AM EDT [facility] [address] [place] [phone] Vandana Dick RN [address] [place] [address] 03/07/2025 2:05 PM EDT Appointment [address] [address] Conrado Dick MD [address] [place] [address], [address] [place] [address] documented as of this encounter Visit Diagnoses Not on filedocumented in this encounter Additional Health Concerns Infection Onset Date Last Indicated Resolved Time CoV-Risk Comment:Per note documentation 01/28/2024 01/28/2024 12:48 PM EDT documented as of this encounter Care Teams Bearing Maker Relationship Specialty Start Date End Date Bety Bettencourt PA [address] [place] [address] PCP - General Physician Airport Traffic Controller 01/28/24 01/29/24 Bety Bettencourt PA [address] [place] [address] PCP - General Physician Airport Traffic Controller 01/30/24 01/30/24 Bety Bettencourt PA [address] [place] [address] PCP - General Physician Airport Traffic Controller 01/31/24 01/31/24 Kiara Vicente MD [address] [place] [address] PCP - General 05/29/24 12/27/24 Bety Bettencourt PA [address] [place] [address] PCP - General Physician Airport Traffic Controller 12/28/24 Bety Bettencourt PA [address] [place] [address] Primary Care Physician 01/31/24 documented as of this encounter Additional Source Comments The information contained in this document represents components of the legal health record. It is not the complete legal health record.[facility]
--- OUTSIDE RECORDS SUMMARY | 2025-02-11 16:05 | XMS_ITS | Encounter Summary ---
Author Organization [facility] Address [address] [place] [address] [place] [address] Phone Care Team Providers Care Cryptographic Technician Name Role Phone Bety Bettencourt Primary Care Provider [phone]- [phone] Reason for Referral * MRI/CAT Scan - Authorized Specialty Diagnoses / Procedures Referred By Gatito siddiqi Referred To Contact Radiology Diagnoses Brain tumor Procedures MRI Brain CHG MRI BRAIN COMBO Conrado Dick MD [address] [place] [address], [address] [place] [address] Phone: tel: fax: [email or web address] Referral ID Status Reason Start Date Expiration Date V isits Requested Visits Authorized [id number] Authorized 01/20/2025 03/21/2025 1 1 Encounter Details Date Type Department Care Team (Latest Contact Info) Description 01/20/2025 Transcribe Orders Virtual Department [address] [place] [address] Conrado Dick MD [address] [place] [address], [address] [place], [place] [phone] [email or web address] Brain tumor (Primary Dx) Social History Tobacco [...] st Contact Info) Description 01/20/2025 Procedure Pass [address] [address] 02/18/2025 2:30 AM EDT [facility] [address] [place] [address] Vandana Dick RN [address] [place] [address] [email or web address] 02/25/2025 1:00 AM EDT [facility] [address] [place] [address] Vandana Dick RN [address] [place] [phone] [email or web address] 03/04/2025 1:30 AM EDT [facility] [address] [place] [address] Vandana Dick RN [address] [place] [address] 03/07/2025 2:05 PM EDT Appointment [address] [address] Conrado Dick MD [address] [place] [address], [address] [place] [address] Scheduled Orders Name Type Priority Associated Diagnoses Orde r Schedule MRI Brain Imaging Routine Brain tumor Expected: 01/20/2025, Expires: 01/20/2026 documented as of this encounter Visit Diagnoses Diagnosis Brain tumor- Primary Neoplasm of unspecified nature of brain documented in this encounter Care Teams Cryptographic Technician Relationship Specialty Start Date End Date Bety Bettencourt PA [address] [place], [place] [phone] PCP - General Physician Topline Beading Machine Tender 12/28/24 Bety Bettencourt PA [address] [place], [place] [phone] Primary Care Physician 01/31/24 documented as of this encounter Additional Source Comments The information contained in this document represents components of the legal health record. It is not the complete legal health record.[facility]
--- OUTSIDE RECORDS SUMMARY | 2025-02-11 16:05 | XMS_ITS | Clinical Summary ---
Author Organization [facility] Address [address] [place] [address] Phone Care Team Providers Care Art History Professor Name Role Phone Bety Bettencourt Primary Care Provider [phone] Allergies No known active allergies Medications [...] 05/20/2024 Renal mass 01/30/2024 Acute kidney injury ([facility] V24) 01/29/2024 Acute pulmonary edema ([facility] V24, [facility] V28) 01/29/2024 Acute respiratory failure wi th hypoxia ([facility] V24, [facility] V28) 01/29/2024 Hyperlipidemia 01/29/2024 Impaired glucose tolerance 01/29/2024 Chronic back pain 01/29/2024 Lower extremity edema 01/29/2024 Overview (05/20/2024): LVEF 65% with no diastolic dysfunction on TTE 12/2023 Marijuana abuse 01/29/2024 Primary osteoarthritis of left knee 12/19/2022 Primary osteoarthritis of right knee 12/19/2022 Status post total replacement of right hip 12/19 Ascending aorta dilatation ([facility] V24) 023 Asthma 12/15/2022 Chronic obstructive pulmonar y disease ([facility] V24, [facility] V28) 12/15/2022 Depression 12/15/2022 Dyslipidemia 12/15/2022 GERD with esophagitis 12/15/2022 HTN (hypertension) 12/15/2022 Impaired fasting glucose 12/15/2022 Low back pain 12/15/2022 CASSIUS on CPAP 12/15/2022 Palpitations 12/15/2022 Severe obesity ([facility] V24, [facility] V28) 2022 Steatosis of liver 12/15/2022 Tobacco dependence 12/15/2022 Urge incontinence of urine 12/15/2022 Encounters Date Type Department Care Team Description 12/23/2024 11:15 AM EDT Office Visit Orthopedic Surgery - [place] [facility] [address] [place] [address] Jaquelin Valderrama PA Arthritis of knee (Primary Dx) 12/19[facility]20[facility] [address] [place] [address] Naveed Boudreaux MD 12/02/2024 [facility] [address] [place] [address] Naveed Boudreaux MD from Last [...] Site/Laterality Comments OTHER SURGICAL HISTORY Right PROCEDURE: CO ARTHRP ACETBLR/PROX FEM PROSTC AGRFT/ALGRFT; COMMENT: x 2 Medical History Medical History Date Comments Anxiety disorder DX:Anxiety diso rder Depression DX:Depression COPD (chronic obstructive pu lmonary disease) ([facility] V24, [facility] V28) DX:COPD (chronic o bstructive pulmonary disease) ([facility]) High blood pressure DX:High bloo [...] AM EDT Office Visit Orthopedic Surgery - [address] [place] [address] Jaquelin Valderrama PA [address] [place] [phone] Health Maintenance Due Date Last Done Comments [...] Procedure Name Priority Date/Time Associated Diagnosis Comments CO ARTHROCENTESIS/ASPI RATION/INJECTION MAJOR JOINT/BURSA W/O U/S GUIDANCE Routine 12/23/2024 11:15 AM EDT Arthritis of knee from Last 3 Months Results * CO ARTHROCENTESIS/ASPIRATION/INJECTION MAJOR JOINT/BURSA W/O U/S GUIDANCE (12/23/2024 [...] Final Result from Last 3 Months Insurance [facility] [employer] Care Teams Art History Professor Relationship Specialty Start Date End Date Bety Bettencourt PA [address] [place] [address] PCP - General Physician Lease Purchase Driver 04/22/24
--- OUTSIDE RECORDS SUMMARY | 2025-02-11 16:05 | XMS_ITS | Encounter Summary ---
Author Organization [facility] Address [address] [place] [address] Phone Care Team Providers Care Blog Writer Name Role Phone Bety Bettencourt Primary Care Provider +1- [phone] Encounter Details Date Type Department Care Team (Late st Contact Info) Description 01/04/2025 Procedure Pass [facility] [address] [place] [address] Social History Tobacco Use Types Packs/Day Years [...] st Contact Info) Description 01/20/2025 Procedure Pass [facility], [facility] [address] [place] [address] 02/18/2025 2:30 AM EDT Home Care Visit [facility] [address] [place] [phone] Vandana Dick RN [address] [place] [address] 02/25/2025 1:00 AM EDT Home Care Visit [facility] [address] [place] [phone] Vandana Dick RN [address] [place] [address] 03/04/2025 1:30 AM EDT Appointment [facility] [address] [place] [phone] Vandana Dick RN [address] [place] [address] 03/07/2025 2:05 PM EDT Appointment [facility], [address] [address] Conrado Dick MD [address] [place] [address], [address] [place] [address] documented as of this encounter Visit Diagnoses Not on filedocumented in this encounter Care Teams Blog Writer Relationship Specialty Start Date End Date Bety Bettencourt PA [address] [place] [address] PCP - General Physician Extrusion Press Supervisor 12/28/24 Bety Bettencourt PA [address] [place], [place] [phone] Primary Care Physician 01/31/24 documented as of this encounter Additional Source Comments The information contained in this document represents components of the legal health record. It is not the complete legal health record.[facility]
== END 2025-02-11 12:21 | disposition home or self-care (01) ==
LOC: HO.HUSH 11:50
PROVIDERS: PCP Physician Assistant; Visit Provider Nurse Practitioner Family
DX: N28.1 Cyst of kidney, acquired (principal); N39.3 Stress incontinence (female) (male); N28.89 Other specified disorders of kidney and ureter; Z13.9 Encounter for screening, unspecified
CPT/HCPCS: 99213

== ENCOUNTER → 2025-02-11 11:49 | Outpatient (BNVA) | payer OTHER, SELFPAY | PROVIDERS: PCP Physician Assistant; Visit Provider Nurse Practitioner Family | DX: N39.3 Stress incontinence (female) (male) (principal); N28.1 Cyst of kidney, acquired; N28.89 Other specified disorders of kidney and ureter | CPT/HCPCS: 81003; 99212 ==

== ENCOUNTER 2025-02-18 13:19 | Outpatient (AMB) | payer OTHER, SELFPAY ==
--- NOTE | 2025-02-18 13:23 | A.OFFVIS_ITS ---
Vital Signs 02/18/25 13:24 Height 5 ft 1 in Weight 187 lb BMI 35.3 BP 140/68 H Blood Pressure Location Lt brachial Position Sitting Pulse 69 Pulse Source Pulse Oximeter Pulse Oximetry (%) 94 Oxygen Delivery Method Room Air Intake Visit Reasons: COPD,O2 dependent, CASSIUS, abnormal findings Allergies No Known Allergies Allergy (Verified 02/18/25 13:30) HPI HPI COPD,O2 dependent, CASISUS, abnormal findings: Details: Tawny is a pleasant 64-year-old female, current minimal smoker with 40 pack year history, with underlying childhood asthma, COPD, HTN, DMII, CASSIUS on CPAP, GERD, CAD and CKDIII. She was referred by PCP for pulmonary evaluation as prior pulmonary provider Dr. Boudreaux no longer takes insurance. She reports moderate control of respiratory symptoms with the use of Breo, continues with occasional dyspnea and wheezing. The patient has been using oxygen for approximately a year following a hospitalization at [facility]. She was discharged with oxygen therapy and has been using 2 liters continuously, including at night. The patient has a history of sleep apnea, for which she previously used a CPAP machine. She was advised to use the CPAP without oxygen, but has had issues with the equipment, including noise and discomfort. The patient has not had a recent sleep study, and there is concern that her current CPAP settings may not be optimal given her oxygen needs and weight loss of 55 pounds over the past year. DME is [employer]. The patient has a history of asthma since childhood, but denies recent respiratory infections such as pneumonia or bronchitis. She reports a history of wheezing, which has improved with the use of inhalers. The patient experienced a heart attack on December 28 of this year and has a history of heart failure. She had a stent placed at [facility] and has since quit smoking, although she admits to occasional lapses. [facility] Medical History (Updated 02/21/25 @ 09:27 by Oralia Kearney NP) CKD (chronic kidney disease) stage 3, GFR 30-59 ml/min Increased urinary frequency Gait instability Smoker Chronic pain of both knees Dyslipidemia HTN (hypertension) Controlled type 2 diabetes mellitus Vitamin A deficiency Vitamin B12 deficiency Urge incontinence of urine Steatosis Severe obesity Prediabetes Palpitations Osteoarthritis of knee Obstructive sleep apnea syndrome Obesity Numbness Microalbuminuria Lumbar pain with radiation down both legs Internal hemorrhoids Hip pain GERD (gastroesophageal reflux disease) Depressive disorder affecting childbirth Chronic obstructive lung disease Cannabis misuse Bilateral cataracts Asthma Arthritis Allergic rhinitis Surgical History History of total hip replacement Social History Housing: Apartment Alcohol intake: former Patient Tobacco Use Status: Former Tobacco user Cigarette Packs Per Day: 6 Years Smoked: 46 e-Cigarette/Vaping Use: Never Used Second Hand Smoke Exposure: No Substance Use Type: Marijuana service: No Current occupational status: disabled Cognitive needs: No Hearing needs: No Vision needs: No Review of Systems Const Denies chills, Denies excessive sweating, Denies fever(s), Denies headache(s) and Denies night sweats Eyes Denies dry eyes, Denies irritation and Denies itchy eyes ENT Reports Normal hearing present, Denies headache(s), Denies nasal congestion, Denies nasal discharge, Denies post nasal drip and Denies sore throat Card Denies chest pain, Denies chest pain at rest, Denies chest pain with activity, Denies claudication, Denies leg edema, Denies orthopnea and Denies paroxysmal nocturnal dyspnea Resp Denies chest congestion, Denies cough, Denies excessive phlegm production, Denies pain on inspiration, Denies pain with cough and Denies stridor Musc Denies myalgias Neuro Reports Normal hearing present and Denies headache(s) Endo Denies excessive sweating Chad/Lymph Denies lymphadenopathy Aller/Immun Denies itchy eyes and Denies seasonal rhinorrhea Physical Exam Vital Signs: Last Vital Signs Pulse 69 02/18/25 13:24 BP 140/68 H 02/18/25 13:24 Pulse Ox 94 02/18/25 13:24 Oxygen Delivery Method Room Air 02/18/25 13:24 BMI result Body Mass Index 35.3 Const General: cooperative, comfortable, no acute distress, well developed, alert and tired appearing Nutritional Appearance: obese Orientation/consciousness: patient oriented x3 Limitations: ambulation with cane and ambulation with walker HEENT Head: Yes normal to inspection, Yes normocephalic and Yes atraumatic Ears: hearing grossly normal bilaterally and external ears normal Eyes General: appearance normal, both eyes and all related structures Eyelids: Yes eyelids normal Sclerae: sclerae normal EOM: EOMs intact bilaterally Neck Neck: Yes normal visual inspection and Yes no lymphadenopathy Lymphatic: no lymphadenopathy noted Chest Chest palpation & inspection: normal inspection of the chest Resp Effort & Inspection: normal respiratory effort, able to speak in complete sentences, no audible wheezes, no cough, no stridor, not tachypneic, no tripod positioning and no use of accessory muscles Cardio Jugular venous distension: no JVD Rate: regular rate Rhythm: regular rhythm Skin Other: warm, dry General skin exam: no rashes or lesions noted Neuro General: patient oriented x3 Cranial nerves: Yes Normal hearing present Cognition (Neuro): normal cognition Extrem General: Yes normal to inspection, Yes capillary refill normal, Yes no clubbing, cyanosis or edema and Yes no pedal edema Psych Appearance: grossly normal and well kempt Speech and movement: Normal speech and movement present and Clear speech present Affect: normal affect Attitude: cooperative Thought process: Normal thought process present Thought content: Normal thought content present Insight: Good insight present (Psych) Judgement: Good judgement present (Psych) Office Procedures 6 Minute Walk Time:: 14:07 SPO2 % at rest: 94 Pulse at rest: 68 SPO2 % during excercise: 93 Pulse during excercise: 74 SPO2 % after excercise: 94 Pulse after excercise: 76 Distance in yards walked: 75 Anup Score: 5 Performance Observations:: Patient walked on flat ground with the assistance of a walker..Gait is slow. Patient was able to complete the walk maintaining O2 saturation of 93-95% with pulse rate in the 70's. Patient says she gets short of breath when walking on an incline or longer distances. Patient did not require the use of supplemental oxygen. [id number] - 6 Minute Walk Results Reviewed Results Reviewed: RESULT: Chest Portable Chest Portable COMPARISON: None. INDICATION / CLINICAL QUESTION: Shortness of breath FINDINGS: LINES AND TUBES: None. LUNGS AND PLEURA: Clear left lung without edema or pneumonia. Multiple linear opacities in the mid to upper lung generally converging laterally at the chest wall above the minor fissure. No major consolidation. No evidence of pleural effusion. No pneumothorax. HEART, MEDIASTINUM AND CEDRICK: Top normal heart size. Normal mediastinal contour. BONES AND SOFT TISSUES: No acute abnormality. IMPRESSION: 1. Clear left lung without evidence of pulmonary edema. 2. Probable extensive scarring of the major upper left lung converging laterally near the chest wall. This would be optimally assessed by comparison with old studies. If the patient has been seen at other facilities, please consider notifying our fileroom personnel who can help retrieve them. WSN: [id number] Ordering Physician: Pushpa Howell Reason For Exam Shortness of Breath Signature Line Dictated By: Edward Mello MD Dictated Date/Time: 12/28/24 11:21 a Reviewed By: Edward Mello MD Signed By: Edward Mello MD Signed Date/Time: 12/28/24 11:21 am Transcribed By: KARUNA Assessment & Plan Assessment & Plan (1) Chronic obstructive lung disease: Code(s): J44.9 - Chronic obstructive pulmonary disease, unspecified Category: Medical Qualifiers: COPD type: COPD with acute exacerbation Qualified Code(s): J44.1 - Chronic obstructive pulmonary disease with (acute) exacerbation (2) Smoker: Code(s): F17.200 - Nicotine dependence, unspecified, uncomplicated Category: Social Hx (3) Daytime somnolence: Code(s): R40.0 - Somnolence Category: Medical (4) Asthma: Code(s): J45.909 - Unspecified asthma, uncomplicated Category: Medical Plan Tawny presents to establish pulmonary care as prior pulmonolgist no longer is contracted with her insurance. Will obtain prior records to see last PSG as well as PFT. At this time, she feels respiratory symptoms are managed well on current reigmen of Breo, encouraged to continue. She is aware to call if symptoms change. A repeat in-lab sleep study is advised to determine the appropriate CPAP settings, considering the patient's weight loss and current oxygen use. Will likely need a baseline study to reestablish CASSIUS and if continues will need in lab titration study to ensure optimal pressures. 6MWT performed today and patient did not require supplemental oxygen, lowest oxygen saturation was 95%, without elevations in HR. Will determine need for nocturnal oxygen with PSG. Prior CXR abnormal revealing probable extensive scarring of the major upper left lung converging laterally near the chest wall. Will send for Chest CT to further evaluate. Smoking cessation reviewed and patient motivated to quit completely. All questions were answered and patient is in agreement of plan. Will follow up in 8-10 weeks or sooner if needed. Orders: Orders AMB 6 minute walk 02/18/25 J44.1 - Chronic obstructive pulmonary disease with (acute) exacerbation CT chest wo IV con Today R93.89 - Abnormal findings on diagnostic imaging of other specified body structures RT PSG in-lab sleep study Today G47.33 - Obstructive sleep apnea (adult) (pediatric), G47.34 - Idiopathic sleep related nonobstructive alveolar hypoventilation, R40.0 - Somnolence Coding Level of Care Code New Pt Level 4 (36943) Diagnoses Chronic obstructive pulmonary disease with acute exacerbation J44.1 COPD type: COPD with acute exacerbation Smoker F17.200 Daytime somnolence R40.0 Asthma J45.909 CPT Codes Coding ([id number])
[2025-02-18 13:24] VITALS: BP 140/68; PULSE 69; O2SAT 94; BMI 35.3
[2025-02-18 14:41] VITALS: PULSE 68; O2SAT 94
--- OUTSIDE RECORDS SUMMARY | 2025-02-18 16:20 | XMS_ITS | Encounter Summary ---
Author Organization [facility] Address [address] [place] [address] [place] [phone] Phone Care Team Providers Care Copywriting Intern Name Role Phone Bety Bettencourt Primary Care Provider [phone]- [phone] Bety Bettencourt Primary Care Provider [phone]- [phone] Bety Bettencourt Primary Care Provider +1- [phone] Kiara Vicente MD Primary Care Provider Bety Bettencourt Primary Care Provider +1- [phone] Encounter Details Date Type Department Care Team (Late st Contact Info) Description 01/29/2024 Procedure Pass [facility], Ct Scan - [address] [address] Social History Tobacco Use Types Packs/Day Years [...] st Contact Info) Description 01/20/2025 Procedure Pass [facility], [facility] [address] [place] [address] 02/19/2025 3:30 AM EDT Home Care Visit [facility] [address] [place] [address] Vandana Dick, RN [address] [place] [address] 02/25/2025 1:00 AM EDT [facility] [address] [place] [phone] Vandana Dick RN [address] [place] [address] 03/04/2025 1:30 AM EDT Appointment [facility] [address] [place] [phone] Vandana Dick RN [address] [place] [address] 03/07/2025 2:05 PM EDT Appointment [address] [address] Conrado Dick MD [address] [place] [address], [address] [place] [address] documented as of this encounter Visit Diagnoses Not on filedocumented in this encounter Additional Health Concerns Infection Onset Date Last Indicated Resolved Time CoV-Risk Comment:Per note documentation 01/28/2024 01/28/2024 12:48 PM EDT documented as of this encounter Care Teams Copywriting Intern Relationship Specialty Start Date End Date Bety Bettencourt PA [address] [place] [address] PCP - General Physician Escalator Constructor 01/28/24 01/29/24 Bety Bettencourt PA [address] [place] [address] PCP - General Physician Escalator Constructor 01/30/24 01/30/24 Bety Bettencourt PA [address] [place] [address] PCP - General Physician Escalator Constructor 01/31/24 01/31/24 Kiara Vicente MD [address] [place] [address] PCP - General 05/29/24 12/27/24 Bety Bettencourt PA [address] [place] [address] PCP - General Physician Escalator Constructor 12/28/24 Bety Bettencourt PA [address] [place] [address] Primary Care Physician 01/31/24 documented as of this encounter Additional Source Comments The information contained in this document represents components of the legal health record. It is not the complete legal health record.[facility]
--- OUTSIDE RECORDS SUMMARY | 2025-02-18 16:20 | XMS_ITS | Encounter Summary ---
Author Organization [facility] Address [address] [address] [place] [address] Phone Care Team Providers Care Quality Auditor Name Role Phone Bety Bettencourt Primary Care Provider +1- [phone] Bety Bettencourt Primary Care Provider +1- [phone] Kiara Vicente MD Primary Care Provider [phone] Bety Bettencourt Primary Care Provider +1- [phone] Encounter Details Date Type Department Care Team (Late st Contact Info) Description 01/30/2024 Procedure Pass [facility], Ct Scan - [address] [address] Social History Tobacco Use Types Packs/Day Years [...] st Contact Info) Description 01/20/2025 Procedure Pass [facility], [facility] [address] [place] [address] 02/19/2025 3:30 AM EDT Home Care Visit [facility] [address] [place] [address] Vandana Dick RN [facility] [place] [address] 02/25/2025 1:00 AM EDT [facility] [address] [place] [phone] Vandana Dick RN [address] [place] [address] 03/04/2025 1:30 AM EDT [facility]ment [facility] [address] [place] [address] Vandana Dick RN [address] [place] [address] 03/07/2025 2:05 PM EDT Appointment [facility], [address] [address] Conrado Dick MD [address] [place] [address], [address] [place] [address] documented as of this encounter Visit Diagnoses Not on filedocumented in this encounter Care Teams Quality Auditor Relationship Specialty Start Date End Date Bety Bettencourt PA [address] [place] [address] PCP - General Physician Elastic Attacher Chainstitch 01/30/24 01/30/24 Bety Bettencourt PA [address] [place] [address] PCP - General Physician Elastic Attacher Chainstitch 01/31/24 01/31/24 Kiara Vicente MD [address] [place] [address] PCP - General 05/29/24 12/27/24 Bety Bettencourt PA [address] [place] [address] PCP - General Physician Elastic Attacher Chainstitch 12/28/24 Bety Bettencourt PA [address] [place] [address] Primary Care Physician 01/31/24 documented as of this encounter Additional Source Comments The information contained in this document represents components of the legal health record. It is not the complete legal health record.[facility]
--- OUTSIDE RECORDS SUMMARY | 2025-02-18 16:20 | XMS_ITS | Clinical Summary ---
Author Organization [facility] Address [address] [facility] [address] [place] [address] Care Team Providers Care Probe Operator Name Role Phone Trixie Alcala MD Primary Care Provider Social History Tobacco Use Types Packs/Day Years [...] patient's age to complete this topic Insurance [facility] [place] [address] Care Teams Probe Operator Relationship Specialty Start Date End Date Trixie Alcala MD [address] [place] [address] PCP - General 07/02/21
--- OUTSIDE RECORDS SUMMARY | 2025-02-18 16:20 | XMS_ITS | Clinical Summary ---
Author Organization [facility] Address [address] [place] [address] Phone Care Team Providers Care Financial Sales Manager Name Role Phone Bety Bettencourt Primary Care Provider Allergies No known active allergies Medications amLODIPine [...] mass 01/30/2024 Acute kidney injury ([facility] V24) 01/29/2024 Acute pulmonary edema ([facility] V24, [facility] V28) 01/29/2024 Acute respiratory failure wi th hypoxia ([facility] V24, [facility] V28) 01/29/2024 Hyperlipidemia 01/29/2024 Impaired glucose tolerance 01/29/2024 Chronic back pain 01/29/2024 Lower extremity edema 01/29/2024 Overview (05/20/2024): LVEF 65% with no diastolic dysfunction on TTE 12/2023 Marijuana abuse 01/29/2024 Primary osteoarthritis of left knee 12/19/2022 Primary osteoarthritis of right knee 12/19/2022 Status post total replacement of right hip 12/19 Ascending aorta dilatation ([facility] V24) 023 Asthma 12/15/2022 Chronic obstructive pulmonar y disease ([facility] V24, [facility] V28) 12/15/2022 Depression 12/15/2022 Dyslipidemia 12/15/2022 GERD with esophagitis 12/15/2022 HTN (hypertension) 12/15/2022 Impaired fasting glucose 12/15/2022 Low back pain 12/15/2022 CASSIUS on CPAP 12/15/2022 Palpitations 12/15/2022 Severe obesity ([facility] V24, [facility] V28) 2022 Steatosis of liver 12/15/2022 Tobacco dependence 12/15/2022 Urge incontinence of urine 12/15/2022 Encounters Date Type Department Care Team Description 12/23/2024 11:15 AM EDT Office Visit Orthopedic Surgery - [place] [facility] [address] [place] [address] Jaquelin Valderrama PA Arthritis of knee (Primary Dx) 12/19/2024 Telephone Pulmonology [facility] [address] [facility] [address] [place] [address] Naveed Boudreaux MD 12/02/2024 Telephone Pulmonology [facility] [address] [facility] [address] [place] [address] Naveed Boudreaux MD from Last [...] (chronic obstructive pu lmonary disease) ([facility] V24, [facility] V28) DX:COPD (chronic [...] AM EDT Office Visit Orthopedic Surgery - [address] [place] [address] Jaquelin Valderrama PA [address] [place] [phone] Health Maintenance Due Date Last Done [...] IN ARTHROCENTESIS/ASPIRATION/INJECTION MAJOR JOINT/BURSA W/O U/S GUIDANCE (12/23/2024 [...] Final Result from Last 3 Months Insurance [facility] [place] [address] Care Teams Financial Sales Manager Relationship Specialty Start Date End Date Bety Bettencourt PA [address] [place] [address] PCP - General Physician Hydrostatic Tubing Tester 04/22/24
--- OUTSIDE RECORDS SUMMARY | 2025-02-18 16:20 | XMS_ITS | Clinical Summary ---
Author Organization [facility] Address [address] [place] [address] Phone Care Team Providers Care Turbine Operator Name Role Phone Bety Bettencourt Primary Care Provider +1- [phone] Allergies No known active allergies Medications VITAMIN [...] 2 (two) times a day. 5 Active morphine (MS CONTIN) 15 MG ER tablet [...] EDT): STEMI last week, was transferred to [facility] for PCI/stent Cont Brinlinta Assessment & Plan (01/03/2025 10:20 AM EDT): STEMI last week, was transferred to [facility] for PCI. Renal mass 01/30/2024 Assessment & [...] P.o. Lasix, obtain recent echo report from [facility] -- EMBRYOLOGY PROFESSOR eval -- Consult to pulmonary (she is followed by Dr. Boudreaux in [place]) -- May need home O2 eval before discharge Acute pulmonary edema 01/29/2024 Assessment & Plan (01/31/2024 11:35 AM EDT): She has a history of lower extremity edema and was referred to [facility] cardiology. She had an echocardiogram in December and was seen by cardiology subsequent to that. Apparently echo at that time was normal. Concern raised in the ED for possible flash pulmonary edema from hypertension. She was recently taken off of metoprolol and placed on HCTZ Leg swelling improved with diuresis. BP now stable. -- Continue p.o. Lasix, low-salt diet Addendum: [facility] records obtained. She had an echo on [...] 02/11/2025 11:30 AM EDT Home Care Visit [facility] [address] [place] [phone] Alyse Dick-Dori Guadalupe, AMAYA SN HOME VISIT 02/04/2025 1:30 PM EDT Home Care Visit [facility] [address] [place] [phone] Julissa Holder RN SN HOME VISIT 01/29/2025 Episode Documentation Update [facility] [address] [place], [place] [phone] Lilia Morgan 01/24/2025 Episode Documentation Update [facility] [address] [place] [phone] Fara Tate 01/24/2025 Home Care Visit [facility] [address] [place] [address] Trixie López CASE COMMUNICATION 01/23/2025 12:00 PM EDT Home Care Visit [facility] [address] [place] [address] Vandana Dick, AMAYA SN HOME VISIT 01/21/2025 2:00 PM EDT Home Care Visit [facility] [address] [place] [phone] Vandana Dick, RN SN HOME VISIT 01/20/2025 Transcribe Orders Virtual Department [address] [place] [phone] Conrado Dick MD Brain tumor (Primary Dx) 01/17/2025 10:00 AM EDT Home Care Visit [facility] [address] [place] [address] Danielle Noyola LPN DIRECTOR EMERGENCY DEPARTMENT HOME VISIT 01/14/2025 10:00 AM EDT Home Care Visit [facility] [address] [place] [address] Kristyn Kunz, RN SN HOME VISIT 01/08/2025 9:00 AM EDT Home Care Visit [facility] [address] [place] [phone] Kristyn Kunz, RN SN OASIS START OF CARE (SOC) 01/08/2025 Plan of Care Documentation [facility] [address] [place] [phone] 01/07/2025 Home Care Visit [facility] [address] [place] [address] Bhumika Esposito RN CASE COMMUNICATION 01/05/2025 Orders Only [facility] [address] [place], [place] [phone] Homehealth, Mark Ugarte MD 01/04/2025 Procedure Pass [facility] [address] [place] [address] 01/03/2025 5:30 AM EDT Ancillary Procedure [facility], Ultrasound - [facility] [address] [place] [address] Daysi Diaz MD 01/03/2025 5:16 AM EDT - 01/05/2025 4:10 PM EDT Hospital Encounter [facility] [address] [place] [address] Daysi Diaz MD Brewer, Allison V, MD Arepally, Sandeep, MD Russo, Margaret A, MD Altman, Evan K, DO, MPH Discharge Disposition: Home-Health Care Svc 12/28/2024 1:14 AM EDT - 12/28/2024 2:46 AM EDT Emergency [facility] [address] [place] [phone] Matias Ortiz MD Discharge Disposition: Short Term [...] Sign Reading Time Taken Comments Blood Pressure 118/68 02/11/2025 1:41 PM EDT Pulse 67 02/11/2025 1:41 PM EDT Temperature 36.2 C (97.1 F) 02/11/2025 1:41 PM EDT Respiratory Rate 18 02/11/2025 1:41 PM EDT Oxygen Saturation 96% 02/11/2025 1:41 PM EDT Inhaled Oxygen Concentration - - Weight 82.1 kg (181 lb) 02/11/2025 1:41 PM EDT Height 157.5 cm (5' 2 ) 01/03/2025 9:22 PM EDT Body Mass Index 33.11 01/03/2025 9:22 PM EDT Plan of Treatment Upcoming Encounters Date Type Department Care Team (Late st Contact Info) Description 01/20/2025 Procedure Pass [address] [address] 02/19/2025 3:30 AM EDT [facility] [address] [place] [address] Vandana Dick RN [address] [place] [address] [email or web address] 02/25/2025 1:00 AM EDT [facility] [address] [place] [address] Vandana Dick RN [address] [place] [phone] 03/04/2025 1:30 AM EDT Appointment [facility] [address] [place] [address] Vandana Dick RN [address] [place] [address] 03/07/2025 2:05 PM EDT Appointment [address] [address] Conrado Dick MD [address] [place] [address], [address] [place] [address] Health Maintenance Due Date Last Done Comments [...] - 2023-2 5 season) 2025 BLOOD PRESSURE 08/11/2025 02/11/2025 SCREENING FOR DIABETES 01/06/2028 , 01/29/2024 HEPATITIS [...] included. SODIUM 141 133 - 146 mmol/L [facility] CHLORIDE 99 96 - 108 mmol/L [facility] POTASSIUM 3.8 3.3 - 5.1 mmol/L [facility] CO2 27 21 - 35 mmol/L [facility] BUN 25(H) 6 - 19 mg/dL [facility] CREATININE 1.10 0.5 - 1.5 mg/dL [facility] GLUCOSE 123(H) 70 - 99 mg/dL [facility] CALCIUM 8.6 8.4 - 10.3 mg/dL [facility] EGFR 56(L) >59 mL/min/1.7 3m2 [facility] Comment:Estimated glomerular filtration rate calculated using the CKD-EPI refit equation. ANION GAP 19 10 - 20 mmol/L [facility] Blood 01/05/2025 6:20 AM EDT 01/05/2025 6:43 AM EDT us Preethi Casanova MD LAB BLOOD ORDERABLES Final R esult Performing Organization Address City/State/[facility] Co de Phone Number [address] [address] * TTE COMPREHENSIVE (01/04/2025 11:39 AM [...] significant changes present compared to echo from [facility] on December 28, 2024 IAS/IVS The interatrial septum appears normal. us Preethi Casanova MD CV ECHO ORDERABLES Final Res ult * (ABNORMAL) Troponin (01/03/2025 7:26 AM EDT) Only the most recent of3 resultswithin the time period is included. Troponin-T, HS Gen5 1,730(H) 0 - 9 ng/L [facility] Blood 01/03/2025 7:26 AM EDT 01/03/2025 7:38 AM EDT us Daysi Diaz MD LAB BLOOD ORDERABLES Final R esult [address] [phone] * XR Chest Portable (01/03/2025 6:10 AM [...] clinician's provided indication for this examination in Epic:Dyspnea (Shortness of Breath) COMPARISON: XR CHEST 1 [...] included. WBC 9.63 4.00 - 11.00 K/uL [facility] RBC 3.59(L) 4.00 - 5.20 M/uL [facility] HGB 10.3(L) 12.0 - 16.0 g/dL [facility] HCT 32.4(L) 36.0 - 46.0 % [facility] PLT 310 150 - 450 K/uL [facility] MCV 90.3 80.0 - 100.0 fL [facility] MCH 28.7 27.0 - 31.0 pg [facility] MCHC 31.8(L) 32.0 - 36.0 g/dL [facility] RDW 14.4 11.5 - 14.5 % [facility] MPV 9.9 8.4 - 12.0 fL [facility] NRBC 0.00 0.00 /100 WBCs [facility] ABSOLUTE NRBC 0.00 0.00 K/uL [facility] DIFF METHOD Auto [facility] NEUTS 71.9 48.0 - 76.0 % [facility] LYMPHS 17.9(L) 18.0 - 41.0 % [facility] MONOS 7.3 4.0 - 11.0 % [facility] EOS 2.3 0.0 - 5.0 % [facility] BASOS 0.1 0.0 - 1.5 % [facility] Granulocytes, immature (%) 0.5 0.0 - 0.9 % [facility] ABSOLUTE NEUTS 6.93 1.92 - 7.60 K/uL [facility] ABSOLUTE LYMPHS 1.72 0.72 - 4.10 K/uL [facility] ABSOLUTE MONOS 0.70 0.16 - 1.10 K/uL [facility] ABSOLUTE EOS 0.22 0.00 - 0.50 K/uL [facility] ABSOLUTE BASOS 0.01 0.00 - 0.15 K/uL [facility] Granulocytes, immature 0.05 0.00 - 0.09 K/uL [facility] Blood 01/03/2025 6:04 AM EDT 01/03/2025 6:15 AM EDT us Daysi Diaz MD LAB BLOOD ORDERABLES Final R esult Performing Organization Address City/[facility]/ZIP Co de Phone Number [address] [address] * (ABNORMAL) NT-proBNP (01/03/2025 6:04 AM EDT) Only the most recent of2 resultswithin the time period is included. NT-PROBNP 11,402(H) 0 - 125 pg/mL [facility] Blood 01/03/2025 6:04 AM EDT 01/03/2025 6:15 AM EDT us Daysi Diaz MD LAB BLOOD ORDERABLES Final R esult [address] [address] * Magnesium (01/03/2025 6:04 AM EDT) Only the most recent of2 resultswithin the time period is included. MAGNESIUM 1.6 1.6 - 2.6 mg/dL [facility] Blood 01/03/2025 6:04 AM EDT 01/03/2025 6:15 AM EDT us Daysi Diaz MD LAB BLOOD ORDERABLES Final R esult [address] [address] * US BEDSIDE (01/03/2025 5:26 AM EDT) [...] positive Images: Images Saved: Yes Accession Number: [id number] us Daysi Diaz MD IMG POINT OF CARE EXAMS Ana Paula l Result * ECG 12-LEAD (01/03/2025 5:21 AM EDT) Only the most recent of3 resultswithin the time period is included. Ventricular Rate EKG/MIN 76 BPM [facility] Atrial Rate 76 BPM [facility] DE Interval 186 ms [facility] QRS Duration 102 ms [facility] QT Interval 402 ms [facility] QTC Interval 452 ms [facility] P [place] 45 degrees [facility] R Wave [place] 52 degrees [facility] T Wave [place] 35 degrees [facility] 01/03/2025 5:21 AM EDT [...] clinician's provided indication for this examination in [facility]: Pain; chest pain COMPARISON: CT CHEST WITHOUT CONTRAST FINDINGS: Devices/Tubes/Lines: None. Lungs: Pulmonary vascular congestion with mild interstitial prominence. Pleura: No pleural effusion or pneumothorax. Heart/Mediastinum: Normal heart size. Atherosclerotic aortic knob. Bones/Soft Tissues: No acute osseous abnormality. Procedure Note Stef Weldon DO - 12/28/2024 XR CHEST 1 VIEW Referring clinician's provided indication for this examination in [facility]:Pain; chest pain COMPARISON: CT CHEST WITHOUT CONTRAST [...] ALKALINE PHOSPHATASE 107 39 - 117 U/L [facility] TOTAL BILIRUBIN <0.2 0.0 - 1.2 mg/dL [facility] DIRECT BILIRUBIN <0.1 0.0 - 0.2 mg/dL [facility] Bilirubin (Indirect) NOT CALCULATED 0 - 1.5 mg/dL [facility] AST 10 0 - 37 U/L [facility] ALT 8 0 - 40 U/L [facility] TOTAL PROTEIN 6.8 6.5 - 8.0 g/dL [facility] ALBUMIN 3.7(L) 3.9 - 4.8 g/dL [facility] GLOBULIN 3.1 1 - 4.8 g/dL [facility] A/G Ratio 1.19 1.00 - 4.80 RATIO [facility] Blood 12/28/2024 2:00 AM EDT 12/28/2024 2:11 AM EDT us Matias Ortiz MD LAB BLOOD ORDERABLES Ana Paula martinez Result Performing Organization Address City/State/[facility] Co de Phone Number [facility] [address] [place] [address] from Last 3 Months Insurance [facility] Advance Directives For more information, please contact: [phone] (9AM - 5PM [facility], Monday-Monday) Documents on File Type Date Recorded Patient Sex Therapist Expl anation Healthcare Proxy 02/01/2024 3:15 PM [...] Agent (Proxy form on file) Care Teams Turbine Operator Relationship Specialty Start Date End Date Bety Bettencourt PA [address] [place] [address] [phone] PCP - General Physician Meeting/Event Planner 12/28/24 Bety Bettencourt PA [address] [place] [address] Primary Care Physician 01/31/24 Additional Source Comments The information contained in this document represents components of the legal health record. It is not the complete legal health record.[facility]
--- OUTSIDE RECORDS SUMMARY | 2025-02-18 16:20 | XMS_ITS | Encounter Summary ---
Author Organization [facility] Address [address] [place] [address] [place] [address] Phone Care Team Providers Care Color Card Maker Name Role Phone Bety Bettencourt Primary Care Provider +1- [phone] Reason for Referral * MRI/CAT Scan - Authorized Specialty Diagnoses / Procedures Referred By Gatito siddiqi Referred To Contact Radiology Diagnoses Brain tumor Procedures MRI Brain CHG MRI BRAIN COMBO Conrado Dick MD [address] [place] [address], [address] [place] [address] Phone: tel: fax: mailto:[email or web address] Referral ID Status Reason Start Date Expiration Date V isits Requested Visits Authorized [id number] Authorized 01/20/2025 03/21/2025 1 1 Encounter Details Date Type Department Care Team (Latest Contact Info) Description 01/20/2025 Transcribe Orders Virtual Department [address] [place] [address] Conrado Dick MD [address] [place] [address], [address] [place], [place] [phone] [email or web address] Brain tumor (Primary Dx) Social History [...] st Contact Info) Description 01/20/2025 Procedure Pass [address] [address] 02/19/2025 3:30 AM EDT [facility] [address] [place] [address] Vandana Dick RN [address] [place] [address] 02/25/2025 1:00 AM EDT [facility] [address] [place] [address] Vandana Dick RN [address] [place] [address] 03/04/2025 1:30 AM EDT [facility]ment [facility] [address] [place] [address] Vandana Dick RN [address] [place] [address] 03/07/2025 2:05 PM EDT Appointment [address] [address] Conrado Dick MD [address] [place] [address], [address] [place] [address] Scheduled Orders Name Type Priority Associated Diagnoses Orde r Schedule MRI Brain Imaging Routine Brain tumor Expected: 01/20/2025, Expires: 01/20/2026 documented as of this encounter Visit Diagnoses Diagnosis Brain tumor- Primary Neoplasm of unspecified nature of brain documented in this encounter Care Teams Color Card Maker Relationship Specialty Start Date End Date Bety Bettencourt PA [address] [place], [place] [phone] PCP - General Physician Engineering Test Mechanic 12/28/24 Bety Bettencourt PA [address] [place], [place] [phone] Primary Care Physician 01/31/24 documented as of this encounter Additional Source Comments The information contained in this document represents components of the legal health record. It is not the complete legal health record.[facility]
--- OUTSIDE RECORDS SUMMARY | 2025-02-18 16:20 | XMS_ITS | Encounter Summary ---
Author Organization [facility] Address [address] [facility] [address] [place] [address] Phone Care Team Providers Care Soccer Player Name Role Phone Bety Bettencourt Primary Care Provider +1- [phone] Encounter Details Date Type Department Care Team (Late st Contact Info) Description 01/04/2025 Procedure Pass [facility] [address] [place] [address] Social History Tobacco Use Types Packs/Day Years [...] st Contact Info) Description 01/20/2025 Procedure Pass [facility] [address] [place] [address] 02/19/2025 3:30 AM EDT Home Care Visit [facility] [address] [place] [phone] Vandana Dick RN [address] [place] [address] 02/25/2025 1:00 AM EDT [facility] Visit [facility] [address] [place] [phone] Vandana Dick RN [address] [place] [address] 03/04/2025 1:30 AM EDT Appointment [facility] [address] [place] [phone] Vandana Dick RN [address] [place] [address] 03/07/2025 2:05 PM EDT Appointment [facility], [address] [address] Conrado Dick MD [address] [place] [address], [address] [place] [address] documented as of this encounter Visit Diagnoses Not on filedocumented in this encounter Care Teams Soccer Player Relationship Specialty Start Date End Date Bety Bettencourt PA [address] [place] [address] PCP - General Physician Small Battery Plate Assembler 12/28/24 Bety Bettencourt PA [address] [place], [place] [phone] Primary Care Physician 01/31/24 documented as of this encounter Additional Source Comments The information contained in this document represents components of the legal health record. It is not the complete legal health record.[facility]
== END 2025-02-18 14:28 | disposition home or self-care (01) ==
LOC: HO.HPSW 13:19
PROVIDERS: PCP Physician Assistant; Referring Provider Physician Assistant; Visit Provider Nurse Practitioner Family
DX: J44.1 Chronic obstructive pulmonary disease with (acute) exacerbation (principal); F17.200 Nicotine dependence, unspecified, uncomplicated; R40.0 Somnolence; J45.909 Unspecified asthma, uncomplicated
CPT/HCPCS: 99204

== ENCOUNTER → 2025-02-18 13:19 | Outpatient (BNVA) | payer OTHER, SELFPAY | PROVIDERS: PCP Physician Assistant; Referring Provider Physician Assistant; Visit Provider Nurse Practitioner Family | DX: J44.1 Chronic obstructive pulmonary disease with (acute) exacerbation (principal); J45.909 Unspecified asthma, uncomplicated; F17.210 Nicotine dependence, cigarettes, uncomplicated; R40.0 Somnolence | CPT/HCPCS: 99202 ==

== ENCOUNTER → 2025-03-06 23:59 | Outpatient (BNV) | payer OTHER, SELFPAY | PROVIDERS: PCP Physician Assistant; Visit Provider Physician Assistant | DX: I50.9 Heart failure, unspecified (principal); K76.0 Fatty (change of) liver, not elsewhere classified | CPT/HCPCS: G0180 ==

== ENCOUNTER 2025-05-23 11:33 | Outpatient (REF) | payer OTHER, SELFPAY ==
--- NOTE | ~2025-05-23 | CT_ITS ---
EXAMINATION: CT CHEST WITHOUT IV CONTRAST INDICATION: R93.89 - Abnormal findings on diagnostic imaging of other specified body... COMPARISON: There are no prior studies available for comparison. TECHNIQUE: Helical CT scan of the chest was performed without intravenous contrast. Coronal and sagittal reformatted images were generated and reviewed. This CT exam was performed with one or more of the following dose reduction techniques: automated exposure control, adjustment of the mA and/or kV according to patient size, use of iterative reconstruction technique. DLP: 529 mGy-cm CHEST: THYROID: The thyroid is unremarkable. LUNGS: There is a 4-5 mm nodule in the right upper lobe (series 4, image 65). Smaller nodules are also noted in the right upper lobe (series 4, image 66 and 67). There is a cluster of nodules in the right lower lobe measuring up to 5 mm (series 4, images 73-77). There is a 6 mm nodule in the right lower lobe (series 4, image 78). There is scarring in the right lower lobe. There is a calcified granuloma in the right middle lobe (series 4, image 116). There is a calcified granuloma at the left lung apex (series 4, image 50). MEDIASTINUM: There is no mediastinal lymphadenopathy. CEDRICK: Evaluation of the hilar regions is limited by lack of intravenous contrast material. CARDIOVASCULATURE: The heart is normal in size. There is no pericardial effusion. The thoracic aorta is normal in caliber. DEGREE OF CORONARY CALCIFICATION: severe PLEURA: There is right posterior pleural thickening. There is no pleural effusion. No pneumothorax. MAIN AIRWAYS: The mainstem bronchi and proximal branches are patent. AXILLA: There is no axillary lymphadenopathy. BONES AND SOFT TISSUES: There is degenerative disc disease of the spine. UPPER ABDOMEN: The visualized portions of the liver, spleen, and adrenals have an unremarkable unenhanced appearance. There is a 1.3 cm hyperdense focus at the upper pole of the left kidney previously shown to represent a cyst on ultrasound 12/20/2024. CT/CT chest wo IV con IMPRESSION: Multiple right-sided pulmonary nodules as described including a cluster of nodules in the right lower lobe measuring up to 5 mm. If there are prior outside studies, comparison is recommended. Please see Fleischner Society guidelines for follow-up of pulmonary nodules below. Fleischner Criteria for pulmonary nodule follow-up SOLID NODULES: Low risk patient: <6mm: no follow-up 6-8mm: 6 month follow-up CT >8mm: PET/Biopsy/ 3 month follow-up CT High risk patient: <6mm: 12 month follow-up CT 6-8mm: 6 month follow-up CT >8mm: PET/Biopsy/ 3 month follow-up CT SUB-SOLID/GROUNDGLASS NODULES: All patients: > or = 6mm: 6 month follow-up CT *Please note that in patients in the following categories, the Fleischner criteria do not apply: Immunocompromised, lung cancer screening population, age below 35, and patients with known malignancy Electronically signed by: Jesus Cotto MD 05/23/2025 01:[address] [facility]
--- OUTSIDE RECORDS SUMMARY | 2025-05-23 11:36 | XMS_ITS | Clinical Summary ---
Author Organization [facility] Address [address] [place] [address] Phone Care Team Providers Care Upper Caser Name Role Phone Bety Bettencourt Primary Care Provider [phone] Allergies No known active allergies Medications [...] time each day. 1 each 11 5 Active Active Problems Problem Noted Date Diagnosed [...] Encounters Date Type Department Care Team Description 04/10/2025 Telephone Orthopedic Surgery [facility] [address] [facility] [address] [place] [address] Jaquelin Valderrama PA 03/27/2025 2:30 PM EDT Office Visit Orthopedic Surgery [facility] [address] [facility] [address] [place] [address] Jaquelin Valderrama PA Arthritis of knee (Primary Dx) from Last 3 Months Immunizations Immunization Administration Dates Next Due Influenza Quadravalent, leonid mbinant, 0.5ml, preservative free (Flublok) 18yo and older 03/19/2020 Influenza trivalent, with pr eservative (Fluzone; Afluria) 6mo and older 05/31/2022 Pneumococcal polysaccharide 23 valent (Pneumovax 23) 2yo and older 02/24/2010 Tdap Tetanus diptheria acell ular pertussis (Boostrix; Adacel) 7yo and older 03/25/2020 Surgical History Surgery Date Site/Laterality Comments OTHER SURGICAL HISTORY Right PROCEDURE: WI ARTHRP ACETBLR/PROX FEM PROSTC AGRFT/ALGRFT; COMMENT: x 2 Medical History Medical History Date Comments Anxiety disorder DX:Anxiety diso rder Depression DX:Depression COPD (chronic obstructive pu lmonary disease) ([facility] V24, [facility] V28) DX:COPD (chronic o bstructive pulmonary disease) ([facility]) High blood pressure DX:High bloo d pressure [...] on file Sexual Orientation Not on file Last Filed Vital Signs Vital Sign Reading [...] Care Team (Late st Contact Info) Description 07/25/2025 1:00 PM EST Office Visit Orthopedic Surgery - [place] [address] [facility] [address] [place] [address] Jaquelin Valderrama PA [address] [facility] [address] [place] [phone] Health Maintenance Due Date Last Done Comments Breast Cancer Screening 1961 Colorectal Cancer Screening: Colonoscopy 1961 Hepatitis A Vaccines (1 of 2 - Risk 2-dose series) 1980 Cervical Cancer Screening: P ap Smear 1982 Pneumococcal Vaccine: 50+ Years (2 of 2 - PCV) 02/24/2011 02/24/2010 RSV Immunization Adult Patients (1 - Risk 50-74 years 1-dose series) 11/20/2011 Zoster Vaccines (1 of 2) 11/20/2011 Cholesterol Screening (Lipid Panel) 05/01/2022 HIV Screening 05/01/2022 Hepatitis C Screening [...] Procedure Name Priority Date/Time Associated Diagnosis Comments WI ARTHROCENTESIS/ASPI RATION/INJECTION MAJOR JOINT/BURSA W/O U/S GUIDANCE Routine 03/27/2025 2:30 PM EDT Arthritis of knee from Last 3 Months Results * WI ARTHROCENTESIS/ASPIRATION/INJECTION MAJOR JOINT/BURSA W/O U/S GUIDANCE (03/27/2025 2:30 PM EDT) Narrative Jaquelin Valderrama PA - 03/27/2025 2:30 PM EDT AYDEE Potter 03/27/2025 3:07 PM L Inj/Asp: bilateral knee Indications: pain Details: 22 G needle, lateral approach Medications (Right): 3 mL lidocaine 1 [...] Final Result from Last 3 Months Insurance [facility] Care Teams Upper Caser Relationship Specialty Start Date End Date Bety Bettencourt PA [address] [place] [address] PCP - General Physician Composing Machine Operator/Tender 04/22/24
--- OUTSIDE RECORDS SUMMARY | 2025-05-23 11:36 | XMS_ITS | Encounter Summary ---
Author Organization [facility] Address [address] [facility] [address] [place] [address] Phone Care Team Providers Care Rubber Press Tender Name Role Phone Bety Bettencourt Primary Care Provider +1- [phone] Encounter Details Date Type Department Care Team (Late st Contact Info) Description 01/04/2025 Procedure Pass [facility] [address] [place] [address] Social History Tobacco Use Types Packs/Day Years [...] on filedocumented in this encounter Care Teams Rubber Press Tender Relationship Specialty Start Date End Date Bety Bettencourt PA [address] [place] [address] PCP - General Physician Bilingual Instructor 12/28/24 Bety Bettencourt PA [address] [place] [address] Primary Care Physician 01/31/24 documented as of this encounter Additional Source Comments The information contained in this document represents components of the legal health record. It is not the complete legal health record.[facility]
--- OUTSIDE RECORDS SUMMARY | 2025-05-23 11:36 | XMS_ITS | Encounter Summary ---
Author Organization [facility] Address [address] [facility] [address] [facility] [address] [place] [address] Phone Care Team Providers Care Ink Maker Name Role Phone Bety Bettencourt Primary Care Provider +1- [phone] Bety Bettencourt Primary Care Provider +1- [phone] Kiara Vicente MD Primary Care Provider Bety Bettencourt Primary Care Provider [phone]- [phone] Encounter Details Date Type Department Care Team (Late st Contact Info) Description 01/30/2024 Procedure Pass [facility], Ct Scan - [address] [address] Social History Tobacco Use Types Packs/Day Years [...] on filedocumented in this encounter Care Teams Ink Maker Relationship Specialty Start Date End Date Bety Bettencourt PA [address] [place] [address] PCP - General Physician Table Worker 01/30/24 01/30/24 Bety Bettencourt PA [address] [place] [address] PCP - General Physician Table Worker 01/31/24 01/31/24 Kiara Vicente MD [address] [place] [address] PCP - General 05/29/24 12/27/24 Bety Bettencourt PA [address] [place] [address] PCP - General Physician Table Worker 12/28/24 Bety Bettencourt PA [address] [place] [address] Primary Care Physician 01/31/24 documented as of this encounter Additional Source Comments The information contained in this document represents components of the legal health record. It is not the complete legal health record.[facility]
--- OUTSIDE RECORDS SUMMARY | 2025-05-23 11:36 | XMS_ITS | Clinical Summary ---
Author Organization [facility] Address [address] [facility] [address] [place] [address] Care Team Providers Care Income Tax Manager Name Role Phone Trixie Alcala MD Primary Care Provider [phone] Social History Tobacco Use Types Packs/Day Years [...] 10/18/2016 1:00 PM EDT Plan of Treatment Not on file Insurance [facility] Care Teams Income Tax Manager Relationship Specialty Start Date End Date Trixie Alcala MD [address] [place] [address] PCP - General 07/02/21
--- OUTSIDE RECORDS SUMMARY | 2025-05-23 11:36 | XMS_ITS | Encounter Summary ---
Author Organization [facility] Address [address] [facility] [address] [place] [address] Phone Care Team Providers Care Senior Vice President And Chief Information Officer Name Role Phone Bety Bettencourt Primary Care Provider [phone]- [phone] Encounter Details Date Type Department Care Team (Late st Contact Info) Description 01/20/2025 Procedure Pass [facility], [facility] [address] [place] [address] Social History Tobacco Use Types Packs/Day Years [...] enough money to get more. Never True 08/08/202 5 Residential Stability Answer Date Recor ded What [...] filedocumented in this encounter Care Teams Senior Vice President And Chief Information Officer Relationship Specialty Start Date End Date Bety Bettencourt PA [address] [place], [place] [phone] PCP - General Physician Presser All Around 12/28/24 Bety Bettencourt PA [address] [place] [address] Primary Care Physician 01/31/24 documented as of this encounter Additional Source Comments The information contained in this document represents components of the legal health record. It is not the complete legal health record.[facility]
--- OUTSIDE RECORDS SUMMARY | 2025-05-23 11:36 | XMS_ITS | Encounter Summary ---
Author Organization [facility] Address [address] [place] [address] [address] [place] [address] Phone Care Team Providers Care Police Radio Dispatcher Name Role Phone Bety Bettencourt Primary Care Provider [phone] Bety Bettencourt Primary Care Provider [phone] Bety Bettencourt Primary Care Provider [phone]- [phone] Kiara Vicente MD Primary Care Provider Bety Bettencourt Primary Care Provider [phone]- [phone] Encounter Details Date Type Department Care Team (Late st Contact Info) Description 01/29/2024 Procedure Pass [facility], Ct Scan - [address] [address] Social History Tobacco Use Types Packs/Day Years [...] documented as of this encounter Care Teams Police Radio Dispatcher Relationship Specialty Start Date End Date Bety Bettencourt PA [address] [place] [address] PCP - General Physician Rn Military 01/28/24 01/29/24 Bety Bettencourt PA [address] [place] [address] PCP - General Physician Rn Military 01/30/24 01/30/24 Bety Bettencourt PA [address] [place] [address] PCP - General Physician Rn Military 01/31/24 01/31/24 Kiara Vicente MD [address] [place] [address] PCP - General 05/29/24 12/27/24 Bety Bettencourt PA [address] [place] [address] PCP - General Physician Rn Military 12/28/24 Bety Bettencourt PA [address] [place] [address] Primary Care Physician 01/31/24 documented as of this encounter Additional Source Comments The information contained in this document represents components of the legal health record. It is not the complete legal health record.[facility]
--- OUTSIDE RECORDS SUMMARY | 2025-05-23 11:37 | XMS_ITS | Clinical Summary ---
Author Organization [facility] Address [address] [place] [address] Phone Care Team Providers Care Speaker Wirer Name Role Phone Bety Bettencourt Primary Care Provider [phone]- [phone] Allergies No known active allergies Medications VITAMIN [...] (two) times a day with meals. Active sacubitriL-vals kingston (ENTRESTO) 24-26 mg per tablet Take 1 [...] in the morning and 300mg at night Active OXYGEN-AIR DELIVERY SYSTEMS MISC 2 L/min by Nasal route continuous. 5 Active cholecalciferol (VITAMIN D3) 2,000 unit tablet Take 1,000 Units by mouth daily. Active furosemide (LASIX) 20 MG tablet Take 20 mg by mouth 2 (two) times a day. 5 Active Active Problems Problem Noted Date [...] EDT): STEMI last week, was transferred to [facility] for PCI/stent Cont Brinlinta Assessment & Plan (01/03/2025 10:20 AM EDT): STEMI last week, was transferred to [facility] for PCI. Renal mass 01/30/2024 Assessment [...] P.o. Lasix, obtain recent echo report from [facility] -- EXTRUSION FORMER eval -- Consult to pulmonary (she is followed by Dr. Boudreaux in [place]) -- May need home O2 eval before discharge Acute pulmonary edema 01/29/2024 Assessment & Plan (01/31/2024 11:35 AM EDT): She has a history of lower extremity edema and was referred to [facility] cardiology. She had an echocardiogram in December and was seen by cardiology subsequent to that. Apparently echo at that time was normal. Concern raised in the ED for possible flash pulmonary edema from hypertension. She was recently taken off of metoprolol and placed on HCTZ Leg swelling improved with diuresis. BP now stable. -- Continue p.o. Lasix, low-salt diet Addendum: [facility] records obtained. She had an echo [...] Encounters Date Type Department Care Team Description 03/07/2025 4:30 PM EDT Home Care Visit [facility] [address] [place] [phone] Vandana Dick RN SN OASIS DISCHARGE VISIT 03/07/2025 1:37 PM EDT - 03/07/2025 11:59 PM EDT Hospital Encounter [facility], [facility] - [address] [address] Conrado Dick MD Discharge Disposition: Home or Self Care 03/07/2025 Ancillary Orders [facility],Outside Imaging [address] [place] [address] Unknown, Unknown, 03/07/2025 Ancillary Orders [facility],Outside Imaging [address] [place] [address] Unknown, MD Mariah 03/07/2025 Ancillary Orders [facility],Outside Imaging [address] [place] [address] Unknown, UnknownMD 02/25/2025 1:00 PM EDT Home Care Visit [facility] [address] [place] [id number] Vandana Dick RN SN HOME VISIT 01/20/2025 Procedure Pass [facility], [facility] - [facility] [address] [place] [address] from Last 3 Months Social History Tobacco Use Types Packs/Day Years Used Date Smoking Tobacco: Former Cigarettes Q uit: 12/28/2024 Smokeless Tobacco: Never Tobacco Cessation:Counseling Given: Not Answered Alcohol Use Standard Drinks/Week Comments Not Currently 0 (1 standard drink = 0.6 oz pur e alcohol) Home Health Assessment: Transportation Answer Date Recorded Lack of Transportation (Medical) No 03/07/2025 Lack of Transportation (Non-Medical) No 03/07/2025 Patient Unable or Declines to Respond No 03/07/2025 Education Answer Date Recorded Are you interested [...] Sign Reading Time Taken Comments Blood Pressure 140/70 03/07/2025 5:12 PM EDT Pulse 66 03/07/2025 5:12 PM EDT Temperature 36.2 C (97.2 F) 03/07/2025 5:12 PM EDT Respiratory Rate 18 03/07/2025 5:12 PM EDT Oxygen Saturation 99% 03/07/2025 5:12 PM EDT Inhaled Oxygen Concentration - - Weight 86.2 kg (190 lb) 03/01/2025 3:16 PM EDT Height 157.5 cm (5' 2 ) 03/01/2025 3:16 PM EDT Body Mass Index 34.75 03/01/2025 3:16 PM EDT Plan of Treatment Health Maintenance [...] FOBT 2006 SIGMOIDOSCOPY 2006 VIRTUAL COLONOSCOPY 2006 RSV VACCINE (1 - Risk 50-74 years 1-dose series) 11/20/2011 ZOSTER VACCINES (1 of 2) 11/20/2011 INFLUENZA VACCINE (#1) 2024 COVID-19 VACCINE (2024-2 6 season) 2025 BLOOD PRESSURE 09/05/2025 03/07/2025 SCREENING FOR DIABETES 01/06/2028 , 01/29/2024 HEPATITIS [...] Procedure Name Priority Date/Time Associated Diagnosis Comments MRI BRAIN WITH AND WITHOUT CONTRAST Routine 03/07/2025 2:48 PM EDT Brain tumor from Last 3 Months Results * MRI BRAIN WITH AND WITHOUT CONTRAST (03/07/2025 2:48 PM EDT) Anatomical Region Laterality Modality Head Magnetic Resonan ce 03/11/2025 9:45 AM EDT Impressions 03/11/2025 9:57 AM EDT 1. No acute intracranial infarction, hemorrhage or mass-effect. 2. Mild areas of T2 hyperintensities in the white matter, nonspecific, likely chronic small vessel disease. Narrative 03/11/2025 9:57 AM EDT MRI BRAIN WITH AND WITHOUT CONTRAST Referring clinician's provided indication for this examination in [facility]: Outside Radiology Order; brain tumor TECHNIQUE: MRI BRAIN WITH AND WITHOUT CONTRAST Multi-sequence, multi-planar MRI of the brain was performed before and after intravenous contrast. COMPARISON: MRI BRAIN OUTSIDE (NO INTERPRETATION) FINDINGS: Brain Parenchyma: No evidence of acute infarct, mass, hemorrhage or abnormal enhancement. There are scattered foci of T2 hyperintensity in the white matter, likely a manifestation of chronic small vessel disease. Focal area of T2 signal hyperintensities in the subcortical/critical white matter of the LEFT frontal lobe, likely sequela of prior remote lacunar ischemia, similar to prior. Ventricular System and Extra-Axial Spaces: The ventricles and cortical sulci are prominent, as commonly seen in patients of this age. No evidence of midline shift or hydrocephalus. Extracranial Structures: Expected arterial flow signal is observed at the skull base. Status post bilateral cataract surgery. Procedure Note Matthew Najera MD, PhD - 03/11/2025 MRI BRAIN WITH AND WITHOUT CONTRAST Referring clinician's provided indication for this examination in [facility]:Outside Radiology Order; brain tumor TECHNIQUE: MRI BRAIN WITH AND WITHOUT CONTRAST Multi-sequence, multi-planar MRI of the brain was performed before andafter intravenous contrast. COMPARISON: MRI BRAIN OUTSIDE (NO INTERPRETATION) FINDINGS: Brain Parenchyma: No evidence of acute infarct, mass, hemorrhage orabnormal enhancement. There are scattered foci of T2 hyperintensity in thewhite matter, likely a manifestation of chronic small vessel disease.Focal area of T2 signal hyperintensities in the subcortical/critical whitematter of the LEFT frontal lobe, likely sequela of prior remote lacunarischemia, similar to prior. Ventricular System and Extra-Axial Spaces: The ventricles and corticalsulci are prominent, as commonly seen in patients of this age. No evidenceof midline shift or hydrocephalus. Extracranial Structures: Expected arterial flow signal is observed at theskull base. Status post bilateral cataract surgery. IMPRESSION: 1. No acute intracranial infarction, hemorrhage or mass-effect. 2. Mild areas of T2 hyperintensities in the white matter, nonspecific,likely chronic small vessel disease. 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 It is not the complete legal health record.[facility]
--- OUTSIDE RECORDS SUMMARY | 2025-05-23 11:37 | XMS_ITS | Encounter Summary ---
Author Organization [facility] Address [address] [place] [address] Phone Care Team Providers Care Pathology Supervisor Name Role Phone Bety Bettencourt Primary Care Provider +1- [phone] Reason for Referral * MRI/CAT Scan - Closed Specialty Diagnoses / Procedures Referred By Gatito siddiqi Referred To Contact Radiology Diagnoses Brain tumor Procedures MRI Brain CHG MRI BRAIN COMBO Conrado Dick MD [address] [place] [address], [address] [place] [address] Phone: tel: fax: [email or web address] Referral ID Status Reason Start Date Expiration Date Visits Re quested Visits Authorized [id number] Closed 01/20/2025 03/21/2025 1 1 Encounter Details Date Type Department Care Team (Latest Contact Info) Description 01/20/2025 Transcribe Orders Virtual Department [address] [place] [address] Conrado Dick MD [address] [place] [address], [address] [place], [place] [phone] [email or web address] Brain tumor (Primary Dx) Social History [...] on file documented as of this encounter Results * MRI BRAIN WITH AND WITHOUT [...] clinician's provided indication for this examination in [facility]: Outside Radiology Order; brain tumor TECHNIQUE: MRI [...] clinician's provided indication for this examination in Epic:Outside Radiology Order; brain tumor TECHNIQUE: MRI BRAIN [...] white matter, nonspecific,likely chronic small vessel disease. Cnorado Dick MD IMG MR HEAD/NECK Final Resul t documented in this encounter Visit Diagnoses Diagnosis Brain tumor- Primary Neoplasm of unspecified nature of brain Brain tumor Neoplasm of unspecified nature of brain documented in this encounter Care Teams Pathology Supervisor Relationship Specialty Start Date End Date Bety Bettencourt PA [address] [place] [address] PCP - General Physician Landscape Crew Member 12/28/24 Bety Bettencourt PA [address] [place] [address] Primary Care Physician 01/31/24 documented as of this encounter Additional Source Comments The information contained in this document represents components of the legal health record. It is not the complete legal health record.[facility]
== END 2025-05-23 11:34 | disposition home or self-care (01) ==
LOC: HO.CT 11:33
PROVIDERS: PCP Physician Assistant; Visit Provider Nurse Practitioner Family
DX: R93.89 Abnormal findings on diagnostic imaging of other specified body structures (principal)
CPT/HCPCS: 71250

== ENCOUNTER → 2025-05-23 11:36 | Outpatient (BNV) | payer OTHER, SELFPAY | PROVIDERS: PCP Physician Assistant; Visit Provider Radiology Diagnostic Radiology | DX: R91.8 Other nonspecific abnormal finding of lung field (principal) | CPT/HCPCS: 71250 ==